=== PATIENT | female | born 1935 | race Caucasian/White ===

== ENCOUNTER 2016-09-05 09:13 | Inpatient (IN) | payer MEDICARE, BC ==
[2016-09-05 08:31] LABS: Glucose,Whole Blood 140 mg/dL (75-99)
[2016-09-05] MEDS: IPRATROPIUM-ALBUTEROL 3 ML NEB INHALATION SCH ×4 (08:45→21:10)
[~2016-09-05 09:13] MED LIST: ASPIRIN 325 MG TAB ONE; SODIUM CHLORIDE 0.9% 1,000 ML IV ONE
[2016-09-05] MEDS ORDERED: METOPROLOL TARTRATE 5 MG/5 ML VIAL IVP ONE (09:21)
[2016-09-05] MEDS ORDERED: ALPRAZolam 0.25 MG TAB ONE (09:22)
[2016-09-05] MEDS: NITROGLYCERIN SL TABS 0.4 MG TAB SUBLINGUAL ONE ×2 (09:22→11:31)
[2016-09-05] MEDS ORDERED: MIDAZOLAM 2 MG/2 ML VIAL IV ONE (10:20)
[2016-09-05] MEDS ORDERED: LIDOCAINE 2% INJ 20 MG/ML SQ ONE (10:24)
[2016-09-05] MEDS ORDERED: NITROGLYCERIN SL TABS 0.4 MG TAB SUBLINGUAL ONE (10:31)
[2016-09-05] MEDS: METOPROLOL TARTRATE 5 MG/5 ML VIAL IVP ONE ×2 (10:38→11:31)
[2016-09-05] MEDS ORDERED: BIVALIRUDIN 250 MG in SODIUM CHLORIDE 0.9% 50 ML IV ONE (10:44)
[2016-09-05] MEDS ORDERED: BIVALIRUDIN BOLUS 250 MG/50 ML IV ONE (10:44)
[2016-09-05] MEDS ORDERED: NITROGLYCERIN 1000MCG/10ML SYRINGE INTRACORON ONE (11:07)
[2016-09-05] MEDS ORDERED: CLOPIDOGREL 75 MG TAB PO ONE (11:10)
[2016-09-05] MEDS ORDERED: HYDROmorphone 2 MG/ML 1 ML SYRINGE IV ONE (11:14)
[2016-09-05] MEDS ORDERED: IODIXANOL 320 MG/ML 100 ML INTRAARTER ONE (11:15)
[2016-09-05] MEDS ORDERED: RX INFO: IV CONTRAST WAS GIVEN 1 EACH MISC MISCELLANE PRN (11:25)
[2016-09-05] MEDS ORDERED: NITROGLYCERIN SL TABS 0.4 MG TAB SUBLINGUAL PRN (11:25)
[2016-09-05] MEDS ORDERED: MAG HYDROX/AL HYDROX/SIMETH 30 ML CUP PO PRN (11:25)
[2016-09-05] MEDS ORDERED: ATROPINE SULFATE 0.1 MG/ML 10ML SYRINGE IV PRN (11:25)
[2016-09-05] MEDS ORDERED: ZOLPIDEM 5 MG TAB PO PRN (11:25)
[2016-09-05] MEDS ORDERED: DOCUSATE 100 MG CAP PO PRN (11:29)
[2016-09-05] MEDS ORDERED: CARBIDOPA-LEVODOPA ER 25-100MG 1 EACH TABLET.ER PO SCH (11:30)
[2016-09-05] MEDS ORDERED: amLODIPine 5 MG TAB PO STA (11:35)
[2016-09-05] MEDS: SODIUM CHLORIDE 0.9% 1,000 ML IV SCH (11:58)
[2016-09-05] MEDS: METOPROLOL SUCCINATE (ER) 50 MG TAB.ER.24H PO SCH (13:10)
[2016-09-05] MEDS ORDERED: ONDANSETRON 4 MG/2 ML VIAL IVP PRN (13:11)
[2016-09-05] MEDS ORDERED: ACETAMINOPHEN TAB 325 MG TAB PO PRN (13:11)
--- NOTE | 2016-09-05 13:15 | P.HPIM ---
History of Present Illness H&P Date: 09/05/16 Chief Complaint: Chest pain This is a 80-year-old female with past medical history noted below significant for coronary artery disease with prior stent placement who was transferred from [facility] to this hospital for left heart catheterization. Patient was complaining of intermittent chest pain for the past several weeks that was initially a typical in nature. She was evaluated and initially a 12- lead EKG showed no acute ischemic changes. Serial troponin were negative. Patient continued to have symptoms of angina and was concern about her known history of coronary artery disease plan was made to proceed with left heart catheterization. She underwent the procedure this morning. She is status post angioplasty and stenting to the LAD according to verbal report. She is doing fairly well right now. She denies any chest pain. He Review of Systems Review of system: 14 points review of systems were obtained and were negative except to what were mentioned in the HPI. Past Medical History Past Medical History: Coronary Artery Disease (CAD), Chest Pain / Angina, Heart Failure, Dementia, Diabetes Mellitus, Hyperlipidemia, Hypertension, Musculoskeletal Disorder, Neurologic Disorder, Osteoarthritis (OA), Pneumonia, Renal Disease Additional Past Medical History / Comment(s): Recent viral enteritis, currently tx for pneumonia per pt, vertigo, falls-fell recently, NIDDM type II, CKD stage IV, early onset parkinson's dx, Oa multiple joints, back pain, gout in great toe bilateral feet, cataract. History of Any Multi-Drug Resistant Organisms: None Reported Past Surgical History: Cholecystectomy, Heart Catheterization With Stent, Hysterectomy, Joint Replacement Additional Past Surgical History / Comment(s): 09/05/16 PCI with stent to cx. Other HX: 1989 PTCA main cx, 1996 PCI with stent to OM, 2010 PCI with stent to LAD, EGD/colonoscopy, bilateral total knees, varicose veing stripping bilaterally. Past Anesthesia/Blood Transfusion Reactions: Postoperative Nausea & Vomiting ( PONV) Date of Last Stent Placement:: 09/05/16 Past Psychological History: No Psychological Hx Reported Additional Psychological History / Comment(s): Pt is currently living alone. Her spouse is in [facility] for rehab after a fall with fractured ribs. Pt's gait is unsteady and she has been falling. Shannon Parker states pt is to discharge to [facility] for rehab. Pt no longer drives. Her selma takes her to appts at this time. Prior to his fall with rehab, her spouse could drive. Pt manages her own medications. She has been using a cane to ambulate. Smoking Status: Never smoker Past Alcohol Use History: None Reported Past Drug Use History: None Reported - Past Family History Father Family Medical History: Dementia Additional Family Medical History / Comment(s): Father had dementia and he shot himself. Mother Family Medical History: Cancer, CVA/TIA Additional Family Medical History / Comment(s): bowel ca Medications and Allergies Home Medications Medication Instructions Recorded Confirmed Type Allopurinol [Zyloprim] 300 mg PO DAILY 11/16/14 09/05/16 History Aspirin EC [Ecotrin Low Dose] 162 mg PO DAILY 11/16/14 09/05/16 History Cholecalciferol [Vitamin D3] 1,000 unit PO DAILY 11/16/14 09/05/16 History Docusate Sodium [Dulcolax Stool 200 mg PO DAILY PRN 11/16/14 09/05/16 History Softener] Enalapril [Vasotec] 5 mg PO QAM 11/16/14 09/05/16 History Multivitamins, Thera [Multivitamin 1 tab PO DAILY 11/16/14 09/05/16 History (formulary)] Simvastatin [Zocor] 40 mg PO [id number] 11/16/14 09/05/16 History traZODone HCL [Desyrel] 100 mg PO HS 11/16/14 09/05/16 History Calcium Citrate 500 mg PO DAILY 12/25/14 09/05/16 History Carbidopa-Levodopa ER 25-100Mg 1 tab PO TU 12/25/14 09/05/16 History [Sinemet CR 25-100 mg] Metoprolol Succinate [Toprol XL] 50 mg PO QAM 12/25/14 09/05/16 History Primidone [Mysoline] 50 mg PO DAILY 12/25/14 09/05/16 History Ipratropium-Albuterol Nebulize 3 ml INHALATION Q6HR 09/05/16 09/05/16 History [Duoneb 0.5 mg-3 mg/3 ml Soln] cefTRIAXone [Rocephin] 1,000 mg IM Q24HR 09/05/16 09/05/16 History glipiZIDE [Glucotrol] 5 mg PO AC-BRKFST 09/05/16 09/05/16 History Allergies Allergy/AdvReac Type Severity Reaction Status Date / Time iodine Allergy Rash/Hives Verified 09/05/16 06:46 morphine Allergy Unknown Verified 12/28/14 09:58 Penicillins AdvReac Swelling Verified 12/28/14 09:58 Physical Exam Vitals: Vital Signs Temp Pulse Pulse Resp BP Pulse Ox 09/05/16 12:40 96.6 F L 16 146/69 97 09/05/16 12:10 96.6 F L 16 156/73 95 09/05/16 11:55 96.6 F L 16 159/73 95 09/05/16 09:40 92 180/78 09/05/16 09:16 107 H 16 217/106 09/05/16 08:55 80 09/05/16 08:45 82 09/05/16 07:21 176/78 09/05/16 06:49 97.6 F 82 18 195/83 98 Intake and Output 09/04/16 09/05/16 09/05/16 22:59 06:59 14:59 Intake Total 405 Balance 405 Intake: IV 285 Oral 120 Other: Weight 65.317 kg General: The patient is awake and alert, in no distress Eye: there is normal conjunctiva bilaterally. Neck: The neck is supple, there is no JVD. Cardiovascular: Normal S1-S2, no S3-S4, no murmurs. Respiratory: Lungs clear to auscultation bilaterally Gastrointestinal: Abdomen is soft, nontender Musculoskeletal: There is no pedal edema. Neurological:. Speech is normal. Skin: Skin is warm and dry Results Labs: Abnormal Lab Results - Last 24 Hours (Table) 09/05/16 Range/Units 07:12 POC Glucose (mg/dL) 140 H (75-99) mg/dL Thrombosis Risk Factor Assmnt - Choose All That Apply Any of the Below Risk Factors Present?: Yes Each Factor Represents 1 point: Serious lung disease incl. pneumonia (< 1month) Other Risk Factors: Yes Each Risk Factor Represents 2 Points: Patient confined to bed Each Risk Factor Represents 3 Points: Age 75 years or older Other congenital or acquired thrombophilia - If yes, enter type in comment: No Thrombosis Risk Factor Assessment Total Risk Factor Score: 6 Thrombosis Risk Factor Assessment Level: High Risk Assessment and Plan Plan: 1. Coronary artery disease with recurrent angina status post left heart catheterization with stent placement to the LAD 2. Essential hypertension: Blood pressure well controlled 3. Mixed hyperlipidemia currently on Lipitor 80 mg at bedtime. We will check fasting lipid profile. 4. Type 2 diabetes mellitus, maintained on glipizide. Patient refused sliding scale insulin. 5. Parkinson's disease 6. Physical debility Today, I reviewed her medication list and lab work results. Continue optimize medical management. Subcu heparin for DVT prophylaxis. Repeat lab work in the morning. PT/OT consultation. Patient will be discharged to rehab as she would benefit from physical therapy given recent fall. Plan to discharge to [facility] of where her is currently for rehab.
[2016-09-05 14:34] VITALS: BMI 22.5
[2016-09-05 16:31] LABS: Glucose,Whole Blood 183 mg/dL (75-99)
[2016-09-05] MEDS: hydrALAZINE HCL 25 MG TAB PO SCH ×2 (16:49→20:17)
[2016-09-05 20:16] VITALS: RESP 18
[2016-09-05] MEDS: LISINOPRIL 20 MG TAB PO SCH (20:17)
[2016-09-05 20:24] LABS: Glucose,Whole Blood 188 mg/dL (75-99)
[2016-09-05] MEDS ORDERED: amLODIPine 5 MG TAB PO SCH (21:00)
[2016-09-05] MEDS ORDERED: ATORVASTATIN 80 MG TAB PO SCH (21:00)
[2016-09-05] MEDS ORDERED: traZODone HCL 100 MG TAB PO SCH (21:00)
--- NOTE | 2016-09-05 22:20 | CC ---
DATE OF SERVICE: 09/05/2016 PROCEDURE: Left heart catheterization, coronary angiography. Performed by: Dr. Elliot Celis. Clinical information: Mrs. Ирина Riziv is a 80-year-old lady with a known history of hypertension, diabetes, hypercholesterolemia, CAD with previous multivessel stenting. She also has developed parkinsonism and also some early dementia. In 2010, I performed stenting of 2 lesions within the LAD system. In 1996, I performed stenting of an obtuse marginal and the right coronary artery was dominant disease-free but circumflex was a large vessel. She has been doing fairly well, but presented to [facility] with episode of chest pain and also bronchitis-type picture. Troponins were normal. 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 She was transferred to [facility]. Risks, benefits, options, rationale were carefully explained to the patient and daughter. PROCEDURE NOTE: Under local anesthesia and strict aseptic precautions, a 6 Portuguese introducer was placed in the right femoral artery. Using standard Cristela catheters, I performed coronary angiography and a pigtail catheter was used to check LV pressures but LV gram was not performed. Patient had total occlusion of the obtuse marginal that was stented in 1996 and also a significant lesion in the mid circumflex and she was advised stenting that was performed expeditiously. CARDIAC CATHETERIZATION FINDINGS: The left ventricular end-diastolic pressure was 15 mmHg. There was no gradient across the aortic valve. CORONARY ANGIOGRAPHY FINDINGS: RIGHT CORONARY ARTERY: Technically a dominant vessel, has in the midportion moderate calcification about a 40% lesion and bifurcates distally into PDA and PLV, both of which supply a fair amount of myocardium. The RCA therefore is a dominant vessel with about a 40% mid lesion and a 20 to 30% proximal lesion. LEFT MAIN CORONARY ARTERY: A short, patent, disease-free vessel that bifurcates into LAD and circumflex. LEFT ANTERIOR DESCENDING CORONARY ARTERY: Good caliber vessel extends along the anterior wall. This vessel was stented in 2 areas. The entire LAD is widely patent in the proximal and midportion. The 2 stented segments are widely patent. Beyond the stented segment, there is a new area of about 50% narrowing after which the caliber improves. It runs all the way to the apex and supplies sizable amount of myocardium. The LAD therefore has about a 40% to 50% distal lesion, but the two mid lesions that were stented are widely patent. LEFT POSTERIOR CIRCUMFLEX CORONARY ARTERY: Technically a nondominant yet large caliber vessel that gives off a first obtuse marginal that is totally occluded and seems to fill late. This appears to be a chronic occlusion. There is another secondary vessel that comes off from the first obtuse marginal. This has a 40% to 50% narrowing and supplies a limited amount of myocardium. The continuation of circumflex in the AV groove in the midportion has a 95% stenosis, hazy but possibly some thrombus distally. This continues as posterolateral branch, and supplies a large amount of myocardium and appears to be a fair caliber. The mid circumflex therefore has a 95% stenosis and first obtuse marginal is totally occluded. LEFT VENTRICULOGRAM: This was not performed. FINAL IMPRESSION: This patient has a total occlusion of the first obtuse marginal that was stented in 1996. The left anterior descending coronary artery stented segments are widely patent. The circumflex in the midportion has a 95% stenosis. Filling pressures are acceptable. RECOMMENDATIONS: I am recommend intervention of the mid circumflex, which was a 95% stenosis. I would attempt what seems to be a chronic total occlusion of the first obtuse marginal that was stented in 1996. I proceeded to perform the procedure expeditiously.
--- NOTE | 2016-09-05 22:24 | PTCA ---
DATE OF SERVICE: 09/05/2016 PROCEDURE: PTCA and stenting of mid circumflex. PERFORMED BY: Dr. Elliot Celis. CLINICAL INFORMATION: Mrs. Ирина Rizvi is a 80-year-old lady with a known history of hypertension, diabetes, hypercholesterolemia, CAD with previous multivessel stenting. She also has developed parkinsonism and also some early dementia. In 2010, I performed stenting of 2 lesions within the LAD system. In 1996, I performed stenting of an obtuse marginal and the right coronary artery was dominant disease-free but circumflex was a large vessel. She has been doing fairly well, but presented to [facility] with episode of chest pain and also bronchitis-type picture. Troponins were normal. 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 She was transferred to [facility]. Risks, benefits, options, rationale were carefully explained to the patient and daughter. PROCEDURE NOTE: The existing 6 Lao introducer in the right femoral artery was used to perform the procedure. I used JL4-type guide catheter to cannulate the left coronary artery. BMW wire was used to cross the lesion. The mid circumflex area that had 95% stenosis that was predilated with a 3.0 caliber 15 mm long Trek balloon. Subsequently, a 12 mm long, 3.5 caliber Xience stent was deployed at 14 to 15 atmospheres. Patient had mild chest discomfort, but no significant new EKG changes. Excellent angiographic result was achieved without complication. Proximal to the stented segment there is a small area of haziness but did not look significant at all. I then advanced the same wire into the first obtuse marginal, but this was a total occlusion. I could not cross the lesion even with the help of a balloon. I therefore felt that it was not worth pursuing a chronic total occlusion that was stented 20 years ago. I discussed the findings and the results with the patient and her daughter in great detail. The sheath was then taken out and a Perclose device used to secure hemostasis. Because of some oozing, a FemoStop was applied. Excellent angiographic result without complication was noted. The patient received 600 mg of Plavix. She also received Angiomax bolus and infusion as per protocol. CONSCIOUS SEDATION was provided for 1 hour and 15 min with Versed and dilaudid. [facility]
--- NOTE | 2016-09-05 22:26 | LTR ---
September 05, 2016 RE: Ирина Rizvi Dear Dr. Green: Thank you for the opportunity to participate in the care of Mrs. Ирина Rizvi. I am pleased to report that she had a good angiographic result. I expect that she will be discharged later on today or tomorrow if she remains stable. As you recall she has multiple medical problems in the form of parkinsonism, hypertension, diabetes, hyperlipidemia, CAD with multivessel PCI. Prognosis remains guarded. Thank you for your referral and please call for questions. With kindest regards, Sincerely, GREGORY JOHNSON MD
[2016-09-05] MEDS: HEPARIN SODIUM,PORCINE 5,000 UNIT/ML 1 ML VIAL SQ SCH (23:29)
[2016-09-06] MEDS: IPRATROPIUM-ALBUTEROL 3 ML NEB INHALATION SCH ×3 (04:44→13:37)
[2016-09-06 06:10] LABS: Glucose,Whole Blood 112 mg/dL (75-99)
[2016-09-06 06:46] LABS: Basophils % (A) 0 %; CH 30.8; CHCM 35.9; Eosinophils % (A) 0 %; HCT 31.6 % (34.0-46.0); HDW 2.63; HGB 11.1 gm/dL (11.4-16.0); Luc # (Auto) 0.26; Luc % (Auto) 2; Lymphocytes # (A) 1.3 k/uL (1.0-4.8); Lymphocytes % (A) 12 %; MCH 30.1 pg (25.0-35.0); Mean Platelet Volume 7.7; Monocytes # (A) 0.6 k/uL (0-1.0); Monocytes % (A) 5 %; Neutrophils # (A) 8.9 k/uL (1.3-7.7); Neutrophils % (A) 80 %; RBC 3.68 m/uL (3.80-5.40); RDW 13.4 % (11.5-15.5); WBC 11.2 k/uL (3.8-10.6); WBC (Perox) 11.03
[2016-09-06] MEDS: SODIUM CHLORIDE 0.9% 1,000 ML IV SCH (06:47)
[2016-09-06 06:50] LABS: Calcium 9.4 mg/dL (8.4-10.2); Potassium 4.5 mmol/L (3.5-5.1)
[2016-09-06] MEDS ORDERED: glipiZIDE 5 MG TAB PO SCH (07:30)
[2016-09-06] MEDS: METOPROLOL SUCCINATE (ER) 50 MG TAB.ER.24H PO SCH (08:24)
[2016-09-06] MEDS: LISINOPRIL 20 MG TAB PO SCH (08:25)
[2016-09-06] MEDS: hydrALAZINE HCL 25 MG TAB PO SCH (08:25)
[2016-09-06] MEDS: HEPARIN SODIUM,PORCINE 5,000 UNIT/ML 1 ML VIAL SQ SCH (08:25)
[2016-09-06] MEDS ORDERED: PRIMIDONE 50 MG TAB PO SCH (09:00)
[2016-09-06] MEDS ORDERED: CLOPIDOGREL 75 MG TAB PO SCH (09:00)
[2016-09-06] MEDS ORDERED: ALLOPURINOL 100 MG TAB PO SCH (09:00)
[2016-09-06] MEDS ORDERED: ASPIRIN 81 MG CHEW PO SCH (09:00)
[2016-09-06 09:47] VITALS: TEMP 96.5
[2016-09-06 11:36] LABS: Glucose,Whole Blood 145 mg/dL (75-99)
[2016-09-06] MEDS ORDERED: MULTIVITAMINS, THERA 1 EACH TAB PO SCH (12:00)
[2016-09-06] MEDS ORDERED: CHOLECALCIFEROL 1,000 UNIT TAB PO SCH (12:00)
[2016-09-06] MEDS ORDERED: CALCIUM CARBONATE 500 MG CHEWABLE PO SCH (12:00)
--- NOTE | 2016-09-06 12:17 | P.PN ---
Subjective Principal diagnosis: Chest pain This is a 80-year-old female with known history of hypertension, diabetes, hyperlipidemia, coronary artery disease with prior multivessel stenting. Patient also developed Parkinsonism and mild dementia. She presented to [facility] with episode of chest pain as well as cough. Troponins came back to be normal. She had a recurrent episode of chest pain while in the hospital there and therefore was recommended to be transferred here where she underwent a cardiac catheterization with subsequent angioplasty and stenting of the circumflex artery yesterday by Dr. Parminder Celis. Patient was seen and examined this morning, denies any chest discomfort, breathing is stable, denies cough. Blood pressure 132/60 with a heart rate in the 70s. White blood cell count 11.2, hemoglobin 11.1, platelet count 266, potassium 4.5, BUN 21, creatinine 1.1. EKG shows normal sinus rhythm with no changes from post-PCI. Objective - Vital Signs Vital signs: Vital Signs Temp 96.5 F L 09/06/16 08:00 Pulse 74 09/06/16 09:12 Resp 18 09/06/16 08:00 BP 132/61 09/06/16 08:00 Pulse Ox 93 L 09/06/16 08:00 Intake & Output 09/05/16 09/06/16 09/06/16 18:59 06:59 18:59 Intake Total 765 600 360 Output Total 500 Balance 765 100 360 Weight 65.317 kg 66.2 kg Intake: IV 285 600 Sodium Chloride 0.9% 1, 600 000 ml @ 75 mls/hr IV . [id number] [facility] Rx#:[id number] Oral 480 360 Output: Urine 400 Emesis 100 Other: Voiding Method Toilet Toilet # Voids 1 0 - Exam PHYSICAL EXAMINATION: HEENT: Head is atraumatic, normocephalic. Pupils equal, round. Neck is supple. There is no elevated jugular venous pressure. HEART EXAMINATION: Heart S1, S2 normal. No murmur or gallop heard. CHEST EXAMINATION: Lungs are clear to auscultation and precussion. No chest wall tenderness is noted on palpation or with deep breathing. ABDOMEN: Soft, nontender. Bowel sounds are heard. No organomegaly noted. Right groin soft, no evidence of any hematoma. EXTREMITIES: 2+ peripheral pulses with no evidence of peripheral edema and no calf tenderness noted. NEUROLOGIC patient is awake, alert and oriented -3. . - Labs CBC & Chem 7: 09/06/16 05:50 09/06/16 05:50 Labs: Abnormal Lab Results - Last 24 Hours (Table) 09/05/16 09/05/16 09/06/16 Range/Units 16:29 20:23 05:50 WBC 11.2 H (3.8-10.6) k/uL RBC 3.68 L (3.80-5.40) m/uL Hgb 11.1 L (11.4-16.0) gm/dL Hct 31.6 L (34.0-46.0) % Neutrophils # 8.9 H (1.3-7.7) k/uL Sodium (137-145) mmol/L Chloride (98-107) mmol/L Carbon Dioxide (22-30) mmol/L BUN (7-17) mg/dL Creatinine (0.52-1.04) mg/dL Glucose (74-99) mg/dL POC Glucose (mg/dL) 183 H 188 H (75-99) mg/dL HDL Cholesterol (40-60) mg/dL 09/06/16 09/06/16 09/06/16 Range/Units 05:50 06:08 11:31 WBC (3.8-10.6) k/uL RBC (3.80-5.40) m/uL Hgb (11.4-16.0) gm/dL Hct (34.0-46.0) % Neutrophils # (1.3-7.7) k/uL Sodium 136 L (137-145) mmol/L Chloride 108 H (98-107) mmol/L Carbon Dioxide 21 L (22-30) mmol/L BUN 21 H (7-17) mg/dL Creatinine 1.18 H (0.52-1.04) mg/dL Glucose 119 H (74-99) mg/dL POC Glucose (mg/dL) 112 H 145 H (75-99) mg/dL HDL Cholesterol 33 L (40-60) mg/dL Assessment and Plan (1) Chest pain Status: Acute (2) Presence of stent in left circumflex coronary artery Status: Acute (3) Parkinson disease Status: Acute (4) Dementia Status: Acute (5) Diabetes mellitus Status: Acute (6) Hyperlipidemia Status: Acute (7) Hypertension Status: Acute Plan: From cardiology's perspective, patient may be able to be discharged home today when cleared by the primary. She will be discharged home on aspirin 81 mg daily , Lipitor 80 mg daily, Plavix 75 mg daily, lisinopril 20 mg one tablet by mouth twice a day, metoprolol succinate 50 mg daily, hydralazine 25 mg one tablet by mouth 3 times a day, Norvasc 5 mg daily, and sublingual nitroglycerin as needed for chest pain. Follow-up appointment will be made for her to see Dr. LISSETT Celis in the office one week post discharge. DNP note has been reviewed, I agree with a documented findings and plan of care. Patient was seen and examined.
--- NOTE | 2016-09-06 12:40 | XR ---
EXAMINATION TYPE: XR chest 2V DATE OF EXAM: 09/06/2016 12:36 PM COMPARISON: 08/29/2010 TECHNIQUE: PA and lateral views submitted. HISTORY: ECF placement FINDINGS: The lungs are clear and there is no pneumothorax, pleural effusion, or focal pneumonia. Degenerativ e change of the spine seen. Hyperinflation suggests COPD. Atherosclerotic change no overt failure. Bi apical pleural thickening. Linear changes left lung base most typical of atelectasis. IMPRESSION: 1. No acute process.
--- NOTE | 2016-09-06 13:17 | P.DS ---
Providers Date of admission: 09/05/16 09:13 Expected date of discharge: 09/06/16 Attending physician: Alhaji Chong Consults: 09/05/16 11:25 Consult Physician Routine Consulting Provider: [facility] Consult Reason/Comments: Post Interventional patient Do you want consulting provider notified?: Already Contacted Primary care physician: [facility] Course: 1. Coronary artery disease with recurrent angina status post left heart catheterization with stent placement to the mid circumflex 2. Essential hypertension: Blood pressure well controlled 3. Mixed hyperlipidemia currently on Lipitor 80 mg at bedtime. We will check fasting lipid profile. 4. Type 2 diabetes mellitus, maintained on glipizide. 5. Parkinson's disease 6. Physical debility: Patient will be discharged to [facility] for subacute rehab Please refer to the electronic chart and my H&P for further details about this hospitalization. Plan - Discharge Summary New Discharge Prescriptions: Aspirin 81 mg PO DAILY #30 chew Atorvastatin [Lipitor] 80 mg PO HS #30 tab Clopidogrel [Plavix] 75 mg PO DAILY #30 tab Lisinopril [Zestril] 20 mg PO BID #60 tab Nitroglycerin Sl Tabs [Nitrostat] 0.4 mg SUBLINGUAL Q5M PRN #25 tab PRN Reason: Chest Pain amLODIPine [Norvasc] 5 mg PO HS #30 tab Discharge Medication List Aspirin EC [Ecotrin Low Dose] 81 mg PO DAILY 11/16/14 [History] Cholecalciferol [Vitamin D3] 1,000 unit PO DAILY 11/16/14 [History] Docusate Sodium [Dulcolax Stool Softener] 200 mg PO DAILY PRN 11/16/14 [History] Multivitamins, Thera [Multivitamin (formulary)] 1 tab PO DAILY 11/16/14 [History ] hydrALAZINE HCL [Apresoline] 25 mg PO BID #60 tab 11/19/14 [Rx] Metoprolol Succinate [Toprol XL] 50 mg PO QAM 12/25/14 [History] Primidone [Mysoline] 50 mg PO DAILY 12/25/14 [History] Calcium Carbonate [Calcium] 600 mg PO DAILY 09/05/16 [History] Febuxostat [Uloric] 40 mg PO DAILY 09/05/16 [History] Furosemide 20 mg PO DAILY 09/05/16 [History] Potassium Chloride [Klor-Con 10] 10 meq PO DAILY 09/05/16 [History] glipiZIDE [Glucotrol] 5 mg PO AC-BRKFST 09/05/16 [History] Aspirin 81 mg PO DAILY #30 chew 09/06/16 [Rx] Atorvastatin [Lipitor] 80 mg PO HS #30 tab 09/06/16 [Rx] Clopidogrel [Plavix] 75 mg PO DAILY #30 tab 09/06/16 [Rx] Ipratropium-Albuterol Nebulize [Duoneb 0.5 mg-3 mg/3 ml Soln] 3 ml INHALATION RT -QID PRN #0 09/06/16 [Rx] Lisinopril [Zestril] 20 mg PO BID #60 tab 09/06/16 [Rx] Nitroglycerin Sl Tabs [Nitrostat] 0.4 mg SUBLINGUAL Q5M PRN #25 tab 09/06/16 [Rx ] amLODIPine [Norvasc] 5 mg PO HS #30 tab 09/06/16 [Rx] traZODone HCL [Desyrel] 100 mg PO HS PRN tab 09/06/16 [Rx] Follow up Appointment(s)/Referral(s): Teja Celis MD [STAFF PHYSICIAN] - 1 Week Alhaji Chong MD [STAFF PHYSICIAN] - 1 Week Discharge Disposition: TRANSFER TO SNF/ECF
[2016-09-06 14:02] VITALS: BP 133/63; PULSE 87
== END 2016-09-06 14:54 | DRG 247 ==
LOC: 6SEL 09:13
PROVIDERS: ADMIT Internal Medicine; ATTEND Internal Medicine
PROC: B2111ZZ Fluoroscopy of Multiple Coronary Arteries using Low Osmolar Contrast (ICD-10-PCS; 2016-09-05)
PROC: 027034Z Dilation of Coronary Artery, One Artery with Drug-eluting Intraluminal Device, Percutaneous Approach (ICD-10-PCS; principal; 2016-09-05 09:45)
PROC: 4A023N7 Measurement of Cardiac Sampling and Pressure, Left Heart, Percutaneous Approach (ICD-10-PCS; 2016-09-05 09:45)
DX: I25.119 Atherosclerotic heart disease of native coronary artery with unspecified angina pectoris (principal); N18.4 Chronic kidney disease, stage 4 (severe); I50.9 Heart failure, unspecified; I13.0 Hypertensive heart and chronic kidney disease with heart failure and stage 1 through stage 4 chronic kidney disease, or unspecified chronic kidney disease; E11.22 Type 2 diabetes mellitus with diabetic chronic kidney disease; F03.90 Unspecified dementia, unspecified severity, without behavioral disturbance, psychotic disturbance, mood disturbance, and anxiety; E78.2 Mixed hyperlipidemia; G20 Parkinson's disease; J40 Bronchitis, not specified as acute or chronic; M10.9 Gout, unspecified; M15.9 Polyosteoarthritis, unspecified; Z79.899 Other long term (current) drug therapy; Z81.8 Family history of other mental and behavioral disorders; Z88.5 Allergy status to narcotic agent; Z88.0 Allergy status to penicillin; Z88.8 Allergy status to other drugs, medicaments and biological substances; E78.00 Pure hypercholesterolemia, unspecified; Z79.84 Long term (current) use of oral hypoglycemic drugs; R29.6 Repeated falls; Z96.653 Presence of artificial knee joint, bilateral; Z95.5 Presence of coronary angioplasty implant and graft; Z60.2 Problems related to living alone
CPT/HCPCS: 71020; 80048; 80061; 83036; 85025; 93005; 93458; 94640

== ENCOUNTER 2016-12-19 16:18 | Inpatient (IN) | payer MEDICARE, BC, OTHER ==
[2016-12-19] MEDS ORDERED: SODIUM CHLORIDE 0.9% 1,000 ML IV STA (16:27)
--- NOTE | 2016-12-19 16:31 | ED ---
Chest Pain HPI - General Stated Complaint: Chest/abd.pain Time Seen by Provider: 12/19/16 16:18 Source: patient, EMS, RN notes reviewed, old records reviewed Mode of arrival: EMS - History of Present Illness Initial Comments: This is a 81-year-old female with dementia diabetes hypertension and ulcer disease who presents with complaints the onset this morning of chest pain. The chest pain started around 8:30 AM. The patient was given 2 nitroglycerin finally was to see and resolve the pain. She subsequently had nausea and vomiting. She is a poor historian. She also complained of dizziness and weakness. She was brought in for evaluation. MD Complaint: chest pain, other - Related Data Home Medications Medication Instructions Recorded Confirmed Cholecalciferol [Vitamin D3] 1,000 unit PO DAILY 11/16/14 12/19/16 Docusate Sodium [Dulcolax Stool 200 mg PO DAILY PRN 11/16/14 12/19/16 Softener] Multivitamins, Thera [Multivitamin 1 tab PO DAILY 11/16/14 12/19/16 (formulary)] Metoprolol Succinate [Toprol XL] 50 mg PO DAILY 12/25/14 12/19/16 Primidone [Mysoline] 50 mg PO TID 12/25/14 12/19/16 Calcium Carbonate [Calcium] 600 mg PO DAILY 09/05/16 12/19/16 Febuxostat [Uloric] 40 mg PO DAILY 09/05/16 12/19/16 Furosemide 20 mg PO DAILY 09/05/16 12/19/16 Potassium Chloride [Klor-Con 10] 10 meq PO DAILY 09/05/16 12/19/16 glipiZIDE [Glucotrol] 5 mg PO AC-BRKFST 09/05/16 12/19/16 ALPRAZolam [Xanax] 0.25 mg PO Q12H 12/19/16 12/19/16 Atorvastatin [Lipitor] 40 mg PO HS 12/19/16 12/19/16 Carbidopa-Levodopa 25-100 mg 1 tab PO DAILY 12/19/16 12/19/16 [Sinemet 25-100] Cyclobenzaprine [Flexeril] 10 mg PO Q8H PRN 12/19/16 12/19/16 Isosorbide Mononitrate ER [Imdur] 30 mg PO DAILY 12/19/16 12/19/16 Lisinopril [Zestril] 20 mg PO Q12H 12/19/16 12/19/16 Ondansetron [Zofran] 4 mg PO Q8HR PRN 12/19/16 12/19/16 hydrALAZINE HCL [Apresoline] 25 mg PO Q12H 12/19/16 12/19/16 traMADol HCL [Ultram] 50 mg PO Q8H PRN 12/19/16 12/19/16 traZODone HCL 150 mg PO HS 12/19/16 12/19/16 Previous Rx's Medication Instructions Recorded Aspirin 81 mg PO DAILY #30 chew 09/06/16 Clopidogrel [Plavix] 75 mg PO DAILY #30 tab 09/06/16 Ipratropium-Albuterol Nebulize 3 ml INHALATION RT-QID PRN #0 09/06/16 [Duoneb 0.5 mg-3 mg/3 ml Soln] Nitroglycerin Sl Tabs [Nitrostat] 0.4 mg SUBLINGUAL Q5M PRN #25 tab 09/06/16 amLODIPine [Norvasc] 5 mg PO HS #30 tab 09/06/16 Allergies Allergy/AdvReac Type Severity Reaction Status Date / Time Iodinated Contrast Media - Allergy Swelling/Ra Verified 12/19/16 17:55 Oral and sh morphine Allergy Unknown Verified 12/28/14 09:58 Penicillins Allergy Swelling/Ra Verified 12/19/16 17:55 sh Review of Systems ROS Statement: Those systems with pertinent positive or pertinent negative responses have been documented in the HPI. ROS Other: All systems not noted in ROS Statement are negative. Limitations: ROS unobtainable due to patients medical condition EKG Findings - EKG Results: EKG: interpreted by ERMD, sinus rhythm (EKG shows a sinus rhythm of 70 TN interval 190 QRS duration 84 QT/QTC of 3/435 nonspecific T-wave configuration.) Past Medical History Past Medical History: Coronary Artery Disease (CAD), Chest Pain / Angina, Heart Failure, Dementia, Diabetes Mellitus, Hyperlipidemia, Hypertension, Musculoskeletal Disorder, Neurologic Disorder, Osteoarthritis (OA), Pneumonia, Renal Disease Additional Past Medical History / Comment(s): Recent viral enteritis, currently tx for pneumonia per pt, vertigo, falls-fell recently, NIDDM type II, CKD stage IV, early onset parkinson's dx, Oa multiple joints, back pain, gout in great toe bilateral feet, cataract. History of Any Multi-Drug Resistant Organisms: VRE Date of last positivie culture/infection: 10/19/16 MDRO Source:: URINE VRE Past Surgical History: Cholecystectomy, Heart Catheterization With Stent, Hysterectomy, Joint Replacement Additional Past Surgical History / Comment(s): 09/05/16 PCI with stent to cx. Other HX: 1989 PTCA main cx, 1996 PCI with stent to OM, 2010 PCI with stent to LAD, EGD/colonoscopy, bilateral total knees, varicose veing stripping bilaterally. Past Anesthesia/Blood Transfusion Reactions: Postoperative Nausea & Vomiting ( PONV) Date of Last Stent Placement:: 09/05/16 Past Psychological History: No Psychological Hx Reported Additional Psychological History / Comment(s): Pt is currently living alone. Her spouse is in [facility] for rehab after a fall with fractured ribs. Pt's gait is unsteady and she has been falling. Shannon Parker states pt is to discharge to [facility] for rehab. Pt no longer drives. Her selma takes her to app at this time. Prior to his fall with rehab, her spouse could drive. Pt manages her own medications. She has been using a cane to ambulate. Smoking Status: Never smoker Past Alcohol Use History: None Reported Past Drug Use History: None Reported - Past Family History Father Family Medical History: Dementia Additional Family Medical History / Comment(s): Father had dementia and he shot himself. Mother Family Medical History: Cancer, CVA/TIA Additional Family Medical History / Comment(s): bowel ca General Exam - General Exam Comments Initial Comments: This is a well-developed well-nourished awake alert female General appearance: alert, in no apparent distress Head exam: Present: atraumatic, normocephalic, normal inspection Eye exam: Present: normal appearance, PERRL, EOMI. Absent: scleral icterus, conjunctival injection, periorbital swelling ENT exam: Present: mucous membranes dry Neck exam: Present: normal inspection. Absent: tenderness, meningismus, lymphadenopathy Respiratory exam: Present: normal lung sounds bilaterally. Absent: respiratory distress, wheezes, rales, rhonchi, stridor Cardiovascular Exam: Present: regular rate, normal rhythm, normal heart sounds. Absent: systolic murmur, diastolic murmur, rubs, gallop, clicks GI/Abdominal exam: Present: soft, tenderness (Mild discomfort with palpation over the epigastrium.), normal bowel sounds. Absent: distended, guarding, rebound, rigid, bruit, pulsatile mass, hernia Extremities exam: Present: normal inspection, full ROM, normal capillary refill. Absent: tenderness, pedal edema, joint swelling, calf tenderness Back exam: Present: normal inspection Neurological exam: Present: altered, oriented X3, CN II-XII intact Psychiatric exam: Present: normal mood, flat affect Skin exam: Present: warm, dry, intact, normal color. Absent: rash Course Vital Signs 12/19/16 12/19/16 12/19/16 16:34 19:04 20:25 Temperature 97.5 F L Pulse Rate 82 68 71 Respiratory 16 16 16 Rate Blood Pressure 117/56 124/60 131/59 O2 Sat by Pulse 99 2 L 98 Oximetry - Reevaluation(s) Reevaluation #1: 12/19/16 20:43 I did reevaluate the patient several occasions did discuss my with the patient' s family. Chest Pain MDM - MDM I did discuss [employer] the patient family as well as with Dr. Dc patient will be admitted with cardiology consultation. Patient does have elevated d-dimer but due to the renal function a CT a is not advisable at this time a VQ scan will be ordered. Disposition Clinical Impression: Chest pain, Non-ST elevation myocardial infarction (NSTEMI), Pulmonary embolism , Dehydration, Vomiting Disposition: ADMITTED IP TO THIS HOSP Referrals: Alhaji Chong MD [STAFF PHYSICIAN] - 1-2 days
[2016-12-19 16:43] LABS: Basophils % (A) 0 %; CH 30.7; CHCM 35.1; Eosinophils # (A) 0.1 k/uL (0-0.7); Eosinophils % (A) 2 %; HCT 29.6 % (34.0-46.0); HDW 2.87; HGB 10.6 gm/dL (11.4-16.0); Luc # (Auto) 0.15; Luc % (Auto) 2; Lymphocytes # (A) 1.2 k/uL (1.0-4.8); Lymphocytes % (A) 14 %; MCH 31.5 pg (25.0-35.0); MCHC 35.9 g/dL (31.0-37.0); MCV 87.9 fL (80.0-100.0); Mean Platelet Volume 7.6; Monocytes # (A) 0.3 k/uL (0-1.0); Monocytes % (A) 4 %; Neutrophils # (A) 6.4 k/uL (1.3-7.7); Neutrophils % (A) 78 %; RBC 3.37 m/uL (3.80-5.40); RDW 14.1 % (11.5-15.5); WBC 8.2 k/uL (3.8-10.6); WBC (Perox) 8.13
[2016-12-19 16:55] LABS: Calcium 9.4 mg/dL (8.4-10.2); Magnesium 1.5 mg/dL (1.6-2.3); Potassium 4.2 mmol/L (3.5-5.1); Total Bilirubin 0.3 mg/dL (0.2-1.3); Total Protein 5.7 g/dL (6.3-8.2)
[2016-12-19 16:59] LABS: Partial Thromboplastin Time 24.3 sec (22.0-30.0)
[2016-12-19 17:05] LABS: Creatine Kinase <20 U/L (30-135)
[2016-12-19 17:08] LABS: INR 1.1 (<1.1); Prothrombin Time 11.2 sec (9.0-12.0)
[2016-12-19 17:17] LABS: Creatine Kinase MB 0.3 ng/mL (0.0-2.4)
--- NOTE | 2016-12-19 17:23 | XR ---
EXAMINATION TYPE: XR chest 2V DATE OF EXAM: 12/19/2016 COMPARISON: NONE HISTORY: Chest pain TECHNIQUE: Frontal and lateral views of the chest are obtained. FINDINGS: There is some infiltrate behind the heart in the left lower lobe. There is slight blunting of left costophrenic angle. There is no heart failure. There are are no hilar masses. Thoracic aorta is atheromatous. There are chest leads. IMPRESSION: There is some chronic infiltrate and pleural reaction in the left lower lobe is worse th an last exam. No heart failure.
[2016-12-19 17:25] LABS: Troponin I 0.099 ng/mL (0.000-0.034)
[2016-12-19] MEDS ORDERED: MAGNESIUM SULFATE-D5W PMX 1 GM in DEXTROSE/WATER 1 100ML.BAG IVPB ONE (18:04)
[2016-12-19 19:01] LABS: Amorphous Sediment,Urine Rare /hpf; Appearance,Urine Cloudy (Clear); Bacteria,Urine Rare /hpf; Bilirubin,Urine Negative (Negative); Glucose,Urine (UA) Negative (Negative); Ketones,Urine Negative (Negative); Leukocyte Esterase,Urine Large (Negative); Mucus,Urine Rare /hpf; Nitrite,Urine Negative (Negative); PH, Urine 5.5 (5.0-8.0); Particle Count 20817; Protein,Urine 2+ (Negative); RBC,Urine 2 /hpf (0-5); Specific Gravity,Urine 1.011 (1.001-1.035); Squamous Epithelial Cell,Urine 15 /hpf (0-4); UA Billing (MACRO vs. MICRO) MICRO; WBC,Urine 33 /hpf (0-5)
[2016-12-19] MEDS ORDERED: HEPARIN SODIUM,PORCINE 5,000 UNIT/ML 1 ML VIAL IV STA (19:54)
[2016-12-19] MEDS ORDERED: NITROGLYCERIN SL TABS 0.4 MG TAB SUBLINGUAL PRN ×2 (20:47→20:51)
--- NOTE | 2016-12-19 20:47 | ED ---
Medical Decision Making - Medical Decision Making the troponin is likely on the basis of renal insufficiency. - Lab Data Result diagrams: 12/19/16 16:30 12/19/16 16:30 Lab Results 12/19/16 12/19/16 12/19/16 Range/Units 16:30 16:30 16:30 WBC 8.2 (3.8-10.6) k/uL RBC 3.37 L (3.80-5.40) m/uL Hgb 10.6 L (11.4-16.0) gm/dL Hct 29.6 L (34.0-46.0) % MCV 87.9 (80.0-100.0) fL MCH 31.5 (25.0-35.0) pg MCHC 35.9 (31.0-37.0) g/dL RDW 14.1 (11.5-15.5) % Plt Count 307 (150-450) k/uL Neutrophils % 78 % Lymphocytes % 14 % Monocytes % 4 % Eosinophils % 2 % Basophils % 0 % Neutrophils # 6.4 (1.3-7.7) k/uL Lymphocytes # 1.2 (1.0-4.8) k/uL Monocytes # 0.3 (0-1.0) k/uL Eosinophils # 0.1 (0-0.7) k/uL Basophils # 0.0 (0-0.2) k/uL PT (9.0-12.0) sec INR (<1.1) APTT (22.0-30.0) sec D-Dimer (<0.60) mg/L FEU Sodium 140 (137-145) mmol/L Potassium 4.2 (3.5-5.1) mmol/L Chloride 103 (98-107) mmol/L Carbon Dioxide 26 (22-30) mmol/L Anion Gap 11 mmol/L BUN 23 H (7-17) mg/dL Creatinine 1.50 H (0.52-1.04) mg/dL Est GFR (MDRD) Af Amer 41 (>60 ml/min/1.73 sqM) Est GFR (MDRD) Non-Af 33 (>60 ml/min/1.73 sqM) Glucose 90 (74-99) mg/dL Calcium 9.4 (8.4-10.2) mg/dL Magnesium 1.5 L (1.6-2.3) mg/dL Total Bilirubin 0.3 (0.2-1.3) mg/dL AST 18 (14-36) U/L ALT 21 (9-52) U/L Alkaline Phosphatase 93 (38-126) U/L Total Creatine Kinase <20 L (30-135) U/L CK-MB (CK-2) 0.3 (0.0-2.4) ng/mL CK-MB (CK-2) Rel Index 0.0 Troponin I 0.099 H* (0.000-0.034) ng/mL NT-Pro-B Natriuret Pep pg/mL Total Protein 5.7 L (6.3-8.2) g/dL Albumin 2.8 L (3.5-5.0) g/dL Amylase 30 (30-110) U/L Lipase 63 (23-300) U/L Urine Color Urine Appearance (Clear) Urine pH (5.0-8.0) Ur Specific [place] (1.001-1.035) Urine Protein (Negative) Urine Glucose (UA) (Negative) Urine Ketones (Negative) Urine Blood (Negative) Urine Nitrite (Negative) Urine Bilirubin (Negative) Urine Urobilinogen (<2.0) mg/dL Ur Leukocyte Esterase (Negative) Urine RBC (0-5) /hpf Urine WBC (0-5) /hpf Ur Squamous Epith Cells (0-4) /hpf Amorphous Sediment (None) /hpf Urine Bacteria (None) /hpf Hyaline Casts (0-2) /lpf Urine Mucus (None) /hpf 12/19/16 12/19/16 12/19/16 Range/Units 16:30 16:30 18:30 WBC (3.8-10.6) k/uL RBC (3.80-5.40) m/uL Hgb (11.4-16.0) gm/dL Hct (34.0-46.0) % MCV (80.0-100.0) fL MCH (25.0-35.0) pg MCHC (31.0-37.0) g/dL RDW (11.5-15.5) % Plt Count (150-450) k/uL Neutrophils % % Lymphocytes % % Monocytes % % Eosinophils % % Basophils % % Neutrophils # (1.3-7.7) k/uL Lymphocytes # (1.0-4.8) k/uL Monocytes # (0-1.0) k/uL Eosinophils # (0-0.7) k/uL Basophils # (0-0.2) k/uL PT 11.2 (9.0-12.0) sec INR 1.1 (<1.1) APTT 24.3 (22.0-30.0) sec D-Dimer 5.83 H (<0.60) mg/L FEU Sodium (137-145) mmol/L Potassium (3.5-5.1) mmol/L Chloride (98-107) mmol/L Carbon Dioxide (22-30) mmol/L Anion Gap mmol/L BUN (7-17) mg/dL Creatinine (0.52-1.04) mg/dL Est GFR (MDRD) Af Amer (>60 ml/min/1.73 sqM) Est GFR (MDRD) Non-Af (>60 ml/min/1.73 sqM) Glucose (74-99) mg/dL Calcium (8.4-10.2) mg/dL Magnesium (1.6-2.3) mg/dL Total Bilirubin (0.2-1.3) mg/dL AST (14-36) U/L ALT (9-52) U/L Alkaline Phosphatase (38-126) U/L Total Creatine Kinase (30-135) U/L CK-MB (CK-2) (0.0-2.4) ng/mL CK-MB (CK-2) Rel Index Troponin I (0.000-0.034) ng/mL NT-Pro-B Natriuret Pep 1340 pg/mL Total Protein (6.3-8.2) g/dL Albumin (3.5-5.0) g/dL Amylase (30-110) U/L Lipase (23-300) U/L Urine Color Yellow Urine Appearance Cloudy H (Clear) Urine pH 5.5 (5.0-8.0) Ur Specific [place] 1.011 (1.001-1.035) Urine Protein 2+ H (Negative) Urine Glucose (UA) Negative (Negative) Urine Ketones Negative (Negative) Urine Blood Negative (Negative) Urine Nitrite Negative (Negative) Urine Bilirubin Negative (Negative) Urine Urobilinogen 2.0 (<2.0) mg/dL Ur Leukocyte Esterase Large H (Negative) Urine RBC 2 (0-5) /hpf Urine WBC 33 H (0-5) /hpf Ur Squamous Epith Cells 15 H (0-4) /hpf Amorphous Sediment Rare H (None) /hpf Urine Bacteria Rare H (None) /hpf Hyaline Casts 14 H (0-2) /lpf Urine Mucus Rare H (None) /hpf Critical Care Time Critical Care Time: Yes Critical Care Time: 31 minutes of critical care time which includes initial presentation with monitoring the EMS run and discussed with paramedics history physical labs and x -rays discuss with the patient family and several occasions old charting documentation above discussion with the admitting physician and admission orders. Disposition Clinical Impression: Chest pain, Non-ST elevation myocardial infarction (NSTEMI), Pulmonary embolism , Dehydration, Vomiting, Renal insufficiency Disposition: ADMITTED IP TO THIS HOSP Referrals: Alhaji Chong MD [STAFF PHYSICIAN] - 1-2 days
[2016-12-19] MEDS ORDERED: ONDANSETRON 4 MG/2 ML VIAL IVP PRN (20:50)
[2016-12-19] MEDS ORDERED: IPRATROPIUM-ALBUTEROL 3 ML NEB INHALATION PRN (20:51)
[2016-12-19] MEDS ORDERED: traMADol 50 MG TAB PO PRN (20:51)
[2016-12-19] MEDS ORDERED: CYCLOBENZAPRINE 10 MG TAB PO PRN (20:51)
[2016-12-19] MEDS ORDERED: DOCUSATE 100 MG CAP PO PRN (20:51)
[2016-12-19] MEDS ORDERED: ALPRAZolam 0.25 MG TAB PO SCH (21:00)
[2016-12-19] MEDS: HEPARIN SODIUM,PORCINE/D5W PMX 25,000 UNIT in DEXTROSE/WATER 1 500ML.BAG IV SCH (21:16)
[2016-12-19] MEDS ORDERED: ALPRAZolam 0.25 MG TAB PO PRN (22:12)
[2016-12-19] MEDS: INSULIN LISPRO (humaLOG) 300 UNIT/3 ML VIAL SQ SCH (22:20)
[2016-12-19] MEDS: traZODone HCL 50 MG TAB PO SCH (22:21)
[2016-12-19] MEDS: PRIMIDONE 50 MG TAB PO SCH (22:21)
[2016-12-19] MEDS: amLODIPine 5 MG TAB PO SCH (22:21)
[2016-12-19] MEDS: hydrALAZINE HCL 25 MG TAB PO SCH (22:21)
[2016-12-19] MEDS: ATORVASTATIN 40 MG TAB PO SCH (22:21)
[2016-12-19] MEDS: LISINOPRIL 20 MG TAB PO SCH (22:21)
[2016-12-20 00:01] LABS: Creatine Kinase <20 U/L (30-135)
[2016-12-20 00:13] LABS: Creatine Kinase MB 0.3 ng/mL (0.0-2.4)
[2016-12-20 00:35] LABS: Troponin I 0.079 ng/mL (0.000-0.034)
[2016-12-20] MEDS: SODIUM CHLORIDE 0.9% 1,000 ML IV SCH ×3 (00:47→16:55)
[2016-12-20 05:19] LABS: Basophils % (A) 1 %; CHCM 33.9; Eosinophils # (A) 0.2 k/uL (0-0.7); Eosinophils % (A) 4 %; HCT 24.8 % (34.0-46.0); HDW 2.83; Luc # (Auto) 0.12; Luc % (Auto) 3; Lymphocytes # (A) 0.9 k/uL (1.0-4.8); Lymphocytes % (A) 20 %; MCHC 34.9 g/dL (31.0-37.0); MCV 88.8 fL (80.0-100.0); Mean Platelet Volume 7.3; Monocytes # (A) 0.2 k/uL (0-1.0); Monocytes % (A) 5 %; Neutrophils # (A) 3.1 k/uL (1.3-7.7); Neutrophils % (A) 68 %; RBC 2.79 m/uL (3.80-5.40); RDW 14.1 % (11.5-15.5); WBC 4.6 k/uL (3.8-10.6); WBC (Perox) 4.69
[2016-12-20 05:27] LABS: HGB 8.6 gm/dL (11.4-16.0)
[2016-12-20 05:40] LABS: Creatine Kinase <20 U/L (30-135)
[2016-12-20 05:52] LABS: Calcium 8.4 mg/dL (8.4-10.2); Magnesium 1.8 mg/dL (1.6-2.3); Potassium 3.5 mmol/L (3.5-5.1)
[2016-12-20 05:53] LABS: Creatine Kinase MB 0.3 ng/mL (0.0-2.4)
[2016-12-20 05:57] LABS: Troponin I 0.065 ng/mL (0.000-0.034)
[2016-12-20 06:05] LABS: Glucose,Whole Blood 81 mg/dL (75-99)
[2016-12-20] MEDS: INSULIN LISPRO (humaLOG) 300 UNIT/3 ML VIAL SQ SCH ×4 (06:08→21:15)
[2016-12-20] MEDS: glipiZIDE 5 MG TAB PO SCH (06:08)
[2016-12-20] MEDS: METOPROLOL SUCCINATE (ER) 50 MG TAB.ER.24H PO SCH (08:54)
[2016-12-20] MEDS: FUROSEMIDE 20 MG TAB PO SCH (08:54)
[2016-12-20] MEDS: hydrALAZINE HCL 25 MG TAB PO SCH ×2 (08:54→21:16)
[2016-12-20] MEDS: ISOSORBIDE MONONITRATE ER 30 MG TAB.ER.24H PO SCH (08:54)
[2016-12-20] MEDS: POTASSIUM CHLORIDE ER 10 MEQ TAB.ER.PRT PO SCH (08:54)
[2016-12-20] MEDS: PRIMIDONE 50 MG TAB PO SCH ×3 (08:54→21:16)
[2016-12-20] MEDS: LISINOPRIL 20 MG TAB PO SCH ×2 (08:54→21:16)
[2016-12-20] MEDS: CLOPIDOGREL 75 MG TAB PO SCH (08:54)
[2016-12-20] MEDS: CARBIDOPA-LEVODOPA 25-100 MG 1 EACH TAB PO SCH (08:55)
[2016-12-20] MEDS ORDERED: ASPIRIN 325 MG TAB PO SCH (09:00)
[2016-12-20] MEDS ORDERED: ALLOPURINOL 100 MG TAB PO SCH (09:00)
[2016-12-20] MEDS ORDERED: ASPIRIN 81 MG CHEW PO SCH (09:00)
[2016-12-20 09:07] LABS: Hemoglobin A1C 5.5 % (4.2-6.1)
--- NOTE | 2016-12-20 11:05 | P.CNPUL ---
History of Present Illness Consult date: 12/20/16 Requesting physician: Rodrigo Dc Reason for consult: dyspnea Chief complaint: Chest pain History of present illness: This is a pleasant 81-year-old female patient who follows with Dr. Green as her primary care physician. She has a history of dementia, diabetes mellitus, hypertension, congestive heart failure, hyperlipidemia, osteoarthritis, chronic kidney disease stage IV. She also has a history of coronary artery disease with most recent stent placement in August 2016 with a stent to the circumflex. She has a prior history of stents to the obtuse marginal branch and to the left anterior descending artery in 2010. She is on Plavix and aspirin. She is a lifelong nonsmoker with no prior pulmonary disease. She presented here yesterday with complaints of chest pain. She was given 2 sublingual nitroglycerin which did help with the pain. She subsequently developed nausea and vomiting. EMS was called and she was brought here to the emergency room. Her troponins were 0.079 and 0.065. She does have a current creatinine of 1.19 him a it was 1.50 on admission. There was a d-dimer of 5.83 but based on her renal function no CT angiogram was performed. The plan is for a VQ scan today. She was initiated on a heparin drip and at one point the PTT was greater than 200 and the protocol was followed. Her initial hemoglobin was 10.6 but is down to 8.6 this morning. Urinalysis also revealed a cloudy sample with large amount of leukocytes. He is seen today in consultation. She is currently awake and alert in no acute distress. She denies any worsening shortness of breath, cough or congestion. No chest pain currently. The patient does have a history of Parkinson's/dementia and is somewhat of a poor historian. She is maintaining good O2 saturations in the high 90s on 2 L/m per nasal cannula. She is afebrile. She's been hemodynamically stable. Chest x-ray shows some blunting of the costophrenic angle on the left with some chronic changes. Review of Systems 14 point review of system was conducted. All negative other than as mentioned in the HPI. Past Medical History Past Medical History: Coronary Artery Disease (CAD), Chest Pain / Angina, Heart Failure, Dementia, Diabetes Mellitus, Hyperlipidemia, Hypertension, Musculoskeletal Disorder, Neurologic Disorder, Osteoarthritis (OA), Pneumonia, Renal Disease Additional Past Medical History / Comment(s): Recent viral enteritis, currently tx for pneumonia per pt, vertigo, falls-fell recently, NIDDM type II, CKD stage IV, early onset parkinson's dx, Oa multiple joints, back pain, gout in great toe bilateral feet, cataract. History of Any Multi-Drug Resistant Organisms: VRE Date of last positivie culture/infection: 10/19/16 MDRO Source:: URINE VRE Past Surgical History: Cholecystectomy, Heart Catheterization With Stent, Hysterectomy, Joint Replacement Additional Past Surgical History / Comment(s): 09/05/16 PCI with stent to cx. Other HX: 1989 PTCA main cx, 1996 PCI with stent to OM, 2010 PCI with stent to LAD, EGD/colonoscopy, bilateral total knees, varicose veing stripping bilaterally. Past Anesthesia/Blood Transfusion Reactions: Postoperative Nausea & Vomiting ( PONV) Date of Last Stent Placement:: 09/05/16 Past Psychological History: No Psychological Hx Reported Additional Psychological History / Comment(s): Pt is currently living alone. Her spouse is in [facility] for rehab after a fall with fractured ribs. Pt's gait is unsteady and she has been falling. Shannon Parker states pt is to discharge to [facility] for rehab. Pt no longer drives. Her selma takes her to [facility] at this time. Prior to his fall with rehab, her spouse could drive. Pt manages her own medications. She has been using a cane to ambulate. Smoking Status: Never smoker - Past Family History Father Family Medical History: Dementia Additional Family Medical History / Comment(s): Father had dementia and he shot himself. Mother Family Medical History: Cancer, CVA/TIA Additional Family Medical History / Comment(s): bowel ca Medications and Allergies Home Medications Medication Instructions Recorded Confirmed Type Cholecalciferol [Vitamin D3] 1,000 unit PO DAILY 11/16/14 12/19/16 History Docusate Sodium [Dulcolax Stool 200 mg PO DAILY PRN 11/16/14 12/19/16 History Softener] Multivitamins, Thera [Multivitamin 1 tab PO DAILY 11/16/14 12/19/16 History (formulary)] Metoprolol Succinate [Toprol XL] 50 mg PO DAILY 12/25/14 12/19/16 History Primidone [Mysoline] 50 mg PO TID 12/25/14 12/19/16 History Calcium Carbonate [Calcium] 600 mg PO DAILY 09/05/16 12/19/16 History Febuxostat [Uloric] 40 mg PO DAILY 09/05/16 12/19/16 History Furosemide 20 mg PO DAILY 09/05/16 12/19/16 History Potassium Chloride [Klor-Con 10] 10 meq PO DAILY 09/05/16 12/19/16 History glipiZIDE [Glucotrol] 5 mg PO AC-BRKFST 09/05/16 12/19/16 History ALPRAZolam [Xanax] 0.25 mg PO Q12H 12/19/16 12/19/16 History Atorvastatin [Lipitor] 40 mg PO HS 12/19/16 12/19/16 History Carbidopa-Levodopa 25-100 mg 1 tab PO DAILY 12/19/16 12/19/16 History [Sinemet 25-100] Cyclobenzaprine [Flexeril] 10 mg PO Q8H PRN 12/19/16 12/19/16 History Isosorbide Mononitrate ER [Imdur] 30 mg PO DAILY 12/19/16 12/19/16 History Lisinopril [Zestril] 20 mg PO Q12H 12/19/16 12/19/16 History Ondansetron [Zofran] 4 mg PO Q8HR PRN 12/19/16 12/19/16 History hydrALAZINE HCL [Apresoline] 25 mg PO Q12H 12/19/16 12/19/16 History traMADol HCL [Ultram] 50 mg PO Q8H PRN 12/19/16 12/19/16 History traZODone HCL 150 mg PO HS 12/19/16 12/19/16 History Allergies Allergy/AdvReac Type Severity Reaction Status Date / Time Iodinated Contrast Media - Allergy Swelling/Ra Verified 12/19/16 17:55 Oral and sh morphine Allergy Unknown Verified 12/28/14 09:58 Penicillins Allergy Swelling/Ra Verified 12/19/16 17:55 sh Physical Exam Vitals: Vital Signs Temp Pulse Pulse Resp BP BP Pulse Ox 12/20/16 08:57 97.6 F 75 16 129/62 99 12/20/16 08:31 74 94 L 12/20/16 03:05 96.1 F L 67 16 108/52 99 12/19/16 23:32 96.6 F L 67 16 141/64 100 12/19/16 21:45 97.5 F L 70 16 142/63 98 12/19/16 21:37 97.9 F 68 16 124/65 97 12/19/16 20:47 98 12/19/16 20:25 71 16 131/59 98 12/19/16 19:04 68 16 124/60 2 L 12/19/16 16:34 97.5 F L 82 16 117/56 99 Intake and Output 12/19/16 12/20/16 12/20/16 22:59 06:59 14:59 Intake Total 884 1429.724 Output Total 250 Balance 884 1429.724 -250 Intake: IV 884 980 Heparin Sodium,Porcine/ 84 180 D5w Pmx 25,000 unit In Dextrose/Water 1 500ml. bag @ 18 UNITS/KG/HR 27. 75 mls/hr IV .Q18H2M RAJANI Rx#:[id number] Sodium Chloride 0.9% 1, 800 800 000 ml @ 100 mls/hr IV . Q10H RAJANI Rx#:[id number] Intake, IV Titration 449.724 Amount Heparin Sodium,Porcine/ 449.724 D5w Pmx 25,000 unit In Dextrose/Water 1 500ml. bag @ 18 UNITS/KG/HR 27. 75 mls/hr IV .Q18H2M RAJANI Rx#:[id number] Output: Urine 250 Other: Voiding Method Diaper Toilet # Voids 1 Weight 77.111 kg 53.5 kg GENERAL EXAM: Alert, comfortable in no apparent distress. HEAD: Normocephalic. EYES: Normal reaction of pupils, equal size. NOSE: Clear with pink turbinates. THROAT: No erythema or exudates. NECK: No masses, no JVD. CHEST: No chest wall deformity. LUNGS: Equal air entry with crackles in the left lung base.. CVS: S1 and S2 normal with no audible murmurs, regular rhythm. ABDOMEN: No hepatosplenomegaly, normal bowel sounds, no guarding or rigidity. Extremities: There is no peripheral edema. No clubbing, no cyanosis. Peripheral pulses are intact. Results - Laboratory Findings CBC and BMP: 12/20/16 04:12 12/20/16 04:12 PT/INR, D-dimer PT 11.2 sec (9.0-12.0) 12/19/16 16:30 INR 1.1 (<1.1) 12/19/16 16:30 D-Dimer 5.83 mg/L FEU (<0.60) H 12/19/16 16:30 Abnormal lab findings: Abnormal Labs 12/19/16 12/19/16 12/19/16 16:30 16:30 16:30 RBC 3.37 L Hgb 10.6 L Hct 29.6 L Lymphocytes # APTT D-Dimer Chloride BUN 23 H Creatinine 1.50 H Magnesium 1.5 L Total Creatine Kinase <20 L Troponin I 0.099 H* Total Protein 5.7 L Albumin 2.8 L HDL Cholesterol Urine Appearance Urine Protein Ur Leukocyte Esterase Urine WBC Ur Squamous Epith Cells Amorphous Sediment Urine Bacteria Hyaline Casts Urine Mucus 12/19/16 12/19/16 12/19/16 16:30 18:30 23:03 RBC Hgb Hct Lymphocytes # APTT D-Dimer 5.83 H Chloride BUN Creatinine Magnesium Total Creatine Kinase <20 L Troponin I 0.079 H* Total Protein Albumin HDL Cholesterol Urine Appearance Cloudy H Urine Protein 2+ H Ur Leukocyte Esterase Large H Urine WBC 33 H Ur Squamous Epith Cells 15 H Amorphous Sediment Rare H Urine Bacteria Rare H Hyaline Casts 14 H Urine Mucus Rare H 12/20/16 12/20/16 12/20/16 01:56 04:12 04:12 RBC Hgb Hct Lymphocytes # APTT >200.0 H* D-Dimer Chloride 108 H BUN 23 H Creatinine 1.19 H Magnesium Total Creatine Kinase <20 L Troponin I 0.065 H* Total Protein Albumin HDL Cholesterol 23 L Urine Appearance Urine Protein Ur Leukocyte Esterase Urine WBC Ur Squamous Epith Cells Amorphous Sediment Urine Bacteria Hyaline Casts Urine Mucus 12/20/16 12/20/16 04:12 05:31 RBC 2.79 L Hgb 8.6 L D Hct 24.8 L Lymphocytes # 0.9 L APTT 143.0 H* D-Dimer Chloride BUN Creatinine Magnesium Total Creatine Kinase Troponin I Total Protein Albumin HDL Cholesterol Urine Appearance Urine Protein Ur Leukocyte Esterase Urine WBC Ur Squamous Epith Cells Amorphous Sediment Urine Bacteria Hyaline Casts Urine Mucus - Diagnostic Findings Chest x-ray: image reviewed Assessment and Plan Plan: Impression: #1 Chest pain in a patient with a history of coronary artery disease in multiple stent placements, most recently to the circumflex artery in August 2016. Previous stent placements to the LAD and obtuse marginal branch. Mildly elevated troponins possibly related to acute on chronic renal failure versus acute coronary syndrome. #2 Acute on chronic renal failure initial creatinine 1.50, currently 1.19. #3 Elevated d-dimer at 5.83, ventilation/perfusion scan pending. #4 Acute on chronic anemia initial hemoglobin 10.6, currently 8.6. #5 Chronic infiltrate with pleural reaction of the left lower lobe. #6 Hypertension. #7 Hyperlipidemia. #8 Diabetes mellitus. #9 Parkinson's dementia. #10 Poor overall functional performance based on the above-mentioned multiple comorbidities. Plan: The patient was seen and evaluated by Dr. Forbes. Her chest x-ray and labs were reviewed. We will await the ventilation perfusion scan which may or may not be useful especially with chronic changes of the left lower lobe. Consider doppler of the bilateral lower extremities. In the interim, she'll remain on a heparin drip. Cardiology is been consulted as well. We'll continue with bronchodilators as needed. We will increase her activity as tolerated. We will continue to follow. Time with Patient: Greater than 30
[2016-12-20 11:22] LABS: Glucose,Whole Blood 84 mg/dL (75-99)
--- NOTE | 2016-12-20 11:30 | NM ---
EXAMINATION TYPE: NM pul vent and perfuse DATE OF EXAM: 12/20/2016 COMPARISON: Chest x-ray 12/19/2016 HISTORY: Shortness of breath TECHNIQUE: Utilizing inhalation of 71.1 mCi Tc 99m DTPA aerosol and intravenous injection of 5.44 mC i of Tc 99m MAA, ventilation and perfusion images are acquired post injection in multiple projections . FINDINGS: There is a matched defect within the left lower lobe which corresponds to the chest x-ray abnormality compatible with a triple match. IMPRESSION: Triple match left lung base compatible with intermediate probability for pulmonary embolism by PIOPED criteria.
[2016-12-20] MEDS: MULTIVITAMINS, THERA 1 EACH TAB PO SCH (11:48)
[2016-12-20] MEDS: CHOLECALCIFEROL 1,000 UNIT TAB PO SCH (11:48)
[2016-12-20] MEDS: CALCIUM CARBONATE 500 MG CHEWABLE PO SCH (11:48)
--- NOTE | 2016-12-20 11:57 | P.PN ---
Subjective Principal diagnosis: Chest pain This is a pleasant 81-year-old female with history of hypertension, diabetes, hyperlipidemia, coronary artery disease with recent stent placement in August of this year with a stent to the circumflex. She follows with Dr. Parminder Celis in the office. Patient also has prior history of stents to the obtuse marginal branch and to the LAD. Patient also has history of Parkinson's, and dementia, somewhat a poor historian. Patient presented to the hospital with symptoms of chest discomfort. She states that the pain started in the center of her chest and radiated through to her back. She did have some mild associated shortness of breath. Patient was given 2 sublingual nitroglycerin which did help with the pain. EKG on arrival here showed a normal sinus rhythm with nonspecific ST-T wave changes in the anterior leads. Subsequent EKG performed this morning showed a normal sinus rhythm with ST-T wave changes in the anterior lateral leads. Chest x-ray revealed a chronic infiltrate and pleural reaction to the left lower lobe. Hemoglobin on arrival 10.6, 8.6 this morning. D-dimer 5.8. Potassium 3.5, BUN 23, creatinine 1.1. BNP level 1340. Troponin 0.09, 0.07, 0.06. Positive UTI. VQ scan was performed which revealed triple match left lung base compatible with intermediate probability for pulmonary embolism. Patient is currently on IV heparin. Objective - Vital Signs Vital signs: Vital Signs Temp 97.6 F 12/20/16 08:57 Pulse 75 12/20/16 08:57 Resp 16 12/20/16 08:57 BP 129/62 12/20/16 08:57 Pulse Ox 99 12/20/16 08:57 Intake & Output 12/19/16 12/20/16 12/20/16 18:59 06:59 18:59 Intake Total 2313.724 Output Total 250 Balance 2313.724 -250 Weight 77.111 kg 53.5 kg Intake: IV 1864 Heparin Sodium,Porcine/ 264 D5w Pmx 25,000 unit In Dextrose/Water 1 500ml. bag @ 18 UNITS/KG/HR 27. 75 mls/hr IV .Q18H2M [facility] Rx#:[id number] Sodium Chloride 0.9% 1, 1600 000 ml @ 100 mls/hr IV . Q10H [facility] Rx#:[id number] Intake, IV Titration 449.724 Amount Heparin Sodium,Porcine/ 449.724 D5w Pmx 25,000 unit In Dextrose/Water 1 500ml. bag @ 18 UNITS/KG/HR 27. 75 mls/hr IV .Q18H2M [facility] Rx#:[id number] Output: Urine 250 Other: Voiding Method Diaper Toilet # Voids 1 - Exam PHYSICAL EXAMINATION: HEENT: Head is atraumatic, normocephalic. Pupils equal, round. Neck is supple. There is no elevated jugular venous pressure. HEART EXAMINATION: Heart S1, S2 normal. No murmur or gallop heard. CHEST EXAMINATION: Lungs reveal fine crackles to bilateral bases. ABDOMEN: Soft, nontender. Bowel sounds are heard. No organomegaly noted. EXTREMITIES: 2+ peripheral pulses with no evidence of peripheral edema and no calf tenderness noted. NEUROLOGIC patient is awake, alert and oriented -3. . - Labs CBC & Chem 7: 12/20/16 04:12 12/20/16 04:12 Labs: Abnormal Lab Results - Last 24 Hours (Table) 12/19/16 12/19/16 12/19/16 Range/Units 16:30 16:30 16:30 RBC 3.37 L (3.80-5.40) m/uL Hgb 10.6 L (11.4-16.0) gm/dL Hct 29.6 L (34.0-46.0) % Lymphocytes # (1.0-4.8) k/uL APTT (22.0-30.0) sec D-Dimer (<0.60) mg/L FEU Chloride (98-107) mmol/L BUN 23 H (7-17) mg/dL Creatinine 1.50 H (0.52-1.04) mg/dL Magnesium 1.5 L (1.6-2.3) mg/dL Total Creatine Kinase <20 L (30-135) U/L Troponin I 0.099 H* (0.000-0.034) ng/mL Total Protein 5.7 L (6.3-8.2) g/dL Albumin 2.8 L (3.5-5.0) g/dL HDL Cholesterol (40-60) mg/dL Urine Appearance (Clear) Urine Protein (Negative) Ur Leukocyte Esterase (Negative) Urine WBC (0-5) /hpf Ur Squamous Epith Cells (0-4) /hpf Amorphous Sediment (None) /hpf Urine Bacteria (None) /hpf Hyaline Casts (0-2) /lpf Urine Mucus (None) /hpf 12/19/16 12/19/16 12/19/16 Range/Units 16:30 18:30 23:03 RBC (3.80-5.40) m/uL Hgb (11.4-16.0) gm/dL Hct (34.0-46.0) % Lymphocytes # (1.0-4.8) k/uL APTT (22.0-30.0) sec D-Dimer 5.83 H (<0.60) mg/L FEU Chloride (98-107) mmol/L BUN (7-17) mg/dL Creatinine (0.52-1.04) mg/dL Magnesium (1.6-2.3) mg/dL Total Creatine Kinase <20 L (30-135) U/L Troponin I 0.079 H* (0.000-0.034) ng/mL Total Protein (6.3-8.2) g/dL Albumin (3.5-5.0) g/dL HDL Cholesterol (40-60) mg/dL Urine Appearance Cloudy H (Clear) Urine Protein 2+ H (Negative) Ur Leukocyte Esterase Large H (Negative) Urine WBC 33 H (0-5) /hpf Ur Squamous Epith Cells 15 H (0-4) /hpf Amorphous Sediment Rare H (None) /hpf Urine Bacteria Rare H (None) /hpf Hyaline Casts 14 H (0-2) /lpf Urine Mucus Rare H (None) /hpf 12/20/16 12/20/16 12/20/16 Range/Units 01:56 04:12 04:12 RBC (3.80-5.40) m/uL Hgb (11.4-16.0) gm/dL Hct (34.0-46.0) % Lymphocytes # (1.0-4.8) k/uL APTT >200.0 H* (22.0-30.0) sec D-Dimer (<0.60) mg/L FEU Chloride 108 H (98-107) mmol/L BUN 23 H (7-17) mg/dL Creatinine 1.19 H (0.52-1.04) mg/dL Magnesium (1.6-2.3) mg/dL Total Creatine Kinase <20 L (30-135) U/L Troponin I 0.065 H* (0.000-0.034) ng/mL Total Protein (6.3-8.2) g/dL Albumin (3.5-5.0) g/dL HDL Cholesterol 23 L (40-60) mg/dL Urine Appearance (Clear) Urine Protein (Negative) Ur Leukocyte Esterase (Negative) Urine WBC (0-5) /hpf Ur Squamous Epith Cells (0-4) /hpf Amorphous Sediment (None) /hpf Urine Bacteria (None) /hpf Hyaline Casts (0-2) /lpf Urine Mucus (None) /hpf 12/20/16 12/20/16 Range/Units 04:12 05:31 RBC 2.79 L (3.80-5.40) m/uL Hgb 8.6 L D (11.4-16.0) gm/dL Hct 24.8 L (34.0-46.0) % Lymphocytes # 0.9 L (1.0-4.8) k/uL APTT 143.0 H* (22.0-30.0) sec D-Dimer (<0.60) mg/L FEU Chloride (98-107) mmol/L BUN (7-17) mg/dL Creatinine (0.52-1.04) mg/dL Magnesium (1.6-2.3) mg/dL Total Creatine Kinase (30-135) U/L Troponin I (0.000-0.034) ng/mL Total Protein (6.3-8.2) g/dL Albumin (3.5-5.0) g/dL HDL Cholesterol (40-60) mg/dL Urine Appearance (Clear) Urine Protein (Negative) Ur Leukocyte Esterase (Negative) Urine WBC (0-5) /hpf Ur Squamous Epith Cells (0-4) /hpf Amorphous Sediment (None) /hpf Urine Bacteria (None) /hpf Hyaline Casts (0-2) /lpf Urine Mucus (None) /hpf Assessment and Plan Plan: Assessment and plan #1 chest pain with radiation to the back and associated mild shortness of breath suggestive of acute coronary syndrome, in a patient with known history of coronary artery disease with multiple stent placements. Most recently patient underwent stent placement of the circumflex in August of this year. #2 intermediate probability for pulmonary embolism on VQ scan, abnormal troponins could be secondary to pulmonary embolism. #3 Hypertension #4 hyperlipidemia Number 5 diabetes #6 Parkinson's dementia #7 Acute on chronic renal failure, Alma Delia 1.5 on admission, 1.19 this morning. #8 acute on chronic anemia #9 hypomagnesemia Plan We'll repeat an echocardiogram with Doppler study. Decrease aspirin to 81 mg daily, continue Plavix 75 mg daily, continue IV heparin. We will also obtain a bilateral venous duplex study to rule out DVT. Patient will be scheduled to undergo cardiac catheterization, the risks and the benefits again were explained to the patient in detail. Further recommendations to follow. DNP note has been reviewed, I agree with a documented findings and plan of care. Patient was seen and examined.
[2016-12-20] MEDS ORDERED: ALPRAZolam 0.25 MG TAB PO PRN (12:20)
[2016-12-20] MEDS ORDERED: ASPIRIN 325 MG TAB PO STA (12:20)
[2016-12-20] MEDS ORDERED: SODIUM CHLORIDE 0.9% 1,000 ML in EMPTY BAG 1 BAG IV ONE (12:20)
[2016-12-20] MEDS ORDERED: ATORVASTATIN 80 MG TAB PO STA (12:20)
[2016-12-20] MEDS ORDERED: NITROGLYCERIN SL TABS 0.4 MG TAB SUBLINGUAL PRN (12:20)
[2016-12-20] MEDS ORDERED: ALPRAZolam 0.5 MG TAB PO PRN (12:20)
[2016-12-20] MEDS ORDERED: LIDOCAINE 2% INJ 20 MG/ML (20 ML MDV) ONE (12:55)
[2016-12-20] MEDS ORDERED: MIDAZOLAM 2 MG/2 ML VIAL ONE (12:56)
[2016-12-20] MEDS ORDERED: diphenhydrAMINE 50 MG/ML 1 ML VIAL ONE (12:56)
[2016-12-20] MEDS ORDERED: Potassium Replacement Protocol 1 EACH MISC MISCELLANE PRN (13:01)
[2016-12-20] MEDS ORDERED: Magnesium Replacement Protocol 1 EACH MISC MISCELLANE PRN (13:01)
[2016-12-20] MEDS ORDERED: SODIUM CHLORIDE 0.9% 1,000 ML IV ONE (13:15)
[2016-12-20] MEDS ORDERED: methylPREDNISolone SOD SUCCI 125 MG/2 ML VIAL ONE (13:19)
[2016-12-20] MEDS ORDERED: diphenhydrAMINE 50 MG/ML 1 ML VIAL IVP ONE (13:20)
[2016-12-20] MEDS ORDERED: methylPREDNISolone SOD SUCCI 125 MG/2 ML VIAL IVP ONE (13:21)
[2016-12-20] MEDS ORDERED: MIDAZOLAM 2 MG/2 ML VIAL IVP ONE (13:23)
[2016-12-20] MEDS ORDERED: LIDOCAINE 2% INJ 20 MG/ML SQ ONE (13:30)
[2016-12-20] MEDS ORDERED: HYDROmorphone 2 MG/ML 1 ML SYRINGE ONE (13:33)
[2016-12-20] MEDS ORDERED: HYDROmorphone 2 MG/ML 1 ML SYRINGE IVP ONE (13:35)
[2016-12-20] MEDS: NITROGLYCERIN 1000MCG/10ML SYRINGE INTRACORON ONE ×3 (13:36→13:51)
[2016-12-20] MEDS ORDERED: NITROGLYCERIN SL TABS 0.4 MG TAB SUBLINGUAL ONE ×2 (13:48→13:49)
[2016-12-20] MEDS ORDERED: IODIXANOL 320 MG/ML 100 ML INTRAARTER ONE (13:51)
[2016-12-20 16:14] LABS: Glucose,Whole Blood 112 mg/dL (75-99)
--- NOTE | 2016-12-20 16:19 | P.HPIM ---
History of Present Illness H&P Date: 12/20/16 Chief Complaint: Chest pain Patient is a very poor historian and most of the history was obtained by chart review This is a pleasant 81-year-old female patient with history of dementia, diabetes mellitus, hypertension, congestive heart failure, hyperlipidemia, osteoarthritis, chronic kidney disease stage IV. She also has a history of coronary artery disease with most recent stent placement in August 2016 with a stent to the circumflex. She is a lifelong nonsmoker with no prior pulmonary disease. She presented here yesterday with complaints of chest pain. She was given 2 sublingual nitroglycerin which did help with the pain. She subsequently developed nausea and vomiting. EMS was called and she was brought here to the emergency room. Her troponins were 0.079 and 0.065. She does have a current creatinine of 1.19 him a it was 1.50 on admission. There was a d- dimer of 5.83 but based on her renal function no CT angiogram was performed. VQ scan today showed intermediate probability for PE. Patient is currently on IV heparin. Review of Systems Review of system: 14 points review of systems were obtained and were negative except to what were mentioned in the HPI. Past Medical History Past Medical History: Coronary Artery Disease (CAD), Chest Pain / Angina, Heart Failure, Dementia, Diabetes Mellitus, Hyperlipidemia, Hypertension, Musculoskeletal Disorder, Neurologic Disorder, Osteoarthritis (OA), Pneumonia, Renal Disease Additional Past Medical History / Comment(s): Recent viral enteritis, currently tx for pneumonia per pt, vertigo, falls-fell recently, NIDDM type II, CKD stage IV, early onset parkinson's dx, Oa multiple joints, back pain, gout in great toe bilateral feet, cataract. History of Any Multi-Drug Resistant Organisms: VRE Date of last positivie culture/infection: 10/19/16 MDRO Source:: URINE VRE Past Surgical History: Cholecystectomy, Heart Catheterization With Stent, Hysterectomy, Joint Replacement Additional Past Surgical History / Comment(s): 09/05/16 PCI with stent to cx. Other HX: 1989 PTCA main cx, 1996 PCI with stent to OM, 2010 PCI with stent to LAD, EGD/colonoscopy, bilateral total knees, varicose veing stripping bilaterally. Past Anesthesia/Blood Transfusion Reactions: Postoperative Nausea & Vomiting ( PONV) Date of Last Stent Placement:: 09/05/16 Past Psychological History: No Psychological Hx Reported Additional Psychological History / Comment(s): Pt is currently living alone. Her [facility] after a fall with fractured ribs. Pt's gait is unsteady and she has been falling. Shannon Parker states pt is to discharge to [facility] for rehab. Pt no longer drives. Her selma takes her to [facility] at this time. Prior to his fall with rehab, her spouse could drive. Pt manages her own medications. She has been using a cane to ambulate. Smoking Status: Never smoker - Past Family History Father Family Medical History: Dementia Additional Family Medical History / Comment(s): Father had dementia and he shot himself. Mother Family Medical History: Cancer, CVA/TIA Additional Family Medical History / Comment(s): bowel ca Medications and Allergies Home Medications Medication Instructions Recorded Confirmed Type Cholecalciferol [Vitamin D3] 1,000 unit PO DAILY 11/16/14 12/19/16 History Docusate Sodium [Dulcolax Stool 200 mg PO DAILY PRN 11/16/14 12/19/16 History Softener] Multivitamins, Thera [Multivitamin 1 tab PO DAILY 11/16/14 12/19/16 History (formulary)] Metoprolol Succinate [Toprol XL] 50 mg PO DAILY 12/25/14 12/19/16 History Primidone [Mysoline] 50 mg PO TID 12/25/14 12/19/16 History Calcium Carbonate [Calcium] 600 mg PO DAILY 09/05/16 12/19/16 History Febuxostat [Uloric] 40 mg PO DAILY 09/05/16 12/19/16 History Furosemide 20 mg PO DAILY 09/05/16 12/19/16 History Potassium Chloride [Klor-Con 10] 10 meq PO DAILY 09/05/16 12/19/16 History glipiZIDE [Glucotrol] 5 mg PO AC-BRKFST 09/05/16 12/19/16 History ALPRAZolam [Xanax] 0.25 mg PO Q12H 12/19/16 12/19/16 History Atorvastatin [Lipitor] 40 mg PO HS 12/19/16 12/19/16 History Carbidopa-Levodopa 25-100 mg 1 tab PO DAILY 12/19/16 12/19/16 History [Sinemet 25-100] Cyclobenzaprine [Flexeril] 10 mg PO Q8H PRN 12/19/16 12/19/16 History Isosorbide Mononitrate ER [Imdur] 30 mg PO DAILY 12/19/16 12/19/16 History Lisinopril [Zestril] 20 mg PO Q12H 12/19/16 12/19/16 History Ondansetron [Zofran] 4 mg PO Q8HR PRN 12/19/16 12/19/16 History hydrALAZINE HCL [Apresoline] 25 mg PO Q12H 12/19/16 12/19/16 History traMADol HCL [Ultram] 50 mg PO Q8H PRN 12/19/16 12/19/16 History traZODone HCL 150 mg PO HS 12/19/16 12/19/16 History Allergies Allergy/AdvReac Type Severity Reaction Status Date / Time Iodinated Contrast Media - Allergy Swelling/Ra Verified 12/19/16 17:55 Oral and sh morphine Allergy Unknown Verified 12/28/14 09:58 Penicillins Allergy Swelling/Ra Verified 12/19/16 17:55 sh Physical Exam Vitals: Vital Signs Temp Pulse Pulse Pulse Resp BP BP 12/20/16 15:48 64 16 12/20/16 15:40 64 16 126/55 12/20/16 15:10 58 L 16 113/59 12/20/16 14:55 64 16 118/59 12/20/16 14:40 69 16 127/58 12/20/16 14:25 72 16 132/56 12/20/16 14:10 72 16 133/59 12/20/16 12:59 97.7 F 66 196 H 108/53 12/20/16 12:24 97.6 F 66 16 108/53 12/20/16 08:57 97.6 F 75 16 129/62 12/20/16 08:31 74 12/20/16 03:05 96.1 F L 67 16 108/52 12/19/16 23:32 96.6 F L 67 16 141/64 12/19/16 21:45 97.5 F L 70 16 142/63 12/19/16 21:37 97.9 F 68 16 124/65 12/19/16 20:47 12/19/16 20:25 71 16 131/59 12/19/16 19:04 68 16 124/60 12/19/16 16:34 97.5 F L 82 16 117/56 Pulse Ox 12/20/16 15:48 12/20/16 15:40 100 12/20/16 15:10 100 12/20/16 14:55 100 12/20/16 14:40 98 12/20/16 14:25 96 12/20/16 14:10 96 12/20/16 12:59 100 12/20/16 12:24 100 12/20/16 08:57 99 12/20/16 08:31 94 L 12/20/16 03:05 99 12/19/16 23:32 100 12/19/16 21:45 98 12/19/16 21:37 97 12/19/16 20:47 98 12/19/16 20:25 98 12/19/16 19:04 2 L 12/19/16 16:34 99 Intake and Output 12/20/16 12/20/16 12/20/16 06:59 14:59 22:59 Intake Total 1429.724 280 Output Total 250 Balance 1429.724 30 Intake: IV 980 100 Heparin Sodium,Porcine/ 180 D5w Pmx 25,000 unit In Dextrose/Water 1 500ml. bag @ 18 UNITS/KG/HR 27. 75 mls/hr IV .Q18H2M [facility] Rx#:[id number] Sodium Chloride 0.9% 1, 800 000 ml @ 100 mls/hr IV . Q10H [facility] Rx#:[id number] Intake, IV Titration 449.724 0 Amount Heparin Sodium,Porcine/ 449.724 0 D5w Pmx 25,000 unit In Dextrose/Water 1 500ml. bag @ 18 UNITS/KG/HR 27. 75 mls/hr IV .Q18H2M [facility] Rx#:[id number] Oral 180 Output: Urine 250 Other: Voiding Method Diaper Toilet Toilet # Voids 1 Weight 53.5 kg 53.5 kg Patient Weight 12/21/16 06:59 Weight 53.5 kg General: The patient is awake and alert, in no distress Eye: there is normal conjunctiva bilaterally. Neck: The neck is supple, there is no JVD. Cardiovascular: Normal S1-S2, no S3-S4, no murmurs. Respiratory: Lungs clear to auscultation bilaterally Gastrointestinal: Abdomen is soft, nontender Musculoskeletal: There is no pedal edema. Neurological:. Speech is normal. Skin: Skin is warm and dry Results CBC & Chem 7: 12/20/16 04:12 12/20/16 04:12 Labs: Abnormal Lab Results - Last 24 Hours (Table) 12/19/16 12/19/16 12/19/16 Range/Units 16:30 16:30 16:30 RBC 3.37 L (3.80-5.40) m/uL Hgb 10.6 L (11.4-16.0) gm/dL Hct 29.6 L (34.0-46.0) % Lymphocytes # (1.0-4.8) k/uL APTT (22.0-30.0) sec D-Dimer (<0.60) mg/L FEU Chloride (98-107) mmol/L BUN 23 H (7-17) mg/dL Creatinine 1.50 H (0.52-1.04) mg/dL POC Glucose (mg/dL) (75-99) mg/dL Magnesium 1.5 L (1.6-2.3) mg/dL Total Creatine Kinase <20 L (30-135) U/L Troponin I 0.099 H* (0.000-0.034) ng/mL Total Protein 5.7 L (6.3-8.2) g/dL Albumin 2.8 L (3.5-5.0) g/dL HDL Cholesterol (40-60) mg/dL Urine Appearance (Clear) Urine Protein (Negative) Ur Leukocyte Esterase (Negative) Urine WBC (0-5) /hpf Ur Squamous Epith Cells (0-4) /hpf Amorphous Sediment (None) /hpf Urine Bacteria (None) /hpf Hyaline Casts (0-2) /lpf Urine Mucus (None) /hpf 12/19/16 12/19/16 12/19/16 Range/Units 16:30 18:30 23:03 RBC (3.80-5.40) m/uL Hgb (11.4-16.0) gm/dL Hct (34.0-46.0) % Lymphocytes # (1.0-4.8) k/uL APTT (22.0-30.0) sec D-Dimer 5.83 H (<0.60) mg/L FEU Chloride (98-107) mmol/L BUN (7-17) mg/dL Creatinine (0.52-1.04) mg/dL POC Glucose (mg/dL) (75-99) mg/dL Magnesium (1.6-2.3) mg/dL Total Creatine Kinase <20 L (30-135) U/L Troponin I 0.079 H* (0.000-0.034) ng/mL Total Protein (6.3-8.2) g/dL Albumin (3.5-5.0) g/dL HDL Cholesterol (40-60) mg/dL Urine Appearance Cloudy H (Clear) Urine Protein 2+ H (Negative) Ur Leukocyte Esterase Large H (Negative) Urine WBC 33 H (0-5) /hpf Ur Squamous Epith Cells 15 H (0-4) /hpf Amorphous Sediment Rare H (None) /hpf Urine Bacteria Rare H (None) /hpf Hyaline Casts 14 H (0-2) /lpf Urine Mucus Rare H (None) /hpf 12/20/16 12/20/16 12/20/16 Range/Units 01:56 04:12 04:12 RBC (3.80-5.40) m/uL Hgb (11.4-16.0) gm/dL Hct (34.0-46.0) % Lymphocytes # (1.0-4.8) k/uL APTT >200.0 H* (22.0-30.0) sec D-Dimer (<0.60) mg/L FEU Chloride 108 H (98-107) mmol/L BUN 23 H (7-17) mg/dL Creatinine 1.19 H (0.52-1.04) mg/dL POC Glucose (mg/dL) (75-99) mg/dL Magnesium (1.6-2.3) mg/dL Total Creatine Kinase <20 L (30-135) U/L Troponin I 0.065 H* (0.000-0.034) ng/mL Total Protein (6.3-8.2) g/dL Albumin (3.5-5.0) g/dL HDL Cholesterol 23 L (40-60) mg/dL Urine Appearance (Clear) Urine Protein (Negative) Ur Leukocyte Esterase (Negative) Urine WBC (0-5) /hpf Ur Squamous Epith Cells (0-4) /hpf Amorphous Sediment (None) /hpf Urine Bacteria (None) /hpf Hyaline Casts (0-2) /lpf Urine Mucus (None) /hpf 12/20/16 12/20/16 12/20/16 Range/Units 04:12 05:31 16:08 RBC 2.79 L (3.80-5.40) m/uL Hgb 8.6 L D (11.4-16.0) gm/dL Hct 24.8 L (34.0-46.0) % Lymphocytes # 0.9 L (1.0-4.8) k/uL APTT 143.0 H* (22.0-30.0) sec D-Dimer (<0.60) mg/L FEU Chloride (98-107) mmol/L BUN (7-17) mg/dL Creatinine (0.52-1.04) mg/dL POC Glucose (mg/dL) 112 H (75-99) mg/dL Magnesium (1.6-2.3) mg/dL Total Creatine Kinase (30-135) U/L Troponin I (0.000-0.034) ng/mL Total Protein (6.3-8.2) g/dL Albumin (3.5-5.0) g/dL HDL Cholesterol (40-60) mg/dL Urine Appearance (Clear) Urine Protein (Negative) Ur Leukocyte Esterase (Negative) Urine WBC (0-5) /hpf Ur Squamous Epith Cells (0-4) /hpf Amorphous Sediment (None) /hpf Urine Bacteria (None) /hpf Hyaline Casts (0-2) /lpf Urine Mucus (None) /hpf Thrombosis Risk Factor Assmnt - Choose All That Apply Any of the Below Risk Factors Present?: Yes Each Factor Represents 1 point: Heart failure (<1month), Medical pt on bed rest , Swollen legs (current) Each Risk Factor Represents 3 Points: Age 75 years or older Thrombosis Risk Factor Assessment Total Risk Factor Score: 6 Thrombosis Risk Factor Assessment Level: High Risk Assessment and Plan Plan: 1. Chest pain with suspected non-ST elevation MN. Managed with optimal medical management. Cardiology consulted. Plan for left heart catheterization today. 2. Suspected pulmonary emboli with intermediate probability on VQ scan. Pulmonology following. May consider computed tomography scan of the chest for definitive diagnosis if kidney function improved. 3. Known Ccoronary artery disease with recurrent angina status post recent left heart catheterization with stent placement to the mid circumflex 4. Essential hypertension: Blood pressure well controlled 5. Mixed hyperlipidemia currently on Lipitor 80 mg at bedtime. We will check fasting lipid profile. 6. Type 2 diabetes mellitus, maintained on glipizide. 7. Parkinson's disease
[2016-12-20] MEDS: HEPARIN SODIUM,PORCINE/D5W PMX 25,000 UNIT in DEXTROSE/WATER 1 500ML.BAG IV SCH (16:55)
--- NOTE | 2016-12-20 19:37 | US ---
EXAMINATION TYPE: US venous doppler duplex LE BI DATE OF EXAM: 12/20/2016 7:14 PM COMPARISON: NONE CLINICAL HISTORY: r/o DVT. History of pulmonary embolism. patient states history of DVT a long time a go. History of vein stripping bilaterally. No compressions done in the right groin per nurse Maru due to patient having a heart cath done earlier today in the right groin SIDE PERFORMED: Bilateral TECHNIQUE: The lower extremity deep venous system is examined utilizing real time linear array sonog angelica with graded compression, doppler sonography and color-flow sonography. VESSELS IMAGED: External Iliac Vein (EIV) Common Femoral Vein Deep Femoral Vein Greater Saphenous Vein * Femoral Vein Popliteal Vein Small Saphenous Vein * Proximal Calf Veins (* superficial vessels) Right Leg: Appears negative for DVT Left Leg: Appears negative for DVT IMPRESSION: Negative exam. No evidence of deep venous thrombosis in left and right leg.
--- NOTE | 2016-12-20 20:06 | CC ---
DATE OF PROCEDURE: 12/20/2016 PROCEDURE: Left heart catheterization, coronary angiography. PERFORMED BY: Dr. Elliot Celis CLINICAL INFORMATION: Mrs. Ирина Rizvi is a 81-year-old lady who came into the hospital with an episode of chest pain. She had equivocal troponin elevation but was advised cardiac catheterization. I performed stenting of a mid circumflex in August of this year. She also has a distal LAD disease and first obtuse marginal disease that was treated medically. There is also a groove branch which has disease as well. She has had previous intervention of the circumflex, obtuse marginal and LAD in the past. PROCEDURE NOTE: Under local anesthesia and strict aseptic precautions, a 6 Romanian introducer was placed in the right femoral artery. Using a JL3.5 and a standard right Cristela catheter, I performed coronary angiography. An LV gram was not performed, but LV pressures were checked. Patient's creatinine was 1.5; came back to 1.1 today. CARDIAC CATHETERIZATION FINDINGS The left ventricular end-diastolic pressure was about 14 mmHg. There was no gradient across the aortic valve. CORONARY ANGIOGRAPHY FINDINGS RIGHT CORONARY ARTERY: Dominant vessel. Has a 40% to 45% mid lesion, calcified; unchanged from before. There is also a mild narrowing in the rest of the RCA. Distally bifurcates into good-sized PDA and PLV. No significant disease in the branches. LEFT MAIN CORONARY ARTERY: Short, patent, disease-free vessel that bifurcates into LAD and circumflex. LEFT ANTERIOR DESCENDING CORONARY ARTERY: Good-caliber vessel extends along the anterior wall. There are 2 stented areas, widely patent. Between the stents there is about a 40% narrowing, and beyond the stent there is a 50% to 60% narrowing of the vessel, after which it runs over the apex and curves over the inferoapical portion. This lesion is unchanged from the previous study from August. LEFT POSTERIOR CIRCUMFLEX CORONARY ARTERY: Technically a non-dominant vessel, gives off a first obtuse marginal that is totally occluded, fills late, and there is another secondary vessel that comes off. This has a 60% stenosis, unchanged from before. The continuation circumflex has a stented area which is widely patent. This stent was placed in August of this year. Beyond the stented segment there is an area of narrowing which I do not believe is more than 40%. The caliber of that improves. It runs all the way to the lateral aspect. It is tortuous, without significant disease. The first OM therefore is occluded. Small secondary branch has a 60% to 70% unchanged stenosis. Stented segment is widely patent. FINAL IMPRESSION: This patient has a widely patent circumflex at the site of previous stenting. There is a first obtuse marginal that is occluded, a secondary branch that has a 60% stenosis. Distal LAD has a 50% to 60% stenosis which is not that much different from a previous angiogram. RCA has a 40% to 45 % mid calcified lesion, unchanged. LV pressures are acceptable. RECOMMENDATIONS: I am recommending aggressive medical therapy with risk factor modification. I am not recommending intervention of the LAD because the area of disease is well beyond 2 stented segments and the amount of myocardium is modest. I discussed and explained this to the patient. I also talked to her granddaughter by phone. There was no other family member available at this time of my procedure. VIJAY
--- NOTE | 2016-12-20 20:10 | MISC ---
December 20, [address] Green, Thank you for the opportunity to participate in the care of Mrs. Ирина Rizvi. Please find enclosed my cardiac catheterization report for your records. Her previous stent to circumflex is patent. She has moderate disease in other areas , but I am recommending aggressive medical therapy with risk factor modification. Thank you for your referral. Please call with questions. With kindest regards. Sincerely, Elliot Celis M.D. VIJAY
[2016-12-20 20:55] LABS: Glucose,Whole Blood 144 mg/dL (75-99)
[2016-12-20] MEDS: amLODIPine 5 MG TAB PO SCH (21:14)
[2016-12-20] MEDS: ATORVASTATIN 40 MG TAB PO SCH (21:14)
[2016-12-20] MEDS: HEPARIN SODIUM,PORCINE 5,000 UNIT/ML 1 ML VIAL SQ SCH (21:14)
[2016-12-20] MEDS: traZODone HCL 50 MG TAB PO SCH (21:16)
[2016-12-21] MEDS: INSULIN LISPRO (humaLOG) 300 UNIT/3 ML VIAL SQ SCH ×4 (06:06→20:39)
[2016-12-21 06:07] LABS: Glucose,Whole Blood 87 mg/dL (75-99)
[2016-12-21] MEDS: SODIUM CHLORIDE 0.9% 1,000 ML IV SCH (06:07)
[2016-12-21 06:33] LABS: Basophils % (A) 0 %; CH 30.2; CHCM 33.9; Eosinophils # (A) 0.1 k/uL (0-0.7); Eosinophils % (A) 2 %; HCT 24.8 % (34.0-46.0); HDW 2.91; HGB 8.4 gm/dL (11.4-16.0); Luc # (Auto) 0.12; Luc % (Auto) 3; Lymphocytes # (A) 1.1 k/uL (1.0-4.8); Lymphocytes % (A) 24 %; MCH 30.2 pg (25.0-35.0); MCHC 33.8 g/dL (31.0-37.0); MCV 89.4 fL (80.0-100.0); Mean Platelet Volume 7.3; Monocytes # (A) 0.3 k/uL (0-1.0); Monocytes % (A) 7 %; Neutrophils # (A) 2.9 k/uL (1.3-7.7); Neutrophils % (A) 65 %; RBC 2.78 m/uL (3.80-5.40); WBC 4.5 k/uL (3.8-10.6)
[2016-12-21 06:51] LABS: Magnesium 1.6 mg/dL (1.6-2.3)
[2016-12-21] MEDS: glipiZIDE 5 MG TAB PO SCH (07:55)
[2016-12-21] MEDS: ASPIRIN 81 MG CHEW PO SCH (07:59)
[2016-12-21] MEDS: FUROSEMIDE 20 MG TAB PO SCH (07:59)
[2016-12-21] MEDS: POTASSIUM CHLORIDE ER 10 MEQ TAB.ER.PRT PO SCH (08:00)
[2016-12-21] MEDS: HEPARIN SODIUM,PORCINE 5,000 UNIT/ML 1 ML VIAL SQ SCH ×2 (08:00→20:44)
[2016-12-21] MEDS: CARBIDOPA-LEVODOPA 25-100 MG 1 EACH TAB PO SCH (08:00)
[2016-12-21] MEDS: PRIMIDONE 50 MG TAB PO SCH ×3 (08:00→20:44)
[2016-12-21] MEDS: METOPROLOL SUCCINATE (ER) 50 MG TAB.ER.24H PO SCH (08:00)
[2016-12-21] MEDS: ISOSORBIDE MONONITRATE ER 30 MG TAB.ER.24H PO SCH (08:00)
[2016-12-21] MEDS: hydrALAZINE HCL 25 MG TAB PO SCH ×2 (08:00→20:44)
[2016-12-21] MEDS: CLOPIDOGREL 75 MG TAB PO SCH (08:00)
[2016-12-21] MEDS: LISINOPRIL 20 MG TAB PO SCH ×2 (08:00→20:44)
--- NOTE | 2016-12-21 09:53 | P.PN ---
Subjective This is a pleasant 81-year-old female patient who follows with Dr. Green as her primary care physician. She has a history of dementia, diabetes mellitus, hypertension, congestive heart failure, hyperlipidemia, osteoarthritis, chronic kidney disease stage IV. She also has a history of coronary artery disease with most recent stent placement in August 2016 with a stent to the circumflex. She has a prior history of stents to the obtuse marginal branch and to the left anterior descending artery in 2010. She is on Plavix and aspirin. She is a lifelong nonsmoker with no prior pulmonary disease. She presented here yesterday with complaints of chest pain. She was given 2 sublingual nitroglycerin which did help with the pain. She subsequently developed nausea and vomiting. EMS was called and she was brought here to the emergency room. Her troponins were 0.079 and 0.065. She does have a current creatinine of 1.19 him a it was 1.50 on admission. There was a d-dimer of 5.83 but based on her renal function no CT angiogram was performed. The plan is for a VQ scan today. She was initiated on a heparin drip and at one point the PTT was greater than 200 and the protocol was followed. Her initial hemoglobin was 10.6 but is down to 8.6 this morning. Urinalysis also revealed a cloudy sample with large amount of leukocytes. He is seen today in consultation. She is currently awake and alert in no acute distress. She denies any worsening shortness of breath, cough or congestion. No chest pain currently. The patient does have a history of Parkinson's/dementia and is somewhat of a poor historian. She is maintaining good O2 saturations in the high 90s on 2 L/m per nasal cannula. She is afebrile. She's been hemodynamically stable. Chest x-ray shows some blunting of the costophrenic angle on the left with some chronic changes. She was seen again today 12/21/2016 and follow-up on the selective care unit. She did undergo cardiac catheterization last evening that revealed a widely patent circumflex at the site of previous stenting. The first obtuse marginal branch was occluded and there was 60% stenosis of the secondary branch. The distal LAD had a 50% to 60% stenosis which was similar to previous angiogram. There is 40-45% mid calcified lesion in the RCA. She is recommended aggressive medical therapy. No plans for intervention of the LAD. Dopplers of the lower extremity were negative for DVT. There was intermediate probability for pulmonary embolism but this was in the left lower lobe which was consistent with the area of chronic infiltrate and pleural reaction. She is currently sitting up in a chair at the bedside. She is awake and alert in no acute distress. She denies any chest pain, palpitations dizziness or lightheadedness. No shortness of breath, cough or congestion. She is maintaining good O2 saturations up to 100% on room air. She's been afebrile. No leukocytosis. Her hemoglobin is trending down currently 8.4. Creatinine stable at 1.10. Objective - Vital Signs Vital signs: Vital Signs Temp 97.9 F 12/21/16 08:04 Pulse 80 12/21/16 08:04 Resp 16 12/21/16 08:04 BP 138/62 12/21/16 08:04 Pulse Ox 100 12/21/16 09:30 Intake & Output 12/20/16 12/21/16 12/21/16 18:59 06:59 18:59 Intake Total 520 800 Output Total 250 Balance 270 800 Weight 53.5 kg 54.5 kg Intake: IV 100 800 Sodium Chloride 0.9% 1, 800 000 ml @ 100 mls/hr IV . Q10H [facility] Rx#:[id number] Intake, IV Titration 0 Amount Heparin Sodium,Porcine/ 0 D5w Pmx 25,000 unit In Dextrose/Water 1 500ml. bag @ 18 UNITS/KG/HR 27. 75 mls/hr IV .Q18H2M [facility] Rx#:[id number] Oral 420 Output: Urine 250 Other: Voiding Method Toilet Toilet Toilet # Voids 1 1 - Exam GENERAL EXAM: Alert, active, comfortable in no apparent distress. HEAD: Normocephalic. EYES: Normal reaction of pupils, equal size. NOSE: Clear with pink turbinates. THROAT: No erythema or exudates. NECK: No masses, no JVD. CHEST: No chest wall deformity. LUNGS: Equal air entry with faint crackle in the left lung base. CVS: S1 and S2 normal with no audible murmurs, regular rhythm. ABDOMEN: No hepatosplenomegaly, normal bowel sounds, no guarding or rigidity. SPINE: No scoliosis or deformity SKIN: No rashes CENTRAL NERVOUS SYSTEM: No focal deficits, tone is normal in all 4 extremities. Extremities: There is no significant peripheral edema. No clubbing, no cyanosis. Peripheral pulses are intact. - Labs CBC & Chem 7: 12/21/16 05:42 12/21/16 05:42 Labs: Abnormal Lab Results - Last 24 Hours (Table) 12/20/16 12/20/16 12/21/16 Range/Units 16:08 20:54 05:42 RBC 2.78 L (3.80-5.40) m/uL Hgb 8.4 L (11.4-16.0) gm/dL Hct 24.8 L (34.0-46.0) % Chloride (98-107) mmol/L BUN (7-17) mg/dL Creatinine (0.52-1.04) mg/dL POC Glucose (mg/dL) 112 H 144 H (75-99) mg/dL 12/21/16 Range/Units 05:42 RBC (3.80-5.40) m/uL Hgb (11.4-16.0) gm/dL Hct (34.0-46.0) % Chloride 110 H (98-107) mmol/L BUN 22 H (7-17) mg/dL Creatinine 1.10 H (0.52-1.04) mg/dL POC Glucose (mg/dL) (75-99) mg/dL Assessment and Plan Plan: Impression: #1 Chest pain in a patient with a history of coronary artery disease in multiple stent placements, most recently to the circumflex artery in August 2016. Previous stent placements to the LAD and obtuse marginal branch. Mildly elevated troponins possibly related to acute on chronic renal failure versus acute coronary syndrome. Cardiac catheterization reveals patent stent to the circumflex. There is moderate disease and she is recommended maximal medical therapy. #2 Acute on chronic renal failure initial creatinine 1.50, currently 1.10. #3 Elevated d-dimer at 5.83, ventilation/perfusion inconclusive based on chronic changes of the left lung base. Dopplers of the lower extremities negative. #4 Acute on chronic anemia initial hemoglobin 10.6, currently 8.4. #5 Chronic infiltrate with pleural reaction of the left lower lobe. #6 Hypertension. #7 Hyperlipidemia. #8 Diabetes mellitus. #9 Parkinson's dementia. #10 Poor overall functional performance based on the above-mentioned multiple comorbidities. Plan: The patient was seen and evaluated by Dr. Forbes. Her V/Q scan chest x-ray and labs were reviewed. No plans for anticoagulation. Cardiac catheterization report was reviewed. The plan is for maximal medical therapy in regards to her coronary artery disease. The patient has no pulmonary complaints. She does maintain good O2 saturations up to 100% on room air. We'll follow as needed.
--- NOTE | 2016-12-21 10:22 | ECHOF ---
Referral Reason:sob MEASUREMENTS -------- HEIGHT: 172.7 cm WEIGHT: 53.1 kg BP: 129/62 RVIDd: 3.6 cm (< 3.3) IVSd: 1.1 cm (0.6 - 1.1) LVIDd: 3.5 cm (3.9 - 5.3) LVPWd: 1.1 cm (0.6 - 1.1) IVSs: 1.4 cm LVIDs: 2.6 cm LVPWs: 1.4 cm LA Diam: 3.7 cm (2.7 - 3.8) LAESV Index (A-L): 21.89 ml/m Ao Diam: 2.8 cm (2.0 - 3.7) AV Cusp: 2.2 cm (1.5 - 2.6) LA Diam: 3.7 cm (2.7 - 3.8) MV EXCURSION: 18.395 mm (> 18.000) MV EF SLOPE: 68 mm/s (70 - 150) EPSS: 1.4 cm MV E Emmett: 0.81 m/s MV DecT: 268 ms MV A Emmett: 0.90 m/s MV E/A Ratio: 0.90 RAP: 5.00 mmHg RVSP: 48.51 mmHg FINDINGS -------- Sinus rhythm. This was a technically adequate study. There is mild concentric left ventricular hypertrophy. Overall left ventricular systolic function is low-normal with, an EF between 50 - 55 %. The right ventricle is moderate to severely enlarged. Normal LA size by volume 22+/-6 ml/m2. The right atrium is mildly enlarged. There is mild aortic valve sclerosis. There is no evidence of aortic regurgitation. Mild mitral annular calcification present. Mild mitral regurgitation is present. Moderate tricuspid regurgitation present. There is moderate pulmonary hypertension. The right ventricular systolic pressure, as measured by Doppler, is 48.51mmHg. Trace/mild (physiologic) pulmonic regurgitation. The aortic root size is normal. There is no pericardial effusion. CONCLUSIONS -------- 1. There is mild concentric left ventricular hypertrophy. 2. The right ventricular systolic pressure, as measured by Doppler, is 48.51mmHg. 3. Trace/mild (physiologic) pulmonic regurgitation. 4. The aortic root size is normal. 5. There is no pericardial effusion. 6. Overall left ventricular systolic function is low-normal with, an EF between 50 - 55 %. 7. The right ventricle is moderate to severely enlarged. 8. The right atrium is mildly enlarged. 9. There is mild aortic valve sclerosis. 10. Mild mitral annular calcification present. 11. Mild mitral regurgitation is present. 12. Moderate tricuspid regurgitation present. 13. There is moderate pulmonary hypertension. [employer] TESTER: Sheeba Gomes RDCS
[2016-12-21 11:27] LABS: Glucose,Whole Blood 125 mg/dL (75-99)
--- NOTE | 2016-12-21 11:45 | P.PN ---
Subjective No acute events overnight Objective - Vital Signs Vital signs: Vital Signs Temp 97.9 F 12/21/16 08:04 Pulse 80 12/21/16 08:04 Resp 16 12/21/16 08:04 BP 138/62 12/21/16 08:04 Pulse Ox 100 12/21/16 09:30 Intake & Output 12/20/16 12/21/16 12/21/16 18:59 06:59 18:59 Intake Total 520 800 720 Output Total 250 Balance 270 800 720 Weight 53.5 kg 54.5 kg Intake: IV 100 800 Sodium Chloride 0.9% 1, 800 000 ml @ 100 mls/hr IV . Q10H [facility] Rx#:[id number] Intake, IV Titration 0 Amount Heparin Sodium,Porcine/ 0 D5w Pmx 25,000 unit In Dextrose/Water 1 500ml. bag @ 18 UNITS/KG/HR 27. 75 mls/hr IV .Q18H2M [facility] Rx#:[id number] Oral 420 720 Output: Urine 250 Other: Voiding Method Toilet Toilet Toilet # Voids 1 1 - Exam General: The patient is awake and alert, in no distress Eye: there is normal conjunctiva bilaterally. Neck: The neck is supple, there is no JVD. Cardiovascular: Normal S1-S2, no S3-S4, no murmurs. Respiratory: Lungs clear to auscultation bilaterally Gastrointestinal: Abdomen is soft, nontender Musculoskeletal: There is no pedal edema. Neurological:. Speech is normal. Skin: Skin is warm and dry - Labs CBC & Chem 7: 12/21/16 05:42 12/21/16 05:42 Labs: Abnormal Lab Results - Last 24 Hours (Table) 12/20/16 12/20/16 12/21/16 Range/Units 16:08 20:54 05:42 RBC 2.78 L (3.80-5.40) m/uL Hgb 8.4 L (11.4-16.0) gm/dL Hct 24.8 L (34.0-46.0) % Chloride (98-107) mmol/L BUN (7-17) mg/dL Creatinine (0.52-1.04) mg/dL POC Glucose (mg/dL) 112 H 144 H (75-99) mg/dL 07/06/17 07/06/17 Range/Units 05:42 11:25 RBC (3.80-5.40) m/uL Hgb (11.4-16.0) gm/dL Hct (34.0-46.0) % Chloride 110 H (98-107) mmol/L BUN 22 H (7-17) mg/dL Creatinine 1.10 H (0.52-1.04) mg/dL POC Glucose (mg/dL) 125 H (75-99) mg/dL Assessment and Plan Plan: 1. Chest pain with suspected non-ST elevation SC. Status post left heart catheterization on 12/21 showing patent stent to circumflex and other nonsignificant chronic coronary artery disease as detailed in the heart cath report. Managed with optimal medical management. Cardiology following. 2. Suspected pulmonary emboli with intermediate probability on VQ scan. Ruled out clinically by pulmonology. IV heparin was discontinued. 3. Known Ccoronary artery disease with recurrent angina status post recent left heart catheterization with stent placement to the mid circumflex 4. Essential hypertension: Blood pressure well controlled 5. Mixed hyperlipidemia currently on Lipitor 40 mg at bedtime. LDL at goal 6. Type 2 diabetes mellitus, maintained on glipizide. 7. Parkinson's disease We will continue current regimen otherwise. Repeat lab work in the morning. Anticipate discharge to ECF tomorrow.
[2016-12-21] MEDS: MULTIVITAMINS, THERA 1 EACH TAB PO SCH (11:56)
[2016-12-21] MEDS: CHOLECALCIFEROL 1,000 UNIT TAB PO SCH (11:56)
[2016-12-21] MEDS: CALCIUM CARBONATE 500 MG CHEWABLE PO SCH (11:56)
--- NOTE | 2016-12-21 14:57 | P.PN ---
Subjective Principal diagnosis: Chest pain This is a pleasant 81-year-old female with history of hypertension, diabetes, hyperlipidemia, coronary artery disease with recent stent placement in August of this year with a stent to the circumflex. She follows with Dr. Parminder Celis in the office. Patient also has prior history of stents to the obtuse marginal branch and to the LAD. Patient also has history of Parkinson's, and dementia, somewhat a poor historian. Patient presented to the hospital with symptoms of chest discomfort. She states that the pain started in the center of her chest and radiated through to her back. She did have some mild associated shortness of breath. Patient was given 2 sublingual nitroglycerin which did help with the pain. EKG on arrival here showed a normal sinus rhythm with nonspecific ST-T wave changes in the anterior leads. Subsequent EKG performed this morning showed a normal sinus rhythm with ST-T wave changes in the anterior lateral leads. Patient was taken to the cardiac catheterization lab yesterday by Dr. Parminder Celis. Maximal medical therapy was advised. She was seen and examined this morning, complaints of feeling tired, otherwise no complaints. She denies any chest pain. Arrangements are being made for transfer back to the custodial tomorrow Objective - Vital Signs Vital signs: Vital Signs Temp 97.7 F 12/21/16 12:00 Pulse 80 12/21/16 12:00 Resp 16 12/21/16 12:00 BP 138/64 12/21/16 12:00 Pulse Ox 98 12/21/16 12:00 Intake & Output 12/20/16 12/21/16 12/21/16 18:59 06:59 18:59 Intake Total 683 754 9539 Output Total 250 Balance 974 306 8900 Weight 53.5 kg 54.5 kg Intake: IV 100 800 Sodium Chloride 0.9% 1, 800 000 ml @ 100 mls/hr IV . Q10H [facility] Rx#:[id number] Intake, IV Titration 0 Amount Heparin Sodium,Porcine/ 0 D5w Pmx 25,000 unit In Dextrose/Water 1 500ml. bag @ 18 UNITS/KG/HR 27. 75 mls/hr IV .Q18H2M [facility] Rx#:[id number] Oral 420 1200 Output: Urine 250 Other: Voiding Method Toilet Toilet Toilet # Voids 1 1 - Exam PHYSICAL EXAMINATION: HEENT: Head is atraumatic, normocephalic. Pupils equal, round. Neck is supple. There is no elevated jugular venous pressure. HEART EXAMINATION: Heart S1, S2 normal. No murmur or gallop heard. CHEST EXAMINATION: Lungs reveal fine crackles to bilateral bases. ABDOMEN: Soft, nontender. Bowel sounds are heard. No organomegaly noted. Right groin soft, no evidence of any hematoma. EXTREMITIES: 2+ peripheral pulses with no evidence of peripheral edema and no calf tenderness noted. NEUROLOGIC patient is awake, alert and oriented -3. . - Labs CBC & Chem 7: 12/21/16 05:42 12/21/16 05:42 Labs: Abnormal Lab Results - Last 24 Hours (Table) 12/20/16 12/20/16 12/21/16 Range/Units 16:08 20:54 05:42 RBC 2.78 L (3.80-5.40) m/uL Hgb 8.4 L (11.4-16.0) gm/dL Hct 24.8 L (34.0-46.0) % Chloride (98-107) mmol/L BUN (7-17) mg/dL Creatinine (0.52-1.04) mg/dL POC Glucose (mg/dL) 112 H 144 H (75-99) mg/dL 12/21/16 12/21/16 Range/Units 05:42 11:25 RBC (3.80-5.40) m/uL Hgb (11.4-16.0) gm/dL Hct (34.0-46.0) % Chloride 110 H (98-107) mmol/L BUN 22 H (7-17) mg/dL Creatinine 1.10 H (0.52-1.04) mg/dL POC Glucose (mg/dL) 125 H (75-99) mg/dL Assessment and Plan Plan: Assessment and plan #1 chest pain with radiation to the back and associated mild shortness of breath suggestive of acute coronary syndrome, in a patient with known history of coronary artery disease with multiple stent placements. Most recently patient underwent stent placement of the circumflex in August of this year. Cardiac catheterization performed yesterday, maximal medical therapy advised. #2 intermediate probability for pulmonary embolism on VQ scan, abnormal troponins could be secondary to pulmonary embolism. #3 Hypertension #4 hyperlipidemia Number 5 diabetes #6 Parkinson's dementia #7 Acute on chronic renal failure, Alma Delia 1.5 on admission, 1.19 this morning. #8 acute on chronic anemia #9 hypomagnesemia Plan Cardiology's perspective, patient be transferred back to the ECF once cleared by the primary. We will make her a follow-up appointment to see Dr. LISSETT Celis in the office post discharge. DNP note has been reviewed, I agree with a documented findings and plan of care. Patient was seen and examined.
[2016-12-21 16:23] LABS: Glucose,Whole Blood 221 mg/dL (75-99)
[2016-12-21 16:25] LABS: Glucose,Whole Blood 221 mg/dL (75-99)
[2016-12-21 20:04] LABS: Glucose,Whole Blood 123 mg/dL (75-99)
[2016-12-21] MEDS: traZODone HCL 50 MG TAB PO SCH (20:44)
[2016-12-21] MEDS: ATORVASTATIN 40 MG TAB PO SCH (20:44)
[2016-12-21] MEDS: amLODIPine 5 MG TAB PO SCH (20:44)
[2016-12-22 05:46] LABS: Glucose,Whole Blood 126 mg/dL (75-99)
[2016-12-22 06:09] LABS: Basophils % (A) 1 %; CH 29.8; CHCM 33.4; Eosinophils # (A) 0.1 k/uL (0-0.7); Eosinophils % (A) 3 %; HCT 24.7 % (34.0-46.0); HDW 2.94; HGB 8.4 gm/dL (11.4-16.0); Luc # (Auto) 0.12; Luc % (Auto) 3; Lymphocytes # (A) 1.1 k/uL (1.0-4.8); Lymphocytes % (A) 32 %; MCH 30.7 pg (25.0-35.0); MCHC 34.2 g/dL (31.0-37.0); MCV 89.7 fL (80.0-100.0); Mean Platelet Volume 6.9; Monocytes # (A) 0.3 k/uL (0-1.0); Monocytes % (A) 7 %; Neutrophils % (A) 54 %; RBC 2.75 m/uL (3.80-5.40); RDW 13.8 % (11.5-15.5); WBC 3.6 k/uL (3.8-10.6); WBC (Perox) 3.64
[2016-12-22 06:12] VITALS: PULSE 75; RESP 18
[2016-12-22] MEDS: INSULIN LISPRO (humaLOG) 300 UNIT/3 ML VIAL SQ SCH ×2 (06:12→12:04)
[2016-12-22 06:13] LABS: Anion Gap 6 mmol/L; Blood Urea Nitrogen 23 mg/dL (7-17); Calcium 9.1 mg/dL (8.4-10.2); Carbon Dioxide 22 mmol/L (22-30); Chloride 110 mmol/L (98-107); Glucose 109 mg/dL (74-99); Magnesium 1.4 mg/dL (1.6-2.3); Non-African American GFR(MDRD) 53 (>60 ml/min/1.73 sqM); Potassium 3.8 mmol/L (3.5-5.1); Sodium 138 mmol/L (137-145)
[2016-12-22] MEDS: glipiZIDE 5 MG TAB PO SCH (07:17)
[2016-12-22] MEDS: CLOPIDOGREL 75 MG TAB PO SCH (07:26)
[2016-12-22] MEDS: hydrALAZINE HCL 25 MG TAB PO SCH (07:26)
[2016-12-22] MEDS: FUROSEMIDE 20 MG TAB PO SCH (07:26)
[2016-12-22] MEDS: ISOSORBIDE MONONITRATE ER 30 MG TAB.ER.24H PO SCH (07:26)
[2016-12-22] MEDS: CARBIDOPA-LEVODOPA 25-100 MG 1 EACH TAB PO SCH (07:26)
[2016-12-22] MEDS: POTASSIUM CHLORIDE ER 10 MEQ TAB.ER.PRT PO SCH (07:26)
[2016-12-22] MEDS: LISINOPRIL 20 MG TAB PO SCH (07:26)
[2016-12-22] MEDS: PRIMIDONE 50 MG TAB PO SCH (07:26)
[2016-12-22] MEDS: HEPARIN SODIUM,PORCINE 5,000 UNIT/ML 1 ML VIAL SQ SCH (07:27)
[2016-12-22] MEDS: ASPIRIN 81 MG CHEW PO SCH (07:27)
[2016-12-22] MEDS: METOPROLOL SUCCINATE (ER) 50 MG TAB.ER.24H PO SCH (07:27)
[2016-12-22 07:39] VITALS: TEMP 97.8
[2016-12-22] MEDS ORDERED: Magnesium Replacement Protocol 1 EACH MISC MISCELLANE PRN (08:37)
[2016-12-22] MEDS: MAGNESIUM SULFATE-D5W PMX 1 GM in DEXTROSE/WATER 1 100ML.BAG IVPB SCH ×3 (08:57→11:32)
--- NOTE | 2016-12-22 10:30 | P.PN ---
Subjective This is a pleasant 81-year-old female patient who follows with Dr. Green as her primary care physician. She has a history of dementia, diabetes mellitus, hypertension, congestive heart failure, hyperlipidemia, osteoarthritis, chronic kidney disease stage IV. She also has a history of coronary artery disease with most recent stent placement in August 2016 with a stent to the circumflex. She has a prior history of stents to the obtuse marginal branch and to the left anterior descending artery in 2010. She is on Plavix and aspirin. She is a lifelong nonsmoker with no prior pulmonary disease. She presented here yesterday with complaints of chest pain. She was given 2 sublingual nitroglycerin which did help with the pain. She subsequently developed nausea and vomiting. EMS was called and she was brought here to the emergency room. Her troponins were 0.079 and 0.065. She does have a current creatinine of 1.19 him a it was 1.50 on admission. There was a d-dimer of 5.83 but based on her renal function no CT angiogram was performed. The plan is for a VQ scan today. She was initiated on a heparin drip and at one point the PTT was greater than 200 and the protocol was followed. Her initial hemoglobin was 10.6 but is down to 8.6 this morning. Urinalysis also revealed a cloudy sample with large amount of leukocytes. He is seen today in consultation. She is currently awake and alert in no acute distress. She denies any worsening shortness of breath, cough or congestion. No chest pain currently. The patient does have a history of Parkinson's/dementia and is somewhat of a poor historian. She is maintaining good O2 saturations in the high 90s on 2 L/m per nasal cannula. She is afebrile. She's been hemodynamically stable. Chest x-ray shows some blunting of the costophrenic angle on the left with some chronic changes. She was seen again today 12/21/2016 and follow-up on the selective care unit. She did undergo cardiac catheterization last evening that revealed a widely patent circumflex at the site of previous stenting. The first obtuse marginal branch was occluded and there was 60% stenosis of the secondary branch. The distal LAD had a 50% to 60% stenosis which was similar to previous angiogram. There is 40-45% mid calcified lesion in the RCA. She is recommended aggressive medical therapy. No plans for intervention of the LAD. Dopplers of the lower extremity were negative for DVT. There was intermediate probability for pulmonary embolism but this was in the left lower lobe which was consistent with the area of chronic infiltrate and pleural reaction. She is currently sitting up in a chair at the bedside. She is awake and alert in no acute distress. She denies any chest pain, palpitations dizziness or lightheadedness. No shortness of breath, cough or congestion. She is maintaining good O2 saturations up to 100% on room air. She's been afebrile. No leukocytosis. Her hemoglobin is trending down currently 8.4. Creatinine stable at 1.10. The patient is seen again today 12/22/2016 in follow-up on the selective care unit. She is currently awake and alert in no acute distress. She denies any recent chest pain, palpitations lightheadedness or dizziness. She denies any shortness of breath, cough or congestion. The plan is to treat her coronary artery disease medically. Probable transfer back to [facility] today. Objective - Vital Signs Vital signs: Vital Signs Temp 97.8 F 12/22/16 07:36 Pulse 75 12/22/16 07:36 Resp 18 12/22/16 07:36 BP 169/72 12/22/16 07:36 Pulse Ox 96 12/22/16 07:36 Intake & Output 12/21/16 12/22/16 12/22/16 18:59 06:59 18:59 Intake Total 1680 0 720 Output Total 400 Balance 1280 0 720 Weight 55.5 kg Intake: Intake, IV Titration 0 Amount Sodium Chloride 0.9% 1, 0 000 ml As IV .[facility] Rx#:[id number] Oral 1680 720 Output: Urine 400 Other: Voiding Method Toilet Toilet # Voids 2 0 # Bowel Movements 0 - Exam GENERAL EXAM: Alert, active, comfortable in no apparent distress. HEAD: Normocephalic. EYES: Normal reaction of pupils, equal size. NOSE: Clear with pink turbinates. THROAT: No erythema or exudates. NECK: No masses, no JVD. CHEST: No chest wall deformity. LUNGS: Equal air entry with faint crackle in the left lung base. CVS: S1 and S2 normal with no audible murmurs, regular rhythm. ABDOMEN: No hepatosplenomegaly, normal bowel sounds, no guarding or rigidity. SPINE: No scoliosis or deformity SKIN: No rashes CENTRAL NERVOUS SYSTEM: No focal deficits, tone is normal in all 4 extremities. Extremities: There is no significant peripheral edema. No clubbing, no cyanosis. Peripheral pulses are intact. - Labs CBC & Chem 7: 12/22/16 05:35 12/22/16 05:35 Labs: Abnormal Lab Results - Last 24 Hours (Table) 12/21/16 12/21/16 12/21/16 Range/Units 11:25 16:21 16:23 WBC (3.8-10.6) k/uL RBC (3.80-5.40) m/uL Hgb (11.4-16.0) gm/dL Hct (34.0-46.0) % Chloride (98-107) mmol/L BUN (7-17) mg/dL Glucose (74-99) mg/dL POC Glucose (mg/dL) 125 H 221 H 221 H (75-99) mg/dL Magnesium (1.6-2.3) mg/dL 12/21/16 12/22/16 12/22/16 Range/Units 20:02 05:35 05:35 WBC 3.6 L (3.8-10.6) k/uL RBC 2.75 L (3.80-5.40) m/uL Hgb 8.4 L (11.4-16.0) gm/dL Hct 24.7 L (34.0-46.0) % Chloride 110 H (98-107) mmol/L BUN 23 H (7-17) mg/dL Glucose 109 H (74-99) mg/dL POC Glucose (mg/dL) 123 H (75-99) mg/dL Magnesium 1.4 L (1.6-2.3) mg/dL 12/22/16 Range/Units 05:44 WBC (3.8-10.6) k/uL RBC (3.80-5.40) m/uL Hgb (11.4-16.0) gm/dL Hct (34.0-46.0) % Chloride (98-107) mmol/L BUN (7-17) mg/dL Glucose (74-99) mg/dL POC Glucose (mg/dL) 126 H (75-99) mg/dL Magnesium (1.6-2.3) mg/dL Assessment and Plan Plan: Impression: #1 Chest pain in a patient with a history of coronary artery disease in multiple stent placements, most recently to the circumflex artery in August 2016. Previous stent placements to the LAD and obtuse marginal branch. Mildly elevated troponins possibly related to acute on chronic renal failure versus acute coronary syndrome. Cardiac catheterization reveals patent stent to the circumflex. There is moderate disease and she is recommended maximal medical therapy. #2 Acute on chronic renal failure initial creatinine 1.50, currently 1.10. #3 Elevated d-dimer at 5.83, ventilation/perfusion inconclusive based on chronic changes of the left lung base. Dopplers of the lower extremities negative. #4 Acute on chronic anemia initial hemoglobin 10.6, currently 8.4. #5 Chronic infiltrate with pleural reaction of the left lower lobe. #6 Hypertension. #7 Hyperlipidemia. #8 Diabetes mellitus. #9 Parkinson's dementia. #10 Poor overall functional performance based on the above-mentioned multiple comorbidities. Plan: The patient was seen and evaluated by Dr. Forbes. The patient has no pulmonary complaints. She does maintain good O2 saturations up to 100% on room air. She is cleared for discharge from the pulmonary standpoint.
--- NOTE | 2016-12-22 11:21 | P.DS ---
Providers Date of admission: 12/19/16 20:53 Expected date of discharge: 12/22/16 Attending physician: Rodrigo Dc Consults: 12/19/16 20:47 Consult Physician Urgent Consulting Provider: Hector Rivera Consult Reason/Comments: elevated troponin renal insufficiency chest pain suspected PE, dehydration, Do you want consulting provider notified?: Yes 12/20/16 06:49 Consult Physician Routine Consulting Provider: Lee Junior Consult Reason/Comments: elevated D-dimer Do you want consulting provider notified?: Yes Primary care physician: Kateryna [facility] Course: 1. Chest pain with suspected non-ST elevation MO. Status post left heart catheterization on 12/21 showing patent stent to circumflex and other nonsignificant chronic coronary artery disease as detailed in the heart cath report. Managed with optimal medical management. Cardiology following. 2. Suspected pulmonary emboli with intermediate probability on VQ scan. Ruled out clinically by pulmonology. IV heparin was discontinued. No need for anticoagulation 3. Known Ccoronary artery disease with recurrent angina status post recent left heart catheterization with stent placement to the mid circumflex 4. Essential hypertension: Blood pressure well controlled 5. Mixed hyperlipidemia currently on Lipitor 40 mg at bedtime. LDL at goal 6. Type 2 diabetes mellitus, maintained on glipizide. 7. Parkinson's disease Patient will return to [facility] for physical therapy Patient Condition at Discharge: Fair Plan - Discharge Summary New Discharge Prescriptions: Continue Multivitamins, Thera [Multivitamin (formulary)] 1 tab PO DAILY Docusate Sodium [Dulcolax Stool Softener] 200 mg PO DAILY PRN PRN Reason: Constipation Cholecalciferol [Vitamin D3] 1,000 unit PO DAILY Primidone [Mysoline] 50 mg PO TID Metoprolol Succinate [Toprol XL] 50 mg PO DAILY glipiZIDE [Glucotrol] 5 mg PO AC-BRKFST Febuxostat [Uloric] 40 mg PO DAILY Calcium Carbonate [Calcium] 600 mg PO DAILY Aspirin 81 mg PO DAILY #30 chew Clopidogrel [Plavix] 75 mg PO DAILY #30 tab Nitroglycerin Sl Tabs [Nitrostat] 0.4 mg SUBLINGUAL Q5M PRN #25 tab PRN Reason: Chest Pain amLODIPine [Norvasc] 5 mg PO HS #30 tab Ipratropium-Albuterol Nebulize [Duoneb 0.5 mg-3 mg/3 ml Soln] 3 ml INHALATION RT-QID PRN #0 PRN Reason: Shortness Of Breath Ondansetron [Zofran] 4 mg PO Q8HR PRN PRN Reason: Gi Upset/Nausea traMADol HCL [Ultram] 50 mg PO Q8H PRN PRN Reason: Pain traZODone HCL 150 mg PO HS ALPRAZolam [Xanax] 0.25 mg PO Q12H hydrALAZINE HCL [Apresoline] 25 mg PO Q12H Carbidopa-Levodopa 25-100 mg [Sinemet 25-100 mg] 1 tab PO DAILY Isosorbide Mononitrate ER [Imdur] 30 mg PO DAILY Atorvastatin [Lipitor] 40 mg PO HS Changed Lisinopril [Zestril] 20 mg PO DAILY #0 Discontinued Furosemide 20 mg PO DAILY Potassium Chloride [Klor-Con 10] 10 meq PO DAILY Cyclobenzaprine [Flexeril] 10 mg PO Q8H PRN PRN Reason: Pain Discharge Medication List Cholecalciferol [Vitamin D3] 1,000 unit PO DAILY 11/16/14 [History] Docusate Sodium [Dulcolax Stool Softener] 200 mg PO DAILY PRN 11/16/14 [History] Multivitamins, Thera [Multivitamin (formulary)] 1 tab PO DAILY 11/16/14 [History ] Metoprolol Succinate [Toprol XL] 50 mg PO DAILY 12/25/14 [History] Primidone [Mysoline] 50 mg PO TID 12/25/14 [History] Calcium Carbonate [Calcium] 600 mg PO DAILY 09/05/16 [History] Febuxostat [Uloric] 40 mg PO DAILY 09/05/16 [History] glipiZIDE [Glucotrol] 5 mg PO AC-BRKFST 09/05/16 [History] Aspirin 81 mg PO DAILY #30 chew 09/06/16 [Rx] Clopidogrel [Plavix] 75 mg PO DAILY #30 tab 09/06/16 [Rx] Ipratropium-Albuterol Nebulize [Duoneb 0.5 mg-3 mg/3 ml Soln] 3 ml INHALATION RT -QID PRN #0 09/06/16 [Rx] Nitroglycerin Sl Tabs [Nitrostat] 0.4 mg SUBLINGUAL Q5M PRN #25 tab 09/06/16 [Rx ] amLODIPine [Norvasc] 5 mg PO HS #30 tab 09/06/16 [Rx] ALPRAZolam [Xanax] 0.25 mg PO Q12H 12/19/16 [History] Atorvastatin [Lipitor] 40 mg PO HS 12/19/16 [History] Carbidopa-Levodopa 25-100 mg [Sinemet 25-100 mg] 1 tab PO DAILY 12/19/16 [ History] Isosorbide Mononitrate ER [Imdur] 30 mg PO DAILY 12/19/16 [History] Ondansetron [Zofran] 4 mg PO Q8HR PRN 12/19/16 [History] hydrALAZINE HCL [Apresoline] 25 mg PO Q12H 12/19/16 [History] traMADol HCL [Ultram] 50 mg PO Q8H PRN 12/19/16 [History] traZODone HCL 150 mg PO HS 12/19/16 [History] Lisinopril [Zestril] 20 mg PO DAILY #0 12/22/16 [Rx] Follow up Appointment(s)/Referral(s): Alhaji Chong MD [STAFF PHYSICIAN] - 1-2 days Discharge Disposition: TRANSFER TO SNF/ECF
[2016-12-22 11:30] VITALS: BMI 18.6
[2016-12-22 11:34] LABS: Glucose,Whole Blood 183 mg/dL (75-99)
[2016-12-22 11:44] VITALS: BP 127/60
[2016-12-22] MEDS: MULTIVITAMINS, THERA 1 EACH TAB PO SCH (12:04)
[2016-12-22] MEDS: CHOLECALCIFEROL 1,000 UNIT TAB PO SCH (12:04)
[2016-12-22] MEDS: CALCIUM CARBONATE 500 MG CHEWABLE PO SCH (12:05)
--- NOTE | 2016-12-22 14:53 | P.PN ---
Subjective Principal diagnosis: Chest pain This is a pleasant 81-year-old female with history of hypertension, diabetes, hyperlipidemia, coronary artery disease with recent stent placement in August of this year with a stent to the circumflex. She follows with Dr. Parminder Celis in the office. Patient also has prior history of stents to the obtuse marginal branch and to the LAD. Patient also has history of Parkinson's, and dementia, somewhat a poor historian. Patient presented to the hospital with symptoms of chest discomfort. She states that the pain started in the center of her chest and radiated through to her back. She did have some mild associated shortness of breath. Patient was given 2 sublingual nitroglycerin which did help with the pain. EKG on arrival here showed a normal sinus rhythm with nonspecific ST-T wave changes in the anterior leads. Subsequent EKG performed this morning showed a normal sinus rhythm with ST-T wave changes in the anterior lateral leads. Patient was taken to the cardiac catheterization lab yesterday by Dr. Parminder Celis. Maximal medical therapy was advised. She was seen and examined this morning, complaints of feeling tired, otherwise no complaints. She denies any chest pain. Arrangements are being made for transfer back to the snf tomorrow 12/22/2016 Patient seen and examined this morning, no complaints today overall. Being transferred back to the [facility] today.. DNP note has been reviewed, I agree with a documented findings and plan of care. Patient was seen and examined. Objective - Vital Signs Vital signs: Vital Signs Temp 97.8 F 12/22/16 11:41 Pulse 75 12/22/16 11:41 Resp 18 12/22/16 11:41 BP 127/60 12/22/16 11:41 Pulse Ox 96 12/22/16 11:41 Intake & Output 12/21/16 12/22/16 12/22/16 18:59 06:59 18:59 Intake Total 1680 0 1440 Output Total 400 Balance 1280 0 1440 Weight 55.5 kg 55.5 kg Intake: Intake, IV Titration 0 Amount Sodium Chloride 0.9% 1, 0 000 ml As IV .STK-MED ONE Rx#:[id number] Oral 1680 1440 Output: Urine 400 Other: Voiding Method Toilet Toilet # Voids 2 0 # Bowel Movements 0 - Labs CBC & Chem 7: 12/22/16 05:35 12/22/16 05:35 Labs: Abnormal Lab Results - Last 24 Hours (Table) 12/21/16 12/21/16 12/21/16 Range/Units 16:21 16:23 20:02 WBC (3.8-10.6) k/uL RBC (3.80-5.40) m/uL Hgb (11.4-16.0) gm/dL Hct (34.0-46.0) % Chloride (98-107) mmol/L BUN (7-17) mg/dL Glucose (74-99) mg/dL POC Glucose (mg/dL) 221 H 221 H 123 H (75-99) mg/dL Magnesium (1.6-2.3) mg/dL 12/22/16 12/22/16 12/22/16 Range/Units 05:35 05:35 05:44 WBC 3.6 L (3.8-10.6) k/uL RBC 2.75 L (3.80-5.40) m/uL Hgb 8.4 L (11.4-16.0) gm/dL Hct 24.7 L (34.0-46.0) % Chloride 110 H (98-107) mmol/L BUN 23 H (7-17) mg/dL Glucose 109 H (74-99) mg/dL POC Glucose (mg/dL) 126 H (75-99) mg/dL Magnesium 1.4 L (1.6-2.3) mg/dL 12/22/16 Range/Units 11:29 WBC (3.8-10.6) k/uL RBC (3.80-5.40) m/uL Hgb (11.4-16.0) gm/dL Hct (34.0-46.0) % Chloride (98-107) mmol/L BUN (7-17) mg/dL Glucose (74-99) mg/dL POC Glucose (mg/dL) 183 H (75-99) mg/dL Magnesium (1.6-2.3) mg/dL
== END 2016-12-22 14:50 | DRG 281 ==
LOC: EC 16:18 → 6SEL 20:53
PROVIDERS: ADMIT Internal Medicine; ATTEND Internal Medicine
PROC: B211YZZ Fluoroscopy of Multiple Coronary Arteries using Other Contrast (ICD-10-PCS; 2016-12-20)
PROC: 4A023N7 Measurement of Cardiac Sampling and Pressure, Left Heart, Percutaneous Approach (ICD-10-PCS; principal; 2016-12-20 13:15)
DX: I21.4 Non-ST elevation (NSTEMI) myocardial infarction (principal); I13.0 Hypertensive heart and chronic kidney disease with heart failure and stage 1 through stage 4 chronic kidney disease, or unspecified chronic kidney disease; E11.22 Type 2 diabetes mellitus with diabetic chronic kidney disease; N18.4 Chronic kidney disease, stage 4 (severe); N17.9 Acute kidney failure, unspecified; I50.9 Heart failure, unspecified; G20 Parkinson's disease; N39.0 Urinary tract infection, site not specified; E86.0 Dehydration; E83.42 Hypomagnesemia; F02.80 Dementia in other diseases classified elsewhere, unspecified severity, without behavioral disturbance, psychotic disturbance, mood disturbance, and anxiety; D64.9 Anemia, unspecified; M10.9 Gout, unspecified; M19.91 Primary osteoarthritis, unspecified site; E78.2 Mixed hyperlipidemia; H26.9 Unspecified cataract; I25.119 Atherosclerotic heart disease of native coronary artery with unspecified angina pectoris; Z95.5 Presence of coronary angioplasty implant and graft; Z90.710 Acquired absence of both cervix and uterus; Z90.49 Acquired absence of other specified parts of digestive tract; Z86.19 Personal history of other infectious and parasitic diseases; Z79.82 Long term (current) use of aspirin; Z79.02 Long term (current) use of antithrombotics/antiplatelets; Z79.84 Long term (current) use of oral hypoglycemic drugs; Z79.899 Other long term (current) drug therapy; Z88.5 Allergy status to narcotic agent; Z88.0 Allergy status to penicillin; Z91.041 Radiographic dye allergy status
CPT/HCPCS: 36415; 71020; 78582; 80048; 80053; 80061; 81001; 82150; 82550; 82553; 83036; 83690; 83735; 83880; 84484; 85025; 85379; 85610; 85730; 93005; 93306; 93458; 93970; 94760; 96361; 96365; 96367; 96376; 99291

== ENCOUNTER 2017-03-20 14:01 | Emergency (ER) | payer MEDICARE, BC, OTHER ==
[2017-03-20] MEDS ORDERED: ONDANSETRON 4 MG/2 ML VIAL IVP STA (14:25)
[2017-03-20] MEDS ORDERED: SODIUM CHLORIDE 0.9% 1,000 ML IV STA (14:25)
--- NOTE | 2017-03-20 14:32 | ED ---
General Adult HPI - General Chief complaint: Recheck/Abnormal Lab/Rx Stated complaint: Blood pressure issues Time Seen by Provider: 03/20/17 14:01 Source: family, RN notes reviewed Mode of arrival: wheelchair Limitations: no limitations - History of Present Illness Initial comments: This is a 81-year-old female who presents emergency Department with her daughter. Patient is unable to give us any history because of her dementia. Daughter is very poor historian. Daughter states that at the assisted they made an appointment to see her head of marketing adometry today but since head of marketing adometry could not see her right away the daughter felt as though she needs to come to the ER with her mom. Daughter states the she was sent to see the head of marketing adometry because of high blood pressure. She also states for the last 3 days she believes that her mom is vomiting every day. She does note the patient's having any diarrhea. Patient is not communicating with her so she does not notice any areas of pain. There is been no record of any temperature. There is been no history of any difficulty breathing or cough that she knows of. Daughter has no further history at this time. There is no staff member from the assisted with the patient. - Related Data Home Medications Medication Instructions Recorded Confirmed Cholecalciferol [Vitamin D3] 1,000 unit PO DAILY 11/16/14 03/20/17 Multivitamins, Thera [Multivitamin 1 tab PO DAILY 11/16/14 03/20/17 (formulary)] Metoprolol Succinate [Toprol XL] 50 mg PO DAILY 12/25/14 03/20/17 Primidone [Mysoline] 50 mg PO TID 12/25/14 03/20/17 Calcium Carbonate [Calcium] 600 mg PO DAILY 09/05/16 03/20/17 Febuxostat [Uloric] 40 mg PO DAILY 09/05/16 03/20/17 glipiZIDE [Glucotrol] 5 mg PO DAILY 09/05/16 03/20/17 ALPRAZolam [Xanax] 0.25 mg PO BID 12/19/16 03/20/17 Atorvastatin [Lipitor] 40 mg PO HS 12/19/16 03/20/17 Isosorbide Mononitrate ER [Imdur] 30 mg PO DAILY 12/19/16 03/20/17 Ondansetron [Zofran] 4 mg PO Q8HR PRN 12/19/16 03/20/17 hydrALAZINE HCL [Apresoline] 25 mg PO Q12H 12/19/16 03/20/17 traMADol HCL [Ultram] 50 mg PO Q8H PRN 12/19/16 03/20/17 traZODone HCL 150 mg PO HS 12/19/16 03/20/17 Carbidopa-Levodopa 25-250 mg 1 tab PO TID 03/20/17 03/20/17 [Sinemet 25-250] Sennosides-Docusate Sodium 1 tab PO BID 03/20/17 03/20/17 [Senokot-S] cloNIDine HCL [Catapres] 0.2 mg PO Q8H PRN 03/20/17 03/20/17 Previous Rx's Medication Instructions Recorded Aspirin 81 mg PO DAILY #30 chew 09/06/16 Clopidogrel [Plavix] 75 mg PO DAILY #30 tab 09/06/16 Ipratropium-Albuterol Nebulize 3 ml INHALATION RT-QID PRN #0 09/06/16 [Duoneb 0.5 mg-3 mg/3 ml Soln] Nitroglycerin Sl Tabs [Nitrostat] 0.4 mg SUBLINGUAL Q5M PRN #25 tab 09/06/16 amLODIPine [Norvasc] 5 mg PO HS #30 tab 09/06/16 Lisinopril [Zestril] 20 mg PO DAILY #0 12/22/16 Allergies Allergy/AdvReac Type Severity Reaction Status Date / Time Iodinated Contrast- Oral and Allergy Swelling/Ra Verified 03/20/17 16:03 IV Dye sh [Iodinated Contrast Media - Oral and] morphine Allergy Unknown Verified 03/20/17 16:03 Penicillins Allergy Swelling/Ra Verified 03/20/17 16:03 sh Review of Systems ROS Statement: Those systems with pertinent positive or pertinent negative responses have been documented in the HPI. ROS Other: All systems not noted in ROS Statement are negative. Past Medical History Past Medical History: Coronary Artery Disease (CAD), Chest Pain / Angina, Heart Failure, Dementia, Diabetes Mellitus, Hyperlipidemia, Hypertension, Musculoskeletal Disorder, Neurologic Disorder, Osteoarthritis (OA), Pneumonia, Renal Disease Additional Past Medical History / Comment(s): Recent viral enteritis, currently tx for pneumonia per pt, vertigo, falls-fell recently, NIDDM type II, CKD stage IV, early onset parkinson's dx, Oa multiple joints, back pain, gout in great toe bilateral feet, cataract. History of Any Multi-Drug Resistant Organisms: VRE Date of last positivie culture/infection: 10/19/16 MDRO Source:: URINE VRE Past Surgical History: Cholecystectomy, Heart Catheterization With Stent, Hysterectomy, Joint Replacement Additional Past Surgical History / Comment(s): 09/05/16 PCI with stent to cx. Other HX: 1989 PTCA main cx, 1996 PCI with stent to OM, 2010 PCI with stent to LAD, EGD/colonoscopy, bilateral total knees, varicose veing stripping bilaterally. Past Anesthesia/Blood Transfusion Reactions: Postoperative Nausea & Vomiting ( PONV) Date of Last Stent Placement:: 09/05/16 Past Psychological History: No Psychological Hx Reported Smoking Status: Never smoker Past Alcohol Use History: None Reported Past Drug Use History: None Reported - Past Family History Father Family Medical History: Dementia Additional Family Medical History / Comment(s): Father had dementia and he shot himself. Mother Family Medical History: Cancer, CVA/TIA Additional Family Medical History / Comment(s): bowel ca General Exam - General Exam Comments Initial Comments: GENERAL: Patient is well-developed and well-nourished. Patient is nontoxic and well- hydrated and is in no acute distress. ENT: Neck is soft and supple. No significant lymphadenopathy is noted. Oropharynx is clear. Moist mucous membranes. Neck has full range of motion without eliciting any pain. EYES: The sclera were anicteric and conjunctiva were pink and moist. Extraocular movements were intact and pupils were equal round and reactive to light. Eyelids were unremarkable. PULMONARY: Unlabored respirations. Good breath sounds bilaterally. No audible rales rhonchi or wheezing was noted. CARDIOVASCULAR: There is a regular rate and rhythm without any murmurs gallops or rubs. ABDOMEN: Mild mid abdominal tenderness No palpable organomegaly was noted. There is no palpable pulsatile mass. SKIN: Skin is clear with no lesions or rashes and otherwise unremarkable. NEUROLOGIC: Patient is alert and oriented 0. Cranial nerves II through XII are grossly intact. MUSCULOSKELETAL: Normal extremities with adequate strength and full range of motion. No lower extremity swelling or edema. No calf tenderness. LYMPHATICS: No significant lymphadenopathy is noted PSYCHIATRIC: Unable to evaluate secondary to the patient's dementia Limitations: no limitations Course Vital Signs 03/20/17 03/20/17 03/20/17 14:04 15:00 15:12 Temperature 98.6 F 100.1 F H Pulse Rate 67 Respiratory 18 16 Rate Blood Pressure 142/92 184/74 O2 Sat by Pulse 98 97 Oximetry 03/20/17 03/20/17 15:30 16:42 Temperature 98.1 F Pulse Rate 72 Respiratory 16 Rate Blood Pressure 166/74 145/64 O2 Sat by Pulse 95 Oximetry Medical Decision Making - Medical Decision Making EKG shows normal sinus rhythm at 61 bpm IA interval 292 QRS is 86 QT interval 412 QTC is 414. Patient's EKG shows no ST segment elevation or depression or T wave abnormalities are noted. Patient has Catapres ordered 0.2 mg every 8 hours when necessary for elevated blood pressure we have no verification whether or not the patient is receiving this every day or when her blood pressure is high but the daughter will be looking into it and following up with her primary medical care doctor. Patient has not been nauseated earlier in any distress while in the emergency department. - Lab Data Result diagrams: 03/20/17 14:31 03/20/17 14:31 Lab Results 03/20/17 03/20/17 03/20/17 Range/Units 14:31 14:31 14:31 WBC 6.3 (3.8-10.6) k/uL RBC 3.58 L (3.80-5.40) m/uL Hgb 11.0 L (11.4-16.0) gm/dL Hct 32.8 L (34.0-46.0) % MCV 91.8 (80.0-100.0) fL MCH 30.7 (25.0-35.0) pg MCHC 33.5 (31.0-37.0) g/dL RDW 14.2 (11.5-15.5) % Plt Count 202 (150-450) k/uL Neutrophils % 65 % Lymphocytes % 22 % Monocytes % 7 % Eosinophils % 3 % Basophils % 0 % Neutrophils # 4.1 (1.3-7.7) k/uL Lymphocytes # 1.4 (1.0-4.8) k/uL Monocytes # 0.5 (0-1.0) k/uL Eosinophils # 0.2 (0-0.7) k/uL Basophils # 0.0 (0-0.2) k/uL Sodium 135 L (137-145) mmol/L Potassium 4.2 (3.5-5.1) mmol/L Chloride 104 (98-107) mmol/L Carbon Dioxide 26 (22-30) mmol/L Anion Gap 5 mmol/L BUN 27 H (7-17) mg/dL Creatinine 1.20 H (0.52-1.04) mg/dL Est GFR (MDRD) Af Amer 53 (>60 ml/min/1.73 sqM) Est GFR (MDRD) Non-Af 43 (>60 ml/min/1.73 sqM) Glucose 105 H (74-99) mg/dL Plasma Lactic Acid Demetris (0.7-2.0) mmol/L Calcium 9.4 (8.4-10.2) mg/dL Total Bilirubin 0.2 (0.2-1.3) mg/dL AST 21 (14-36) U/L ALT 21 (9-52) U/L Alkaline Phosphatase 89 (38-126) U/L Total Creatine Kinase 83 (30-135) U/L CK-MB (CK-2) <0.2 (0.0-2.4) ng/mL CK-MB (CK-2) Rel Index Troponin I <0.012 (0.000-0.034) ng/mL Total Protein 5.8 L (6.3-8.2) g/dL Albumin 2.9 L (3.5-5.0) g/dL Amylase 32 (30-110) U/L Lipase 105 (23-300) U/L Urine Color Urine Appearance (Clear) Urine pH (5.0-8.0) Ur Specific [place] (1.001-1.035) Urine Protein (Negative) Urine Glucose (UA) (Negative) Urine Ketones (Negative) Urine Blood (Negative) Urine Nitrite (Negative) Urine Bilirubin (Negative) Urine Urobilinogen (<2.0) mg/dL Ur Leukocyte Esterase (Negative) Urine RBC (0-5) /hpf Urine WBC (0-5) /hpf Ur Squamous Epith Cells (0-4) /hpf 03/20/17 03/20/17 Range/Units 14:31 16:01 WBC (3.8-10.6) k/uL RBC (3.80-5.40) m/uL Hgb (11.4-16.0) gm/dL Hct (34.0-46.0) % MCV (80.0-100.0) fL MCH (25.0-35.0) pg MCHC (31.0-37.0) g/dL RDW (11.5-15.5) % Plt Count (150-450) k/uL Neutrophils % % Lymphocytes % % Monocytes % % Eosinophils % % Basophils % % Neutrophils # (1.3-7.7) k/uL Lymphocytes # (1.0-4.8) k/uL Monocytes # (0-1.0) k/uL Eosinophils # (0-0.7) k/uL Basophils # (0-0.2) k/uL Sodium (137-145) mmol/L Potassium (3.5-5.1) mmol/L Chloride (98-107) mmol/L Carbon Dioxide (22-30) mmol/L Anion Gap mmol/L BUN (7-17) mg/dL Creatinine (0.52-1.04) mg/dL Est GFR (MDRD) Af Amer (>60 ml/min/1.73 sqM) Est GFR (MDRD) Non-Af (>60 ml/min/1.73 sqM) Glucose (74-99) mg/dL Plasma Lactic Acid Demetris 1.0 (0.7-2.0) mmol/L Calcium (8.4-10.2) mg/dL Total Bilirubin (0.2-1.3) mg/dL AST (14-36) U/L ALT (9-52) U/L Alkaline Phosphatase (38-126) U/L Total Creatine Kinase (30-135) U/L CK-MB (CK-2) (0.0-2.4) ng/mL CK-MB (CK-2) Rel Index Troponin I (0.000-0.034) ng/mL Total Protein (6.3-8.2) g/dL Albumin (3.5-5.0) g/dL Amylase (30-110) U/L Lipase (23-300) U/L Urine Color Yellow Urine Appearance Clear (Clear) Urine pH 7.0 (5.0-8.0) Ur Specific [place] 1.013 (1.001-1.035) Urine Protein 2+ H (Negative) Urine Glucose (UA) Negative (Negative) Urine Ketones Negative (Negative) Urine Blood Small H (Negative) Urine Nitrite Negative (Negative) Urine Bilirubin Negative (Negative) Urine Urobilinogen <2.0 (<2.0) mg/dL Ur Leukocyte Esterase Negative (Negative) Urine RBC 30 H (0-5) /hpf Urine WBC 3 (0-5) /hpf Ur Squamous Epith Cells <1 (0-4) /hpf Disposition Clinical Impression: Hypertension, Nausea & vomiting Disposition: HOME SELF-CARE Condition: Good Instructions: Acute Nausea and Vomiting (ED), Hypertension (ED) Referrals: Kateryna Green DO [Primary Care Provider] - 1-2 days Time of Disposition: 16:48
[2017-03-20 15:02] LABS: Basophils % (A) 0 %; CH 30.7; CHCM 33.6; Eosinophils # (A) 0.2 k/uL (0-0.7); Eosinophils % (A) 3 %; HCT 32.8 % (34.0-46.0); HDW 2.71; Luc # (Auto) 0.18; Luc % (Auto) 3; Lymphocytes # (A) 1.4 k/uL (1.0-4.8); Lymphocytes % (A) 22 %; MCH 30.7 pg (25.0-35.0); MCHC 33.5 g/dL (31.0-37.0); MCV 91.8 fL (80.0-100.0); Mean Platelet Volume 7.2; Monocytes # (A) 0.5 k/uL (0-1.0); Monocytes % (A) 7 %; Neutrophils # (A) 4.1 k/uL (1.3-7.7); Neutrophils % (A) 65 %; RBC 3.58 m/uL (3.80-5.40); RDW 14.2 % (11.5-15.5); WBC 6.3 k/uL (3.8-10.6); WBC (Perox) 6.44
[2017-03-20] MEDS ORDERED: ACETAMINOPHEN TAB 500 MG TAB PO STA (15:10)
[2017-03-20 15:17] LABS: Calcium 9.4 mg/dL (8.4-10.2); Total Bilirubin 0.2 mg/dL (0.2-1.3); Total Protein 5.8 g/dL (6.3-8.2)
[2017-03-20 15:19] LABS: Potassium 4.2 mmol/L (3.5-5.1)
[2017-03-20 15:24] LABS: Creatine Kinase 83 U/L (30-135)
[2017-03-20] MEDS ORDERED: hydrALAZINE HCL 20 MG/ML 1 ML VIAL IVP STA (15:30)
[2017-03-20 15:38] LABS: Creatine Kinase MB <0.2 ng/mL (0.0-2.4); Troponin I <0.012 ng/mL (0.000-0.034)
--- NOTE | 2017-03-20 15:45 | XR ---
EXAMINATION TYPE: XR chest 2V DATE OF EXAM: 03/20/2017 COMPARISON: Prior chest x-ray 12/19/2016 HISTORY: Abdominal pain, hypertension TECHNIQUE: Frontal and lateral views of the chest are obtained. FINDINGS: Heart size appears enlarged although patient is somewhat rotated which may accentuate appe arance. No pneumothorax or pleural effusion. Retrocardiac density is again seen may represent scarrin g or atelectasis rather than airspace disease. Pulmonary vascularity and adri are stable. IMPRESSION: Findings are similar to previous exam. Possible cardiomegaly, left lower lobe atelectasi s versus scarring, follow-up as indicated.
--- NOTE | 2017-03-20 15:46 | XR ---
EXAMINATION TYPE: XR KUB DATE OF EXAM: 03/20/2017 3:39 PM CLINICAL HISTORY: Weakness and abdominal pain TECHNIQUE: Two Upright KUB images of the abdomen are obtained. COMPARISON: CT abdomen and pelvis November 16, 2014. FINDINGS: Scattered gas is seen in non-distended small bowel loops. Gas and fecal material is seen in non-distended colon. Cholecystectomy clips are redemonstrated. Dense vascular calcification left upp er quadrant along course of splenic artery is seen. There is vascular calcification along course of a silas and in the pelvis. There is underlying levoconvex scoliosis with moderate multilevel spurring in the lumbar spine. There is moderate joint space loss in both hips redemonstrated. No pneumoperitoneu m is seen. Heart size is mildly enlarged. IMPRESSION: Overall nonobstructive bowel gas pattern.
[2017-03-20 16:10] LABS: Appearance,Urine Clear (Clear); Bilirubin,Urine Negative (Negative); Glucose,Urine (UA) Negative (Negative); Ketones,Urine Negative (Negative); Leukocyte Esterase,Urine Negative (Negative); Nitrite,Urine Negative (Negative); Particle Count 2194; Protein,Urine 2+ (Negative); RBC,Urine 30 /hpf (0-5); Specific Gravity,Urine 1.013 (1.001-1.035); Squamous Epithelial Cell,Urine <1 /hpf (0-4); UA Billing (MACRO vs. MICRO) MICRO; Urobilinogen,Urine <2.0 mg/dL (<2.0); WBC,Urine 3 /hpf (0-5)
[2017-03-20 17:15] VITALS: BP 146/65; PULSE 59; RESP 19; TEMP 97.8
== END 2017-03-20 17:15 | disposition home or self-care (01) ==
LOC: EC 14:01
DX: I13.0 Hypertensive heart and chronic kidney disease with heart failure and stage 1 through stage 4 chronic kidney disease, or unspecified chronic kidney disease (principal); R11.2 Nausea with vomiting, unspecified; I50.9 Heart failure, unspecified; N18.4 Chronic kidney disease, stage 4 (severe); I25.10 Atherosclerotic heart disease of native coronary artery without angina pectoris; F03.90 Unspecified dementia, unspecified severity, without behavioral disturbance, psychotic disturbance, mood disturbance, and anxiety; M19.90 Unspecified osteoarthritis, unspecified site; E78.5 Hyperlipidemia, unspecified; E11.22 Type 2 diabetes mellitus with diabetic chronic kidney disease; Z95.5 Presence of coronary angioplasty implant and graft; Z79.84 Long term (current) use of oral hypoglycemic drugs; Z79.899 Other long term (current) drug therapy; Z88.0 Allergy status to penicillin; Z88.5 Allergy status to narcotic agent; Z91.041 Radiographic dye allergy status
CPT/HCPCS: 99284 ×2; 96374 ×2; 96375 ×2; 96361 ×2; 51798; 36415; 93005; 80053; 82150; 82550; 82553; 83605; 83690; 84484; 85025; 81001; 87040; 71020; 74000; J0360; J2405

== ENCOUNTER 2019-08-24 09:37 | Emergency (ER) | payer MEDICARE, BC, OTHER ==
[2019-08-24 09:42] VITALS: RESP 18; TEMP 97.6
[2019-08-24] MEDS ORDERED: ACETAMINOPHEN TAB 325 MG TAB PO STA (10:34)
--- NOTE | 2019-08-24 10:38 | ED ---
Fall HPI - General Chief Complaint: Fall Stated Complaint: FALL Time Seen by Provider: 08/24/19 09:38 Source: patient, EMS Mode of arrival: EMS Limitations: physical limitation - History of Present Illness Initial Comments: This is an 83-year-old female presents emergency Department from [facility] chief complaint of a head injury. Patient states that she dropped her deodorant states that she went to bend over to get it fell forward striking her head on the ground. Patient does take aspirin. She went of a headache denies any blurred vision no focal weakness. She does have underlying Parkinson's disease states that she is very unsteady. Patient has no complaints of extremity injuries denies neck pain, back pain. Patient had no loss conscious. Patient does have noted abrasion, hematoma to her forehead she states she is up-to-date on her tetanus. - Related Data Home Medications Medication Instructions Recorded Confirmed Cholecalciferol [Vitamin D3 (25 1,000 unit PO DAILY 11/16/14 03/20/17 Mcg = 1000 Iu)] Multivitamins, Thera [Multivitamin 1 tab PO DAILY 11/16/14 03/20/17 (formulary)] Metoprolol Succinate [Toprol XL] 50 mg PO DAILY 12/25/14 03/20/17 Primidone [Mysoline] 50 mg PO TID 12/25/14 03/20/17 Calcium Carbonate [Calcium] 600 mg PO DAILY 09/05/16 03/20/17 Febuxostat [Uloric] 40 mg PO DAILY 09/05/16 03/20/17 glipiZIDE [Glucotrol] 5 mg PO DAILY 09/05/16 03/20/17 ALPRAZolam [Xanax] 0.25 mg PO BID 12/19/16 03/20/17 Atorvastatin [Lipitor] 40 mg PO HS 12/19/16 03/20/17 Isosorbide Mononitrate ER [Imdur] 30 mg PO DAILY 12/19/16 03/20/17 Ondansetron [Zofran] 4 mg PO Q8HR PRN 12/19/16 03/20/17 hydrALAZINE HCL [Apresoline] 25 mg PO Q12H 12/19/16 03/20/17 traMADol HCL [Ultram] 50 mg PO Q8H PRN 12/19/16 03/20/17 traZODone HCL 150 mg PO HS 12/19/16 03/20/17 Carbidopa-Levodopa 25-250 mg 1 tab PO TID 03/20/17 03/20/17 [Sinemet 25-250] Sennosides-Docusate Sodium 1 tab PO BID 03/20/17 03/20/17 [Senokot-S] cloNIDine HCL [Catapres] 0.2 mg PO Q8H PRN 03/20/17 03/20/17 Previous Rx's Medication Instructions Recorded Aspirin 81 mg PO DAILY #30 chew 09/06/16 Clopidogrel [Plavix] 75 mg PO DAILY #30 tab 09/06/16 Ipratropium-Albuterol Nebulize 3 ml INHALATION RT-QID PRN #0 09/06/16 [Duoneb 0.5 mg-3 mg/3 ml Soln] Nitroglycerin Sl Tabs [Nitrostat] 0.4 mg SUBLINGUAL Q5M PRN #25 tab 09/06/16 amLODIPine [Norvasc] 5 mg PO HS #30 tab 09/06/16 Lisinopril [Zestril] 20 mg PO DAILY #0 12/22/16 Allergies Allergy/AdvReac Type Severity Reaction Status Date / Time Iodinated Contrast Media Allergy Swelling/Ra Verified 03/20/17 16:03 [Iodinated Contrast Media - sh Oral and] morphine Allergy Unknown Verified 03/20/17 16:03 Penicillins Allergy Swelling/Ra Verified 03/20/17 16:03 sh Review of Systems ROS Statement: Those systems with pertinent positive or pertinent negative responses have been documented in the HPI. ROS Other: All systems not noted in ROS Statement are negative. Past Medical History Past Medical History: Coronary Artery Disease (CAD), Chest Pain / Angina, Heart Failure, Dementia, Diabetes Mellitus, Hyperlipidemia, Hypertension, Musculoskeletal Disorder, Neurologic Disorder, Osteoarthritis (OA), Pneumonia, Renal Disease Additional Past Medical History / Comment(s): Recent viral enteritis, currently tx for pneumonia per pt, vertigo, falls-fell recently, NIDDM type II, CKD stage IV, early onset parkinson's dx, Oa multiple joints, back pain, gout in great toe bilateral feet, cataract. History of Any Multi-Drug Resistant Organisms: VRE Date of last positivie culture/infection: 05/04/17 MDRO Source:: URINE VRE Past Surgical History: Cholecystectomy, Heart Catheterization With Stent, Hysterectomy, Joint Replacement Additional Past Surgical History / Comment(s): 09/05/16 PCI with stent to cx. Other HX: 1989 PTCA main cx, 1996 PCI with stent to OM, 2010 PCI with stent to LAD, EGD/colonoscopy, bilateral total knees, varicose veing stripping bilaterally. Past Anesthesia/Blood Transfusion Reactions: Postoperative Nausea & Vomiting (PONV) Date of Last Stent Placement:: 09/05/16 Past Psychological History: No Psychological Hx Reported Smoking Status: Never smoker Past Alcohol Use History: None Reported Past Drug Use History: None Reported - Past Family History Father Family Medical History: Dementia Additional Family Medical History / Comment(s): Father had dementia and he shot himself. Mother Family Medical History: Cancer, CVA/TIA Additional Family Medical History / Comment(s): bowel ca General Exam Limitations: no limitations General appearance: alert, in no apparent distress Head exam: Present: atraumatic, normocephalic. Absent: normal inspection (Large frontal hematoma, abrasion noted) Eye exam: Present: normal appearance, PERRL, EOMI. Absent: scleral icterus, conjunctival injection, periorbital swelling ENT exam: Present: normal exam, normal oropharynx, mucous membranes moist Neck exam: Present: normal inspection, full ROM. Absent: tenderness, meningismus, lymphadenopathy Respiratory exam: Present: normal lung sounds bilaterally. Absent: respiratory distress, wheezes, rales, rhonchi, stridor Cardiovascular Exam: Present: regular rate, normal rhythm, normal heart sounds. Absent: systolic murmur, diastolic murmur, rubs, gallop, clicks Neurological exam: Present: alert, oriented X3, CN II-XII intact, reflexes normal. Absent: motor sensory deficit Skin exam: Present: warm, dry, intact, normal color. Absent: rash Course Vital Signs 08/24/19 09:38 Temperature 97.6 F Pulse Rate 74 Respiratory 18 Rate Blood Pressure 184/84 O2 Sat by Pulse 100 Oximetry Medical Decision Making - Medical Decision Making CT of the brain and C-spine are obtained there are no acute fracture no intracranial hemorrhage. Patient does have a frontal hematoma. Patient will be discharged in stable condition back to [facility]. Disposition Clinical Impression: Fall, Hematoma of frontal scalp, Head injury Disposition: HOME SELF-CARE Condition: Stable Instructions (If sedation given, give patient instructions): Head Injury (ED) Additional Instructions: Please return to the Emergency Department if symptoms worsen or any other concer ns. Is patient prescribed a controlled substance at d/c from ED?: No Referrals: Rodrigo Dc MD [Primary Care Provider] - 1-2 days Time of Disposition: 10:45
--- NOTE | 2019-08-24 10:41 | CT ---
EXAMINATION TYPE: CT brain lindsey larson con DATE OF EXAM: 08/24/2019 COMPARISON: 11/05/2012 HISTORY: 83-year-old female Left frontal injury with laceration CT DLP: 1310 mGycm Automated exposure control for dose reduction was used. Technique: Examination of the head was done in axial plane without intravenous contrast. Coronal and sagittal reconstructions performed. CT of the cervical spine was obtained in axial plane without intravenous injection of contrast mater ial. Coronal and sagittal reformatted images were obtained from the axial views for evaluation of f ractures, spinal alignment and canal. FINDINGS: Head: There is no evidence of acute intracranial hemorrhage, acute ischemic changes, mass, mass-effect, or extra-axial fluid collection. There is no effacement of cerebral sulci or basal subarachnoid cister ns. There is no hydrocephalus. There is no midline shift. Solitario-white matter distinction is preserv ed. Moderate sized left frontal scalp contusion. No underlying calvarial fracture.. Mild generalized supratentorial volume loss mild patchy white matter hypodensity suggesting changes o f chronic small vessel ischemic disease. Metastatic calcifications within the carotid siphons. Partia lly empty sella. Paranasal sinuses and mastoid air cells are well pneumatized. Orbits and globes are intact. Cervical spine: [id number] effusion on the right. Bulky thyroid gland, possible goiter. No craniocervical junction abnormality, predental space widening, or prevertebral soft tissue swellin g. Reversal of the normal cervical lordosis. Trace grade 1 anterolisthesis at C3-C4 and C4-C5. Moderate to severe disc/endplate degenerative change at C5-C7 levels. Hypertrophic facet and uncovertebral joint arthropathy is present. No acute fracture of the cervical spine. Moderate right neuroforaminal stenosis C5-C6. Sagittal and coronal reformatted images confirm above findings. COMBINED IMPRESSION: 1. Moderate left frontal scalp contusion/hematoma. No underlying calvarial fracture or acute intracra nial abnormality seen. 2. No acute fracture of the cervical spine. Moderate to advanced degenerative disc disease C5-C7 leve ls. Degenerative grade 1 anterolisthesis at C3-C4 and C4-C5. Moderate right neuroforaminal stenosis a t C5-C6. 3. [id number] right pleural effusion. Correlate as to etiology.
[2019-08-24 10:44] VITALS: BP 146/62; PULSE 63
== END 2019-08-24 11:01 | disposition home or self-care (01) ==
LOC: EC 09:37
DX: S00.03XA Contusion of scalp, initial encounter (principal); I25.119 Atherosclerotic heart disease of native coronary artery with unspecified angina pectoris; I13.0 Hypertensive heart and chronic kidney disease with heart failure and stage 1 through stage 4 chronic kidney disease, or unspecified chronic kidney disease; I50.9 Heart failure, unspecified; N18.4 Chronic kidney disease, stage 4 (severe); G20 Parkinson's disease; F02.80 Dementia in other diseases classified elsewhere, unspecified severity, without behavioral disturbance, psychotic disturbance, mood disturbance, and anxiety; E11.22 Type 2 diabetes mellitus with diabetic chronic kidney disease; E78.5 Hyperlipidemia, unspecified; M19.90 Unspecified osteoarthritis, unspecified site; J18.9 Pneumonia, unspecified organism; M10.9 Gout, unspecified; Z88.0 Allergy status to penicillin; Z88.5 Allergy status to narcotic agent; Z91.041 Radiographic dye allergy status; Z79.82 Long term (current) use of aspirin; Z79.84 Long term (current) use of oral hypoglycemic drugs; Z79.899 Other long term (current) drug therapy; Z95.5 Presence of coronary angioplasty implant and graft; Z96.653 Presence of artificial knee joint, bilateral; Z81.8 Family history of other mental and behavioral disorders; W01.0XXA Fall on same level from slipping, tripping and stumbling without subsequent striking against object, initial encounter; Y93.89 Activity, other specified; Y92.009 Unspecified place in unspecified non-institutional (private) residence as the place of occurrence of the external cause
CPT/HCPCS: 70450; 72125; 99284

== ENCOUNTER 2019-09-19 19:50 | Inpatient (IN) | payer MEDICARE, OTHER ==
--- NOTE | 2019-09-19 20:48 | ED ---
Fall HPI - General Source: EMS Mode of arrival: EMS <Jillian Hathaway - Last Filed: 09/20/19 00:33> <Emani Valverde - Last Filed: 09/20/19 02:29> <Peterson Paul - Last Filed: 09/21/19 00:08> - General Chief Complaint: Fall Stated Complaint: head injury Time Seen by Provider: 09/19/19 19:56 - History of Present Illness Initial Comments: Patient is an 83-year-old female, with history of Parkinson's, on Plavix, presenting to the emergency department via EMS after falling in the shower today. Patient states her family was helping her with the shower when he let go for just a moment and she fell forward hitting her head on the toilet. Patient is complaining of pain in her head. She has a large laceration on the front part of her head. She is also complaining of severe right knee pain. She states she has a history of bilateral knee replacement. She states that she felt dizzy in the shower and that made her fall. She denies loosing consciousness. She denies chest pain, shortness of breath, abdominal pain. She denies pain in her left lower extremity. She does have a skin tear to the right forearm. Patient has no other complaints at this time. Upon arrival to the ER, patient's vital signs are stable. (Jillian Hathaway) - Related Data Home Medications Medication Instructions Recorded Confirmed Cholecalciferol [Vitamin D3 (25 1,000 unit PO DAILY 11/16/14 09/20/19 Mcg = 1000 Iu)] Multivitamins, Thera [Multivitamin 1 tab PO DAILY 11/16/14 09/20/19 (formulary)] Metoprolol Succinate [Toprol XL] 50 mg PO DAILY 12/25/14 09/20/19 Calcium Carbonate [Calcium] 600 mg PO DAILY 09/05/16 09/20/19 Febuxostat [Uloric] 40 mg PO DAILY 09/05/16 09/20/19 ALPRAZolam [Xanax] 0.25 mg PO HS@199912/19/16 09/20/19 Isosorbide Mononitrate ER [Imdur] 30 mg PO DAILY 12/19/16 09/20/19 Sennosides-Docusate Sodium 1 tab PO DAILY 03/20/17 09/20/19 [Senokot-S] cloNIDine HCL [Catapres] 0.2 mg PO Q8H PRN 03/20/17 09/20/19 Acetaminophen [Tylenol] 650 mg PO Q6H PRN 09/20/19 09/20/19 Atorvastatin [Lipitor] 20 mg PO HS 09/20/19 09/20/19 Bisacodyl [Dulcolax] 10 mg RECTAL DAILY PRN 09/20/19 09/20/19 Carbidopa-Levodopa 25-100 mg 1 tab PO TID@0800,1200,1930 09/20/19 09/20/19 [Sinemet 25-100] Ferrous Sulfate [Feosol] 325 mg PO HS 09/20/19 09/20/19 Polyethylene Glycol 3350 [Miralax] 17 gm PO DAILY PRN 09/20/19 09/20/19 Promethazine [Phenergan] 25 mg PO BID PRN 09/20/19 09/20/19 Propranolol [Inderal] 20 mg PO TID@0800,1200,1800 09/20/19 09/20/19 QUEtiapine [SEROquel] 50 mg PO HS 09/20/19 09/20/19 amLODIPine [Norvasc] 5 mg PO DAILY 09/20/19 09/20/19 hydrALAZINE HCL 10 mg PO TID@0800,1300,2000 09/20/19 09/20/19 Previous Rx's Medication Instructions Recorded Aspirin 81 mg PO DAILY #30 chew 09/06/16 Clopidogrel [Plavix] 75 mg PO DAILY #30 tab 09/06/16 Nitroglycerin Sl Tabs [Nitrostat] 0.4 mg SUBLINGUAL Q5M PRN #25 tab 09/06/16 Allergies Allergy/AdvReac Type Severity Reaction Status Date / Time Iodinated Contrast Media Allergy Swelling/Ra Verified 09/20/19 11:23 [Iodinated Contrast Media - sh Oral and] morphine Allergy Unknown Verified 09/20/19 11:23 Penicillins Allergy Swelling/Ra Verified 09/20/19 11:23 sh Review of Systems ROS Other: All systems not noted in ROS Statement are negative. <Jillian Hathaway - Last Filed: 09/20/19 00:33> ROS Other: All systems not noted in ROS Statement are negative. <Emani Valverde Alejandro - Last Filed: 09/20/19 02:29> ROS Other: All systems not noted in ROS Statement are negative. <FacundoadrianPeterson - Last Filed: 09/21/19 00:08> ROS Statement: Those systems with pertinent positive or pertinent negative responses have been documented in the HPI. Past Medical History Past Medical History: Coronary Artery Disease (CAD), Chest Pain / Angina, Heart Failure, Dementia, Diabetes Mellitus, Hyperlipidemia, Hypertension, Musculoskeletal Disorder, Neurologic Disorder, Osteoarthritis (OA), Pneumonia, Renal Disease Additional Past Medical History / Comment(s): Recent viral enteritis, currently tx for pneumonia per pt, vertigo, falls-fell recently, NIDDM type II, CKD stage IV, early onset parkinson's dx, Oa multiple joints, back pain, gout in great toe bilateral feet, cataract. History of Any Multi-Drug Resistant Organisms: VRE Date of last positivie culture/infection: 10/19/16 MDRO Source:: URINE VRE Past Surgical History: Cholecystectomy, Heart Catheterization With Stent, Hysterectomy, Joint Replacement Additional Past Surgical History / Comment(s): 09/05/16 PCI with stent to cx. Other HX: 1989 PTCA main cx, 1996 PCI with stent to OM, 2010 PCI with stent to LAD, EGD/colonoscopy, bilateral total knees, varicose veing stripping bilaterally. Past Anesthesia/Blood Transfusion Reactions: Postoperative Nausea & Vomiting (PONV) Date of Last Stent Placement:: 09/05/16 Past Psychological History: No Psychological Hx Reported Smoking Status: Never smoker Past Alcohol Use History: None Reported Past Drug Use History: None Reported - Past Family History Father Family Medical History: Dementia Additional Family Medical History / Comment(s): Father had dementia and he shot himself. Mother Family Medical History: Cancer, CVA/TIA Additional Family Medical History / Comment(s): bowel ca <Jillian Hathaway - Last Filed: 09/20/19 00:33> General Exam Limitations: no limitations <Jillian Hathaway - Last Filed: 09/20/19 00:33> - General Exam Comments Initial Comments: GENERAL: Patient is upset secondary to falling. In no acute distress. HEAD: Patient has a large, laceration to the anterior scalp that is U-shaped extending to the right side of the scalp. Patient is bleeding through bandages. She has an hematoma on the anterior, superior portion of the head. EYES: Pupils equal round and reactive to light, extraocular movements intact, sclera anicteric, conjunctiva are normal. ENT: TMs normal, nares patent, oropharynx clear without exudates. Moist mucous membranes. NECK: Normal range of motion, supple without lymphadenopathy or JVD. LUNGS: Breath sounds clear to auscultation bilaterally and equal. No wheezes rales or rhonchi. HEART: Regular rate and rhythm without murmurs, rubs or gallops. ABDOMEN: Soft, nontender, normoactive bowel sounds. No guarding, no rebound. No masses appreciated. : Deferred EXTREMITIES: The patient has pain to palpation of the right knee, mild to moderate swelling of the knee. Limited range of motion secondary to pain. She is neurovascular intact. NEUROLOGICAL: Cranial nerves II through XII grossly intact. History of Parkinson's. PSYCH: Normal mood, normal affect. SKIN: Warm, Dry, normal turgor, no rashes. Patient has a large skin tear to the dorsal aspect of the right forearm. (Jillian Hathaway) Course Vital Signs 09/19/19 09/19/19 09/19/19 19:53 21:48 22:56 Temperature 97.5 F L Pulse Rate 75 67 68 Respiratory 18 18 18 Rate Blood Pressure 166/84 149/66 131/70 O2 Sat by Pulse 98 97 88 L Oximetry 09/19/19 09/19/19 09/20/19 23:00 23:54 00:28 Temperature Pulse Rate 73 75 Respiratory 18 18 Rate Blood Pressure 149/68 146/71 O2 Sat by Pulse 95 93 L 90 L Oximetry 09/20/19 09/20/19 00:51 03:50 Temperature 89.0 F L Pulse Rate 76 67 Respiratory 15 18 Rate Blood Pressure 147/70 164/72 O2 Sat by Pulse 92 L 95 Oximetry Procedures - Laceration Laceration #1 Consent Obtained: verbal consent Indication: laceration Site: scalp Size (cm): 12 Description: flap, irregular Pre-repair: wound explored, irrigated extensively, deep structures intact Type of Sutures: nylon Size of Sutures: 4-0 Number of Sutures: 12 Technique: simple, interrupted Complications: bleeding Patient Tolerated Procedure: well <Emani Valverde - Last Filed: 09/20/19 02:29> Medical Decision Making - Lab Data Result diagrams: 09/19/19 21:15 09/19/19 21:15 <Jillian Hathaway - Last Filed: 09/20/19 00:33> - Lab Data Result diagrams: 09/19/19 21:15 09/19/19 21:15 <Emani Valverde - Last Filed: 09/20/19 02:29> - Lab Data Result diagrams: 09/19/19 21:15 09/19/19 21:15 <Peterson Paul - Last Filed: 09/21/19 00:08> - Medical Decision Making I took over management of this patient after Dr. Antonio shift ended. The patient did have continued bleeding at the scalp laceration, which had been tata. In light of this I did remove the tata and underneath the flap applied silver nitrate to 1 small area of bleeding. I then applied direct pressure to stop the remaining capillary ooze. I held pressure for a total of 20 minutes. Following this I observed for additional 30 minutes to ensure that there was no rebleeding. The laceration then closed by physician assistant analyst, please see the procedure note. Following this, the patient did develop multiple rounds of vomiting and was not tolerating oral intake. In light of this, patient admitted overnight. I discussed case with Dr. Elizondo. Patient otherwise appears clinically stable (Peterson Paul) - Lab Data Lab Results 09/19/19 09/19/19 09/19/19 Range/Units 21:15 21:15 21:15 WBC 8.0 (3.8-10.6) k/uL RBC 3.67 L (3.80-5.40) m/uL Hgb 11.4 (11.4-16.0) gm/dL Hct 33.2 L (34.0-46.0) % MCV 90.3 (80.0-100.0) fL MCH 31.0 (25.0-35.0) pg MCHC 34.4 (31.0-37.0) g/dL RDW 13.3 (11.5-15.5) % Plt Count 230 (150-450) k/uL Neutrophils % 78 % Lymphocytes % 14 % Monocytes % 4 % Eosinophils % 2 % Basophils % 0 % Neutrophils # 6.3 (1.3-7.7) k/uL Lymphocytes # 1.1 (1.0-4.8) k/uL Monocytes # 0.3 (0-1.0) k/uL Eosinophils # 0.2 (0-0.7) k/uL Basophils # 0.0 (0-0.2) k/uL PT 10.4 (9.0-12.0) sec INR 1.0 (<1.2) APTT 23.6 (22.0-30.0) sec Sodium 138 (137-145) mmol/L Potassium 5.5 H (3.5-5.1) mmol/L Chloride 106 (98-107) mmol/L Carbon Dioxide 24 (22-30) mmol/L Anion Gap 8 mmol/L BUN 40 H (7-17) mg/dL Creatinine 1.53 H (0.52-1.04) mg/dL Est GFR (CKD-EPI)AfAm 37 (>60 ml/min/1.73 sqM) Est GFR (CKD-EPI)NonAf 32 (>60 ml/min/1.73 sqM) Glucose 173 H (74-99) mg/dL Plasma Lactic Acid Demetris (0.7-2.0) mmol/L Calcium 9.3 (8.4-10.2) mg/dL Total Bilirubin 0.4 (0.2-1.3) mg/dL AST 28 (14-36) U/L ALT 9 (4-34) U/L Alkaline Phosphatase 115 (38-126) U/L Troponin I (0.000-0.034) ng/mL Total Protein 7.1 (6.3-8.2) g/dL Albumin 3.4 L (3.5-5.0) g/dL Urine Color Urine Appearance (Clear) Urine pH (5.0-8.0) Ur Specific Rosamond (1.001-1.035) Urine Protein (Negative) Urine Glucose (UA) (Negative) Urine Ketones (Negative) Urine Blood (Negative) Urine Nitrite (Negative) Urine Bilirubin (Negative) Urine Urobilinogen (<2.0) mg/dL Ur Leukocyte Esterase (Negative) Urine RBC (0-5) /hpf 09/19/19 09/19/19 09/19/19 Range/Units 21:15 21:15 23:33 WBC (3.8-10.6) k/uL RBC (3.80-5.40) m/uL Hgb (11.4-16.0) gm/dL Hct (34.0-46.0) % MCV (80.0-100.0) fL MCH (25.0-35.0) pg MCHC (31.0-37.0) g/dL RDW (11.5-15.5) % Plt Count (150-450) k/uL Neutrophils % % Lymphocytes % % Monocytes % % Eosinophils % % Basophils % % Neutrophils # (1.3-7.7) k/uL Lymphocytes # (1.0-4.8) k/uL Monocytes # (0-1.0) k/uL Eosinophils # (0-0.7) k/uL Basophils # (0-0.2) k/uL PT (9.0-12.0) sec INR (<1.2) APTT (22.0-30.0) sec Sodium (137-145) mmol/L Potassium (3.5-5.1) mmol/L Chloride (98-107) mmol/L Carbon Dioxide (22-30) mmol/L Anion Gap mmol/L BUN (7-17) mg/dL Creatinine (0.52-1.04) mg/dL Est GFR (CKD-EPI)AfAm (>60 ml/min/1.73 sqM) Est GFR (CKD-EPI)NonAf (>60 ml/min/1.73 sqM) Glucose (74-99) mg/dL Plasma Lactic Acid Demetris 1.5 (0.7-2.0) mmol/L Calcium (8.4-10.2) mg/dL Total Bilirubin (0.2-1.3) mg/dL AST (14-36) U/L ALT (4-34) U/L Alkaline Phosphatase (38-126) U/L Troponin I <0.012 (0.000-0.034) ng/mL Total Protein (6.3-8.2) g/dL Albumin (3.5-5.0) g/dL Urine Color Yellow Urine Appearance Clear (Clear) Urine pH 6.5 (5.0-8.0) Ur Specific Rosamond 1.012 (1.001-1.035) Urine Protein 2+ H (Negative) Urine Glucose (UA) Negative (Negative) Urine Ketones Negative (Negative) Urine Blood Negative (Negative) Urine Nitrite Negative (Negative) Urine Bilirubin Negative (Negative) Urine Urobilinogen <2.0 (<2.0) mg/dL Ur Leukocyte Esterase Negative (Negative) Urine RBC <1 (0-5) /hpf - EKG Data EKG Comments: Ventricular rate 75, W[place] interval 238, QTC 431. Sinus rhythm with first-degree A V block. No signs of acute ischemia. (Jillian Hathaway) Critical Care Time Critical Care Time: Yes (35 minutes) <Peterson Paul - Last Filed: 09/21/19 00:08> Disposition Is patient prescribed a controlled substance at d/c from ED?: No <Jillian Hathaway - Last Filed: 09/20/19 00:33> <Emani Valverde - Last Filed: 09/20/19 02:29> <Peterson Paul - Last Filed: 09/21/19 00:08> Clinical Impression: Fall, Laceration of scalp, Intractable vomiting Disposition: ADMITTED IP TO THIS HOSP Condition: Fair
--- NOTE | 2019-09-19 20:48 | XR ---
EXAMINATION TYPE: XR knee complete RT DATE OF EXAM: 09/19/2019 COMPARISON: NONE HISTORY: Pain. Fall. TECHNIQUE: 3 views FINDINGS: There is a right knee prosthesis. Components appear in anatomic position. I see no fracture nor dislocation. There is vascular calcification. There is subcutaneous edema around the knee. IMPRESSION: Soft tissue swelling. No fracture seen.
[2019-09-19] MEDS ORDERED: SODIUM CHLORIDE 0.9% 500 ML 500 ML IV STA (20:52)
[2019-09-19] MEDS ORDERED: LIDOCAINE 1%-EPI 1:100,000 20 ML VIAL SQ STA (20:52)
--- NOTE | 2019-09-19 21:06 | CT ---
EXAMINATION TYPE: CT brain cspine wo con DATE OF EXAM: 09/19/2019 COMPARISON: 08/24/2019 HISTORY: Dizziness with fall and head injury. CT DLP: 1182.4 mGycm Automated exposure control for dose reduction was used. Multiple axial sections were obtained without contrast from the skull base to T1 vertebra. Images wer e obtained of the brain without contrast. FINDINGS: There is straightening of the cervical spine with disc space narrowing at C5-6 and C6-7. The posterio r elements are intact. There is multilevel cervical facet arthropathy. The skull base is intact. There is cerebral cortical atrophy. There is no mass effect nor midline shift. There is no sign of in tracranial hemorrhage. The calvarium is intact. There is frontal scalp laceration with skin tata. There is scalp soft tissue swelling. The calvarium appears intact. IMPRESSION: Cerebral atrophy. No acute intracranial abnormality. Scalp soft tissue swelling. Brain unchanged comp ared to old exam. Spondylotic changes in the cervical spine. No fracture seen. No change compared to old exam.
[2019-09-19 21:31] LABS: Basophils % (A) 0 %; Eosinophils # (A) 0.2 k/uL (0-0.7); Eosinophils % (A) 2 %; HCT 33.2 % (34.0-46.0); HGB 11.4 gm/dL (11.4-16.0); Lymphocytes # (A) 1.1 k/uL (1.0-4.8); Lymphocytes % (A) 14 %; MCHC 34.4 g/dL (31.0-37.0); MCV 90.3 fL (80.0-100.0); Mean Platelet Volume 7.3; Monocytes # (A) 0.3 k/uL (0-1.0); Monocytes % (A) 4 %; Neutrophils # (A) 6.3 k/uL (1.3-7.7); Neutrophils % (A) 78 %; Platelet Count 230 k/uL (150-450); RBC 3.67 m/uL (3.80-5.40); RDW 13.3 % (11.5-15.5)
[2019-09-19 21:39] LABS: Partial Thromboplastin Time 23.6 sec (22.0-30.0); Prothrombin Time 10.4 sec (9.0-12.0)
[2019-09-19 21:45] LABS: Albumin 3.4 g/dL (3.5-5.0); Calcium 9.3 mg/dL (8.4-10.2); Potassium 5.5 mmol/L (3.5-5.1); Total Bilirubin 0.4 mg/dL (0.2-1.3); Total Protein 7.1 g/dL (6.3-8.2)
[2019-09-19] MEDS ORDERED: INSULIN ASPART (NovoLOG) 100 UNIT/ML VIAL SQ ONE (22:00)
[2019-09-19] MEDS ORDERED: ONDANSETRON 4 MG/2 ML VIAL IVP STA (22:29)
[2019-09-19] MEDS ORDERED: MORPHINE SULFATE 4 MG/ML SYRINGE IVP STA (22:29)
[2019-09-19] MEDS ORDERED: TRANEXAMIC ACID 1,000 MG in SODIUM CHLORIDE 0.9% 100 ML IVPB ONE (23:30)
[2019-09-19 23:55] LABS: Appearance,Urine Clear (Clear); Bilirubin,Urine Negative (Negative); Blood,Urine Negative (Negative); Color,Urine Yellow; Glucose,Urine (UA) Negative (Negative); Ketones,Urine Negative (Negative); Leukocyte Esterase,Urine Negative (Negative); Nitrite,Urine Negative (Negative); PH, Urine 6.5 (5.0-8.0); Protein,Urine 2+ (Negative); RBC,Urine <1 /hpf (0-5); Specific Gravity,Urine 1.012 (1.001-1.035); Urobilinogen,Urine <2.0 mg/dL (<2.0)
[2019-09-20] MEDS ORDERED: SILVER NITRATE APPLICATOR 1 EACH STICK..EA. TOPICAL STA ×2 (00:11→00:20)
[2019-09-20] MEDS ORDERED: LIDOCAINE 1%-EPI 1:100,000 20 ML VIAL SQ STA (00:13)
[2019-09-20] MEDS ORDERED: MORPHINE SULFATE 4 MG/ML SYRINGE IVP STA (00:18)
[2019-09-20] MEDS ORDERED: MORPHINE SULFATE 2 MG/ML SYRINGE IVP ONE (00:32)
[2019-09-20] MEDS ORDERED: PROCHLORPERAZINE 5 MG TAB PO PRN (02:29)
[2019-09-20] MEDS ORDERED: ONDANSETRON 4 MG/2 ML VIAL IVP PRN (02:29)
[2019-09-20] MEDS ORDERED: NALOXONE 0.4 MG/ML 1 ML VIAL IV PRN (02:29)
[2019-09-20] MEDS ORDERED: NITROGLYCERIN SL TABS 0.4 MG TAB SUBLINGUAL PRN (02:33)
[2019-09-20] MEDS ORDERED: IPRATROPIUM-ALBUTEROL 3 ML NEB INHALATION PRN (02:33)
[2019-09-20] MEDS ORDERED: traMADol 50 MG TAB PO PRN (03:00)
[2019-09-20] MEDS: SODIUM CHLORIDE 0.9% 1,000 ML IV SCH (05:10)
[2019-09-20] MEDS: hydrALAZINE HCL 25 MG TAB PO SCH ×2 (05:11→17:49)
[2019-09-20 07:08] LABS: Glucose,Whole Blood 165 mg/dL (75-99)
[2019-09-20] MEDS: SENNOSIDES-DOCUSATE SODIUM 1 EACH TAB PO SCH ×2 (09:04→22:22)
[2019-09-20] MEDS: CHOLECALCIFEROL 1,000 UNIT TAB PO SCH (09:04)
[2019-09-20] MEDS: glipiZIDE 5 MG TAB PO SCH (09:04)
[2019-09-20] MEDS: ALLOPURINOL 100 MG TAB PO SCH (09:04)
[2019-09-20] MEDS: CALCIUM CARBONATE 500 MG CHEWABLE PO SCH (09:04)
[2019-09-20] MEDS: METOPROLOL SUCCINATE (ER) 50 MG TAB.ER.24H PO SCH (09:04)
[2019-09-20] MEDS: MULTIVITAMINS, THERA 1 EACH TAB PO SCH (09:04)
[2019-09-20] MEDS: PRIMIDONE 50 MG TAB PO SCH ×3 (09:04→22:25)
[2019-09-20] MEDS: ALPRAZolam 0.25 MG TAB PO SCH ×2 (09:05→22:33)
[2019-09-20] MEDS: LISINOPRIL 20 MG TAB PO SCH (09:05)
[2019-09-20] MEDS: ISOSORBIDE MONONITRATE ER 30 MG TAB.ER.24H PO SCH (09:05)
[2019-09-20] MEDS: CARBIDOPA-LEVODOPA 25-250 MG 1 EACH TAB PO SCH ×3 (09:33→22:24)
[2019-09-20 11:34] LABS: Glucose,Whole Blood 177 mg/dL (75-99)
--- NOTE | 2019-09-20 14:13 | P.GSCN ---
History of Present Illness Consult date: 09/20/19 History of present illness: CHIEF COMPLAINT: Status post fall from syncope HISTORY OF PRESENT ILLNESS: The patient is a 83-year-old female who presented acutely early this morning from residential after having a syncopal episode resulting in a fall in her bathroom. She had hit her head along the toilet bowl. She presented to the emergency room with use bleeding from the scalp. Emergency room providers performed repair of scalp laceration which initially profuse bleeding has now resolved. Secondary to her syncopal spell with fall, trauma surgery is consulted. Patient does report recent falls, her last one month ago which brought her to emergency room as well. She complains mostly of nausea. She denies any abdominal pain. PAST MEDICAL HISTORY: See list. PAST SURGICAL HISTORY: See list. MEDICATIONS: See list. ALLERGIES: See list. SOCIAL HISTORY: See list. FAMILY HISTORY: See list. REVIEW OF ORGAN SYSTEMS: CONSTITUTIONAL: No fevers or chills. No recent weight loss. EYES: History of cataracts. No glasses. HEENT: No difficulties with hearing. No nosebleeds. No difficulty swallowing. History of vertigo. RESPIRATORY: Past history of pneumonia. CARDIOVASCULAR: History of ischemic heart disease with congestive heart failure. History of angina. History of chest pain. History of stents. GASTROINTESTINAL: No current blood in stools. GENITOURINARY: Denies any blood in urine or increased urinary frequency. Has chronic kidney disease stage IV. NEUROLOGICAL: Denies any numbness or tingling along the distal extremities. History of dementia. Has Parkinson's disease MUSCULOSKELETAL: Has back pain, stiffness or joint arthritis. SKIN: No current skin cancer. No rash. PSYCHIATRIC: Denies current depression or suicidal thoughts. History of dementia. ENDOCRINE: Denies current thyroid disorders. Has blood sugar glucose into lerance. HEME/LYMPHATIC: Denies any lumps and bumps around the neck. On chronic Plavix with past history of DVT. Iron deficiency anemia ALLERGY/IMMUNOLOGY: No immunoglobulin therapy. No immune deficiencies. BREAST: Denies current breast lumps, pain or nipple discharge. PHYSICAL EXAM: VITALS: Reviewed CONSTITUTIONAL: Well developed and in no acute distress. EYES: Conjuctivae without sclera icterus. Pupils are equally round and reactive to light. Extraocular movements grossly intact. HEAD, EARS, NOSE, THROAT: Moist buccal mucosa. Hears conversational speech. No nasal drainage. Edentulous. U-shaped scalp laceration dressing were sanguinous without active bleeding involving frontal scalp. NECK: Supple. No JV distention. No thyroidomegaly. RESPIRATORY: Non-labored respirations and equal bilateral excursions. No gross wheezes. CARDIOVASCULAR: Palpable 2+ radial pulses. ABDOMEN: Soft. Non-tender. Nondistended. LYMPH: No neck lymphadenopathy. No axillary lymphadenopathy. MUSCULOSKELETAL: Nail and fingers with good capillary refill. Has dressing along the right forearm proximal serosanguineous at elbow. SKIN: Warm and well perfused with good skin turgor. NEUROLOGIC: Cranial nerves II through XII grossly intact. Sensation upper and extremities intact. No focal or lateralizing signs. PSYCH: Appropriate affect. Alert and oriented to person, place and time. Displays appropriate insight. CLINCAL LABS: Reviewed. Potassium elevated 5.5. Hemoglobin 11.4. Creatinine 1 .53 IMAGING: Independently reviewed CT of the head without intracranial bleed or hemorrhage. RADIOLOGY: Report reviewed of the knee without fracture. RECORDS: previous old records reviewed, recent fall 08/24/2019 also with head injury at that time. Also history of frontal hematoma pre-existing ASSESSMENT: 1. Syncope with fall and scalp hematoma open laceration 2. Recurrent falls with pre-existing frontal hematoma 3. Parkinson's disease PLAN: 1. Recommend neurology assessment for recurrent syncopal episodes as she has recurrent falls 2. She has pre-existing history of cardiac disease and may benefit for vascular consultation 3. Continue stitches on scalp for at least 7-10 days. 4. Bacitracin ointment to scalp wound twice daily. Thank you for this kind consultation. Past Medical History Past Medical History: Coronary Artery Disease (CAD), Chest Pain / Angina, Heart Failure, Dementia, Diabetes Mellitus, Deep Vein Thrombosis (DVT), H yperlipidemia, Hypertension, Musculoskeletal Disorder, Neurologic Disorder, Osteoarthritis (OA), Pneumonia, Renal Disease Additional Past Medical History / Comment(s): viral enteritis, currently tx for pneumonia per pt, vertigo, falls-fell recently, NIDDM type II, CKD stage IV, early onset parkinson's dx, Oa multiple joints, back pain, gout in great toe bilateral feet, cataract. 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 Other HX: 1989 PTCA main cx, 1996 PCI with stent to OM, 2010 PCI with stent to LAD, EGD/colonoscopy, bilateral total knees, varicose veing stripping bilaterally. Past Anesthesia/Blood Transfusion Reactions: Postoperative Nausea & Vomiting (PONV) Date of Last Stent Placement:: 09/05/16 Past Psychological History: No Psychological Hx Reported Additional Psychological History / Comment(s): Pt is currently living at [facility] with her . Pt's gait is unsteady and she has been falling. uses a walker. Smoking Status: Former smoker Past Alcohol Use History: None Reported Past Drug Use History: None Reported - Past Family History Father Family Medical History: Dementia Additional Family Medical History / Comment(s): Father had dementia and he shot himself. Mother Family Medical History: Cancer, CVA/TIA Additional Family Medical History / Comment(s): bowel ca Medications and Allergies Home Medications Medication Instructions Recorded Confirmed Type Cholecalciferol [Vitamin D3 (25 1,000 unit PO DAILY 11/16/14 09/20/19 History Mcg = 1000 Iu)] Multivitamins, Thera [Multivitamin 1 tab PO DAILY 11/16/14 09/20/19 History (formulary)] Metoprolol Succinate [Toprol XL] 50 mg PO DAILY 12/25/14 09/20/19 History Calcium Carbonate [Calcium] 600 mg PO DAILY 09/05/16 09/20/19 History Febuxostat [Uloric] 40 mg PO DAILY 09/05/16 09/20/19 History Aspirin 81 mg PO DAILY #30 chew 09/06/16 09/20/19 Rx Clopidogrel [Plavix] 75 mg PO DAILY #30 tab 09/06/16 09/20/19 Rx Nitroglycerin Sl Tabs [Nitrostat] 0.4 mg SUBLINGUAL Q5M PRN #25 tab 09/06/16 09/20/19 Rx ALPRAZolam [Xanax] 0.25 mg PO HS@199912/19/16 09/20/19 History Isosorbide Mononitrate ER [Imdur] 30 mg PO DAILY 12/19/16 09/20/19 History Sennosides-Docusate Sodium 1 tab PO DAILY 03/20/17 09/20/19 History [Senokot-S] cloNIDine HCL [Catapres] 0.2 mg PO Q8H PRN 03/20/17 09/20/19 History Acetaminophen [Tylenol] 650 mg PO Q6H PRN 09/20/19 09/20/19 History Atorvastatin [Lipitor] 20 mg PO HS 09/20/19 09/20/19 History Bisacodyl [Dulcolax] 10 mg RECTAL DAILY PRN 09/20/19 09/20/19 History Carbidopa-Levodopa 25-100 mg 1 tab PO TID@0800,1200,1930 09/20/19 09/20/19 History [Sinemet 25-100] Ferrous Sulfate [Feosol] 325 mg PO HS 09/20/19 09/20/19 History Polyethylene Glycol 3350 [Miralax] 17 gm PO DAILY PRN 09/20/19 09/20/19 History Promethazine [Phenergan] 25 mg PO BID PRN 09/20/19 09/20/19 History Propranolol [Inderal] 20 mg PO TID@0800,1200,1800 09/20/19 09/20/19 History QUEtiapine [SEROquel] 50 mg PO HS 09/20/19 09/20/19 History amLODIPine [Norvasc] 5 mg PO DAILY 09/20/19 09/20/19 History hydrALAZINE HCL 10 mg PO TID@0800,1300,2000 09/20/19 09/20/19 History Allergies Allergy/AdvReac Type Severity Reaction Status Date / Time Iodinated Contrast Media Allergy Swelling/Ra Verified 09/20/19 11:23 [Iodinated Contrast Media - sh Oral and] morphine Allergy Unknown Verified 09/20/19 11:23 Penicillins Allergy Swelling/Ra Verified 09/20/19 11:23 sh Surgical - Exam Vital Signs Temp Pulse Resp BP Pulse Ox 97.5 F L 75 18 166/84 98 09/19/19 19:53 09/19/19 19:53 09/19/19 19:53 09/19/19 19:53 09/19/19 19:53 Results - Labs 09/19/19 21:15 09/19/19 21:15 Abnormal Lab Results - Last 24 Hours (Table) 09/19/19 09/19/19 09/19/19 Range/Units 21:15 21:15 23:33 RBC 3.67 L (3.80-5.40) m/uL Hct 33.2 L (34.0-46.0) % Potassium 5.5 H (3.5-5.1) mmol/L BUN 40 H (7-17) mg/dL Creatinine 1.53 H (0.52-1.04) mg/dL Glucose 173 H (74-99) mg/dL POC Glucose (mg/dL) (75-99) mg/dL Albumin 3.4 L (3.5-5.0) g/dL Urine Protein 2+ H (Negative) 09/20/19 09/20/19 Range/Units 07:06 11:32 RBC (3.80-5.40) m/uL Hct (34.0-46.0) % Potassium (3.5-5.1) mmol/L BUN (7-17) mg/dL Creatinine (0.52-1.04) mg/dL Glucose (74-99) mg/dL POC Glucose (mg/dL) 165 H 177 H (75-99) mg/dL Albumin (3.5-5.0) g/dL Urine Protein (Negative) Diabetes panel 09/19/19 Range/Units 21:15 Sodium 138 (137-145) mmol/L Potassium 5.5 H (3.5-5.1) mmol/L Chloride 106 (98-107) mmol/L Carbon Dioxide 24 (22-30) mmol/L BUN 40 H (7-17) mg/dL Creatinine 1.53 H (0.52-1.04) mg/dL Glucose 173 H (74-99) mg/dL Calcium 9.3 (8.4-10.2) mg/dL AST 28 (14-36) U/L ALT 9 (4-34) U/L Alkaline Phosphatase 115 (38-126) U/L Total Protein 7.1 (6.3-8.2) g/dL Albumin 3.4 L (3.5-5.0) g/dL Calcium panel 09/19/19 Range/Units 21:15 Calcium 9.3 (8.4-10.2) mg/dL Albumin 3.4 L (3.5-5.0) g/dL Pituitary panel 09/19/19 Range/Units 21:15 Sodium 138 (137-145) mmol/L Potassium 5.5 H (3.5-5.1) mmol/L Chloride 106 (98-107) mmol/L Carbon Dioxide 24 (22-30) mmol/L BUN 40 H (7-17) mg/dL Creatinine 1.53 H (0.52-1.04) mg/dL Glucose 173 H (74-99) mg/dL Calcium 9.3 (8.4-10.2) mg/dL Adrenal panel 09/19/19 Range/Units 21:15 Sodium 138 (137-145) mmol/L Potassium 5.5 H (3.5-5.1) mmol/L Chloride 106 (98-107) mmol/L Carbon Dioxide 24 (22-30) mmol/L BUN 40 H (7-17) mg/dL Creatinine 1.53 H (0.52-1.04) mg/dL Glucose 173 H (74-99) mg/dL Calcium 9.3 (8.4-10.2) mg/dL Total Bilirubin 0.4 (0.2-1.3) mg/dL AST 28 (14-36) U/L ALT 9 (4-34) U/L Alkaline Phosphatase 115 (38-126) U/L Total Protein 7.1 (6.3-8.2) g/dL Albumin 3.4 L (3.5-5.0) g/dL Assessment and Plan (1) Syncope Current Visit: Yes Status: Acute Code(s): R55 - SYNCOPE AND COLLAPSE SNOMED Code(s): 921777199 (2) Fall Current Visit: Yes Status: Acute Code(s): W19.XXXA - UNSPECIFIED FALL, INITIAL ENCOUNTER SNOMED Code(s): 5516778 (3) Laceration of scalp Current Visit: Yes Status: Acute Code(s): S01.01XA - LACERATION WITHOUT FOREIGN BODY OF SCALP, INITIAL ENCOUNTER SNOMED Code(s): 173443067 (4) Dementia Current Visit: No Status: Acute Code(s): F03.90 - UNSPECIFIED DEMENTIA WITHOUT BEHAVIORAL DISTURBANCE SNOMED Code(s): 60291902 (5) Head injury Current Visit: No Status: Acute Code(s): S09.90XA - UNSPECIFIED INJURY OF HEAD, INITIAL ENCOUNTER SNOMED Code(s): 60124066 (6) Hematoma of frontal scalp Current Visit: No Status: Acute Code(s): S00.03XA - CONTUSION OF SCALP, INITIAL ENCOUNTER SNOMED Code(s): 686756292 (7) Parkinson disease Current Visit: No Status: Acute Code(s): G20 - PARKINSON'S DISEASE SNOMED Code(s): 11648820
--- NOTE | 2019-09-20 15:09 | US ---
EXAMINATION TYPE: US carotid duplex BILAT DATE OF EXAM: 09/20/2019 COMPARISON: NONE CLINICAL HISTORY: syncope. no hx tia. Patient fell. EXAM MEASUREMENTS: RIGHT: Peak Systolic Velocity (PSV) cm/sec ----- Right CCA: 74.1 ----- Right ICA: 184 ----- Right ECA: 168 ICA/CCA ratio: 2.5 RIGHT: End Diastole cm/sec ----- Right CCA: 11.7 ----- Right ICA: 26.4 ----- Right ECA: 0.0 LEFT: Peak Systolic Velocity (PSV) cm/sec ----- Left CCA: 157 ----- Left ICA: 140 ----- Left ECA: 184 ICA/CCA ratio: 0.9 LEFT: End Diastole cm/sec ----- Left CCA: 26.2 ----- Left ICA: 23.0 ----- Left ECA: 0.0 VERTEBRALS (direction of flow): Right Vertebral: Antegrade Left Vertebral: Antegrade Rhythm: Normal Plaque visualized. No wall thickening. Bilateral elevated velocities seen. Right CCA significant st enosis. IMPRESSION: There is antegrade flow in the vertebral arteries. There is bilateral plaque formation and estimated 50-70% stenosis in both internal carotid arteries a nd also the right common carotid artery. Criteria for Assigning % of Stenosis / Diameter reduction (Estimation based on the indirect measurements of the internal carotid artery velocities (ICA PSV). 1. Normal (no stenosis)=ICA PSV < 125 cm/s: ratio < 2.0: ICA EDV<40 cm/s. 2. Less than 50% stenosis=ICA PSV < 125 cm/s: ratio < 2.0: ICA EDV<40 cm/s. 3. 50 to 69% stenosis=ICA PSV of 125 to 230 cm/s: ration 2.0 ? 4.0: ICA EDV 40-100 cm/s. 4. Greater than 70% stenosis to near occlusion= ICA PSV > 230 cm/s: ratio > 4.0: ICA EDV > 100 cm/s. 5. Near occlusion= ICA PSV velocities may be low or undetectable: variable ratio and ICA EDV. 6. Total occlusion=unable to detect flow.
[2019-09-20] MEDS ORDERED: SODIUM CHLORIDE 0.9% 1,000 ML IV STA (15:19)
--- NOTE | 2019-09-20 15:21 | P.HPIM ---
History of Present Illness H&P Date: 09/20/19 Ирина Rizvi is an 83-year-old female, well-known to my practice, who presented to [facility] emergency room after having a syncopal episode with fall and head injury requiring multiple sutures to the scalp. Patient stated that she was walking to the bathroom with her walker with the help of an aid when she felt dizzy and passed out and fell and hit her head on the toilet patient was having significant laceration with bleeding EMS were called and patient was brought into emergency room. Patient estimated that she was unconscious for several minutes. In the emergency room patient was treated for her lacerations, computed tomography scan of the brain was done and did not reveal any evidence of intracranial bleeding, patient was admitted to telemetry floor for further evaluation and treatment. Laboratory data revealed evidence of dehydration was acute kidney injury BUN was elevated at 14 and creatinine at 1.53 which is higher than her baseline. Potassium was elevated at 5.5 blood pressure is elevated patient is maintained on multiple blood pressure medications. Echocardiogram and carotid Doppler were ordered cardiology consultation was requested regarding syncopal episode. Past Medical History Past Medical History: Coronary Artery Disease (CAD), Chest Pain / Angina, Heart Failure, Dementia, Diabetes Mellitus, Deep Vein Thrombosis (DVT), Hyperlipidemia, Hypertension, Musculoskeletal Disorder, Neurologic Disorder, Osteoarthritis (OA), Pneumonia, Renal Disease Additional Past Medical History / Comment(s): viral enteritis, currently tx for pneumonia per pt, vertigo, falls-fell recently, NIDDM type II, CKD stage IV, early onset parkinson's dx, Oa multiple joints, back pain, gout in great toe bi lateral feet, cataract. History of Any Multi-Drug Resistant Organisms: VRE Date of last positivie culture/infection: 10/19/16 MDRO Source:: URINE VRE Past Surgical History: Cholecystectomy, Heart Catheterization With Stent, Hysterectomy, Joint Replacement Additional Past Surgical History / Comment(s): 09/05/16 PCI with stent to cx. Other HX: 1989 PTCA main cx, 1996 PCI with stent to OM, 2010 PCI with stent to LAD, EGD/colonoscopy, bilateral total knees, varicose veing stripping bilaterally. Past Anesthesia/Blood Transfusion Reactions: Postoperative Nausea & Vomiting (PONV) Date of Last Stent Placement:: 09/05/16 Past Psychological History: No Psychological Hx Reported Additional Psychological History / Comment(s): Pt is currently living at [facility] with her . Pt's gait is unsteady and she has been falling. uses a walker. Smoking Status: Former smoker Past Alcohol Use History: None Reported Past Drug Use History: None Reported - Past Family History Father Family Medical History: Dementia Additional Family Medical History / Comment(s): Father had dementia and he shot himself. Mother Family Medical History: Cancer, CVA/TIA Additional Family Medical History / Comment(s): bowel ca Medications and Allergies Home Medications Medication Instructions Recorded Confirmed Type Cholecalciferol [Vitamin D3 (25 1,000 unit PO DAILY 11/16/14 09/20/19 History Mcg = 1000 Iu)] Multivitamins, Thera [Multivitamin 1 tab PO DAILY 11/16/14 09/20/19 History (formulary)] Metoprolol Succinate [Toprol XL] 50 mg PO DAILY 12/25/14 09/20/19 History Calcium Carbonate [Calcium] 600 mg PO DAILY 09/05/16 09/20/19 History Febuxostat [Uloric] 40 mg PO DAILY 09/05/16 09/20/19 History Aspirin 81 mg PO DAILY #30 chew 09/06/16 09/20/19 Rx Clopidogrel [Plavix] 75 mg PO DAILY #30 tab 09/06/16 09/20/19 Rx Nitroglycerin Sl Tabs [Nitrostat] 0.4 mg SUBLINGUAL Q5M PRN #25 tab 09/06/16 09/20/19 Rx ALPRAZolam [Xanax] 0.25 mg PO HS@199912/19/16 09/20/19 History Isosorbide Mononitrate ER [Imdur] 30 mg PO DAILY 12/19/16 09/20/19 History Sennosides-Docusate Sodium 1 tab PO DAILY 03/20/17 09/20/19 History [Senokot-S] cloNIDine HCL [Catapres] 0.2 mg PO Q8H PRN 03/20/17 09/20/19 History Acetaminophen [Tylenol] 650 mg PO Q6H PRN 09/20/19 09/20/19 History Atorvastatin [Lipitor] 20 mg PO HS 09/20/19 09/20/19 History Bisacodyl [Dulcolax] 10 mg RECTAL DAILY PRN 09/20/19 09/20/19 History Carbidopa-Levodopa 25-100 mg 1 tab PO TID@0800,1200,1930 09/20/19 09/20/19 Hi story [Sinemet 25-100] Ferrous Sulfate [Feosol] 325 mg PO HS 09/20/19 09/20/19 History Polyethylene Glycol 3350 [Miralax] 17 gm PO DAILY PRN 09/20/19 09/20/19 History Promethazine [Phenergan] 25 mg PO BID PRN 09/20/19 09/20/19 History Propranolol [Inderal] 20 mg PO TID@0800,1200,1800 09/20/19 09/20/19 History QUEtiapine [SEROquel] 50 mg PO HS 09/20/19 09/20/19 History amLODIPine [Norvasc] 5 mg PO DAILY 09/20/19 09/20/19 History hydrALAZINE HCL 10 mg PO TID@0800,1300,2000 09/20/19 09/20/19 History Allergies Allergy/AdvReac Type Severity Reaction Status Date / Time Iodinated Contrast Media Allergy Swelling/Ra Verified 09/20/19 11:23 [Iodinated Contrast Media - sh Oral and] morphine Allergy Unknown Verified 09/20/19 11:23 Penicillins Allergy Swelling/Ra Verified 09/20/19 11:23 sh Physical Exam Vitals: Vital Signs Temp Pulse Pulse Resp BP BP Pulse Ox 09/20/19 13:01 97.9 F 75 16 147/77 99 09/20/19 08:00 16 09/20/19 05:01 97.8 F 82 17 173/80 98 09/20/19 03:50 89.0 F L 67 18 164/72 95 09/20/19 00:51 76 15 147/70 92 L 09/20/19 00:28 75 18 146/71 90 L 09/19/19 23:54 73 18 149/68 93 L 09/19/19 23:00 95 09/19/19 22:56 68 18 131/70 88 L 09/19/19 21:48 67 18 149/66 97 09/19/19 19:53 97.5 F L 75 18 166/84 98 Intake and Output 09/20/19 09/20/19 09/20/19 06:59 14:59 22:59 Other: # Voids 1 Weight 81.647 kg In general patient is alert and oriented 3 in no apparent distress answering questions appropriately HEENT head normocephalic without multiple bruises and large laceration on the scalp with multiple sutures Neck is supple no JVD no goiter no lymphadenopathy Chest exam reveals a few scattered rhonchi no wheezing Cardiac exam reveals regular heart sounds S1 and S2 with 2/6 systolic murmur in the left sternal border Abdomen is soft nontender no organomegaly with normal bowel sounds Extremity exam reveals no edema no cyanosis or clubbing Neurological examination reveals no gross focal deficit Results CBC & Chem 7: 09/19/19 21:15 09/19/19 21:15 Labs: Abnormal Lab Results - Last 24 Hours (Table) 09/19/19 09/19/19 09/19/19 Range/Units 21:15 21:15 23:33 RBC 3.67 L (3.80-5.40) m/uL Hct 33.2 L (34.0-46.0) % Potassium 5.5 H (3.5-5.1) mmol/L BUN 40 H (7-17) mg/dL Creatinine 1.53 H (0.52-1.04) mg/dL Glucose 173 H (74-99) mg/dL POC Glucose (mg/dL) (75-99) mg/dL Albumin 3.4 L (3.5-5.0) g/dL Urine Protein 2+ H (Negative) 09/20/19 09/20/19 Range/Units 07:06 11:32 RBC (3.80-5.40) m/uL Hct (34.0-46.0) % Potassium (3.5-5.1) mmol/L BUN (7-17) mg/dL Creatinine (0.52-1.04) mg/dL Glucose (74-99) mg/dL POC Glucose (mg/dL) 165 H 177 H (75-99) mg/dL Albumin (3.5-5.0) g/dL Urine Protein (Negative) Thrombosis Risk Factor Assmnt - Choose All That Apply Any of the Below Risk Factors Present?: Yes Each Factor Represents 1 point: Obesity (BMI >25), Swollen legs (current) Other Risk Factors: Yes Each Risk Factor Represents 3 Points: Age 75 years or older, History of DVT/PE Other congenital or acquired thrombophilia - If yes, enter type in comment: No Thrombosis Risk Factor Assessment Total Risk Factor Score: 8 Thrombosis Risk Factor Assessment Level: High Risk Assessment and Plan Plan: #1 syncopal episode was followed and head trauma #2 multiple lacerations requiring multiple sutures on the head #3 underlying history of hypertension, maintained on multiple blood pressure medications #4 underlying history of diabetes mellitus #5 underlying history of Parkinson disease #6 underlying history of gout #7 underlying history of hyperlipidemia #8 evidence of dehydration with acute kidney injury #9 hyperkalemia At this time patient was started on IV fluid normal saline at 50 mL an hour Will recheck labs including kidney function in a.m. Will check echocardiogram and carotid Doppler Home medications reviewed and reordered Will follow closely
[2019-09-20 16:53] LABS: Glucose,Whole Blood 193 mg/dL (75-99)
--- NOTE | 2019-09-20 19:02 | CT ---
EXAMINATION TYPE: CT brain wo con DATE OF EXAM: 09/20/2019 COMPARISON: Yesterday HISTORY: Altered mental status. CT DLP: 1089.8 mGycm Automated exposure control for dose reduction was used. There is some cerebral cortical atrophy. There is no mass effect nor midline shift. There is no sign of intracranial hemorrhage. The calvarium is intact. IMPRESSION: Cerebral atrophy. No acute intracranial abnormality. No adverse change compared to yesterday.
[2019-09-20 21:00] LABS: Glucose,Whole Blood 184 mg/dL (75-99)
[2019-09-20] MEDS ORDERED: amLODIPine 5 MG TAB PO SCH (21:00)
[2019-09-20] MEDS: traZODone HCL 50 MG TAB PO SCH (22:22)
[2019-09-20] MEDS: ATORVASTATIN 40 MG TAB PO SCH (22:22)
[2019-09-21] MEDS: QUEtiapine 25 MG TAB PO SCH ×3 (01:32→20:46)
[2019-09-21] MEDS: hydrALAZINE HCL 25 MG TAB PO SCH ×2 (03:40→17:24)
[2019-09-21] MEDS: SODIUM CHLORIDE 0.9% 1,000 ML IV SCH (03:47)
[2019-09-21 07:11] LABS: Glucose,Whole Blood 202 mg/dL (75-99)
[2019-09-21] MEDS: MULTIVITAMINS, THERA 1 EACH TAB PO SCH (09:13)
[2019-09-21] MEDS: CHOLECALCIFEROL 1,000 UNIT TAB PO SCH (09:13)
[2019-09-21] MEDS: CALCIUM CARBONATE 500 MG CHEWABLE PO SCH (09:13)
[2019-09-21] MEDS: ISOSORBIDE MONONITRATE ER 30 MG TAB.ER.24H PO SCH (09:14)
[2019-09-21] MEDS: PRIMIDONE 50 MG TAB PO SCH ×3 (09:14→20:46)
[2019-09-21] MEDS: METOPROLOL SUCCINATE (ER) 50 MG TAB.ER.24H PO SCH (09:14)
[2019-09-21] MEDS: ALLOPURINOL 100 MG TAB PO SCH (09:14)
[2019-09-21] MEDS: LISINOPRIL 20 MG TAB PO SCH (09:14)
[2019-09-21] MEDS: SENNOSIDES-DOCUSATE SODIUM 1 EACH TAB PO SCH ×2 (09:14→20:46)
[2019-09-21] MEDS: glipiZIDE 5 MG TAB PO SCH (09:14)
[2019-09-21] MEDS: ALPRAZolam 0.25 MG TAB PO SCH ×2 (09:15→20:46)
[2019-09-21] MEDS: BACITRACIN 500 UNIT/GM OINT 28.4 GM TUBE TOPICAL SCH ×2 (09:15→22:50)
[2019-09-21] MEDS: CARBIDOPA-LEVODOPA 25-250 MG 1 EACH TAB PO SCH ×3 (09:17→20:47)
--- NOTE | 2019-09-21 10:30 | ECHOF ---
Referral Reason:syncope MEASUREMENTS -------- HEIGHT: 170.2 cm WEIGHT: 81.6 kg BP: 147/77 RVIDd: 3.4 cm (< 3.3) IVSd: 1.2 cm (0.6 - 1.1) LVIDd: 3.9 cm (3.9 - 5.3) LVPWd: 1.1 cm (0.6 - 1.1) IVSs: 1.6 cm LVIDs: 2.5 cm LVPWs: 1.7 cm LA Diam: 3.8 cm (2.7 - 3.8) LAESV Index (A-L): 22.62 ml/m Ao Diam: 3.5 cm (2.0 - 3.7) AV Cusp: 2.4 cm (1.5 - 2.6) MV EXCURSION: 7.983 mm (> 18.000) MV EF SLOPE: 17 mm/s (70 - 150) EPSS: 0.7 cm MV E Emmett: 0.95 m/s MV DecT: 325 ms MV A Emmett: 1.24 m/s MV E/A Ratio: 0.77 RAP: 5.00 mmHg RVSP: 49.95 mmHg TAPSE: 23.04 mm FINDINGS -------- Sinus rhythm. This was a technically good study. The left ventricular size is normal. There is borderline concentric left ventricular hypertrophy. Overall left ventricular systolic function is normal with, an EF between 60 - 65 %. The right ventricle is mildly enlarged. Normal LA size by volume 22+/-6 ml/m2. The right atrium is normal in size. Interatrial and interventricular septum intact. The aortic valve is trileaflet and appears structurally normal. Mild mitral annular calcification present. Mild mitral regurgitation is present. Mild tricuspid regurgitation present. There is moderate pulmonary hypertension. The right ventric ular systolic pressure, as measured by Doppler, is 49.95mmHg. Trace/mild (physiologic) pulmonic regurgitation. The aortic root size is normal. Normal inferior vena cava with normal inspiratory collapse consistent with estimated right atrial pre ssure of 5 mmHg. There is a small, generalized pericardial effusion present. CONCLUSIONS -------- 1. Sinus rhythm. 2. This was a technically good study. 3. The left ventricular size is normal. 4. There is borderline concentric left ventricular hypertrophy. 5. Overall left ventricular systolic function is normal with, an EF between 60 - 65 %. 6. The right ventricle is mildly enlarged. 7. Normal LA size by volume 22+/-6 ml/m2. 8. The right atrium is normal in size. 9. Interatrial and interventricular septum intact. 10. The aortic valve is trileaflet and appears structurally normal. 11. Mild mitral annular calcification present. 12. Mild mitral regurgitation is present. 13. Mild tricuspid regurgitation present. 14. There is moderate pulmonary hypertension. 15. The right ventricular systolic pressure, as measured by Doppler, is 49.95mmHg. 16. Trace/mild (physiologic) pulmonic regurgitation. 17. The aortic root size is normal. 18. Normal inferior vena cava with normal inspiratory collapse consistent with estimated right atrial pressure of 5 mmHg. 19. There is a small, generalized pericardial effusion present. SLEEP TECHNICIAN: Catherine Argueta RDCS
[2019-09-21 11:52] LABS: Glucose,Whole Blood 227 mg/dL (75-99)
--- NOTE | 2019-09-21 12:07 | P.PN ---
Subjective Progress Note Date: 09/21/19 Ирина Rizvi is an 83-year-old female, well-known to my practice, who presented to [facility] emergency room after having a syncopal episode with fall and head injury requiring multiple sutures to the scalp. Patient stated that she was walking to the bathroom with her walker with the help of an aid when she felt dizzy and passed out and fell and hit her head on the toilet patient was having significant laceration with bleeding EMS were called and patient was brought into emergency room. Patient estimated that she was unconscious for several minutes. In the emergency room patient was treated for her lacerations, computed tomography scan of the brain was done and did not reveal any evidence of intracranial bleeding, patient was admitted to telemetry floor for further evaluation and treatment. Laboratory data revealed evidence of dehydration was acute kidney injury BUN was elevated at 14 and creatinine at 1.53 which is higher than her baseline. Potassium was elevated at 5.5 blood pressure is elevated patient is maintained on multiple blood pressure medications. Echocardiogram and carotid Doppler were ordered cardiology consultation was requested regarding syncopal episode. On 09/21/2019 patient was seen and examined on the medical floor she is alert and oriented 3 in no apparent distress there is no fever or chills no headache or dizziness no chest pain no shortness of breath no cough no nausea or vomiting no abdominal pain no diarrhea no burning with urination no frequency or urgency and no hematuria. D-dimer ordered by cardiology was elevated, at this time will start full dose of subcu Lovenox, will check lower extremity Doppler and VQ scan to rule out pulmonary embolism, CT angiogram of the chest cannot be done due to elevated creatinine. Objective - Vital Signs Vital signs: Vital Signs Temp 98.3 F 09/21/19 05:48 Pulse 89 09/21/19 08:00 Resp 15 09/21/19 05:48 BP 147/73 09/21/19 05:48 Pulse Ox 97 09/21/19 05:48 Intake & Output 09/20/19 09/21/19 09/21/19 18:59 06:59 18:59 Intake Total 220 Balance 220 Intake: Oral 220 Other: # Voids 1 2 # Bowel Movements 0 - Exam In general patient is alert and oriented 3 in no apparent distress answering questions appropriately HEENT head normocephalic without multiple bruises and large laceration on the scalp with multiple sutures Neck is supple no JVD no goiter no lymphadenopathy Chest exam reveals a few scattered rhonchi no wheezing Cardiac exam reveals regular heart sounds S1 and S2 with 2/6 systolic murmur in the left sternal border Abdomen is soft nontender no organomegaly with normal bowel sounds Extremity exam reveals no edema no cyanosis or clubbing Neurological examination reveals no gross focal deficit - Labs CBC & Chem 7: 09/19/19 21:15 09/19/19 21:15 Labs: Abnormal Lab Results - Last 24 Hours (Table) 09/20/19 09/20/19 09/20/19 Range/Units 15:38 16:51 20:56 D-Dimer (<0.60) mg/L FEU POC Glucose (mg/dL) 193 H 184 H (75-99) mg/dL Uric Acid 2.9 L (3.7-7.4) mg/dL 09/21/19 09/21/19 09/21/19 Range/Units 07:08 10:17 11:51 D-Dimer 1.38 H (<0.60) mg/L FEU POC Glucose (mg/dL) 202 H 227 H (75-99) mg/dL Uric Acid (3.7-7.4) mg/dL Assessment and Plan Plan: #1 syncopal episode was followed and head trauma #2 multiple lacerations requiring multiple sutures on the head #3 underlying history of hypertension, maintained on multiple blood pressure med ications #4 underlying history of diabetes mellitus #5 underlying history of Parkinson disease #6 underlying history of gout #7 underlying history of hyperlipidemia #8 evidence of dehydration with acute kidney injury #9 hyperkalemia #10 episodes of agitation yesterday a small dose of Seroquel was added to her regimen as needed At this time patient was started on IV fluid normal saline at 50 mL an hour Will recheck labs including kidney function in a.m. Will check echocardiogram and carotid Doppler Home medications reviewed and reordered Will follow closely
--- NOTE | 2019-09-21 12:29 | P.CRDCN ---
History of Present Illness History of present illness: HISTORY OF PRESENTING ILLNESS This is a pleasant 83-year-old female past medical history significant for multivessel coronary artery disease status post PCI most recently in August 2017 maintained on Plavix, chronic diastolic heart failure, diabetes mellitus, hypertension, dyslipidemia and dementia. She follows in the office with Dr. Celis. We have been asked to see in consultation for syncope. She states yesterday she was taking a shower and she started feeling lightheaded, short of breath and mildly nauseated. The neck seems she remembers was waking up on the shower floor. She does believe she had positive LOC. She suffered a significant laceration to her head that required suture placement. She is seen and examined resting comfortably in bed in no acute distress. She has had no further symptoms of dizziness or syncope. She denies chest pain prior to passing out for thereafter. EKG on arrival reveals sinus mechanism with first- degree AV block. She underwent a repeat CT of her brain last night secondary to altered mental status revealing cerebral atrophy with no acute intracranial abnormality. Laboratory data reviewed, WBC 8, hemoglobin 11.4, platelets 230, sodium 138, potassium 5.5, creatinine 1.5. GFR of 32, cardiac enzymes negative 1. Current daily cardiac medications include hydralazine 10 mg 3 times a day, amlodipine 5 mg daily, propanolol 20 mg 3 times a day, Toprol 50 mg daily, Imdur 30 mg daily, Plavix 75 mg daily, atorvastatin 20 mg daily, aspirin 81 mg daily and clonidine 0.2 mg 3 times a day when necessary. Most recent cardiac c atheterization performed in 2017 revealed patent stent of the circumflex artery, OM branch chronically occluded, LAD with a distal lesion 50-60% range and the lesion in the RCA 40-45%. She underwent bilateral carotid duplex on this admission revealing 50-70% stenosis bilaterally. Most recent echocardiogram obtained in 2017 revealed preserved LV systolic function with ejection fraction 50-55%, diastolic dysfunction, mild mitral regurgitation and mild tricuspid regurgitation. Repeat echocardiogram on this admission reveals hyperdynamic LV with ejection fraction 60-65%, mild MR, mild TR and moderate pulmonary hypertension with an RVSP of 49 mmHg, a small generalized pericardial effusion noted. REVIEW OF SYSTEMS At the time of my exam: CONSTITUTIONAL: Denies fever or chills. CARDIOVASCULAR: Denies chest pain, shortness of breath, orthopnea, PND or palpitations. RESPIRATORY: Denies cough. GASTROINTESTINAL: Denies abdominal pain, diarrhea, constipation, nausea or vomiting. MUSCULOSKELETAL: Denies myalgias. NEUROLOGIC: Denies numbness, tingling or weakness. ENDOCRINE: Denies fatigue, weight change, polydipsia or polyurina. GENITOURINARY: Denies burning, hematuria or urgency with micturation. HEMATOLOGIC: Denies history of anemia or bleeding. PHYSICAL EXAMINATION Blood pressure 147/73 heart rate 89 afebrile and maintaining oxygen saturation on nasal cannula. CONSTITUTIONAL: No apparent distress. HEENT: Head is normocephalic. Pupils are equal, round. Sclerae anicteric. Mucous membranes of the mouth are moist. No JVD. No carotid bruit. Sutures in the frontal region. CHEST EXAMINATION: Lungs are clear to auscultation. No chest wall tenderness is noted on palpation or with deep breathing. HEART EXAMINATION: Regular rate and rhythm. S1, S2 heard. Soft systolic ejection murmur at the left sternal border, no gallops or rub. ABDOMEN: Soft, nontender. Positive bowel sounds. EXTREMITIES: 2+ peripheral pulses, trace bilateral lower extremity edema and no calf tenderness. Significant ecchymosis to the right upper extremity. NEUROLOGIC EXAMINATION: Patient is awake, alert and oriented x3. ASSESSMENT Syncope, appears to be vasovagal in nature. Follow with positive loss of consciousness Hypertension Dyslipidemia Diabetes mellitus Multivessel coronary artery disease status post PCI of the circumflex artery August 2016 Dementia PLAN Check for orthostatic changes. Check d-dimer. She takes propanolol and Toprol. Propanolol was used for tremors. We will discontinue the Toprol. Discontinue amlodipine secondary to lower extremity edema and initiate losartan/HCTZ 50/12.5 mg daily. Apply environmental monitoring specialist to assess for acute arrhythmia. We will continue to follow and make recommendations accordingly. Thank you kindly for this consultation. Nurse Practitioner note has been reviewed, I agree with a documented findings and plan of care. Patient was seen and examined. Past Medical History Past Medical History: Coronary Artery Disease (CAD), Chest Pain / Angina, Heart Failure, Dementia, Diabetes Mellitus, Deep Vein Thrombosis (DVT), Hyperlipidemia, Hypertension, Musculoskeletal Disorder, Neurologic Disorder, Osteoarthritis (OA), Pneumonia, Renal Disease Additional Past Medical History / Comment(s): viral enteritis, currently tx for pneumonia per pt, vertigo, falls-fell recently, NIDDM type II, CKD stage IV, early onset parkinson's dx, Oa multiple joints, back pain, gout in great toe bilateral feet, cataract. History of Any Multi-Drug Resistant Organisms: VRE Date of last positivie culture/infection: 10/19/16 MDRO Source:: URINE VRE Past Surgical History: Cholecystectomy, Heart Catheterization With Stent, Hysterectomy, Joint Replacement Additional Past Surgical History / Comment(s): 09/05/16 PCI with stent to cx. Other HX: 1989 PTCA main cx, 1996 PCI with stent to OM, 2010 PCI with stent to LAD, EGD/colonoscopy, bilateral total knees, varicose veing stripping bilaterally. Past Anesthesia/Blood Transfusion Reactions: Postoperative Nausea & Vomiting (PONV) Date of Last Stent Placement:: 09/05/16 Past Psychological History: No Psychological Hx Reported Additional Psychological History / Comment(s): Pt is currently living at [facility] with her . Pt's gait is unsteady and she has been falling. uses a walker. Smoking Status: Former smoker Past Alcohol Use History: None Reported Past Drug Use History: None Reported - Past Family History Father Family Medical History: Dementia Additional Family Medical History / Comment(s): Father had dementia and he shot himself. Mother Family Medical History: Cancer, CVA/TIA Additional Family Medical History / Comment(s): bowel ca Medications and Allergies Home Medications Medication Instructions Recorded Confirmed Type Cholecalciferol [Vitamin D3 (25 1,000 unit PO DAILY 11/16/14 09/20/19 History Mcg = 1000 Iu)] Multivitamins, Thera [Multivitamin 1 tab PO DAILY 11/16/14 09/20/19 History (formulary)] Metoprolol Succinate [Toprol XL] 50 mg PO DAILY 12/25/14 09/20/19 History Calcium Carbonate [Calcium] 600 mg PO DAILY 09/05/16 09/20/19 History Febuxostat [Uloric] 40 mg PO DAILY 09/05/16 09/20/19 History Aspirin 81 mg PO DAILY #30 chew 09/06/16 09/20/19 Rx Clopidogrel [Plavix] 75 mg PO DAILY #30 tab 09/06/16 09/20/19 Rx Nitroglycerin Sl Tabs [Nitrostat] 0.4 mg SUBLINGUAL Q5M PRN #25 tab 09/06/16 09/20/19 Rx ALPRAZolam [Xanax] 0.25 mg PO HS@199912/19/16 09/20/19 History Isosorbide Mononitrate ER [Imdur] 30 mg PO DAILY 12/19/16 09/20/19 History Sennosides-Docusate Sodium 1 tab PO DAILY 03/20/17 09/20/19 History [Senokot-S] cloNIDine HCL [Catapres] 0.2 mg PO Q8H PRN 03/20/17 09/20/19 History Acetaminophen [Tylenol] 650 mg PO Q6H PRN 09/20/19 09/20/19 History Atorvastatin [Lipitor] 20 mg PO HS 09/20/19 09/20/19 History Bisacodyl [Dulcolax] 10 mg RECTAL DAILY PRN 09/20/19 09/20/19 History Carbidopa-Levodopa 25-100 mg 1 tab PO TID@0800,1200,1930 09/20/19 09/20/19 Hist ory [Sinemet 25-100] Ferrous Sulfate [Feosol] 325 mg PO HS 09/20/19 09/20/19 History Polyethylene Glycol 3350 [Miralax] 17 gm PO DAILY PRN 09/20/19 09/20/19 History Promethazine [Phenergan] 25 mg PO BID PRN 09/20/19 09/20/19 History Propranolol [Inderal] 20 mg PO TID@0800,1200,1800 09/20/19 09/20/19 History QUEtiapine [SEROquel] 50 mg PO HS 09/20/19 09/20/19 History amLODIPine [Norvasc] 5 mg PO DAILY 09/20/19 09/20/19 History hydrALAZINE HCL 10 mg PO TID@0800,1300,2000 09/20/19 09/20/19 History Allergies Allergy/AdvReac Type Severity Reaction Status Date / Time Iodinated Contrast Media Allergy Swelling/Ra Verified 09/20/19 11:23 [Iodinated Contrast Media - sh Oral and] morphine Allergy Unknown Verified 09/20/19 11:23 Penicillins Allergy Swelling/Ra Verified 09/20/19 11:23 Physical Exam Vitals: Vital Signs Temp Pulse Resp BP Pulse Ox 09/21/19 05:48 98.3 F 89 15 147/73 97 09/21/19 03:43 89 138/73 95 09/21/19 00:00 93 17 09/20/19 22:28 98.8 F 93 17 175/77 96 09/20/19 15:23 16 09/20/19 13:01 97.9 F 75 16 147/77 99 Intake and Output 09/20/19 09/21/19 09/21/19 22:59 06:59 14:59 Intake Total 220 Balance 220 Intake: Oral 220 Other: # Voids 0 2 # Bowel Movements 0 0 Results 09/19/19 21:15 09/19/19 21:15 Current Medications Generic Name Dose Route Start Last Admin Trade Name Freq PRN Reason Stop Dose Admin Acetaminophen 650 mg 09/20/19 02:29 Tylenol Tab PO Q6HR PRN Mild Pain or Fever > 100.5 Albuterol/Ipratropium 3 ml 09/20/19 02:33 Duoneb 0.5 Mg-3 Mg/3 Ml Soln INHALATION RT-QID PRN Shortness Of Breath Allopurinol 200 mg 09/20/19 09:00 09/21/19 09:14 Zyloprim PO 200 mg DAILY RAJANI Administration Alprazolam 0.25 mg 09/20/19 09:00 09/21/19 09:15 Xanax PO Not Given BID RAJANI Amlodipine Besylate 5 mg 09/20/19 21:00 09/20/19 22:22 Norvasc PO 5 mg HS RAJANI Administration Atorvastatin Calcium 40 mg 09/20/19 21:00 09/20/19 22:22 Lipitor PO 40 mg HS RAJANI Administration Bacitracin 1 applic 09/21/19 09:00 09/21/19 09:15 Bacitracin Oint TOPICAL 1 applic BID RAJANI Administration Calcium Carbonate/Glycine 500 mg 09/20/19 09:00 09/21/19 09:13 Tums PO 500 mg DAILY RAJANI Administration Carbidopa/Levodopa 1 each 09/20/19 09:00 09/21/19 09:17 Sinemet 25-250 PO 1 each TID RAJANI Administration Cholecalciferol 1,000 unit 09/20/19 09:00 09/21/19 09:13 Vitamin D3 (25 Mcg = 1000 Iu) PO 1,000 unit DAILY RAJANI Administration Clonidine 0.2 mg 09/20/19 04:00 Catapres PO Q8H PRN Systolic is 165 or above Glipizide 5 mg 09/20/19 09:00 09/21/19 09:14 Glucotrol PO 5 mg DAILY RAJANI Administration Hydralazine HCl 25 mg 09/20/19 04:00 09/21/19 03:40 Apresoline PO 25 mg Q12H RAJANI Administration Sodium Chloride 1,000 mls @ 20 mls/hr 09/20/19 02:30 09/21/19 03:47 Saline 0.9% IV Not Given .Q24H RAJANI Sodium Chloride 1,000 mls @ 50 mls/hr 09/20/19 15:19 09/20/19 17:50 Saline 0.9% IV 09/21/19 11:18 50 mls/hr .Q20H STA Administration Isosorbide Mononitrate 30 mg 09/20/19 09:00 09/21/19 09:14 Imdur PO 30 mg DAILY RAJANI Administration Lisinopril 20 mg 09/20/19 09:00 09/21/19 09:14 Zestril PO 20 mg DAILY RAJANI Administration Metoprolol Succinate 50 mg 09/20/19 09:00 09/21/19 09:14 Toprol Xl PO 50 mg DAILY RAJANI Administration Multivitamins 1 each 09/20/19 09:00 09/21/19 09:13 Theragran PO 1 each DAILY RAJANI Administration Naloxone HCl 0.2 mg 09/20/19 02:29 Narcan IV Q2M PRN Opioid Reversal Nitroglycerin 0.4 mg 09/20/19 02:33 Nitrostat SUBLINGUAL Q5M PRN Chest Pain Ondansetron HCl 4 mg 09/20/19 02:29 Zofran IVP Q8HR PRN Nausea And Vomiting Primidone 50 mg 09/20/19 09:00 09/21/19 09:14 Mysoline PO 50 mg TID RAJANI Administration Prochlorperazine Maleate 5 mg 09/20/19 02:29 Compazine PO Q8HR PRN Nausea And Vomiting Quetiapine Fumarate 12.5 mg 09/20/19 21:45 09/21/19 09:14 Seroquel PO Not Given BID RAJANI Senna/Docusate Sodium 1 each 09/20/19 09:00 09/21/19 09:14 Senokot-S PO 1 each BID RAJANI Administration Tramadol HCl 50 mg 09/20/19 03:00 09/20/19 14:02 Ultram PO 50 mg Q8H PRN Administration Pain Trazodone HCl 150 mg 09/20/19 21:00 09/20/19 22:22 Desyrel PO 150 mg HS RAJANI Administration Intake and Output 09/20/19 09/21/19 09/21/19 22:59 06:59 14:59 Intake Total 220 Balance 220 Intake: Oral 220 Other: # Voids 0 2 # Bowel Movements 0 0 09/19/19 21:15 09/19/19 21:15
[2019-09-21] MEDS: ENOXAPARIN 60 MG/0.6 ML SYRINGE SQ SCH ×2 (12:44→20:47)
--- NOTE | 2019-09-21 13:14 | P.PN ---
Subjective Progress Note Date: 09/21/19 CHIEF COMPLAINT: Status post fall from syncope HISTORY OF PRESENT ILLNESS: The patient is a 83-year-old female who was admitted to the hospital from assisted after having a syncopal episode resulting in a fall in her bathroom. She had hit her head along the toilet bowl. This Laceration. By the emergency room providers. She denies any headache this morning. She is tolerating a regular diet. No further reports of nausea. She is currently undergoing workup for syncopal episodes. REVIEW OF ORGAN SYSTEMS: No fevers or chills. No productive sputum. No acute chest pain. PHYSICAL EXAM: VITALS: Reviewed CONSTITUTIONAL: Well developed and in no acute distress. EYES: Conjuctivae without sclera icterus. Pupils are equally round and reactive to light. Extraocular movements grossly intact. HEAD, EARS, NOSE, THROAT: Moist buccal mucosa. Hears conversational speech. No nasal drainage. Sutures along scalp intact. Dried serosanguineous drainage. No signs of infection. NECK: Supple. No JV distention. No thyroidomegaly. RESPIRATORY: Non-labored respirations and equal bilateral excursions. No gross wheezes. CARDIOVASCULAR: Palpable 2+ radial pulses. ABDOMEN: Soft. Non-tender. Nondistended. MUSCULOSKELETAL: No bilateral upper extremity edema. SKIN: Warm and well perfused with good skin turgor. NEUROLOGIC: Cranial nerves II through XII grossly intact. Sensation upper and extremities intact. No focal or lateralizing signs. PSYCH: Appropriate affect. Alert and oriented to person, place and time. Displays appropriate insight. CLINCAL LABS: Reviewed. Blood sugars 177-227 IMAGING: Independently reviewed CT of the brain demonstrates no intracranial bleed or midline shift. ECHO: Report reviewed demonstrating ejection fraction 60-65%. Moderate pulmonary hypertension identified. US CAROTID: Report reviewed also demonstrating no stenosis along the vertebral artery. Severe stenosis along the right common carotid. Bilateral internal carotid arteries between 50-70%. ASSESSMENT: 1. Syncope with fall and scalp hematoma open laceration 2. Recurrent falls with pre-existing frontal hematoma 3. Parkinson's disease PLAN: 1. Continue with bacitracin ointment along scalp sutures twice daily. 2. No additional surgical intervention and stenting. 3. Patient may wash hair tomorrow. 4. Continue sutures for scalp laceration at least for 7-10 days Objective - Vital Signs Vital signs: Vital Signs Temp 98.3 F 09/21/19 12:47 Pulse 94 09/21/19 12:47 Resp 16 09/21/19 12:47 BP 146/75 09/21/19 12:47 Pulse Ox 94 L 09/21/19 12:47 Intake & Output 09/20/19 09/21/19 09/21/19 18:59 06:59 18:59 Intake Total 220 Balance 220 Intake: Oral 220 Other: # Voids 1 2 # Bowel Movements 0 - Labs CBC & Chem 7: 09/19/19 21:15 09/19/19 21:15 Labs: Abnormal Lab Results - Last 24 Hours (Table) 09/20/19 09/20/19 09/20/19 Range/Units 15:38 16:51 20:56 D-Dimer (<0.60) mg/L FEU POC Glucose (mg/dL) 193 H 184 H (75-99) mg/dL Uric Acid 2.9 L (3.7-7.4) mg/dL 09/21/19 09/21/19 09/21/19 Range/Units 07:08 10:17 11:51 D-Dimer 1.38 H (<0.60) mg/L FEU POC Glucose (mg/dL) 202 H 227 H (75-99) mg/dL Uric Acid (3.7-7.4) mg/dL Assessment and Plan (1) Syncope Current Visit: Yes Status: Acute Code(s): R55 - SYNCOPE AND COLLAPSE SNOMED Code(s): 658983485 (2) Fall Current Visit: Yes Status: Acute Code(s): W19.XXXA - UNSPECIFIED FALL, INITIAL ENCOUNTER SNOMED Code(s): 7156767 (3) Laceration of scalp Current Visit: Yes Status: Acute Code(s): S01.01XA - LACERATION WITHOUT FOREIGN BODY OF SCALP, INITIAL ENCOUNTER SNOMED Code(s): 838228169 (4) Dementia Current Visit: No Status: Acute Code(s): F03.90 - UNSPECIFIED DEMENTIA WITHOUT BEHAVIORAL DISTURBANCE SNOMED Code(s): 65447168 (5) Head injury Current Visit: No Status: Acute Code(s): S09.90XA - UNSPECIFIED INJURY OF HEAD, INITIAL ENCOUNTER SNOMED Code(s): 94804153 (6) Hematoma of frontal scalp Current Visit: No Status: Acute Code(s): S00.03XA - CONTUSION OF SCALP, INITIAL ENCOUNTER SNOMED Code(s): 085219234 (7) Parkinson disease Current Visit: No Status: Acute Code(s): G20 - PARKINSON'S DISEASE SNOMED Code(s): 38429471
--- NOTE | 2019-09-21 13:23 | US ---
EXAMINATION TYPE: US venous doppler duplex LE BI DATE OF EXAM: 09/21/2019 1:10 PM COMPARISON: US 12/20/2016 CLINICAL HISTORY: syncope, elevated d dimer. Difficult exam, Patient cannot tolerate probe pressure d ue to pain. Unable to move or bend right leg making imaging of the right popliteal limited SIDE PERFORMED: Bilateral TECHNIQUE: The lower extremity deep venous system is examined utilizing real time linear array sonog angelica with graded compression, doppler sonography and color-flow sonography. VESSELS IMAGED: External Iliac Vein (EIV) Common Femoral Vein Deep Femoral Vein Greater Saphenous Vein * Femoral Vein Popliteal Vein Small Saphenous Vein * Proximal Calf Veins (* superficial vessels) Right Leg: Negative for DVT as visualized Left Leg: Negative for DVT No popliteal fossa lesion is seen. IMPRESSION: THIS EXAMINATION IS NEGATIVE FOR DVT IN BOTH LEGS.
--- NOTE | 2019-09-21 14:32 | NM ---
EXAMINATION TYPE: NM pul vent and perfuse DATE OF EXAM: 09/21/2019 COMPARISON: NONE HISTORY: TECHNIQUE: Utilizing inhalation of 67.7 mCi Tc 99m DTPA aerosol and intravenous injection of 5.1 mCi of Tc 99m MAA, ventilation and perfusion images are acquired post injection in multiple projections. FINDINGS: There is matched subsegmental defect at the right posterior lung base. There is large matched defect involving the lingula of the left upper lobe. I have no recent chest x-ray to compare. IMPRESSION: There is a new matched defect at the left posterior lung base compared to old exam that could relate to a pleural effusion. There is matched defect involving the lingula left upper lobe and the major fi ssure consistent with pleural fluid and cardiomegaly not significantly different than old exam. There is low probability of pulmonary embolism.
--- NOTE | 2019-09-21 15:39 | XR ---
EXAMINATION TYPE: XR chest 2V DATE OF EXAM: 09/21/2019 COMPARISON: 03/20/2017 HISTORY: Hypertension. Syncope. TECHNIQUE: 2 views FINDINGS: Heart is enlarged. There is blunting of the costophrenic angles. There is mild pulmonary va scular congestion. Thoracic aorta is atheromatous. IMPRESSION: Mild congestive heart failure with bilateral pleural effusions larger on the right side. Abnormalities are new compared to old exam.
[2019-09-21 16:52] LABS: Glucose,Whole Blood 201 mg/dL (75-99)
[2019-09-21] MEDS: PROPRANOLOL 20 MG TAB PO SCH (17:25)
[2019-09-21] MEDS: traZODone HCL 50 MG TAB PO SCH (20:46)
[2019-09-21] MEDS: ATORVASTATIN 40 MG TAB PO SCH (20:46)
[2019-09-21 21:13] LABS: Glucose,Whole Blood 200 mg/dL (75-99)
[2019-09-22] MEDS: hydrALAZINE HCL 25 MG TAB PO SCH ×2 (04:55→16:03)
[2019-09-22] MEDS: SODIUM CHLORIDE 0.9% 1,000 ML IV SCH (04:58)
[2019-09-22 07:04] LABS: Glucose,Whole Blood 124 mg/dL (75-99)
[2019-09-22] MEDS: ENOXAPARIN 60 MG/0.6 ML SYRINGE SQ SCH (07:43)
[2019-09-22] MEDS: ALLOPURINOL 100 MG TAB PO SCH (07:44)
[2019-09-22] MEDS: QUEtiapine 25 MG TAB PO SCH ×2 (07:45→20:29)
[2019-09-22] MEDS: MULTIVITAMINS, THERA 1 EACH TAB PO SCH (07:45)
[2019-09-22] MEDS: LISINOPRIL 20 MG TAB PO SCH (07:46)
[2019-09-22] MEDS: PRIMIDONE 50 MG TAB PO SCH ×3 (07:46→20:28)
[2019-09-22] MEDS: CHOLECALCIFEROL 1,000 UNIT TAB PO SCH (07:46)
[2019-09-22] MEDS: LOSARTAN-HCTZ 50-12.5 MG 1 EACH TAB PO SCH (07:46)
[2019-09-22] MEDS: CALCIUM CARBONATE 500 MG CHEWABLE PO SCH (07:46)
[2019-09-22] MEDS: CARBIDOPA-LEVODOPA 25-250 MG 1 EACH TAB PO SCH ×3 (07:46→20:30)
[2019-09-22] MEDS: SENNOSIDES-DOCUSATE SODIUM 1 EACH TAB PO SCH ×2 (07:47→20:28)
[2019-09-22] MEDS: glipiZIDE 5 MG TAB PO SCH (07:47)
[2019-09-22] MEDS: ISOSORBIDE MONONITRATE ER 30 MG TAB.ER.24H PO SCH (07:47)
[2019-09-22] MEDS: PROPRANOLOL 20 MG TAB PO SCH ×3 (07:47→17:15)
[2019-09-22] MEDS: ALPRAZolam 0.25 MG TAB PO SCH ×2 (07:47→20:31)
[2019-09-22] MEDS: BACITRACIN 500 UNIT/GM OINT 28.4 GM TUBE TOPICAL SCH ×2 (07:48→20:28)
[2019-09-22 08:07] LABS: ALT <6 U/L (4-34); AST 28 U/L (14-36); African American GFR (CKD) 34 (>60 ml/min/1.73 sqM); Albumin 2.2 g/dL (3.5-5.0); Alkaline Phosphatase 80 U/L (38-126); Anion Gap 5 mmol/L; Blood Urea Nitrogen 40 mg/dL (7-17); Calcium 8.4 mg/dL (8.4-10.2); Carbon Dioxide 24 mmol/L (22-30); Chloride 107 mmol/L (98-107); Glucose 108 mg/dL (74-99); Non-African American GFR(CKD) 30 (>60 ml/min/1.73 sqM); Potassium 4.2 mmol/L (3.5-5.1); Sodium 136 mmol/L (137-145); Total Bilirubin 0.5 mg/dL (0.2-1.3); Total Protein 5.1 g/dL (6.3-8.2)
[2019-09-22 08:19] LABS: Basophils % (A) 0 %; Eosinophils # (A) 0.1 k/uL (0-0.7); Eosinophils % (A) 1 %; HCT 20.3 % (34.0-46.0); Lymphocytes % (A) 10 %; MCH 31.2 pg (25.0-35.0); MCHC 33.3 g/dL (31.0-37.0); MCV 93.6 fL (80.0-100.0); Mean Platelet Volume 8.8; Monocytes # (A) 0.6 k/uL (0-1.0); Monocytes % (A) 6 %; Neutrophils # (A) 7.9 k/uL (1.3-7.7); Neutrophils % (A) 80 %; Platelet Count 138 k/uL (150-450); RBC 2.17 m/uL (3.80-5.40); RDW 13.8 % (11.5-15.5); WBC 9.9 k/uL (3.8-10.6)
[2019-09-22 08:27] LABS: HGB 6.8 gm/dL (11.4-16.0)
--- NOTE | 2019-09-22 09:34 | P.PN ---
Subjective Progress Note Date: 09/22/19 CHIEF COMPLAINT: Status post fall from syncope HISTORY OF PRESENT ILLNESS: The patient is a 83-year-old female who was admitted to the hospital from senior care after having a syncopal episode resulting in a fall in her bathroom. She had hit her head along the toilet bowl and had scalp lacerations repaired by emergency room providers. This morning, hemoglobin 6.8. She denies any abdominal pain. Per discussion with nursing, no signs of bleeding or bloody bowel movements. Patient complains of extreme right knee pain. No reports of headaches. She has tolerated diet. Patient was set up at bedside with physical therapy. I assisted physical therapy in getting her back into bed. REVIEW OF ORGAN SYSTEMS: No fevers or chills. No productive sputum. No acute chest pain. PHYSICAL EXAM: VITALS: Reviewed CONSTITUTIONAL: Well developed and in no acute distress. EYES: Conjuctivae without sclera icterus. Pupils are equally round and reactive to light. Extraocular movements grossly intact. HEAD, EARS, NOSE, THROAT: Moist buccal mucosa. Hears conversational speech. No nasal drainage. Sutures along scalp intact. Dried serosanguineous drainage. No signs of infection. NECK: Supple. No JV distention. No thyroidomegaly. RESPIRATORY: Non-labored respirations and equal bilateral excursions. No gross wheezes. CARDIOVASCULAR: Palpable 2+ radial pulses. ABDOMEN: Soft. Non-tender. Nondistended. MUSCULOSKELETAL: No bilateral upper extremity edema. Ecchymosis along the right volar elbow with multiple small lacerations. Tender along right knee without gross ecchymosis SKIN: Warm and well perfused with good skin turgor. NEUROLOGIC: Cranial nerves II through XII grossly intact. Sensation upper and extremities intact. No focal or lateralizing signs. PSYCH: Appropriate affect. Alert and oriented to person, place and time. Displays appropriate insight. CLINCAL LABS: Reviewed. Hemoglobin 6.8 down from 11.4 on admission ASSESSMENT: 1. Syncope with fall and scalp hematoma open laceration 2. Recurrent falls with pre-existing frontal hematoma 3. Parkinson's disease 4. Low hemoglobin, 6.8, acute drop. PLAN: 1. Recommend repeat hemoglobin as she has no signs of bleeding. 2. Recommend orthopedic consultation for persistent right knee pain in patient with history of bilateral knee arthroplasties 3. Bacitracin ointment to be applied to right elbow lacerations Objective - Vital Signs Vital signs: Vital Signs Temp 98.2 F 09/22/19 05:41 Pulse 87 09/22/19 05:41 Resp 16 09/22/19 05:41 BP 133/70 09/22/19 05:41 Pulse Ox 94 L 09/22/19 05:41 Intake & Output 09/21/19 09/22/19 09/22/19 18:59 06:59 18:59 Intake Total 920 Balance 920 Intake: Oral 920 Other: # Voids 1 0 - Labs CBC & Chem 7: 09/22/19 06:55 09/22/19 06:55 Labs: Abnormal Lab Results - Last 24 Hours (Table) 09/21/19 09/21/19 09/21/19 Range/Units 10:17 11:51 16:51 RBC (3.80-5.40) m/uL Hgb (11.4-16.0) gm/dL Hct (34.0-46.0) % Plt Count (150-450) k/uL Neutrophils # (1.3-7.7) k/uL D-Dimer 1.38 H (<0.60) mg/L FEU Sodium (137-145) mmol/L BUN (7-17) mg/dL Creatinine (0.52-1.04) mg/dL Glucose (74-99) mg/dL POC Glucose (mg/dL) 227 H 201 H (75-99) mg/dL Total Protein (6.3-8.2) g/dL Albumin (3.5-5.0) g/dL 09/21/19 09/22/19 09/22/19 Range/Units 21:11 06:55 06:55 RBC 2.17 L (3.80-5.40) m/uL Hgb 6.8 L* D (11.4-16.0) gm/dL Hct 20.3 L (34.0-46.0) % Plt Count 138 L (150-450) k/uL Neutrophils # 7.9 H (1.3-7.7) k/uL D-Dimer (<0.60) mg/L FEU Sodium 136 L (137-145) mmol/L BUN 40 H (7-17) mg/dL Creatinine 1.62 H (0.52-1.04) mg/dL Glucose 108 H (74-99) mg/dL POC Glucose (mg/dL) 200 H (75-99) mg/dL Total Protein 5.1 L (6.3-8.2) g/dL Albumin 2.2 L (3.5-5.0) g/dL 09/22/19 Range/Units 07:00 RBC (3.80-5.40) m/uL Hgb (11.4-16.0) gm/dL Hct (34.0-46.0) % Plt Count (150-450) k/uL Neutrophils # (1.3-7.7) k/uL D-Dimer (<0.60) mg/L FEU Sodium (137-145) mmol/L BUN (7-17) mg/dL Creatinine (0.52-1.04) mg/dL Glucose (74-99) mg/dL POC Glucose (mg/dL) 124 H (75-99) mg/dL Total Protein (6.3-8.2) g/dL Albumin (3.5-5.0) g/dL Assessment and Plan (1) Syncope Current Visit: Yes Status: Acute Code(s): R55 - SYNCOPE AND COLLAPSE SNOMED Code(s): 568006295 (2) Fall Current Visit: Yes Status: Acute Code(s): W19.XXXA - UNSPECIFIED FALL, INITIAL ENCOUNTER SNOMED Code(s): 8304374 (3) Laceration of scalp Current Visit: Yes Status: Acute Code(s): S01.01XA - LACERATION WITHOUT FOREIGN BODY OF SCALP, INITIAL ENCOUNTER SNOMED Code(s): 380777949 (4) Dementia Current Visit: No Status: Acute Code(s): F03.90 - UNSPECIFIED DEMENTIA WITHOUT BEHAVIORAL DISTURBANCE SNOMED Code(s): 40620433 (5) Head injury Current Visit: No Status: Acute Code(s): S09.90XA - UNSPECIFIED INJURY OF HEAD, INITIAL ENCOUNTER SNOMED Code(s): 02503006 (6) Hematoma of frontal scalp Current Visit: No Status: Acute Code(s): S00.03XA - CONTUSION OF SCALP, INITIAL ENCOUNTER SNOMED Code(s): 023130612 (7) Parkinson disease Current Visit: No Status: Acute Code(s): G20 - PARKINSON'S DISEASE SNOMED Code(s): 29903173 (8) Laceration of right forearm Current Visit: Yes Status: Acute Code(s): S51.811A - LACERATION W/O FOREIGN BODY OF RIGHT FOREARM, INIT ENCNTR SNOMED Code(s): 22783001965890635
[2019-09-22 09:53] LABS: Basophils % (A) 0 %; Eosinophils # (A) 0.1 k/uL (0-0.7); Eosinophils % (A) 1 %; HCT 20.7 % (34.0-46.0); Lymphocytes # (A) 0.9 k/uL (1.0-4.8); Lymphocytes % (A) 9 %; MCV 93.7 fL (80.0-100.0); Monocytes # (A) 0.6 k/uL (0-1.0); Monocytes % (A) 6 %; Neutrophils # (A) 8.4 k/uL (1.3-7.7); Neutrophils % (A) 82 %; Platelet Count 140 k/uL (150-450); RBC 2.21 m/uL (3.80-5.40); RDW 13.8 % (11.5-15.5); WBC 10.2 k/uL (3.8-10.6)
[2019-09-22 09:54] LABS: HGB 6.8 gm/dL (11.4-16.0)
--- NOTE | 2019-09-22 10:06 | P.PN ---
Subjective HISTORY OF PRESENTING ILLNESS This is a pleasant 83-year-old female past medical history significant for multivessel coronary artery disease status post PCI most recently in August 2017 maintained on Plavix, chronic diastolic heart failure, diabetes mellitus, hypertension, dyslipidemia and dementia. She follows in the office with Dr. Nellie calero. She is seen and examined sitting up in bed in no acute distress. She feels quite weak, short of breath and tired. No chest pain, dizziness or palpitations. Blood pressure 133/70 heart rate 87 afebrile and maintaining oxygen saturation on nasal cannula. Laboratory data reviewed, hgb 6.8, plt 140, sodium 136, potassium 4.2, creatinine 1.62, d-dimer 1.38. VQ scan reveals low probability for PE. Lower extremity duplex negative for DVT. Repeat chest xray reveals mild congestive heart failure with bilateral pleural effusions right greater than left. Nursing has been unable to check for orthostatic changes due to increase weakness. Telemetry tracings unremarkable. PHYSICAL EXAMINATION CONSTITUTIONAL: No apparent distress. HEENT: Head is normocephalic. Pupils are equal, round. Sclerae anicteric. Mucous membranes of the mouth are moist. No JVD. No carotid bruit. Sutures in the frontal region. CHEST EXAMINATION: Lungs are clear to auscultation. No chest wall tenderness is noted on palpation or with deep breathing. HEART EXAMINATION: Regular rate and rhythm. S1, S2 heard. Soft systolic ejection murmur at the left sternal border, no gallops or rub. EXTREMITIES: 2+ peripheral pulses, trace bilateral lower extremity edema and no calf tenderness. Significant ecchymosis to the right upper extremity. ASSESSMENT Syncope, appears to be vasovagal in nature. Fall with positive loss of consciousness Acute blood loss, hgb 6.8. Hypertension Dyslipidemia Diabetes mellitus Multivessel coronary artery disease status post PCI of the circumflex artery August 2016 Dementia PLAN Plavix can be discontinued at this point. Her PCI was over 12 months ago. Ongoing medical management and evaluation of significant drop in hemoglobin. No evidence of arrhythmia. Recommend outpatient event monitoring, we will set this up through the office. Nurse Practitioner note has been reviewed, I agree with a documented findings and plan of care. Patient was seen and examined. Objective - Vital Signs Vital signs: Vital Signs Temp 98.2 F 09/22/19 05:41 Pulse 87 09/22/19 05:41 Resp 16 09/22/19 05:41 BP 133/70 09/22/19 05:41 Pulse Ox 94 L 09/22/19 05:41 Intake & Output 09/21/19 09/22/19 09/22/19 18:59 06:59 18:59 Intake Total 920 Balance 920 Intake: Oral 920 Other: # Voids 1 0 - Labs CBC & Chem 7: 09/22/19 09:28 09/22/19 06:55 Labs: Abnormal Lab Results - Last 24 Hours (Table) 09/21/19 09/21/19 09/21/19 Range/Units 10:17 11:51 16:51 RBC (3.80-5.40) m/uL Hgb (11.4-16.0) gm/dL Hct (34.0-46.0) % Plt Count (150-450) k/uL Neutrophils # (1.3-7.7) k/uL Lymphocytes # (1.0-4.8) k/uL D-Dimer 1.38 H (<0.60) mg/L FEU Sodium (137-145) mmol/L BUN (7-17) mg/dL Creatinine (0.52-1.04) mg/dL Glucose (74-99) mg/dL POC Glucose (mg/dL) 227 H 201 H (75-99) mg/dL Total Protein (6.3-8.2) g/dL Albumin (3.5-5.0) g/dL 09/21/19 09/22/19 09/22/19 Range/Units 21:11 06:55 06:55 RBC 2.17 L (3.80-5.40) m/uL Hgb 6.8 L* D (11.4-16.0) gm/dL Hct 20.3 L (34.0-46.0) % Plt Count 138 L (150-450) k/uL Neutrophils # 7.9 H (1.3-7.7) k/uL Lymphocytes # (1.0-4.8) k/uL D-Dimer (<0.60) mg/L FEU Sodium 136 L (137-145) mmol/L BUN 40 H (7-17) mg/dL Creatinine 1.62 H (0.52-1.04) mg/dL Glucose 108 H (74-99) mg/dL POC Glucose (mg/dL) 200 H (75-99) mg/dL Total Protein 5.1 L (6.3-8.2) g/dL Albumin 2.2 L (3.5-5.0) g/dL 09/22/19 09/22/19 Range/Units 07:00 09:28 RBC 2.21 L (3.80-5.40) m/uL Hgb 6.8 L* (11.4-16.0) gm/dL Hct 20.7 L (34.0-46.0) % Plt Count 140 L (150-450) k/uL Neutrophils # 8.4 H (1.3-7.7) k/uL Lymphocytes # 0.9 L (1.0-4.8) k/uL D-Dimer (<0.60) mg/L FEU Sodium (137-145) mmol/L BUN (7-17) mg/dL Creatinine (0.52-1.04) mg/dL Glucose (74-99) mg/dL POC Glucose (mg/dL) 124 H (75-99) mg/dL Total Protein (6.3-8.2) g/dL Albumin (3.5-5.0) g/dL
[2019-09-22] MEDS: ACETAMINOPHEN TAB 325 MG TAB PO PRN (11:52)
[2019-09-22 11:55] LABS: Glucose,Whole Blood 129 mg/dL (75-99)
--- NOTE | 2019-09-22 12:00 | P.CNOR ---
History of Present Illness - [facility] Consult date: 09/22/19 Requesting physician: Hanna Elizondo Consult reason: joint pain (Right knee pain status post fall on knee) History of present illness: Patient is a very pleasant 83-year-old female who is seen and examined at bedside for significant right knee pain status post fall. Patient states she currently resides at the same residence as she has lived in over the past 37 years. She states she goes to her daughter's house to shower. She states she was at her daughter's on 09/19/2019 in the shower when she fell landing on her right knee and hitting her head on the toilet. She does have a history of right total knee arthroplasty. She also sustained lacerations to her right elbow and a significant laceration over the top of her head. Patient states she continues to have significant debilitating right knee pain. She is unable to ambulate or move the right lower extremity due to her knee pain. X-ray imaging was negative for fracture. Patient has a history of bilateral total knee arthroplasties performed at [facility]. Patient is unsure when the surgeries were performed. Patient does have history of heart surgery with previous grafting from the bilateral lower extremities. Patient is currently being seen and examined by trauma surgery. Patient does have a history of Parkinson's disease, coronary artery disease with history of heart surgery, heart failure, diabetes mellitus, and history of DVT. Patient is currently on anticoagulation. Patient was found to have elevated BUN and creatinine to her presentation to the emergency department. Patient is also been found to be anemic. She had an elevated d-dimer on yesterday's lab testing. Past Medical History Past Medical History: Coronary Artery Disease (CAD), Chest Pain / Angina, Heart Failure, Dementia, Diabetes Mellitus, Deep Vein Thrombosis (DVT), Hyperlipidemia, Hypertension, Musculoskeletal Disorder, Neurologic Disorder, Osteoarthritis (OA), Pneumonia, Renal Disease Additional Past Medical History / Comment(s): viral enteritis, currently tx for pneumonia per pt, vertigo, falls-fell recently, NIDDM type II, CKD stage IV, early onset parkinson's dx, Oa multiple joints, back pain, gout in great toe thai ateral feet, cataract. 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 Other HX: 1989 PTCA main cx, 1996 PCI with stent to OM, 2010 PCI with stent to LAD, EGD/colonoscopy, bilateral total knees, varicose veing stripping bilaterally. Past Anesthesia/Blood Transfusion Reactions: Postoperative Nausea & Vomiting (PONV) Date of Last Stent Placement:: 09/05/16 Past Psychological History: No Psychological Hx Reported Additional Psychological History / Comment(s): Pt is currently living at [facility] with her . Pt's gait is unsteady and she has been falling. uses a walker. Smoking Status: Former smoker Past Alcohol Use History: None Reported Past Drug Use History: None Reported - Past Family History Father Family Medical History: Dementia Additional Family Medical History / Comment(s): Father had dementia and he shot himself. Mother Family Medical History: Cancer, CVA/TIA Additional Family Medical History / Comment(s): bowel ca Medications and Allergies Home Medications Medication Instructions Recorded Confirmed Type Cholecalciferol [Vitamin D3 (25 1,000 unit PO DAILY 11/16/14 09/20/19 History Mcg = 1000 Iu)] Multivitamins, Thera [Multivitamin 1 tab PO DAILY 11/16/14 09/20/19 History (formulary)] Calcium Carbonate [Calcium] 600 mg PO DAILY 09/05/16 09/20/19 History Febuxostat [Uloric] 40 mg PO DAILY 09/05/16 09/20/19 History Aspirin 81 mg PO DAILY #30 chew 09/06/16 09/20/19 Rx Nitroglycerin Sl Tabs [Nitrostat] 0.4 mg SUBLINGUAL Q5M PRN #25 tab 09/06/16 09/20/19 Rx ALPRAZolam [Xanax] 0.25 mg PO HS@199912/19/16 09/20/19 History Isosorbide Mononitrate ER [Imdur] 30 mg PO DAILY 12/19/16 09/20/19 History Sennosides-Docusate Sodium 1 tab PO DAILY 03/20/17 09/20/19 History [Senokot-S] cloNIDine HCL [Catapres] 0.2 mg PO Q8H PRN 03/20/17 09/20/19 History Acetaminophen [Tylenol] 650 mg PO Q6H PRN 09/20/19 09/20/19 History Atorvastatin [Lipitor] 20 mg PO HS 09/20/19 09/20/19 History Bisacodyl [Dulcolax] 10 mg RECTAL DAILY PRN 09/20/19 09/20/19 History Carbidopa-Levodopa 25-100 mg 1 tab PO TID@0800,1200,1930 09/20/19 09/20/19 History [Sinemet 25-100] Ferrous Sulfate [Feosol] 325 mg PO HS 09/20/19 09/20/19 History Polyethylene Glycol 3350 [Miralax] 17 gm PO DAILY PRN 09/20/19 09/20/19 History Promethazine [Phenergan] 25 mg PO BID PRN 09/20/19 09/20/19 History Propranolol [Inderal] 20 mg PO TID@0800,1200,1800 09/20/19 09/20/19 History QUEtiapine [SEROquel] 50 mg PO HS 09/20/19 09/20/19 History amLODIPine [Norvasc] 5 mg PO DAILY 09/20/19 09/20/19 History hydrALAZINE HCL 10 mg PO TID@0800,1300,2000 09/20/19 09/20/19 History Allergies Allergy/AdvReac Type Severity Reaction Status Date / Time Iodinated Contrast Media Allergy Swelling/Ra Verified 09/20/19 11:23 [Iodinated Contrast Media - sh Oral and] morphine Allergy Unknown Verified 09/20/19 11:23 Penicillins Allergy Swelling/Ra Verified 09/20/19 11:23 Physical Examination Physical Exam: Patient is awake, alert, and oriented 3 Vital signs stable Good chest excursion with deep inspiration and expiration Evidence of a large laceration with approximately 13-14 sutures over the scalp Right forearm is wrapped with dressing Evidence of bruising and 2 wounds of the right elbow Significant pain with any palpation or movement of the right knee Patient will not allow me to put her right knee through active range of motion Examination of the right knee does not show any evidence of significant swelling, bruising, or erythema Pain with palpation over the distal femur and proximal tibia Pain with palpation about the entire right knee at the proximal calf and distal femur Evidence of well-healed incisions over the bilateral knees Evidence of multiple healed incisions over the medial thighs and calf following previous heart surgery Patient is able to wiggle toes of the right lower extremity without difficulty Patient has limited dorsiflexion and plantarflexion of the right lower extremity Neurovascularly intact right lower extremity Results Pertinent studies: X-rays of the right knee taken on 09/19/2019: No evidence of fracture dislocation the right knee; evidence of right total knee arthroplasty with hardware remains in good alignment and good position; vascular calcification; soft tissue swelling - Labs Labs: Abnormal Lab Results - Last 24 Hours (Table) 09/21/19 09/21/19 09/21/19 Range/Units 11:51 16:51 21:11 RBC (3.80-5.40) m/uL Hgb (11.4-16.0) gm/dL Hct (34.0-46.0) % Plt Count (150-450) k/uL Neutrophils # (1.3-7.7) k/uL Lymphocytes # (1.0-4.8) k/uL Sodium (137-145) mmol/L BUN (7-17) mg/dL Creatinine (0.52-1.04) mg/dL Glucose (74-99) mg/dL POC Glucose (mg/dL) 227 H 201 H 200 H (75-99) mg/dL Total Protein (6.3-8.2) g/dL Albumin (3.5-5.0) g/dL 09/22/19 09/22/19 09/22/19 Range/Units 06:55 06:55 07:00 RBC 2.17 L (3.80-5.40) m/uL Hgb 6.8 L* D (11.4-16.0) gm/dL Hct 20.3 L (34.0-46.0) % Plt Count 138 L (150-450) k/uL Neutrophils # 7.9 H (1.3-7.7) k/uL Lymphocytes # (1.0-4.8) k/uL Sodium 136 L (137-145) mmol/L BUN 40 H (7-17) mg/dL Creatinine 1.62 H (0.52-1.04) mg/dL Glucose 108 H (74-99) mg/dL POC Glucose (mg/dL) 124 H (75-99) mg/dL Total Protein 5.1 L (6.3-8.2) g/dL Albumin 2.2 L (3.5-5.0) g/dL 09/22/19 Range/Units 09:28 RBC 2.21 L (3.80-5.40) m/uL Hgb 6.8 L* (11.4-16.0) gm/dL Hct 20.7 L (34.0-46.0) % Plt Count 140 L (150-450) k/uL Neutrophils # 8.4 H (1.3-7.7) k/uL Lymphocytes # 0.9 L (1.0-4.8) k/uL Sodium (137-145) mmol/L BUN (7-17) mg/dL Creatinine (0.52-1.04) mg/dL Glucose (74-99) mg/dL POC Glucose (mg/dL) (75-99) mg/dL Total Protein (6.3-8.2) g/dL Albumin (3.5-5.0) g/dL H & H 09/19/19 09/22/19 09/22/19 Range/Units 21:15 06:55 09:28 Hgb 11.4 6.8 L* D 6.8 L* (11.4-16.0) gm/dL Hct 33.2 L 20.3 L 20.7 L (34.0-46.0) % Coagulation 09/19/19 Range/Units 21:15 INR 1.0 (<1.2) Result Diagrams: 09/22/19 09:28 09/22/19 06:55 Assessment and Plan Assessment: Assessment: Right knee pain Status post fall and right knee History of bilateral total knee arthroplasties History of recurrent falls Use of walking aid in the home Scalp hematoma with open laceration Parkinson's disease Coronary artery disease with history of heart surgery Heart failure Diabetes mellitus History of DVT Anemia Elevated d-dimer on lab testing on 09/21/2019 Currently on anticoagulation Elevated BUN and creatinine (1) Right knee pain Current Visit: Yes Status: Acute Code(s): M25.561 - PAIN IN RIGHT KNEE SNOMED Code(s): 28946013 (2) Status post fall Current Visit: Yes Status: Acute Code(s): Z91.81 - HISTORY OF FALLING SNOMED Code(s): 492863670 (3) History of total right knee replacement Current Visit: Yes Status: Acute Code(s): Z96.651 - PRESENCE OF RIGHT ARTIFI CIAL KNEE JOINT SNOMED Code(s): 4240939024068 (4) Recurrent falls Current Visit: Yes Status: Acute Code(s): R29.6 - REPEATED FALLS SNOMED Code(s): 035820680 (5) Scalp hematoma Current Visit: Yes Status: Acute Code(s): S00.03XA - CONTUSION OF SCALP, INI TIAL ENCOUNTER SNOMED Code(s): 355886633 (6) Anemia Current Visit: Yes Status: Acute Code(s): D64.9 - ANEMIA, UNSPECIFIED SNOMED Code(s): 443991157 (7) History of DVT (deep vein thrombosis) Current Visit: Yes Status: Acute Code(s): Z86.718 - PERSONAL HISTORY OF OTHER VENOUS THROMBOSIS AND EMBOLISM SNOMED Code(s): 411268165 (8) Elevated BUN Current Visit: Yes Status: Acute Code(s): R79.9 - ABNORMAL FINDING OF BLOOD CHEMISTRY, UNSPECIFIED SNOMED Code(s): 357390331 (9) Creatinine elevation Current Visit: Yes Status: Acute Code(s): R79.89 - OTHER SPECIFIED ABNORMAL FINDINGS OF BLOOD CHEMISTRY SNOMED Code(s): 963497395 (10) Elevated d-dimer Current Visit: Yes Status: Acute Code(s): R79.89 - OTHER SPECIFIED ABNORMAL FINDINGS OF BLOOD CHEMISTRY SNOMED Code(s): 453209678 (11) Coronary artery disease Current Visit: Yes Status: Acute Code(s): I25.10 - ATHSCL HEART DISEASE OF [place] CORONARY ARTERY W/O ANG PCTRS SNOMED Code(s): 35610508 (12) History of heart surgery Current Visit: Yes Status: Acute Code(s): Z98.890 - OTHER SPECIFIED POSTPROCEDURAL STATES SNOMED Code(s): 056873867 (13) Heart failure Current Visit: Yes Status: Acute Code(s): I50.9 - HEART FAILURE, UNSPECIFIED SNOMED Code(s): 76349769 (14) Uses walking aid when standing alone Current Visit: Yes Status: Acute Code(s): VJA9622 - SNOMED Code(s): 894385010 (15) Diabetes mellitus Current Visit: No Status: Acute Code(s): E11.9 - TYPE 2 DIABETES MELLITUS WITHOUT COMPLICATIONS SNOMED Code(s): 68444896 (16) Parkinson disease Current Visit: No Status: Acute Code(s): G20 - PARKINSON'S DISEASE SNOMED Code(s): 50974824 (17) Laceration of elbow, right Current Visit: Yes Status: Acute Code(s): S51.011A - LACERATION WITHOUT FOREIGN BODY OF RIGHT ELBOW, INIT ENCNTR SNOMED Code(s): 66769150554825937 Plan: Plan: 1. Patient remains sustained a fall landing on her right knee. She has had significant right knee pain since that time. She's been unable to ambulate on the right lower extremity or move the right lower extremity due to her right knee pain since that time. Patient states prior to her fall she has been able to ambulate with assistance of a walker. X-ray imaging does not show evidence of fracture. She does have history of a right total knee arthroplasty. At this time, we will plan to obtain further imaging of her right knee for further evaluation. We will obtain a CT of the right knee. Following the results of the CT imaging, we will discuss these results in detail with the patient. At this time, we will currently plan to have the patient remain on bed rest and nonweightbearing on right lower extremity until the CT imaging can be reviewed and interpreted for her right lower extremity. We did discuss if she has a fracture at the right knee she will most likely be placed in a knee immobilizer at the right knee. 2. Patient will continue be seen and examined by other medical providers including trauma surgery and medicine Time with Patient: Greater than 30 (Including obtaining history, physical examination, reviewing of imaging, and dictation.)
--- NOTE | 2019-09-22 15:24 | P.PN ---
Subjective Progress Note Date: 09/22/19 Ирина Rizvi is an 83-year-old female, well-known to my practice, who presented to [facility] emergency room after having a syncopal episode with fall and head injury requiring multiple sutures to the scalp. Patient stated that she was walking to the bathroom with her walker with the help of an aid when she felt dizzy and passed out and fell and hit her head on the toilet patient was having significant laceration with bleeding EMS were called and patient was brought into emergency room. Patient estimated that she was unconscious for several minutes. In the emergency room patient was treated for her lacerations, computed tomography scan of the brain was done and did not reveal any evidence of intracranial bleeding, patient was admitted to telemetry floor for further evaluation and treatment. Laboratory data revealed evidence of dehydration was acute kidney injury BUN was elevated at 14 and creatinine at 1.53 which is higher than her baseline. Potassium was elevated at 5.5 blood pressure is elevated patient is maintained on multiple blood pressure medications. Echocardiogram and carotid Doppler were ordered cardiology consultation was requested regarding syncopal episode. On 09/21/2019 patient was seen and examined on the medical floor she is alert and oriented 3 in no apparent distress there is no fever or chills no headache or dizziness no chest pain no shortness of breath no cough no nausea or vomiting no abdominal pain no diarrhea no burning with urination no frequency or urgency and no hematuria. D-dimer ordered by cardiology was elevated, at this time will start full dose of subcu Lovenox, will check lower extremity Doppler and VQ scan to rule out pulmonary embolism, CT angiogram of the chest cannot be done due to elevated creatinine. On 09/22/2019 patient was seen and examined on the medical floor she is alert and oriented 3 in no apparent distress she is complaining of knee pain and was seen by orthopedic surgery in that regard, d-dimer was elevated, she was started yesterday on full dose of subcu Lovenox, today bilateral lower extremity Doppler was negative, and VQ scan was low probability for pulmonary embolism, dose of Lovenox will be decreased to 30 mg subcu once daily, hemoglobin today is low at 6.8 patient will receive 1 unit of red blood cell transfusion will recheck labs in a.m.. Objective - Vital Signs Vital signs: Vital Signs Temp 97.9 F 09/22/19 13:02 Pulse 78 04/06/20 13:02 Resp 20 09/22/19 14:43 BP 123/64 09/22/19 13:02 Pulse Ox 100 09/22/19 13:02 Intake & Output 09/21/19 09/22/19 09/22/19 18:59 06:59 18:59 Intake Total 920 Balance 920 Intake: Oral 920 Other: Voiding Method Diaper # Voids 1 0 2 # Bowel Movements 0 - Exam In general patient is alert and oriented 3 in no apparent distress answering questions appropriately HEENT head normocephalic without multiple bruises and large laceration on the scalp with multiple sutures Neck is supple no JVD no goiter no lymphadenopathy Chest exam reveals a few scattered rhonchi no wheezing Cardiac exam reveals regular heart sounds S1 and S2 with 2/6 systolic murmur in the left sternal border Abdomen is soft nontender no organomegaly with normal bowel sounds Extremity exam reveals no edema no cyanosis or clubbing Neurological examination reveals no gross focal deficit - Labs CBC & Chem 7: 09/22/19 09:28 09/22/19 06:55 Labs: Abnormal Lab Results - Last 24 Hours (Table) 09/21/19 09/21/19 09/22/19 Range/Units 16:51 21:11 06:55 RBC 2.17 L (3.80-5.40) m/uL Hgb 6.8 L* D (11.4-16.0) gm/dL Hct 20.3 L (34.0-46.0) % Plt Count 138 L (150-450) k/uL Neutrophils # 7.9 H (1.3-7.7) k/uL Lymphocytes # (1.0-4.8) k/uL Sodium (137-145) mmol/L BUN (7-17) mg/dL Creatinine (0.52-1.04) mg/dL Glucose (74-99) mg/dL POC Glucose (mg/dL) 201 H 200 H (75-99) mg/dL Total Protein (6.3-8.2) g/dL Albumin (3.5-5.0) g/dL 09/22/19 09/22/19 09/22/19 Range/Units 06:55 07:00 09:28 RBC 2.21 L (3.80-5.40) m/uL Hgb 6.8 L* (11.4-16.0) gm/dL Hct 20.7 L (34.0-46.0) % Plt Count 140 L (150-450) k/uL Neutrophils # 8.4 H (1.3-7.7) k/uL Lymphocytes # 0.9 L (1.0-4.8) k/uL Sodium 136 L (137-145) mmol/L BUN 40 H (7-17) mg/dL Creatinine 1.62 H (0.52-1.04) mg/dL Glucose 108 H (74-99) mg/dL POC Glucose (mg/dL) 124 H (75-99) mg/dL Total Protein 5.1 L (6.3-8.2) g/dL Albumin 2.2 L (3.5-5.0) g/dL 09/22/19 Range/Units 11:49 RBC (3.80-5.40) m/uL Hgb (11.4-16.0) gm/dL Hct (34.0-46.0) % Plt Count (150-450) k/uL Neutrophils # (1.3-7.7) k/uL Lymphocytes # (1.0-4.8) k/uL Sodium (137-145) mmol/L BUN (7-17) mg/dL Creatinine (0.52-1.04) mg/dL Glucose (74-99) mg/dL POC Glucose (mg/dL) 129 H (75-99) mg/dL Total Protein (6.3-8.2) g/dL Albumin (3.5-5.0) g/dL Assessment and Plan Plan: #1 syncopal episode was followed and head trauma #2 multiple lacerations requiring multiple sutures on the head #3 underlying history of hypertension, maintained on multiple blood pressure medications #4 underlying history of diabetes mellitus #5 underlying history of Parkinson disease #6 underlying history of gout #7 underlying history of hyperlipidemia #8 evidence of dehydration with acute kidney injury #9 hyperkalemia #10 episodes of agitation yesterday a small dose of Seroquel was added to her regimen as needed #11 knee pain patient was seen by orthopedic surgery computed tomography scan of the knee was ordered At this time patient was started on IV fluid normal saline at 50 mL an hour Will recheck labs including kidney function in a.m. Will check echocardiogram and carotid Doppler Home medications reviewed and reordered Will follow closely
--- NOTE | 2019-09-22 16:04 | CT ---
EXAMINATION TYPE: CT knee RT wo con DATE OF EXAM: 09/22/2019 COMPARISON: Radiograph10/06/2019 HISTORY: 83-year-old female with knee pain, inability to ambulate due to pain, history of right TKA. TECHNIQUE: Contiguous axial scanning of the right knee without IV contrast. Coronal and sagittal dafne nstructions performed. CT DLP: 1386.8 mGycm Automated exposure control for dose reduction was used. FINDINGS: Generalized soft tissue swelling. Extensive metal hardware artifact related to the patient's right total knee arthroplasty. Extensor mechanism appears intact. There may be trace knee joint effusion. Marked osteopenia. Allowing for the extensive exam limitations, no displaced periprosthetic fracture is identified. Gene ralized muscle atrophy. IMPRESSION: EXAM LIMITATIONS DUE TO OSTEOPENIA AND PROMINENT ARTIFACT FROM PATIENT'S RIGHT KNEE TOTAL ARTHROPLAST Y. ALLOWING FOR THESE LIMITATIONS, NO CLEAR PERIPROSTHETIC FRACTURE IS IDENTIFIED.
[2019-09-22] MEDS: ATORVASTATIN 40 MG TAB PO SCH (20:29)
[2019-09-22] MEDS: traZODone HCL 50 MG TAB PO SCH (20:30)
[2019-09-23] MEDS: SODIUM CHLORIDE 0.9% 1,000 ML IV SCH (04:58)
[2019-09-23] MEDS: hydrALAZINE HCL 25 MG TAB PO SCH ×2 (04:58→16:57)
[2019-09-23] MEDS: CHOLECALCIFEROL 1,000 UNIT TAB PO SCH (08:16)
[2019-09-23] MEDS: MULTIVITAMINS, THERA 1 EACH TAB PO SCH (08:16)
[2019-09-23] MEDS: PRIMIDONE 50 MG TAB PO SCH ×3 (08:16→21:04)
[2019-09-23] MEDS: CALCIUM CARBONATE 500 MG CHEWABLE PO SCH (08:16)
[2019-09-23] MEDS: LOSARTAN-HCTZ 50-12.5 MG 1 EACH TAB PO SCH (08:16)
[2019-09-23] MEDS: SENNOSIDES-DOCUSATE SODIUM 1 EACH TAB PO SCH ×2 (08:16→21:04)
[2019-09-23] MEDS: PROPRANOLOL 20 MG TAB PO SCH ×3 (08:16→17:01)
[2019-09-23] MEDS: CARBIDOPA-LEVODOPA 25-250 MG 1 EACH TAB PO SCH ×3 (08:16→21:08)
[2019-09-23] MEDS: ALLOPURINOL 100 MG TAB PO SCH (08:16)
[2019-09-23] MEDS: ISOSORBIDE MONONITRATE ER 30 MG TAB.ER.24H PO SCH (08:16)
[2019-09-23] MEDS: BACITRACIN 500 UNIT/GM OINT 28.4 GM TUBE TOPICAL SCH ×2 (08:17→21:05)
[2019-09-23] MEDS: ENOXAPARIN 30 MG/0.3 ML SYRINGE SQ SCH (08:17)
[2019-09-23] MEDS: QUEtiapine 25 MG TAB PO SCH ×2 (08:17→21:05)
[2019-09-23] MEDS: glipiZIDE 5 MG TAB PO SCH (08:17)
[2019-09-23] MEDS: ALPRAZolam 0.25 MG TAB PO SCH ×2 (08:17→21:05)
[2019-09-23] MEDS: LISINOPRIL 20 MG TAB PO SCH (08:18)
[2019-09-23] MEDS: ACETAMINOPHEN TAB 325 MG TAB PO PRN (08:23)
[2019-09-23 08:29] LABS: ALT <6 U/L (4-34); AST 31 U/L (14-36); African American GFR (CKD) 32 (>60 ml/min/1.73 sqM); Albumin 2.3 g/dL (3.5-5.0); Alkaline Phosphatase 89 U/L (38-126); Anion Gap 3 mmol/L; Blood Urea Nitrogen 43 mg/dL (7-17); Calcium 8.1 mg/dL (8.4-10.2); Carbon Dioxide 24 mmol/L (22-30); Chloride 109 mmol/L (98-107); Glucose 90 mg/dL (74-99); Non-African American GFR(CKD) 28 (>60 ml/min/1.73 sqM); Sodium 136 mmol/L (137-145); Total Bilirubin 0.7 mg/dL (0.2-1.3); Total Protein 5.3 g/dL (6.3-8.2)
[2019-09-23 08:45] LABS: HCT 23.6 % (34.0-46.0); HGB 7.9 gm/dL (11.4-16.0); MCH 30.6 pg (25.0-35.0); MCHC 33.3 g/dL (31.0-37.0); MCV 91.8 fL (80.0-100.0); Mean Platelet Volume 7.9; Platelet Count 134 k/uL (150-450); RBC 2.57 m/uL (3.80-5.40); RDW 14.5 % (11.5-15.5)
[2019-09-23 09:58] LABS: Eosinophils # (M) 0.31 k/uL (0-0.7); Lymphocytes # (M) 0.94 k/uL (1.0-4.8); Monocytes # (M) 0.16 k/uL (0-1.0); Neutrophils # (M) 6.47 k/uL (1.3-7.7); Neutrophils % (M) 83 %; Nucleated Red Blood Cells 1 /100 WBC (0-0); Total Cells Counted 200; WBC 7.8 k/uL (3.8-10.6)
[2019-09-23 10:01] LABS: Anisocytosis (M) Present; Poikilocytosis (M) Present; Polychromasia Present
--- NOTE | 2019-09-23 11:44 | P.PN ---
Subjective HISTORY OF PRESENTING ILLNESS This is a pleasant 83-year-old female past medical history significant for multivessel coronary artery disease status post PCI most recently in August 2017 maintained on Plavix, chronic diastolic heart failure, diabetes mellitus, hypertension, dyslipidemia and dementia. She follows in the office with Dr. Nellie calero. She is seen and examined laying flat resting comfortably in bed sleeping. She is easily arousable, no chest pain, dizziness, shortness of breath or palpitations. Blood pressure 128/70 heart rate 85 afebrile and maintaining oxygen saturation on room air. Laboratory data reviewed, WBC 7.8, hemoglobin 7.9, platelets 134, sodium 136, potassium 4,, creatinine 1.7 with a GFR of 28. Telemetry tracings have been unremarkable. PHYSICAL EXAMINATION CONSTITUTIONAL: No apparent distress. HEENT: Head is normocephalic. Pupils are equal, round. Sclerae anicteric. Mucous membranes of the mouth are moist. No JVD. No carotid bruit. Sutures in the frontal region. CHEST EXAMINATION: Lungs are clear to auscultation. No chest wall tenderness is noted on palpation or with deep breathing. HEART EXAMINATION: Regular rate and rhythm. S1, S2 heard. Soft systolic ejection murmur at the left sternal border, no gallops or rub. EXTREMITIES: 2+ peripheral pulses, trace bilateral lower extremity edema and no calf tenderness. Significant ecchymosis to the right upper extremity. ASSESSMENT Syncope, appears to be vasovagal in nature. Fall with positive loss of consciousness Acute blood loss, hgb 6.8. Hypertension Dyslipidemia Diabetes mellitus Multivessel coronary artery disease status post PCI of the circumflex artery August 2016 Dementia PLAN Clinically stable for discharge back to [facility]. We will arrange with the office for mailing of event monitor to [facility]. corrective and manual arts therapist can be discontinued. Follow up with Dr. Celis in 5-6 weeks. Nurse Practitioner note has been reviewed, I agree with a documented findings and plan of care. Patient was seen and examined. Objective - Vital Signs Vital signs: Vital Signs Temp 97.9 F 09/23/19 05:09 Pulse 85 09/23/19 05:09 Resp 16 09/23/19 08:00 BP 128/70 09/23/19 05:09 Pulse Ox 92 L 09/23/19 05:09 Intake & Output 09/22/19 09/23/19 09/23/19 18:59 06:59 18:59 Intake Total 0 310 Balance 0 310 Intake: Blood Product 0 310 Rc Irr As1 Unit 0 310 [id number] Other: Voiding Method Diaper Diaper # Voids 3 1 # Bowel Movements 0 - Labs CBC & Chem 7: 09/23/19 07:23 09/23/19 07:23 Labs: Abnormal Lab Results - Last 24 Hours (Table) 09/22/19 09/22/19 09/23/19 Range/Units 09:35 11:49 07:23 RBC 2.57 L (3.80-5.40) m/uL Hgb 7.9 L (11.4-16.0) gm/dL Hct 23.6 L (34.0-46.0) % Plt Count 134 L (150-450) k/uL Lymphocytes # (Manual) 0.94 L (1.0-4.8) k/uL Nucleated RBCs 1 H (0-0) /100 WBC Sodium (137-145) mmol/L Chloride (98-107) mmol/L BUN (7-17) mg/dL Creatinine (0.52-1.04) mg/dL POC Glucose (mg/dL) 129 H (75-99) mg/dL Calcium (8.4-10.2) mg/dL Total Protein (6.3-8.2) g/dL Albumin (3.5-5.0) g/dL Crossmatch See Detail 09/23/19 Range/Units 07:23 RBC (3.80-5.40) m/uL Hgb (11.4-16.0) gm/dL Hct (34.0-46.0) % Plt Count (150-450) k/uL Lymphocytes # (Manual) (1.0-4.8) k/uL Nucleated RBCs (0-0) /100 WBC Sodium 136 L (137-145) mmol/L Chloride 109 H (98-107) mmol/L BUN 43 H (7-17) mg/dL Creatinine 1.70 H (0.52-1.04) mg/dL POC Glucose (mg/dL) (75-99) mg/dL Calcium 8.1 L (8.4-10.2) mg/dL Total Protein 5.3 L (6.3-8.2) g/dL Albumin 2.3 L (3.5-5.0) g/dL Crossmatch
--- NOTE | 2019-09-23 12:34 | P.PN ---
Progress Note - Text Progress Note Date: 09/23/19 The patient is seen and examined today at bedside. She still complains of pain at her left knee. She has not tried significant motion thus far. On exam she has limited active range of motion. I am able to do some passive range motion at her knee and she is allowing me to flex to approximately 60 and extend fully at her knee. She has good motion at her ankle with passive motion. Her thigh and calf soft nontender. There is no specific point tenderness around her knee today. X-rays and computed tomography scan of her knee are reviewed. History of left total knee replacement Status post fall New left knee pain due to fall No evidence of instability or fracture at the left knee Knee replacement appears stable The patient's knee replacement appears to be stable and there is no evidence of acute new fracture. She may have some soft tissue strain causing her pain increase. I do not think this requires further imaging at this point of her knee. I do not think that she requires surgical intervention of her knee at this point. She may use a knee immobilizer for comfort. It is okay for her to weight-bear as tolerated left lower extremity. I think it's okay for her to start physical therapy for mobilization weightbearing as tolerated bilateral lower extremities. We will put in an order for a knee immobilizer just for her comfort. She should make sure to take the knee immobilizer off regularly so that she can do range of motion at her knee. She should discontinue the immobilizer as she becomes more comfortable.
--- NOTE | 2019-09-23 13:02 | P.PN ---
Subjective Progress Note Date: 09/23/19 CHIEF COMPLAINT: Status post fall from syncope HISTORY OF PRESENT ILLNESS: The patient is a 83-year-old female who was admitted to the hospital from shelter after having a syncopal episode resulting in a fall in her bathroom. She had hit her head along the toilet bowl and had scalp lacerations repaired by emergency room providers. She has a lacerations along the right forearm. Yesterday she had acute hemoglobin drop to 6.8 after getting full dose Lovenox 60 mg twice a day started per medicine. She received 1 unit of blood and hemoglobin is up to 7.9. She denies any abdominal pain. Her main concern includes right knee pain. She's been seen by orthopedics. She denies nausea. She reports low appetite. No reports of blood in stools. No signs of bleeding. REVIEW OF ORGAN SYSTEMS: No fevers or chills. No acute chest pain. PHYSICAL EXAM: VITALS: Reviewed CONSTITUTIONAL: Well developed and in no acute distress. She is laying comfortably. EYES: Conjuctivae without sclera icterus. Pupils are equally round and reactive to light. Extraocular movements grossly intact. HEAD, EARS, NOSE, THROAT: Moist buccal mucosa. Hears conversational speech. No nasal drainage. Sutures along scalp intact. Dried serosanguineous drainage. No signs of infection. NECK: Supple. No JV distention. No thyroidomegaly. RESPIRATORY: Non-labored respirations and equal bilateral excursions. No gross wheezes. CARDIOVASCULAR: Palpable 2+ radial pulses. Regular rate and regular rhythm. ABDOMEN: Soft. Non-tender. Nondistended. MUSCULOSKELETAL: Dressing along right forearm. The right knee tender. SKIN: Warm and well perfused with good skin turgor. NEUROLOGIC: Cranial nerves II through XII grossly intact. Sensation upper and extremities intact. No focal or lateralizing signs. PSYCH: Appropriate affect. Alert and oriented to person, place and time. Displays appropriate insight. CLINCAL LABS: Reviewed. Hemoglobin up to 7.9 from 6.8, 11.4 on admission ASSESSMENT: 1. Syncope with fall and scalp hematoma open laceration 2. Recurrent falls with pre-existing frontal hematoma 3. Parkinson's disease 4. Low hemoglobin, 6.8, acute drop from adverse effect from Lovenox PLAN: 1. She has been seen by orthopedics and cleared for physical therapy. 2. Diet as tolerated. 3. No surgical intervention. 4. Trauma surgery signing off. Please reconsult if needed. Objective - Vital Signs Vital signs: Vital Signs Temp 97.9 F 09/23/19 05:09 Pulse 85 09/23/19 05:09 Resp 16 09/23/19 08:00 BP 128/70 09/23/19 05:09 Pulse Ox 92 L 09/23/19 05:09 Intake & Output 09/22/19 09/23/19 09/23/19 18:59 06:59 18:59 Intake Total 0 310 Balance 0 310 Intake: Blood Product 0 310 Rc Irr As1 Unit 0 310 [id number] Other: Voiding Method Diaper Diaper # Voids 3 1 # Bowel Movements 0 - Labs CBC & Chem 7: 09/23/19 07:23 09/23/19 07:23 Labs: Abnormal Lab Results - Last 24 Hours (Table) 09/22/19 09/23/19 09/23/19 Range/Units 09:35 07:23 07:23 RBC 2.57 L (3.80-5.40) m/uL Hgb 7.9 L (11.4-16.0) gm/dL Hct 23.6 L (34.0-46.0) % Plt Count 134 L (150-450) k/uL Lymphocytes # (Manual) 0.94 L (1.0-4.8) k/uL Nucleated RBCs 1 H (0-0) /100 WBC Sodium 136 L (137-145) mmol/L Chloride 109 H (98-107) mmol/L BUN 43 H (7-17) mg/dL Creatinine 1.70 H (0.52-1.04) mg/dL Calcium 8.1 L (8.4-10.2) mg/dL Total Protein 5.3 L (6.3-8.2) g/dL Albumin 2.3 L (3.5-5.0) g/dL Crossmatch See Detail Assessment and Plan (1) Syncope Current Visit: No Status: Acute Code(s): R55 - SYNCOPE AND COLLAPSE SNOMED Code(s): 781281014 (2) Fall Current Visit: No Status: Acute Code(s): W19.XXXA - UNSPECIFIED FALL, INITIAL ENCOUNTER SNOMED Code(s): 3329558 (3) Laceration of scalp Current Visit: No Status: Acute Code(s): S01.01XA - LACERATION WITHOUT FOREIGN BODY OF SCALP, INITIAL ENCOUNTER SNOMED Code(s): 820792030 (4) Dementia Current Visit: No Status: Acute Code(s): F03.90 - UNSPECIFIED DEMENTIA WITHOUT BEHAVIORAL DISTURBANCE SNOMED Code(s): 21501922 (5) Head injury Current Visit: No Status: Acute Code(s): S09.90XA - UNSPECIFIED INJURY OF HEAD, INITIAL ENCOUNTER SNOMED Code(s): 93673546 (6) Hematoma of frontal scalp Current Visit: No Status: Acute Code(s): S00.03XA - CONTUSION OF SCALP, INITIAL ENCOUNTER SNOMED Code(s): 244708284 (7) Parkinson disease Current Visit: No Status: Acute Code(s): G20 - PARKINSON'S DISEASE SNOMED Code(s): 71722394 (8) Laceration of right forearm Current Visit: No Status: Acute Code(s): S51.811A - LACERATION W/O FOREIGN BODY OF RIGHT FOREARM, INIT ENCNTR SNOMED Code(s): 41124724564124738
--- NOTE | 2019-09-23 13:43 | P.PN ---
Subjective Progress Note Date: 09/23/19 Ирина Rizvi is an 83-year-old female, well-known to my practice, who presented to [facility] emergency room after having a syncopal episode with fall and head injury requiring multiple sutures to the scalp. Patient stated that she was walking to the bathroom with her walker with the help of an aid when she felt dizzy and passed out and fell and hit her head on the toilet patient was having significant laceration with bleeding EMS were called and patient was brought into emergency room. Patient estimated that she was unconscious for several minutes. In the emergency room patient was treated for her lacerations, computed tomography scan of the brain was done and did not reveal any evidence of intracranial bleeding, patient was admitted to telemetry floor for further evaluation and treatment. Laboratory data revealed evidence of dehydration was acute kidney injury BUN was elevated at 14 and creatinine at 1.53 which is higher than her baseline. Potassium was elevated at 5.5 blood pressure is elevated patient is maintained on multiple blood pressure medications. Echocardiogram and carotid Doppler were ordered cardiology consultation was requested regarding syncopal episode. On 09/21/2019 patient was seen and examined on the medical floor she is alert and oriented 3 in no apparent distress there is no fever or chills no headache or dizziness no chest pain no shortness of breath no cough no nausea or vomiting no abdominal pain no diarrhea no burning with urination no frequency or urgency and no hematuria. D-dimer ordered by cardiology was elevated, at this time will start full dose of subcu Lovenox, will check lower extremity Doppler and VQ scan to rule out pulmonary embolism, CT angiogram of the chest cannot be done due to elevated creatinine. On 09/22/2019 patient was seen and examined on the medical floor she is alert and oriented 3 in no apparent distress she is complaining of knee pain and was seen by orthopedic surgery in that regard, d-dimer was elevated, she was started yesterday on full dose of subcu Lovenox, today bilateral lower extremity Doppler was negative, and VQ scan was low probability for pulmonary embolism, dose of Lovenox will be decreased to 30 mg subcu once daily, hemoglobin today is low at 6.8 patient will receive 1 unit of red blood cell transfusion will recheck labs in a.m.. On 09/23/2019 patient was seen and examined on the medical floor she is alert and oriented 3 in no distress she is still complaining of knee pain otherwise she denies any complaints at this time there is no fever or chills no headache or dizziness no chest pain no shortness of breath no cough no nausea or vomiting no abdominal pain no diarrhea and no urinary symptoms. Patient is being evaluated by cardiology in regard to syncope and collapse Objective - Vital Signs Vital signs: Vital Signs Temp 97.9 F 09/23/19 05:09 Pulse 85 09/23/19 05:09 Resp 16 09/23/19 08:00 BP 128/70 09/23/19 05:09 Pulse Ox 92 L 09/23/19 05:09 Intake & Output 09/22/19 09/23/19 09/23/19 18:59 06:59 18:59 Intake Total 0 310 Balance 0 310 Intake: Blood Product 0 310 Rc Irr As1 Unit 0 310 [id number] Other: Voiding Method Diaper Diaper # Voids 3 1 # Bowel Movements 0 - Exam In general patient is alert and oriented 3 in no apparent distress answering questions appropriately HEENT head normocephalic without multiple bruises and large laceration on the scalp with multiple sutures Neck is supple no JVD no goiter no lymphadenopathy Chest exam reveals a few scattered rhonchi no wheezing Cardiac exam reveals regular heart sounds S1 and S2 with 2/6 systolic murmur in the left sternal border Abdomen is soft nontender no organomegaly with normal bowel sounds Extremity exam reveals no edema no cyanosis or clubbing Neurological examination reveals no gross focal deficit - Labs CBC & Chem 7: 09/23/19 07:23 09/23/19 07:23 Labs: Abnormal Lab Results - Last 24 Hours (Table) 09/22/19 09/23/19 09/23/19 Range/Units 09:35 07:23 07:23 RBC 2.57 L (3.80-5.40) m/uL Hgb 7.9 L (11.4-16.0) gm/dL Hct 23.6 L (34.0-46.0) % Plt Count 134 L (150-450) k/uL Lymphocytes # (Manual) 0.94 L (1.0-4.8) k/uL Nucleated RBCs 1 H (0-0) /100 WBC Sodium 136 L (137-145) mmol/L Chloride 109 H (98-107) mmol/L BUN 43 H (7-17) mg/dL Creatinine 1.70 H (0.52-1.04) mg/dL Calcium 8.1 L (8.4-10.2) mg/dL Total Protein 5.3 L (6.3-8.2) g/dL Albumin 2.3 L (3.5-5.0) g/dL Crossmatch See Detail Assessment and Plan Plan: #1 syncopal episode was followed and head trauma #2 multiple lacerations requiring multiple sutures on the head #3 underlying history of hypertension, maintained on multiple blood pressure medications #4 underlying history of diabetes mellitus #5 underlying history of Parkinson disease #6 underlying history of gout #7 underlying history of hyperlipidemia #8 evidence of dehydration with acute kidney injury #9 hyperkalemia #10 episodes of agitation yesterday a small dose of Seroquel was added to her regimen as needed #11 knee pain patient was seen by orthopedic surgery computed tomography scan of the knee was ordered At this time patient was started on IV fluid normal saline at 50 mL an hour Will recheck labs including kidney function in a.m. Will check echocardiogram and carotid Doppler Home medications reviewed and reordered Will follow closely
[2019-09-23] MEDS: traZODone HCL 50 MG TAB PO SCH (21:04)
[2019-09-23] MEDS: ATORVASTATIN 40 MG TAB PO SCH (21:04)
[2019-09-24] MEDS: hydrALAZINE HCL 25 MG TAB PO SCH ×2 (04:56→16:31)
[2019-09-24] MEDS: SODIUM CHLORIDE 0.9% 1,000 ML IV SCH (04:56)
[2019-09-24 07:37] LABS: ALT <6 U/L (4-34); AST 32 U/L (14-36); African American GFR (CKD) 38 (>60 ml/min/1.73 sqM); Albumin 2.4 g/dL (3.5-5.0); Alkaline Phosphatase 83 U/L (38-126); Anion Gap 5 mmol/L; Blood Urea Nitrogen 42 mg/dL (7-17); Calcium 8.2 mg/dL (8.4-10.2); Carbon Dioxide 24 mmol/L (22-30); Chloride 107 mmol/L (98-107); Glucose 72 mg/dL (74-99); Non-African American GFR(CKD) 33 (>60 ml/min/1.73 sqM); Potassium 3.8 mmol/L (3.5-5.1); Sodium 136 mmol/L (137-145); Total Bilirubin 0.7 mg/dL (0.2-1.3); Total Protein 5.5 g/dL (6.3-8.2)
[2019-09-24 08:13] LABS: HGB 9.2 gm/dL (11.4-16.0); MCH 30.6 pg (25.0-35.0); MCHC 34.2 g/dL (31.0-37.0); MCV 89.3 fL (80.0-100.0); Mean Platelet Volume 10.4; Platelet Count 149 k/uL (150-450); RBC 3.02 m/uL (3.80-5.40); RDW 14.2 % (11.5-15.5); WBC 7.3 k/uL (3.8-10.6)
[2019-09-24] MEDS: ENOXAPARIN 30 MG/0.3 ML SYRINGE SQ SCH (08:53)
[2019-09-24] MEDS: ALLOPURINOL 100 MG TAB PO SCH (08:53)
[2019-09-24] MEDS: LISINOPRIL 20 MG TAB PO SCH (08:54)
[2019-09-24] MEDS: CALCIUM CARBONATE 500 MG CHEWABLE PO SCH (08:54)
[2019-09-24] MEDS: MULTIVITAMINS, THERA 1 EACH TAB PO SCH (08:54)
[2019-09-24] MEDS: CHOLECALCIFEROL 1,000 UNIT TAB PO SCH (08:54)
[2019-09-24] MEDS: LOSARTAN-HCTZ 50-12.5 MG 1 EACH TAB PO SCH (08:54)
[2019-09-24] MEDS: SENNOSIDES-DOCUSATE SODIUM 1 EACH TAB PO SCH ×2 (08:54→21:43)
[2019-09-24] MEDS: PRIMIDONE 50 MG TAB PO SCH ×3 (08:54→21:43)
[2019-09-24] MEDS: PROPRANOLOL 20 MG TAB PO SCH ×3 (08:54→17:25)
[2019-09-24] MEDS: CARBIDOPA-LEVODOPA 25-250 MG 1 EACH TAB PO SCH ×3 (08:54→21:43)
[2019-09-24] MEDS: QUEtiapine 25 MG TAB PO SCH ×2 (08:54→21:43)
[2019-09-24] MEDS: ISOSORBIDE MONONITRATE ER 30 MG TAB.ER.24H PO SCH (08:54)
[2019-09-24] MEDS: glipiZIDE 5 MG TAB PO SCH (08:54)
[2019-09-24] MEDS: ALPRAZolam 0.25 MG TAB PO SCH ×2 (09:05→21:43)
[2019-09-24] MEDS: BACITRACIN 500 UNIT/GM OINT 28.4 GM TUBE TOPICAL SCH ×2 (09:06→21:44)
--- NOTE | 2019-09-24 10:36 | P.PN ---
Subjective Progress Note Date: 09/24/19 Principal diagnosis: Right knee pain The patient is seen at bedside this am. She still complains of pain at her right knee. She has not tried much motion or PT as of yet. Knee immobilizer was ordered and in room. Nurse states the patient does not like wearing. She has no new complaints today including numbness, tingling, calf pain, fever, chills or chest pain. Objective - Vital Signs Vital signs: Vital Signs Temp 98.5 F 09/24/19 06:13 Pulse 85 09/24/19 06:13 Resp 18 09/24/19 06:13 BP 149/76 09/24/19 06:13 Pulse Ox 99 09/24/19 06:13 Intake & Output 09/23/19 09/24/19 09/24/19 18:59 06:59 18:59 Intake Total 200 Balance 200 Intake: Oral 200 Other: Voiding Method Diaper # Voids 2 2 # Bowel Movements 0 - Exam On exam inspection shows no wounds or deformity. The knee is not hot or red. No specific point tenderness around her knee. She continues to have limited active range of motion. She has passive range motion at her knee approximately 60 and extend fully at the right knee. She has good motion at her ankle with passive motion. Her thigh and calf are soft nontender. 2+ DP pulse and less than 2 sec cap refill present - Constitutional General appearance: Present: no acute distress - Labs CBC & Chem 7: 09/24/19 06:35 09/24/19 06:35 Labs: Abnormal Lab Results - Last 24 Hours (Table) 09/24/19 09/24/19 Range/Units 06:35 06:35 RBC 3.02 L (3.80-5.40) m/uL Hgb 9.2 L (11.4-16.0) gm/dL Hct 27.0 L (34.0-46.0) % Plt Count 149 L (150-450) k/uL Sodium 136 L (137-145) mmol/L BUN 42 H (7-17) mg/dL Creatinine 1.49 H (0.52-1.04) mg/dL Glucose 72 L (74-99) mg/dL Calcium 8.2 L (8.4-10.2) mg/dL Total Protein 5.5 L (6.3-8.2) g/dL Albumin 2.4 L (3.5-5.0) g/dL Assessment and Plan (1) Right knee pain Current Visit: Yes Status: Acute Code(s): M25.561 - PAIN IN RIGHT KNEE SNOMED Code(s): 68234171 Plan: She may continue to wear the knee immobilizer as tolerated for comfort prn. Encourage PT and and ROM. Defer pain management to primary team. No plans for surgical intervention. We will sign off for now. She may follow up as an outpatient. Thank you Time with Patient: Less than 30
[2019-09-24 11:10] LABS: Basophils # (M) 0.07 k/uL (0-0.2); Eosinophils # (M) 0.07 k/uL (0-0.7); Lymphocytes # (M) 1.17 k/uL (1.0-4.8); Monocytes # (M) 0.58 k/uL (0-1.0); Neutrophils % (M) 74 %; Nucleated Red Blood Cells 0 /100 WBC (0-0); Total Cells Counted 100
[2019-09-24 11:11] LABS: Poikilocytosis (M) Present
--- NOTE | 2019-09-24 13:09 | P.PN ---
Subjective Progress Note Date: 09/24/19 Ирина Rizvi is an 83-year-old female, well-known to my practice, who presented to [facility] emergency room after having a syncopal episode with fall and head injury requiring multiple sutures to the scalp. Patient stated that she was walking to the bathroom with her walker with the help of an aid when she felt dizzy and passed out and fell and hit her head on the toilet patient was having significant laceration with bleeding EMS were called and patient was brought into emergency room. Patient estimated that she was unconscious for several minutes. In the emergency room patient was treated for her lacerations, computed tomography scan of the brain was done and did not reveal any evidence of intracranial bleeding, patient was admitted to telemetry floor for further evaluation and treatment. Laboratory data revealed evidence of dehydration was acute kidney injury BUN was elevated at 14 and creatinine at 1.53 which is higher than her baseline. Potassium was elevated at 5.5 blood pressure is elevated patient is maintained on multiple blood pressure medications. Echocardiogram and carotid Doppler were ordered cardiology consultation was requested regarding syncopal episode. On 09/21/2019 patient was seen and examined on the medical floor she is alert and oriented 3 in no apparent distress there is no fever or chills no headache or dizziness no chest pain no shortness of breath no cough no nausea or vomiting no abdominal pain no diarrhea no burning with urination no frequency or urgency and no hematuria. D-dimer ordered by cardiology was elevated, at this time will start full dose of subcu Lovenox, will check lower extremity Doppler and VQ scan to rule out pulmonary embolism, CT angiogram of the chest cannot be done due to elevated creatinine. On 09/22/2019 patient was seen and examined on the medical floor she is alert and oriented 3 in no apparent distress she is complaining of knee pain and was seen by orthopedic surgery in that regard, d-dimer was elevated, she was started yesterday on full dose of subcu Lovenox, today bilateral lower extremity Doppler was negative, and VQ scan was low probability for pulmonary embolism, dose of Lovenox will be decreased to 30 mg subcu once daily, hemoglobin today is low at 6.8 patient will receive 1 unit of red blood cell transfusion will recheck labs in a.m.. On 09/23/2019 patient was seen and examined on the medical floor she is alert and oriented 3 in no distress she is still complaining of knee pain otherwise she denies any complaints at this time there is no fever or chills no headache or dizziness no chest pain no shortness of breath no cough no nausea or vomiting no abdominal pain no diarrhea and no urinary symptoms. Patient is being evaluated by cardiology in regard to syncope and collapse. On 09/24/2019 patient was seen and examined on the medical floor she is alert and oriented 3 in no apparent distress she is complaining of right knee pain, she is and able to stand or walk at this time otherwise she denies any complaint there is no fever or chills no headache or dizziness no chest pain no shortness of breath no cough no nausea or vomiting no abdominal pain no diarrhea and no urinary symptoms Objective - Vital Signs Vital signs: Vital Signs Temp 98.5 F 09/24/19 06:13 Pulse 85 09/24/19 06:13 Resp 18 09/24/19 06:13 BP 149/76 09/24/19 06:13 Pulse Ox 99 09/24/19 06:13 Intake & Output 09/23/19 09/24/19 09/24/19 18:59 06:59 18:59 Intake Total 200 Balance 200 Intake: Oral 200 Other: Voiding Method Diaper # Voids 2 2 # Bowel Movements 0 - Exam In general patient is alert and oriented 3 in no apparent distress answering questions appropriately HEENT head normocephalic without multiple bruises and large laceration on the scalp with multiple sutures Neck is supple no JVD no goiter no lymphadenopathy Chest exam reveals a few scattered rhonchi no wheezing Cardiac exam reveals regular heart sounds S1 and S2 with 2/6 systolic murmur in the left sternal border Abdomen is soft nontender no organomegaly with normal bowel sounds Extremity exam reveals no edema no cyanosis or clubbing Neurological examination reveals no gross focal deficit - Labs CBC & Chem 7: 09/24/19 06:35 09/24/19 06:35 Labs: Abnormal Lab Results - Last 24 Hours (Table) 09/23/19 09/24/19 09/24/19 Range/Units 07:23 06:35 06:35 RBC 3.02 L (3.80-5.40) m/uL Hgb 9.2 L (11.4-16.0) gm/dL Hct 27.0 L (34.0-46.0) % Plt Count 149 L (150-450) k/uL Lymphocytes # (Manual) 0.94 L (1.0-4.8) k/uL Nucleated RBCs 1 H (0-0) /100 WBC Sodium 136 L (137-145) mmol/L BUN 42 H (7-17) mg/dL Creatinine 1.49 H (0.52-1.04) mg/dL Glucose 72 L (74-99) mg/dL Calcium 8.2 L (8.4-10.2) mg/dL Total Protein 5.5 L (6.3-8.2) g/dL Albumin 2.4 L (3.5-5.0) g/dL Assessment and Plan Plan: #1 syncopal episode was followed and head trauma #2 multiple lacerations requiring multiple sutures on the head #3 underlying history of hypertension, maintained on multiple blood pressure medications #4 underlying history of diabetes mellitus #5 underlying history of Parkinson disease #6 underlying history of gout #7 underlying history of hyperlipidemia #8 evidence of dehydration with acute kidney injury #9 hyperkalemia #10 episodes of agitation yesterday a small dose of Seroquel was added to her regimen as needed #11 knee pain patient was seen by orthopedic surgery computed tomography scan of the knee was ordered At this time patient was started on IV fluid normal saline at 50 mL an hour Will recheck labs including kidney function in a.m. Will check echocardiogram and carotid Doppler Home medications reviewed and reordered Kidney function is improving gradually Physical therapy and occupational therapy to increase mobility Will follow closely
[2019-09-24] MEDS: traZODone HCL 50 MG TAB PO SCH (21:43)
[2019-09-24] MEDS: ATORVASTATIN 40 MG TAB PO SCH (21:43)
[2019-09-25] MEDS: SODIUM CHLORIDE 0.9% 1,000 ML IV SCH (04:32)
[2019-09-25] MEDS: hydrALAZINE HCL 25 MG TAB PO SCH ×2 (04:38→15:34)
[2019-09-25 07:27] LABS: ALT <6 U/L (4-34); AST 28 U/L (14-36); African American GFR (CKD) 40 (>60 ml/min/1.73 sqM); Alkaline Phosphatase 74 U/L (38-126); Anion Gap 4 mmol/L; Blood Urea Nitrogen 41 mg/dL (7-17); Carbon Dioxide 25 mmol/L (22-30); Chloride 105 mmol/L (98-107); Glucose 70 mg/dL (74-99); Non-African American GFR(CKD) 34 (>60 ml/min/1.73 sqM); Potassium 3.7 mmol/L (3.5-5.1); Sodium 134 mmol/L (137-145); Total Bilirubin 0.6 mg/dL (0.2-1.3)
[2019-09-25 07:50] LABS: HCT 22.6 % (34.0-46.0); MCH 30.6 pg (25.0-35.0); MCHC 33.9 g/dL (31.0-37.0); MCV 90.4 fL (80.0-100.0); Mean Platelet Volume 9.1; Platelet Count 185 k/uL (150-450); RDW 14.2 % (11.5-15.5); WBC 6.4 k/uL (3.8-10.6)
[2019-09-25 08:08] LABS: HGB 7.7 gm/dL (11.4-16.0)
[2019-09-25 08:11] LABS: Eosinophils # (M) 0.19 k/uL (0-0.7); Lymphocytes # (M) 1.15 k/uL (1.0-4.8); Monocytes # (M) 0.45 k/uL (0-1.0); Neutrophils # (M) 4.61 k/uL (1.3-7.7); Neutrophils % (M) 72 %; Nucleated Red Blood Cells 0 /100 WBC (0-0); Total Cells Counted 100
[2019-09-25 08:12] LABS: Polychromasia Present
[2019-09-25] MEDS: SENNOSIDES-DOCUSATE SODIUM 1 EACH TAB PO SCH ×2 (08:16→21:06)
[2019-09-25] MEDS: CHOLECALCIFEROL 1,000 UNIT TAB PO SCH (08:16)
[2019-09-25] MEDS: CALCIUM CARBONATE 500 MG CHEWABLE PO SCH (08:16)
[2019-09-25] MEDS: PRIMIDONE 50 MG TAB PO SCH ×3 (08:16→20:54)
[2019-09-25] MEDS: ALLOPURINOL 100 MG TAB PO SCH (08:16)
[2019-09-25] MEDS: LISINOPRIL 20 MG TAB PO SCH (08:17)
[2019-09-25] MEDS: MULTIVITAMINS, THERA 1 EACH TAB PO SCH (08:18)
[2019-09-25] MEDS: LOSARTAN-HCTZ 50-12.5 MG 1 EACH TAB PO SCH (08:18)
[2019-09-25] MEDS: ISOSORBIDE MONONITRATE ER 30 MG TAB.ER.24H PO SCH (08:18)
[2019-09-25] MEDS: CARBIDOPA-LEVODOPA 25-250 MG 1 EACH TAB PO SCH ×3 (08:18→22:18)
[2019-09-25] MEDS: QUEtiapine 25 MG TAB PO SCH ×2 (08:18→21:06)
[2019-09-25] MEDS: PROPRANOLOL 20 MG TAB PO SCH ×3 (08:19→15:34)
[2019-09-25] MEDS: ENOXAPARIN 30 MG/0.3 ML SYRINGE SQ SCH (08:19)
[2019-09-25] MEDS: ALPRAZolam 0.25 MG TAB PO SCH ×2 (08:19→20:53)
[2019-09-25] MEDS: BACITRACIN 500 UNIT/GM OINT 28.4 GM TUBE TOPICAL SCH ×2 (08:21→21:05)
[2019-09-25 08:30] LABS: Glucose,Whole Blood 89 mg/dL (75-99)
[2019-09-25] MEDS: glipiZIDE 5 MG TAB PO SCH (08:30)
[2019-09-25 12:02] LABS: Glucose,Whole Blood 141 mg/dL (75-99)
--- NOTE | 2019-09-25 14:41 | P.PN ---
Subjective Progress Note Date: 09/25/19 Ирина Rizvi is an 83-year-old female, well-known to my practice, who presented to [facility] emergency room after having a syncopal episode with fall and head injury requiring multiple sutures to the scalp. Patient stated that she was walking to the bathroom with her walker with the help of an aid when she felt dizzy and passed out and fell and hit her head on the toilet patient was having significant laceration with bleeding EMS were called and patient was brought into emergency room. Patient estimated that she was unconscious for several minutes. In the emergency room patient was treated for her lacerations, computed tomography scan of the brain was done and did not reveal any evidence of intracranial bleeding, patient was admitted to telemetry floor for further evaluation and treatment. Laboratory data revealed evidence of dehydration was acute kidney injury BUN was elevated at 14 and creatinine at 1.53 which is higher than her baseline. Potassium was elevated at 5.5 blood pressure is elevated patient is maintained on multiple blood pressure medications. Echocardiogram and carotid Doppler were ordered cardiology consultation was requested regarding syncopal episode. On 09/21/2019 patient was seen and examined on the medical floor she is alert and oriented 3 in no apparent distress there is no fever or chills no headache or dizziness no chest pain no shortness of breath no cough no nausea or vomiting no abdominal pain no diarrhea no burning with urination no frequency or urgency and no hematuria. D-dimer ordered by cardiology was elevated, at this time will start full dose of subcu Lovenox, will check lower extremity Doppler and VQ scan to rule out pulmonary embolism, CT angiogram of the chest cannot be done due to elevated creatinine. On 09/22/2019 patient was seen and examined on the medical floor she is alert and oriented 3 in no apparent distress she is complaining of knee pain and was seen by orthopedic surgery in that regard, d-dimer was elevated, she was started yesterday on full dose of subcu Lovenox, today bilateral lower extremity Doppler was negative, and VQ scan was low probability for pulmonary embolism, dose of Lovenox will be decreased to 30 mg subcu once daily, hemoglobin today is low at 6.8 patient will receive 1 unit of red blood cell transfusion will recheck labs in a.m.. On 09/23/2019 patient was seen and examined on the medical floor she is alert and oriented 3 in no distress she is still complaining of knee pain otherwise she denies any complaints at this time there is no fever or chills no headache or dizziness no chest pain no shortness of breath no cough no nausea or vomiting no abdominal pain no diarrhea and no urinary symptoms. Patient is being evaluated by cardiology in regard to syncope and collapse. On 09/24/2019 patient was seen and examined on the medical floor she is alert and oriented 3 in no apparent distress she is complaining of right knee pain, she is and able to stand or walk at this time otherwise she denies any complaint there is no fever or chills no headache or dizziness no chest pain no shortness of breath no cough no nausea or vomiting no abdominal pain no diarrhea and no urinary symptoms On 09/25/2019 patient was seen and examined on the medical floor patient is al ert slightly confused in no apparent distress there is no fever or chills no headache or dizziness no chest pain no shortness of breath no cough no nausea or vomiting no abdominal pain no diarrhea and no urinary symptoms, patient has not been cooperating with nursing staff with taking her pills or eating, physical therapy are coming but she has not been cooperating. Hemoglobin today is down to 7.7 Objective - Vital Signs Vital signs: Vital Signs Temp 98.1 F 09/25/19 04:40 Pulse 87 09/25/19 04:40 Resp 18 09/25/19 04:40 BP 155/70 09/25/19 04:40 Pulse Ox 98 09/25/19 04:40 Intake & Output 09/24/19 09/25/19 09/25/19 18:59 06:59 18:59 Intake Total 540 300 Output Total 2 2 Balance 538 298 Intake: Oral 540 300 Output: Stool 2 1 Urine/Stool Mix 1 Other: Voiding Method Diaper Diaper Diaper # Voids 1 1 - Exam In general patient is alert and oriented 3 in no apparent distress answering questions appropriately HEENT head normocephalic without multiple bruises and large laceration on the scalp with multiple sutures Neck is supple no JVD no goiter no lymphadenopathy Chest exam reveals a few scattered rhonchi no wheezing Cardiac exam reveals regular heart sounds S1 and S2 with 2/6 systolic murmur in the left sternal border Abdomen is soft nontender no organomegaly with normal bowel sounds Extremity exam reveals no edema no cyanosis or clubbing Neurological examination reveals no gross focal deficit - Labs CBC & Chem 7: 09/25/19 06:38 09/25/19 06:38 Labs: Abnormal Lab Results - Last 24 Hours (Table) 09/25/19 09/25/19 09/25/19 Range/Units 06:38 06:38 12:01 RBC 2.50 L (3.80-5.40) m/uL Hgb 7.7 L D (11.4-16.0) gm/dL Hct 22.6 L (34.0-46.0) % Sodium 134 L (137-145) mmol/L BUN 41 H (7-17) mg/dL Creatinine 1.43 H (0.52-1.04) mg/dL Glucose 70 L (74-99) mg/dL POC Glucose (mg/dL) 141 H (75-99) mg/dL Calcium 8.0 L (8.4-10.2) mg/dL Total Protein 5.0 L (6.3-8.2) g/dL Albumin 2.0 L (3.5-5.0) g/dL Assessment and Plan Plan: #1 syncopal episode was followed and head trauma #2 multiple lacerations requiring multiple sutures on the head #3 underlying history of hypertension, maintained on multiple blood pressure medications #4 underlying history of diabetes mellitus #5 underlying history of Parkinson disease #6 underlying history of gout #7 underlying history of hyperlipidemia #8 evidence of dehydration with acute kidney injury #9 hyperkalemia #10 episodes of agitation yesterday a small dose of Seroquel was added to her regimen as needed #11 knee pain patient was seen by orthopedic surgery computed tomography scan of the knee was ordered #12 anemia patient received red blood cells during this admission, hemoglobin today again is down to 7.7, will check stools for Hemoccult, check iron and vitamin B12 and folate levels, consult gastroenterology At this time patient was started on IV fluid normal saline at 50 mL an hour Will recheck labs including kidney function in a.m. Will check echocardiogram and carotid Doppler Home medications reviewed and reordered Kidney function is improving gradually Physical therapy and occupational therapy to increase mobility Will follow closely
[2019-09-25 16:46] LABS: Glucose,Whole Blood 220 mg/dL (75-99)
[2019-09-25] MEDS: ACETAMINOPHEN TAB 325 MG TAB PO PRN (18:18)
[2019-09-25 20:27] LABS: Glucose,Whole Blood 225 mg/dL (75-99)
[2019-09-25] MEDS: ATORVASTATIN 40 MG TAB PO SCH (20:54)
[2019-09-25] MEDS: PANTOPRAZOLE 40 MG/10 ML VIAL IVP SCH (20:54)
[2019-09-25] MEDS: traZODone HCL 50 MG TAB PO SCH (21:05)
[2019-09-26] MEDS: SODIUM CHLORIDE 0.9% 1,000 ML IV SCH (04:35)
[2019-09-26] MEDS: hydrALAZINE HCL 25 MG TAB PO SCH ×2 (05:26→17:16)
[2019-09-26] MEDS: ACETAMINOPHEN TAB 325 MG TAB PO PRN (05:28)
[2019-09-26 06:56] LABS: Glucose,Whole Blood 124 mg/dL (75-99)
[2019-09-26 07:27] LABS: Basophils % (A) 0 %; Eosinophils # (A) 0.3 k/uL (0-0.7); Eosinophils % (A) 4 %; HCT 22.7 % (34.0-46.0); HGB 7.6 gm/dL (11.4-16.0); Lymphocytes % (A) 13 %; MCH 30.9 pg (25.0-35.0); MCHC 33.7 g/dL (31.0-37.0); MCV 91.5 fL (80.0-100.0); Mean Platelet Volume 8.6; Monocytes # (A) 0.9 k/uL (0-1.0); Monocytes % (A) 12 %; Neutrophils # (A) 5.2 k/uL (1.3-7.7); Neutrophils % (A) 67 %; Platelet Count 192 k/uL (150-450); RBC 2.47 m/uL (3.80-5.40); RDW 14.4 % (11.5-15.5); WBC 7.7 k/uL (3.8-10.6)
[2019-09-26 07:37] LABS: ALT <6 U/L (4-34); AST 25 U/L (14-36); African American GFR (CKD) 41 (>60 ml/min/1.73 sqM); Alkaline Phosphatase 77 U/L (38-126); Anion Gap 3 mmol/L; Blood Urea Nitrogen 34 mg/dL (7-17); Calcium 7.9 mg/dL (8.4-10.2); Carbon Dioxide 25 mmol/L (22-30); Chloride 107 mmol/L (98-107); Glucose 108 mg/dL (74-99); Non-African American GFR(CKD) 36 (>60 ml/min/1.73 sqM); Potassium 3.8 mmol/L (3.5-5.1); Sodium 135 mmol/L (137-145); Total Bilirubin 0.4 mg/dL (0.2-1.3); Total Protein 4.8 g/dL (6.3-8.2)
[2019-09-26] MEDS: CALCIUM CARBONATE 500 MG CHEWABLE PO SCH (08:14)
[2019-09-26] MEDS: ALLOPURINOL 100 MG TAB PO SCH (08:14)
[2019-09-26] MEDS: glipiZIDE 5 MG TAB PO SCH (08:14)
[2019-09-26] MEDS: PRIMIDONE 50 MG TAB PO SCH ×3 (08:14→21:03)
[2019-09-26] MEDS: SENNOSIDES-DOCUSATE SODIUM 1 EACH TAB PO SCH ×2 (08:14→21:02)
[2019-09-26] MEDS: ISOSORBIDE MONONITRATE ER 30 MG TAB.ER.24H PO SCH (08:14)
[2019-09-26] MEDS: MULTIVITAMINS, THERA 1 EACH TAB PO SCH (08:14)
[2019-09-26] MEDS: PANTOPRAZOLE 40 MG/10 ML VIAL IVP SCH ×2 (08:14→21:03)
[2019-09-26] MEDS: ALPRAZolam 0.25 MG TAB PO SCH ×2 (08:14→21:03)
[2019-09-26] MEDS: CHOLECALCIFEROL 1,000 UNIT TAB PO SCH (08:14)
[2019-09-26] MEDS: QUEtiapine 25 MG TAB PO SCH ×2 (08:14→21:02)
[2019-09-26] MEDS: LISINOPRIL 20 MG TAB PO SCH (08:14)
[2019-09-26] MEDS: LOSARTAN-HCTZ 50-12.5 MG 1 EACH TAB PO SCH (08:20)
[2019-09-26] MEDS: PROPRANOLOL 20 MG TAB PO SCH ×3 (08:20→17:17)
[2019-09-26] MEDS: CARBIDOPA-LEVODOPA 25-250 MG 1 EACH TAB PO SCH ×3 (08:20→21:07)
[2019-09-26] MEDS: ENOXAPARIN 30 MG/0.3 ML SYRINGE SQ SCH (08:21)
[2019-09-26 10:18] LABS: Reticulocyte % 4.96 % (0.10-1.80)
[2019-09-26 11:57] LABS: Glucose,Whole Blood 110 mg/dL (75-99)
[2019-09-26] MEDS: BACITRACIN 500 UNIT/GM OINT 28.4 GM TUBE TOPICAL SCH ×2 (12:31→21:05)
[2019-09-26 16:06] LABS: Ferritin 193.9 ng/mL (10.0-291.0)
[2019-09-26 16:17] LABS: % Iron Saturation 12.17 (12.00-45.00); Folate, Serum 16.2 ng/mL; Iron 23 ug/dL (50-170); Total Iron Binding Capacity 189 ug/dL (228-460)
--- NOTE | 2019-09-26 16:19 | P.PN ---
Subjective Progress Note Date: 09/26/19 Ирина Rizvi is an 83-year-old female, well-known to my practice, who presented to [facility] emergency room after having a syncopal episode with fall and head injury requiring multiple sutures to the scalp. Patient stated that she was walking to the bathroom with her walker with the help of an aid when she felt dizzy and passed out and fell and hit her head on the toilet patient was having significant laceration with bleeding EMS were called and patient was brought into emergency room. Patient estimated that she was unconscious for several minutes. In the emergency room patient was treated for her lacerations, computed tomography scan of the brain was done and did not reveal any evidence of intracranial bleeding, patient was admitted to telemetry floor for further evaluation and treatment. Laboratory data revealed evidence of dehydration was acute kidney injury BUN was elevated at 14 and creatinine at 1.53 which is higher than her baseline. Potassium was elevated at 5.5 blood pressure is elevated patient is maintained on multiple blood pressure medications. Echocardiogram and carotid Doppler were ordered cardiology consultation was requested regarding syncopal episode. On 09/21/2019 patient was seen and examined on the medical floor she is alert and oriented 3 in no apparent distress there is no fever or chills no headache or dizziness no chest pain no shortness of breath no cough no nausea or vomiting no abdominal pain no diarrhea no burning with urination no frequency or urgency and no hematuria. D-dimer ordered by cardiology was elevated, at this time will start full dose of subcu Lovenox, will check lower extremity Doppler and VQ scan to rule out pulmonary embolism, CT angiogram of the chest cannot be done due to elevated creatinine. On 09/22/2019 patient was seen and examined on the medical floor she is alert and oriented 3 in no apparent distress she is complaining of knee pain and was seen by orthopedic surgery in that regard, d-dimer was elevated, she was started yesterday on full dose of subcu Lovenox, today bilateral lower extremity Doppler was negative, and VQ scan was low probability for pulmonary embolism, dose of Lovenox will be decreased to 30 mg subcu once daily, hemoglobin today is low at 6.8 patient will receive 1 unit of red blood cell transfusion will recheck labs in a.m.. On 09/23/2019 patient was seen and examined on the medical floor she is alert and oriented 3 in no distress she is still complaining of knee pain otherwise she denies any complaints at this time there is no fever or chills no headache or dizziness no chest pain no shortness of breath no cough no nausea or vomiting no abdominal pain no diarrhea and no urinary symptoms. Patient is being evaluated by cardiology in regard to syncope and collapse. On 09/24/2019 patient was seen and examined on the medical floor she is alert and oriented 3 in no apparent distress she is complaining of right knee pain, she is and able to stand or walk at this time otherwise she denies any complaint there is no fever or chills no headache or dizziness no chest pain no shortness of breath no cough no nausea or vomiting no abdominal pain no diarrhea and no urinary symptoms On 09/25/2019 patient was seen and examined on the medical floor patient is al ert slightly confused in no apparent distress there is no fever or chills no headache or dizziness no chest pain no shortness of breath no cough no nausea or vomiting no abdominal pain no diarrhea and no urinary symptoms, patient has not been cooperating with nursing staff with taking her pills or eating, physical therapy are coming but she has not been cooperating. Hemoglobin today is down to 7.7 On 09/26/2019 patient was seen and examined on the medical floor patient is alert but confused there is no fever or chills no headache or dizziness no chest pain no shortness of breath no cough no nausea or vomiting no abdominal pain no diarrhea and no urinary symptoms, patient has not been cooperating with nursing staff with taking her pills or eating, physical therapy are coming but she has not been cooperating. Hemoglobin today is down to 7.6 awaiting gastroenterology consult Objective - Vital Signs Vital signs: Vital Signs Temp 98.2 F 09/26/19 12:45 Pulse 75 09/26/19 12:45 Resp 18 09/26/19 12:45 BP 172/72 09/26/19 12:45 Pulse Ox 98 09/26/19 12:45 Intake & Output 09/25/19 09/26/19 09/26/19 18:59 06:59 18:59 Intake Total 440 90 160 Balance 440 90 160 Intake: Intake, IV Titration 160 Amount Sodium Chloride 0.9% 1, 160 000 ml @ 20 mls/hr IV . Q24H [facility] Rx#:[id number] Oral 440 90 Other: Voiding Method Diaper Diaper Incontinent # Voids 2 1 # Bowel Movements 1 1 - Exam In general patient is alert and oriented 3 in no apparent distress answering questions appropriately HEENT head normocephalic without multiple bruises and large laceration on the scalp with multiple sutures Neck is supple no JVD no goiter no lymphadenopathy Chest exam reveals a few scattered rhonchi no wheezing Cardiac exam reveals regular heart sounds S1 and S2 with 2/6 systolic murmur in the left sternal border Abdomen is soft nontender no organomegaly with normal bowel sounds Extremity exam reveals no edema no cyanosis or clubbing Neurological examination reveals no gross focal deficit - Labs CBC & Chem 7: 09/26/19 06:40 09/26/19 06:33 Labs: Abnormal Lab Results - Last 24 Hours (Table) 09/25/19 09/25/19 09/26/19 Range/Units 16:44 20:25 06:33 RBC (3.80-5.40) m/uL Hgb (11.4-16.0) gm/dL Hct (34.0-46.0) % Retic Count (0.10-1.80) % Sodium 135 L (137-145) mmol/L BUN 34 H (7-17) mg/dL Creatinine 1.38 H (0.52-1.04) mg/dL Glucose 108 H (74-99) mg/dL POC Glucose (mg/dL) 220 H 225 H (75-99) mg/dL Calcium 7.9 L (8.4-10.2) mg/dL Total Protein 4.8 L (6.3-8.2) g/dL Albumin 2.0 L (3.5-5.0) g/dL 09/26/19 09/26/19 09/26/19 Range/Units 06:40 06:40 06:53 RBC 2.47 L (3.80-5.40) m/uL Hgb 7.6 L (11.4-16.0) gm/dL Hct 22.7 L (34.0-46.0) % Retic Count 4.96 H (0.10-1.80) % Sodium (137-145) mmol/L BUN (7-17) mg/dL Creatinine (0.52-1.04) mg/dL Glucose (74-99) mg/dL POC Glucose (mg/dL) 124 H (75-99) mg/dL Calcium (8.4-10.2) mg/dL Total Protein (6.3-8.2) g/dL Albumin (3.5-5.0) g/dL 09/26/19 Range/Units 11:46 RBC (3.80-5.40) m/uL Hgb (11.4-16.0) gm/dL Hct (34.0-46.0) % Retic Count (0.10-1.80) % Sodium (137-145) mmol/L BUN (7-17) mg/dL Creatinine (0.52-1.04) mg/dL Glucose (74-99) mg/dL POC Glucose (mg/dL) 110 H (75-99) mg/dL Calcium (8.4-10.2) mg/dL Total Protein (6.3-8.2) g/dL Albumin (3.5-5.0) g/dL Assessment and Plan Plan: #1 syncopal episode was followed and head trauma #2 multiple lacerations requiring multiple sutures on the head #3 underlying history of hypertension, maintained on multiple blood pressure medications #4 underlying history of diabetes mellitus #5 underlying history of Parkinson disease #6 underlying history of gout #7 underlying history of hyperlipidemia #8 evidence of dehydration with acute kidney injury #9 hyperkalemia #10 episodes of agitation yesterday a small dose of Seroquel was added to her re gimen as needed #11 knee pain patient was seen by orthopedic surgery computed tomography scan of the knee was ordered #12 anemia patient received red blood cells during this admission, hemoglobin today again is down to 7.7, will check stools for Hemoccult, check iron and vitamin B12 and folate levels, consult gastroenterology At this time patient was started on IV fluid normal saline at 50 mL an hour Will recheck labs including kidney function in a.m. Will check echocardiogram and carotid Doppler Home medications reviewed and reordered Kidney function is improving gradually Physical therapy and occupational therapy to increase mobility Will follow closely
[2019-09-26 16:39] LABS: Glucose,Whole Blood 68 mg/dL (75-99)
[2019-09-26 16:58] LABS: Glucose,Whole Blood 75 mg/dL (75-99)
--- NOTE | 2019-09-26 17:53 | P.CONS ---
History of Present Illness - Reason for Consult Consult date: 09/26/19 Anemia Requesting physician: Rodrigo Dc - Chief Complaint Fall - History of Present Illness 83-year-old female with multiple medical comorbidities including non-insulin de pendent diabetes mellitus, hypertension, Parkinson's disease, hypertension, dyslipidemia, dementia, history of falls who presented to the hospital due to a syncopal episode and a fall in her bathroom. The patient suffered a scalp laceration and has been managed on the medical floor. The patient denies any nausea or vomiting. No change in bowel habits, no blood per rectum or abdominal pain. The gastroenterology service was consult is for evaluation of anemia. She denies any NSAID use or history of GI bleeding. Hemoglobin is currently 7.6 from 7.7 yesterday. Stool testing was performed and negative for occult blood. Last colonoscopy in 2014 was significant for polypectomy and diverticulosis. She does take Tums at home for reflux disease. INR normal at 1, WBC 7.7, platelet count 192,000 patient had a normal MCV and MCHC but iron studies today were significant for iron deficiency. Review of Systems REVIEW OF SYSTEMS: CONSTITUTIONAL: Denies any fevers, chills, weight change or fatigue. CARDIOVASCULAR: Denies any chest pain, palpitations high or low blood pressures RESPIRATORY: Denies any shortness of breath, hemoptysis or cough. GENITOURINARY: No dysuria or hematuria. MUSCULOSKELETAL: No weakness reported. SKIN: Denies any new rashes or lesions, jaundice or pallor, large scalp laceration feeling well. PSYCHIATRIC: Denies any depression or anxiety, does have a history of dementia. NEUROLOGY: Denies headache, denies any new focal deficits, history of Parkinson's disease. EARS/NOSE/THROAT: No recent hearing change, congestion, nasal discharge or sore throat. EYES: No pain in eyes, discharge or change in vision. GASTROINTESTINAL: As per HPI. Past Medical History Past Medical History: Coronary Artery Disease (CAD), Chest Pain / Angina, Heart Failure, Dementia, Diabetes Mellitus, Deep Vein Thrombosis (DVT), Hyperlipidemia, Hypertension, Musculoskeletal Disorder, Neurologic Disorder, Osteoarthritis (OA), Pneumonia, Renal Disease Additional Past Medical History / Comment(s): viral enteritis, currently tx for pneumonia per pt, vertigo, falls-fell recently, NIDDM type II, CKD stage IV, early onset parkinson's dx, Oa multiple joints, back pain, gout in great toe bilateral feet, cataract. 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 Other HX: 1989 PTCA main cx, 1996 PCI with stent to OM, 2010 PCI with stent to LAD, EGD/colonoscopy, bilateral total knees, varicose veing stripping bilaterally. Past Anesthesia/Blood Transfusion Reactions: Postoperative Nausea & Vomiting (PONV) Date of Last Stent Placement:: 09/05/16 Past Psychological History: No Psychological Hx Reported Additional Psychological History / Comment(s): Pt is currently living at [facility] with her . Pt's gait is unsteady and she has been falling. uses a walker. Smoking Status: Former smoker Past Alcohol Use History: None Reported Past Drug Use History: None Reported - Past Family History Father Family Medical History: Dementia Additional Family Medical History / Comment(s): Father had dementia and he shot himself. Mother Family Medical History: Cancer, CVA/TIA Additional Family Medical History / Comment(s): bowel ca Medications and Allergies Home Medications Medication Instructions Recorded Confirmed Type Cholecalciferol [Vitamin D3 (25 1,000 unit PO DAILY 11/16/14 09/20/19 History Mcg = 1000 Iu)] Multivitamins, Thera [Multivitamin 1 tab PO DAILY 11/16/14 09/20/19 History (formulary)] Calcium Carbonate [Calcium] 600 mg PO DAILY 09/05/16 09/20/19 History Febuxostat [Uloric] 40 mg PO DAILY 09/05/16 09/20/19 History Aspirin 81 mg PO DAILY #30 chew 09/06/16 09/20/19 Rx Nitroglycerin Sl Tabs [Nitrostat] 0.4 mg SUBLINGUAL Q5M PRN #25 tab 09/06/16 09/20/19 Rx ALPRAZolam [Xanax] 0.25 mg PO HS@199912/19/16 09/20/19 History Isosorbide Mononitrate ER [Imdur] 30 mg PO DAILY 12/19/16 09/20/19 History Sennosides-Docusate Sodium 1 tab PO DAILY 03/20/17 09/20/19 History [Senokot-S] cloNIDine HCL [Catapres] 0.2 mg PO Q8H PRN 03/20/17 09/20/19 History Acetaminophen [Tylenol] 650 mg PO Q6H PRN 09/20/19 09/20/19 History Atorvastatin [Lipitor] 20 mg PO HS 09/20/19 09/20/19 History Bisacodyl [Dulcolax] 10 mg RECTAL DAILY PRN 09/20/19 09/20/19 History Carbidopa-Levodopa 25-100 mg 1 tab PO TID@0800,1200,1930 09/20/19 09/20/19 History [Sinemet 25-100] Ferrous Sulfate [Feosol] 325 mg PO HS 09/20/19 09/20/19 History Polyethylene Glycol 3350 [Miralax] 17 gm PO DAILY PRN 09/20/19 09/20/19 History Promethazine [Phenergan] 25 mg PO BID PRN 09/20/19 09/20/19 History Propranolol [Inderal] 20 mg PO TID@0800,1200,1800 09/20/19 09/20/19 History QUEtiapine [SEROquel] 50 mg PO HS 09/20/19 09/20/19 History amLODIPine [Norvasc] 5 mg PO DAILY 09/20/19 09/20/19 History hydrALAZINE HCL 10 mg PO TID@0800,1300,2000 09/20/19 09/20/19 History Allergies Allergy/AdvReac Type Severity Reaction Status Date / Time Iodinated Contrast Media Allergy Swelling/Ra Verified 09/20/19 11:23 [Iodinated Contrast Media - sh Oral and] morphine Allergy Unknown Verified 09/20/19 11:23 Penicillins Allergy Swelling/Ra Verified 09/20/19 11:23 Physical Exam Vitals: Vital Signs Temp Pulse Resp BP Pulse Ox 09/26/19 12:45 98.2 F 75 18 172/72 98 09/26/19 05:30 97.9 F 81 24 186/75 99 09/25/19 20:19 98.5 F 77 20 168/69 98 Intake and Output 09/26/19 09/26/19 09/26/19 06:59 14:59 22:59 Intake Total 160 Balance 160 Intake: Intake, IV Titration 160 Amount Sodium Chloride 0.9% 1, 160 000 ml @ 20 mls/hr IV . Q24H [facility] Rx#:[id number] Other: # Voids 1 # Bowel Movements 1 On physical examination, patient appears comfortable in no apparent distress. HEAD: Normocephalic, large healing scalp laceration. EYES: No scleral icterus. No conjunctival injection. MOUTH: No lesions, tongue midline. NECK: Trachea midline, no gross abnormalities. CHEST: Decreased air entry in all lung chavez HEART: S1-S2 appreciated. ABDOMEN: Soft, nontender to palpation. Bowel sounds are positive. No organomegaly. No guarding or rigidity. EXTREMITIES: No pedal edema. SKIN: No rashes, no jaundice. NEUROLOGIC: Alert and oriented to person and interactive. Results CBC & Chem 7: 09/26/19 06:40 09/26/19 06:33 Labs: Abnormal Lab Results - Last 24 Hours (Table) 09/25/19 09/26/19 09/26/19 Range/Units 20:25 06:33 06:40 RBC 2.47 L (3.80-5.40) m/uL Hgb 7.6 L (11.4-16.0) gm/dL Hct 22.7 L (34.0-46.0) % Retic Count (0.10-1.80) % Sodium 135 L (137-145) mmol/L BUN 34 H (7-17) mg/dL Creatinine 1.38 H (0.52-1.04) mg/dL Glucose 108 H (74-99) mg/dL POC Glucose (mg/dL) 225 H (75-99) mg/dL Calcium 7.9 L (8.4-10.2) mg/dL Iron 23 L (50-170) ug/dL TIBC 189 L (228-460) ug/dL Total Protein 4.8 L (6.3-8.2) g/dL Albumin 2.0 L (3.5-5.0) g/dL 09/26/19 09/26/19 09/26/19 Range/Units 06:40 06:53 11:46 RBC (3.80-5.40) m/uL Hgb (11.4-16.0) gm/dL Hct (34.0-46.0) % Retic Count 4.96 H (0.10-1.80) % Sodium (137-145) mmol/L BUN (7-17) mg/dL Creatinine (0.52-1.04) mg/dL Glucose (74-99) mg/dL POC Glucose (mg/dL) 124 H 110 H (75-99) mg/dL Calcium (8.4-10.2) mg/dL Iron (50-170) ug/dL TIBC (228-460) ug/dL Total Protein (6.3-8.2) g/dL Albumin (3.5-5.0) g/dL 09/26/19 Range/Units 16:37 RBC (3.80-5.40) m/uL Hgb (11.4-16.0) gm/dL Hct (34.0-46.0) % Retic Count (0.10-1.80) % Sodium (137-145) mmol/L BUN (7-17) mg/dL Creatinine (0.52-1.04) mg/dL Glucose (74-99) mg/dL POC Glucose (mg/dL) 68 L (75-99) mg/dL Calcium (8.4-10.2) mg/dL Iron (50-170) ug/dL TIBC (228-460) ug/dL Total Protein (6.3-8.2) g/dL Albumin (3.5-5.0) g/dL Assessment and Plan (1) Iron deficiency anemia Narrative/Plan: 23-year-old with multiple medical comorbidities who presented to the hospital due to mechanical fall and a scalp laceration has been noted to be anemic and gastroenterology was consulted for further evaluation. Last colonoscopy performed for screening in 2014 significant for polypectomy and diverticulosis. Patient has had stool testing on current presentation which was negative for occult blood. Hemoglobin currently stable at 7.6 from 7.7 yesterday. No signs or symptoms of GI bleeding. No abdominal pain reported. Unclear etiology likely multifactorial at a patient with underlying chronic kidney disease, iron deficiency was noted on laboratory examination, also likely a component from laceration and blood loss. Current Visit: Yes Status: Acute Code(s): D50.9 - IRON DEFICIENCY ANEMIA, UNSPECIFIED SNOMED Code(s): 45389489 Plan: Supportive care Okay for diet Continue to monitor hemoglobin and transfuse as needed Continue Protonix therapy IV iron supplementation ordered Discussion with the patient we'll continue medical management at this time Stool testing negative for blood No plans for endoscopic evaluation at this time but can consider if patient has further fall in hemoglobin or signs or symptoms of GI bleed develop Thank you for allowing us to participate in the care of the patient
[2019-09-26] MEDS: SODIUM FERRIC GLUCONAT-SUCROSE 125 MG in SODIUM CHLORIDE 0.9% 100 ML IVPB SCH (20:04)
[2019-09-26] MEDS: ATORVASTATIN 40 MG TAB PO SCH (21:03)
[2019-09-26] MEDS: traZODone HCL 50 MG TAB PO SCH (21:03)
[2019-09-26 22:23] LABS: Glucose,Whole Blood 92 mg/dL (75-99)
[2019-09-27] MEDS: ACETAMINOPHEN TAB 325 MG TAB PO PRN (01:04)
[2019-09-27] MEDS: SODIUM CHLORIDE 0.9% 1,000 ML IV SCH (03:23)
[2019-09-27] MEDS: hydrALAZINE HCL 25 MG TAB PO SCH ×2 (04:06→17:23)
[2019-09-27 07:07] LABS: Glucose,Whole Blood 97 mg/dL (75-99)
[2019-09-27 07:47] LABS: Basophils % (A) 0 %; Eosinophils # (A) 0.4 k/uL (0-0.7); Eosinophils % (A) 5 %; HCT 22.5 % (34.0-46.0); HGB 7.5 gm/dL (11.4-16.0); Lymphocytes % (A) 15 %; MCH 30.4 pg (25.0-35.0); MCHC 33.4 g/dL (31.0-37.0); MCV 90.9 fL (80.0-100.0); Monocytes # (A) 0.8 k/uL (0-1.0); Monocytes % (A) 12 %; Neutrophils # (A) 4.4 k/uL (1.3-7.7); Neutrophils % (A) 64 %; Platelet Count 203 k/uL (150-450); RBC 2.47 m/uL (3.80-5.40); RDW 14.9 % (11.5-15.5)
[2019-09-27] MEDS: CHOLECALCIFEROL 1,000 UNIT TAB PO SCH (08:01)
[2019-09-27] MEDS: ALPRAZolam 0.25 MG TAB PO SCH ×2 (08:01→21:18)
[2019-09-27] MEDS: PRIMIDONE 50 MG TAB PO SCH ×3 (08:01→21:18)
[2019-09-27] MEDS: LISINOPRIL 20 MG TAB PO SCH (08:01)
[2019-09-27] MEDS: QUEtiapine 25 MG TAB PO SCH ×2 (08:01→21:18)
[2019-09-27] MEDS: glipiZIDE 5 MG TAB PO SCH (08:01)
[2019-09-27] MEDS: ISOSORBIDE MONONITRATE ER 30 MG TAB.ER.24H PO SCH (08:01)
[2019-09-27] MEDS: ALLOPURINOL 100 MG TAB PO SCH (08:01)
[2019-09-27] MEDS: CALCIUM CARBONATE 500 MG CHEWABLE PO SCH (08:01)
[2019-09-27] MEDS: MULTIVITAMINS, THERA 1 EACH TAB PO SCH (08:01)
[2019-09-27] MEDS: SENNOSIDES-DOCUSATE SODIUM 1 EACH TAB PO SCH ×2 (08:01→21:18)
[2019-09-27 08:02] LABS: ALT <6 U/L (4-34); AST 24 U/L (14-36); African American GFR (CKD) 44 (>60 ml/min/1.73 sqM); Albumin 1.8 g/dL (3.5-5.0); Alkaline Phosphatase 70 U/L (38-126); Anion Gap 5 mmol/L; Blood Urea Nitrogen 30 mg/dL (7-17); Calcium 7.9 mg/dL (8.4-10.2); Carbon Dioxide 23 mmol/L (22-30); Chloride 107 mmol/L (98-107); Glucose 83 mg/dL (74-99); Non-African American GFR(CKD) 38 (>60 ml/min/1.73 sqM); Potassium 3.7 mmol/L (3.5-5.1); Sodium 135 mmol/L (137-145); Total Bilirubin 0.4 mg/dL (0.2-1.3); Total Protein 4.4 g/dL (6.3-8.2)
[2019-09-27] MEDS: PROPRANOLOL 20 MG TAB PO SCH ×3 (08:02→17:23)
[2019-09-27] MEDS: PANTOPRAZOLE 40 MG/10 ML VIAL IVP SCH ×2 (08:02→21:17)
[2019-09-27] MEDS: ENOXAPARIN 30 MG/0.3 ML SYRINGE SQ SCH (08:02)
[2019-09-27] MEDS: LOSARTAN-HCTZ 50-12.5 MG 1 EACH TAB PO SCH (08:02)
[2019-09-27] MEDS: CARBIDOPA-LEVODOPA 25-250 MG 1 EACH TAB PO SCH ×3 (08:02→21:19)
[2019-09-27] MEDS: BACITRACIN 500 UNIT/GM OINT 28.4 GM TUBE TOPICAL SCH ×2 (08:03→21:18)
[2019-09-27] MEDS ORDERED: SODIUM FERRIC GLUCONAT-SUCROSE 125 MG in SODIUM CHLORIDE 0.9% 100 ML IVPB ONE (10:05)
--- NOTE | 2019-09-27 10:06 | P.PN ---
Subjective Progress Note Date: 09/27/19 Ирина Rizvi is an 83-year-old female, well-known to my practice, who presented to [facility] emergency room after having a syncopal episode with fall and head injury requiring multiple sutures to the scalp. Patient stated that she was walking to the bathroom with her walker with the help of an aid when she felt dizzy and passed out and fell and hit her head on the toilet patient was having significant laceration with bleeding EMS were called and patient was brought into emergency room. Patient estimated that she was unconscious for several minutes. In the emergency room patient was treated for her lacerations, computed tomography scan of the brain was done and did not reveal any evidence of intracranial bleeding, patient was admitted to telemetry floor for further evaluation and treatment. Laboratory data revealed evidence of dehydration was acute kidney injury BUN was elevated at 14 and creatinine at 1.53 which is higher than her baseline. Potassium was elevated at 5.5 blood pressure is elevated patient is maintained on multiple blood pressure medications. Echocardiogram and carotid Doppler were ordered cardiology consultation was requested regarding syncopal episode. On 09/21/2019 patient was seen and examined on the medical floor she is alert and oriented 3 in no apparent distress there is no fever or chills no headache or dizziness no chest pain no shortness of breath no cough no nausea or vomiting no abdominal pain no diarrhea no burning with urination no frequency or urgency and no hematuria. D-dimer ordered by cardiology was elevated, at this time will start full dose of subcu Lovenox, will check lower extremity Doppler and VQ scan to rule out pulmonary embolism, CT angiogram of the chest cannot be done due to elevated creatinine. On 09/22/2019 patient was seen and examined on the medical floor she is alert and oriented 3 in no apparent distress she is complaining of knee pain and was seen by orthopedic surgery in that regard, d-dimer was elevated, she was started yesterday on full dose of subcu Lovenox, today bilateral lower extremity Doppler was negative, and VQ scan was low probability for pulmonary embolism, dose of Lovenox will be decreased to 30 mg subcu once daily, hemoglobin today is low at 6.8 patient will receive 1 unit of red blood cell transfusion will recheck labs in a.m.. On 09/23/2019 patient was seen and examined on the medical floor she is alert and oriented 3 in no distress she is still complaining of knee pain otherwise she denies any complaints at this time there is no fever or chills no headache or dizziness no chest pain no shortness of breath no cough no nausea or vomiting no abdominal pain no diarrhea and no urinary symptoms. Patient is being evaluated by cardiology in regard to syncope and collapse. On 09/24/2019 patient was seen and examined on the medical floor she is alert and oriented 3 in no apparent distress she is complaining of right knee pain, she is and able to stand or walk at this time otherwise she denies any complaint there is no fever or chills no headache or dizziness no chest pain no shortness of breath no cough no nausea or vomiting no abdominal pain no diarrhea and no urinary symptoms On 09/25/2019 patient was seen and examined on the medical floor patient is al ert slightly confused in no apparent distress there is no fever or chills no headache or dizziness no chest pain no shortness of breath no cough no nausea or vomiting no abdominal pain no diarrhea and no urinary symptoms, patient has not been cooperating with nursing staff with taking her pills or eating, physical therapy are coming but she has not been cooperating. Hemoglobin today is down to 7.7 On 09/26/2019 patient was seen and examined on the medical floor patient is alert but confused there is no fever or chills no headache or dizziness no chest pain no shortness of breath no cough no nausea or vomiting no abdominal pain no diarrhea and no urinary symptoms, patient has not been cooperating with nursing staff with taking her pills or eating, physical therapy are coming but she has not been cooperating. Hemoglobin today is down to 7.6 awaiting gastroenterology consult On 09/27/2019 patient was seen and examined on the medical floor she is alert, confused, in no apparent distress hemoglobin is down to 7.5 patient has low iron level she received 1 dose of Venofer yesterday we will give 1 more dose today and recheck CBC in a.m. patient is denying any complaints at this time Objective - Vital Signs Vital signs: Vital Signs Temp 97.4 F L 09/27/19 07:00 Pulse 76 09/27/19 07:00 Resp 18 09/27/19 07:00 BP 154/75 09/27/19 07:00 Pulse Ox 98 09/27/19 07:00 Intake & Output 09/26/19 09/27/1920 18:59 06:59 18:59 Intake Total 400 Output Total 1100 Balance 400 -1100 Intake: Intake, IV Titration 160 Amount Sodium Chloride 0.9% 1, 160 000 ml @ 20 mls/hr IV . Q24H [facility] Rx#:[id number] Oral 240 Output: Urine 1100 Other: Voiding Method Diaper Incontinent # Voids 3 - Exam In general patient is alert and oriented 3 in no apparent distress answering questions appropriately HEENT head normocephalic without multiple bruises and large laceration on the scalp with multiple sutures Neck is supple no JVD no goiter no lymphadenopathy Chest exam reveals a few scattered rhonchi no wheezing Cardiac exam reveals regular heart sounds S1 and S2 with 2/6 systolic murmur in the left sternal border Abdomen is soft nontender no organomegaly with normal bowel sounds Extremity exam reveals no edema no cyanosis or clubbing Neurological examination reveals no gross focal deficit - Labs CBC & Chem 7: 09/27/19 06:33 09/27/19 06:33 Labs: Abnormal Lab Results - Last 24 Hours (Table) 09/26/19 09/26/19 09/26/19 Range/Units 06:33 06:40 11:46 RBC (3.80-5.40) m/uL Hgb (11.4-16.0) gm/dL Hct (34.0-46.0) % Retic Count 4.96 H (0.10-1.80) % Sodium (137-145) mmol/L BUN (7-17) mg/dL Creatinine (0.52-1.04) mg/dL POC Glucose (mg/dL) 110 H (75-99) mg/dL Calcium (8.4-10.2) mg/dL Iron 23 L (50-170) ug/dL TIBC 189 L (228-460) ug/dL Total Protein (6.3-8.2) g/dL Albumin (3.5-5.0) g/dL 09/26/19 09/27/19 09/27/19 Range/Units 16:37 06:33 06:33 RBC 2.47 L (3.80-5.40) m/uL Hgb 7.5 L (11.4-16.0) gm/dL Hct 22.5 L (34.0-46.0) % Retic Count (0.10-1.80) % Sodium 135 L (137-145) mmol/L BUN 30 H (7-17) mg/dL Creatinine 1.32 H (0.52-1.04) mg/dL POC Glucose (mg/dL) 68 L (75-99) mg/dL Calcium 7.9 L (8.4-10.2) mg/dL Iron (50-170) ug/dL TIBC (228-460) ug/dL Total Protein 4.4 L (6.3-8.2) g/dL Albumin 1.8 L (3.5-5.0) g/dL Assessment and Plan Plan: #1 syncopal episode was followed and head trauma #2 multiple lacerations requiring multiple sutures on the head #3 underlying history of hypertension, maintained on multiple blood pressure medications #4 underlying history of diabetes mellitus #5 underlying history of Parkinson disease #6 underlying history of gout #7 underlying history of hyperlipidemia #8 evidence of dehydration with acute kidney injury #9 hyperkalemia, correcting #10 episodes of agitation yesterday a small dose of Seroquel was added to her regimen as needed #11 knee pain patient was seen by orthopedic surgery computed tomography scan of the knee was ordered #12 anemia patient received red blood cells during this admission, hemoglobin today again is down to 7.7, will check stools for Hemoccult, check iron and vitamin B12 and folate levels, consult gastroenterology. Patient is receiving IV iron supplements. At this time patient was started on IV fluid normal saline at 50 mL an hour Will recheck labs including kidney function in a.m. Will check echocardiogram and carotid Doppler Home medications reviewed and reordered Kidney function is improving gradually Physical therapy and occupational therapy to increase mobility Will follow closely
[2019-09-27 11:08] LABS: Glucose,Whole Blood 104 mg/dL (75-99)
[2019-09-27] MEDS: SODIUM FERRIC GLUCONAT-SUCROSE 125 MG in SODIUM CHLORIDE 0.9% 100 ML IVPB SCH (12:28)
[2019-09-27 16:37] LABS: Glucose,Whole Blood 61 mg/dL (75-99)
[2019-09-27 16:58] LABS: Glucose,Whole Blood 65 mg/dL (75-99)
[2019-09-27 17:16] LABS: Glucose,Whole Blood 76 mg/dL (75-99)
[2019-09-27] MEDS: traZODone HCL 50 MG TAB PO SCH (21:17)
[2019-09-27] MEDS: ATORVASTATIN 40 MG TAB PO SCH (21:18)
[2019-09-27 21:25] LABS: Glucose,Whole Blood 126 mg/dL (75-99)
--- NOTE | 2019-09-27 22:22 | P.PN ---
Subjective Progress Note Date: 09/27/19 Principal diagnosis: Anemia Patient is seen lying in bed with no acute complaints. Objective - Vital Signs Vital signs: Vital Signs Temp 97.4 F L 09/27/19 07:00 Pulse 76 09/27/19 07:00 Resp 18 09/27/19 07:00 BP 154/75 09/27/19 07:00 Pulse Ox 98 09/27/19 07:00 Intake & Output 09/26/19 09/27/19 09/27/19 18:59 06:59 18:59 Intake Total 400 Output Total 1100 Balance 400 -1100 Intake: Intake, IV Titration 160 Amount Sodium Chloride 0.9% 1, 160 000 ml @ 20 mls/hr IV . Q24H [facility] Rx#:[id number] Oral 240 Output: Urine 1100 Other: Voiding Method Diaper Incontinent # Voids 3 - Exam On physical examination, patient appears comfortable in no apparent distress. HEAD: Normocephalic, well-healing scope laceration. EYES: No scleral icterus. No conjunctival injection. MOUTH: No lesions, tongue midline. NECK: Trachea midline, no gross abnormalities. ABDOMEN: Soft, thin. Bowel sounds are positive. No organomegaly. No guarding or rigidity. EXTREMITIES: No pedal edema. SKIN: No rashes, no jaundice. NEUROLOGIC: Alert and oriented. No focal deficits. - Labs CBC & Chem 7: 09/27/19 06:33 09/27/19 06:33 Labs: Abnormal Lab Results - Last 24 Hours (Table) 09/26/19 09/26/19 09/27/19 Range/Units 06:33 16:37 06:33 RBC 2.47 L (3.80-5.40) m/uL Hgb 7.5 L (11.4-16.0) gm/dL Hct 22.5 L (34.0-46.0) % Sodium (137-145) mmol/L BUN (7-17) mg/dL Creatinine (0.52-1.04) mg/dL POC Glucose (mg/dL) 68 L (75-99) mg/dL Calcium (8.4-10.2) mg/dL Iron 23 L (50-170) ug/dL TIBC 189 L (228-460) ug/dL Total Protein (6.3-8.2) g/dL Albumin (3.5-5.0) g/dL 09/27/19 09/27/19 Range/Units 06:33 11:06 RBC (3.80-5.40) m/uL Hgb (11.4-16.0) gm/dL Hct (34.0-46.0) % Sodium 135 L (137-145) mmol/L BUN 30 H (7-17) mg/dL Creatinine 1.32 H (0.52-1.04) mg/dL POC Glucose (mg/dL) 104 H (75-99) mg/dL Calcium 7.9 L (8.4-10.2) mg/dL Iron (50-170) ug/dL TIBC (228-460) ug/dL Total Protein 4.4 L (6.3-8.2) g/dL Albumin 1.8 L (3.5-5.0) g/dL Assessment and Plan (1) Iron deficiency anemia Narrative/Plan: 23-year-old with multiple medical comorbidities who presented to the hospital due to mechanical fall and a scalp laceration has been noted to be anemic and gastroenterology was consulted for further evaluation. Last colonoscopy performed for screening in 2014 significant for polypectomy and diverticulosis. Patient has had stool testing on current presentation which was negative for occult blood. Hemoglobin currently stable at 7.5. No signs or symptoms of GI bleeding. No abdominal pain reported. Unclear etiology likely multifactorial at a patient with underlying chronic kidney disease, iron deficiency was noted on laboratory examination, also likely a component from laceration and blood loss. Current Visit: Yes Status: Acute Code(s): D50.9 - IRON DEFICIENCY ANEMIA, UNSPECIFIED SNOMED Code(s): 16111907 Plan: Supportive care Okay for diet Continue to monitor hemoglobin and transfuse as needed Continue Protonix therapy IV iron supplementation ordered Discussion with the patient we'll continue medical management at this time Stool testing negative for blood No plans for endoscopic evaluation at this time but can consider if patient has further fall in hemoglobin or signs or symptoms of GI bleed develop Thank you for allowing us to participate in the care of the patient
[2019-09-28] MEDS: SODIUM CHLORIDE 0.9% 1,000 ML IV SCH (02:17)
[2019-09-28] MEDS: hydrALAZINE HCL 25 MG TAB PO SCH ×2 (04:43→17:25)
[2019-09-28 07:06] LABS: Basophils % (A) 0 %; Eosinophils # (A) 0.4 k/uL (0-0.7); Eosinophils % (A) 5 %; HCT 23.3 % (34.0-46.0); HGB 7.7 gm/dL (11.4-16.0); Lymphocytes # (A) 1.3 k/uL (1.0-4.8); Lymphocytes % (A) 16 %; MCH 30.3 pg (25.0-35.0); MCHC 32.9 g/dL (31.0-37.0); MCV 92.2 fL (80.0-100.0); Mean Platelet Volume 8.9; Monocytes # (A) 0.9 k/uL (0-1.0); Monocytes % (A) 11 %; Neutrophils # (A) 5.7 k/uL (1.3-7.7); Neutrophils % (A) 66 %; Platelet Count 236 k/uL (150-450); RBC 2.52 m/uL (3.80-5.40); RDW 14.9 % (11.5-15.5); WBC 8.6 k/uL (3.8-10.6)
[2019-09-28 07:07] LABS: Glucose,Whole Blood 96 mg/dL (75-99)
[2019-09-28 07:12] LABS: ALT <6 U/L (4-34); AST 26 U/L (14-36); African American GFR (CKD) 45 (>60 ml/min/1.73 sqM); Albumin 1.8 g/dL (3.5-5.0); Alkaline Phosphatase 71 U/L (38-126); Anion Gap 3 mmol/L; Blood Urea Nitrogen 30 mg/dL (7-17); Carbon Dioxide 25 mmol/L (22-30); Chloride 107 mmol/L (98-107); Glucose 77 mg/dL (74-99); Non-African American GFR(CKD) 39 (>60 ml/min/1.73 sqM); Potassium 3.9 mmol/L (3.5-5.1); Sodium 135 mmol/L (137-145); Total Bilirubin 0.3 mg/dL (0.2-1.3); Total Protein 4.6 g/dL (6.3-8.2)
[2019-09-28] MEDS: ALLOPURINOL 100 MG TAB PO SCH (08:06)
[2019-09-28] MEDS: MULTIVITAMINS, THERA 1 EACH TAB PO SCH (08:06)
[2019-09-28] MEDS: CHOLECALCIFEROL 1,000 UNIT TAB PO SCH (08:06)
[2019-09-28] MEDS: LOSARTAN-HCTZ 50-12.5 MG 1 EACH TAB PO SCH (08:07)
[2019-09-28] MEDS: PROPRANOLOL 20 MG TAB PO SCH ×3 (08:07→17:25)
[2019-09-28] MEDS: glipiZIDE 5 MG TAB PO SCH (08:07)
[2019-09-28] MEDS: LISINOPRIL 20 MG TAB PO SCH (08:07)
[2019-09-28] MEDS: CALCIUM CARBONATE 500 MG CHEWABLE PO SCH (08:07)
[2019-09-28] MEDS: SENNOSIDES-DOCUSATE SODIUM 1 EACH TAB PO SCH ×2 (08:07→21:43)
[2019-09-28] MEDS: QUEtiapine 25 MG TAB PO SCH ×2 (08:07→21:43)
[2019-09-28] MEDS: PRIMIDONE 50 MG TAB PO SCH ×3 (08:07→21:43)
[2019-09-28] MEDS: ISOSORBIDE MONONITRATE ER 30 MG TAB.ER.24H PO SCH (08:07)
[2019-09-28] MEDS: ALPRAZolam 0.25 MG TAB PO SCH ×2 (08:07→21:44)
[2019-09-28] MEDS: CARBIDOPA-LEVODOPA 25-250 MG 1 EACH TAB PO SCH ×3 (08:07→21:44)
[2019-09-28] MEDS: BACITRACIN 500 UNIT/GM OINT 28.4 GM TUBE TOPICAL SCH (08:08)
[2019-09-28] MEDS: PANTOPRAZOLE 40 MG/10 ML VIAL IVP SCH ×2 (08:08→21:44)
[2019-09-28] MEDS: ENOXAPARIN 30 MG/0.3 ML SYRINGE SQ SCH (08:08)
[2019-09-28 11:20] LABS: Glucose,Whole Blood 114 mg/dL (75-99)
[2019-09-28] MEDS: SODIUM FERRIC GLUCONAT-SUCROSE 125 MG in SODIUM CHLORIDE 0.9% 100 ML IVPB SCH (13:11)
[2019-09-28] MEDS ORDERED: SODIUM CHLORIDE 0.65% NASAL SPRAY 44 ML BTL NASAL PRN (13:16)
--- NOTE | 2019-09-28 13:47 | P.PN ---
Subjective Progress Note Date: 09/28/19 Ирина Rizvi is an 83-year-old female, well-known to my practice, who presented to [facility] emergency room after having a syncopal episode with fall and head injury requiring multiple sutures to the scalp. Patient stated that she was walking to the bathroom with her walker with the help of an aid when she felt dizzy and passed out and fell and hit her head on the toilet patient was having significant laceration with bleeding EMS were called and patient was brought into emergency room. Patient estimated that she was unconscious for several minutes. In the emergency room patient was treated for her lacerations, computed tomography scan of the brain was done and did not reveal any evidence of intracranial bleeding, patient was admitted to telemetry floor for further evaluation and treatment. Laboratory data revealed evidence of dehydration was acute kidney injury BUN was elevated at 14 and creatinine at 1.53 which is higher than her baseline. Potassium was elevated at 5.5 blood pressure is elevated patient is maintained on multiple blood pressure medications. Echocardiogram and carotid Doppler were ordered cardiology consultation was requested regarding syncopal episode. On 09/21/2019 patient was seen and examined on the medical floor she is alert and oriented 3 in no apparent distress there is no fever or chills no headache or dizziness no chest pain no shortness of breath no cough no nausea or vomiting no abdominal pain no diarrhea no burning with urination no frequency or urgency and no hematuria. D-dimer ordered by cardiology was elevated, at this time will start full dose of subcu Lovenox, will check lower extremity Doppler and VQ scan to rule out pulmonary embolism, CT angiogram of the chest cannot be done due to elevated creatinine. On 09/22/2019 patient was seen and examined on the medical floor she is alert and oriented 3 in no apparent distress she is complaining of knee pain and was seen by orthopedic surgery in that regard, d-dimer was elevated, she was started yesterday on full dose of subcu Lovenox, today bilateral lower extremity Doppler was negative, and VQ scan was low probability for pulmonary embolism, dose of Lovenox will be decreased to 30 mg subcu once daily, hemoglobin today is low at 6.8 patient will receive 1 unit of red blood cell transfusion will recheck labs in a.m.. On 09/23/2019 patient was seen and examined on the medical floor she is alert and oriented 3 in no distress she is still complaining of knee pain otherwise she denies any complaints at this time there is no fever or chills no headache or dizziness no chest pain no shortness of breath no cough no nausea or vomiting no abdominal pain no diarrhea and no urinary symptoms. Patient is being evaluated by cardiology in regard to syncope and collapse. On 09/24/2019 patient was seen and examined on the medical floor she is alert and oriented 3 in no apparent distress she is complaining of right knee pain, she is and able to stand or walk at this time otherwise she denies any complaint there is no fever or chills no headache or dizziness no chest pain no shortness of breath no cough no nausea or vomiting no abdominal pain no diarrhea and no urinary symptoms On 09/25/2019 patient was seen and examined on the medical floor patient is al ert slightly confused in no apparent distress there is no fever or chills no headache or dizziness no chest pain no shortness of breath no cough no nausea or vomiting no abdominal pain no diarrhea and no urinary symptoms, patient has not been cooperating with nursing staff with taking her pills or eating, physical therapy are coming but she has not been cooperating. Hemoglobin today is down to 7.7 On 09/26/2019 patient was seen and examined on the medical floor patient is alert but confused there is no fever or chills no headache or dizziness no chest pain no shortness of breath no cough no nausea or vomiting no abdominal pain no diarrhea and no urinary symptoms, patient has not been cooperating with nursing staff with taking her pills or eating, physical therapy are coming but she has not been cooperating. Hemoglobin today is down to 7.6 awaiting gastroenterology consult On 09/27/2019 patient was seen and examined on the medical floor she is alert, confused, in no apparent distress hemoglobin is down to 7.5 patient has low iron level she received 1 dose of Venofer yesterday we will give 1 more dose today and recheck CBC in a.m. patient is denying any complaints at this time. On 09/28/2019 patient was seen and examined on the medical floor she is alert confused in no apparent distress hemoglobin is up to 7.7 after 2 IV doses of Venofer, patient has been complaining of generalized weakness and pain in the lower extremities she has not been working with physical therapy, otherwise there is no complaints there is no fever or chills no headache or dizziness no chest pain no shortness of breath no cough no nausea or vomiting no abdominal pain no diarrhea and no urinary symptoms Objective - Vital Signs Vital signs: Vital Signs Temp 98 F 09/28/19 04:35 Pulse 77 09/28/19 04:35 Resp 20 09/28/19 04:35 BP 145/69 09/28/19 04:35 Pulse Ox 98 09/28/19 04:35 Intake & Output 09/27/19 09/28/19 09/28/19 18:59 06:59 18:59 Intake Total 260 100 Balance 260 100 Intake: Intake, IV Titration 260 Amount Sodium Chloride 0.9% 1, 160 000 ml @ 20 mls/hr IV . Q24H [facility] Rx#:[id number] Sodium Ferric Gluconat- 100 Sucrose 125 mg In Sodium Chloride 0.9% 100 ml @ 100 mls/hr IVPB DAILY@ 1200 [facility] Rx#:[id number] Oral 100 Other: Voiding Method Diaper Incontinent Incontinent # Voids 3 - Exam In general patient is alert and oriented 3 in no apparent distress answering questions appropriately HEENT head normocephalic without multiple bruises and large laceration on the scalp with multiple sutures Neck is supple no JVD no goiter no lymphadenopathy Chest exam reveals a few scattered rhonchi no wheezing Cardiac exam reveals regular heart sounds S1 and S2 with 2/6 systolic murmur in the left sternal border Abdomen is soft nontender no organomegaly with normal bowel sounds Extremity exam reveals no edema no cyanosis or clubbing Neurological examination reveals no gross focal deficit - Labs CBC & Chem 7: 09/28/19 06:15 09/28/19 06:15 Labs: Abnormal Lab Results - Last 24 Hours (Table) 09/27/19 09/27/19 09/27/19 Range/Units 16:34 16:55 21:23 RBC (3.80-5.40) m/uL Hgb (11.4-16.0) gm/dL Hct (34.0-46.0) % Sodium (137-145) mmol/L BUN (7-17) mg/dL Creatinine (0.52-1.04) mg/dL POC Glucose (mg/dL) 61 L 65 L 126 H (75-99) mg/dL Calcium (8.4-10.2) mg/dL Total Protein (6.3-8.2) g/dL Albumin (3.5-5.0) g/dL 09/28/19 09/28/19 09/28/19 Range/Units 06:15 06:15 11:17 RBC 2.52 L (3.80-5.40) m/uL Hgb 7.7 L (11.4-16.0) gm/dL Hct 23.3 L (34.0-46.0) % Sodium 135 L (137-145) mmol/L BUN 30 H (7-17) mg/dL Creatinine 1.30 H (0.52-1.04) mg/dL POC Glucose (mg/dL) 114 H (75-99) mg/dL Calcium 8.0 L (8.4-10.2) mg/dL Total Protein 4.6 L (6.3-8.2) g/dL Albumin 1.8 L (3.5-5.0) g/dL Assessment and Plan Plan: #1 syncopal episode was followed and head trauma #2 multiple lacerations requiring multiple sutures on the head #3 underlying history of hypertension, maintained on multiple blood pressure medications #4 underlying history of diabetes mellitus #5 underlying history of Parkinson disease #6 underlying history of gout #7 underlying history of hyperlipidemia #8 evidence of dehydration with acute kidney injury #9 hyperkalemia, correcting #10 episodes of agitation yesterday a small dose of Seroquel was added to her regimen as needed #11 knee pain patient was seen by orthopedic surgery computed tomography scan of the knee was ordered #12 anemia patient received red blood cells during this admission, hemoglobin today again is down to 7.7, will check stools for Hemoccult, check iron and vitamin B12 and folate levels, consult gastroenterology. Patient is receiving IV iron supplements. At this time patient was started on IV fluid normal saline at 50 mL an hour Will recheck labs including kidney function in a.m. Will check echocardiogram and carotid Doppler Home medications reviewed and reordered Kidney function is improving gradually Physical therapy and occupational therapy to increase mobility Will follow closely
[2019-09-28 16:36] LABS: Glucose,Whole Blood 146 mg/dL (75-99)
--- NOTE | 2019-09-28 19:24 | P.PN ---
Subjective Progress Note Date: 09/28/19 Principal diagnosis: Iron deficiency Anemia Patient is seen lying in bed, no acute events overnight. No signs or symptoms of GI bleed. Objective - Vital Signs Vital signs: Vital Signs Temp 98 F 09/28/19 04:35 Pulse 77 09/28/19 04:35 Resp 20 09/28/19 04:35 BP 145/69 09/28/19 04:35 Pulse Ox 98 09/28/19 04:35 Intake & Output 09/27/19 09/28/19 09/28/19 18:59 06:59 18:59 Intake Total 260 100 Balance 260 100 Intake: Intake, IV Titration 260 Amount Sodium Chloride 0.9% 1, 160 000 ml @ 20 mls/hr IV . Q24H [facility] Rx#:[id number] Sodium Ferric Gluconat- 100 Sucrose 125 mg In Sodium Chloride 0.9% 100 ml @ 100 mls/hr IVPB DAILY@ 1200 [facility] Rx#:[id number] Oral 100 Other: Voiding Method Diaper Incontinent # Voids 3 - Exam On physical examination, patient appears comfortable in no apparent distress. HEAD: Normocephalic, well-healing scope laceration. EYES: No scleral icterus. No conjunctival injection. MOUTH: No lesions, tongue midline. NECK: Trachea midline, no gross abnormalities. ABDOMEN: Soft, thin. Bowel sounds are positive. No organomegaly. No guarding or rigidity. EXTREMITIES: No pedal edema. SKIN: No rashes, no jaundice. NEUROLOGIC: Alert and oriented. No focal deficits. - Labs CBC & Chem 7: 09/28/19 06:15 09/28/19 06:15 Labs: Abnormal Lab Results - Last 24 Hours (Table) 09/27/19 09/27/19 09/27/19 Range/Units 11:06 16:34 16:55 RBC (3.80-5.40) m/uL Hgb (11.4-16.0) gm/dL Hct (34.0-46.0) % Sodium (137-145) mmol/L BUN (7-17) mg/dL Creatinine (0.52-1.04) mg/dL POC Glucose (mg/dL) 104 H 61 L 65 L (75-99) mg/dL Calcium (8.4-10.2) mg/dL Total Protein (6.3-8.2) g/dL Albumin (3.5-5.0) g/dL 09/27/19 09/28/19 09/28/19 Range/Units 21:23 06:15 06:15 RBC 2.52 L (3.80-5.40) m/uL Hgb 7.7 L (11.4-16.0) gm/dL Hct 23.3 L (34.0-46.0) % Sodium 135 L (137-145) mmol/L BUN 30 H (7-17) mg/dL Creatinine 1.30 H (0.52-1.04) mg/dL POC Glucose (mg/dL) 126 H (75-99) mg/dL Calcium 8.0 L (8.4-10.2) mg/dL Total Protein 4.6 L (6.3-8.2) g/dL Albumin 1.8 L (3.5-5.0) g/dL Assessment and Plan (1) Iron deficiency anemia Narrative/Plan: 23-year-old with multiple medical comorbidities who presented to the hospital due to mechanical fall and a scalp laceration has been noted to be anemic and gastroenterology was consulted for further evaluation. Last colonoscopy performed for screening in 2014 significant for polypectomy and diverticulosis. Patient has had stool testing on current presentation which was negative for occult blood. Hemoglobin currently stable at 7.5. No signs or symptoms of GI bleeding. No abdominal pain reported. Unclear etiology likely multifactorial at a patient with underlying chronic kidney disease, iron deficiency was noted on laboratory examination, also likely a component from laceration and blood loss. Current Visit: Yes Status: Acute Code(s): D50.9 - IRON DEFICIENCY ANEMIA, UNSPECIFIED SNOMED Code(s): 42535033 Plan: Supportive care Okay for diet Continue to monitor hemoglobin and transfuse as needed Continue Protonix therapy IV iron supplementation ordered Discussion with the patient we'll continue medical management at this time Stool testing negative for blood No plans for endoscopic evaluation at this time but can consider if patient has further fall in hemoglobin or signs or symptoms of GI bleed develop Thank you for allowing us to participate in the care of the patient
[2019-09-28 20:40] LABS: Glucose,Whole Blood 115 mg/dL (75-99)
[2019-09-28] MEDS: traZODone HCL 50 MG TAB PO SCH (21:42)
[2019-09-28] MEDS: ATORVASTATIN 40 MG TAB PO SCH (21:43)
[2019-09-29] MEDS: BACITRACIN 500 UNIT/GM OINT 28.4 GM TUBE TOPICAL SCH ×3 (00:12→21:05)
[2019-09-29] MEDS: SODIUM CHLORIDE 0.9% 1,000 ML IV SCH (03:48)
[2019-09-29] MEDS: hydrALAZINE HCL 25 MG TAB PO SCH ×2 (05:03→16:15)
[2019-09-29 07:22] LABS: Glucose,Whole Blood 118 mg/dL (75-99)
[2019-09-29 07:55] LABS: HCT 25.1 % (34.0-46.0); HGB 8.6 gm/dL (11.4-16.0); MCH 31.2 pg (25.0-35.0); MCHC 34.1 g/dL (31.0-37.0); MCV 91.6 fL (80.0-100.0); Mean Platelet Volume 10.3; Platelet Count 252 k/uL (150-450); RBC 2.74 m/uL (3.80-5.40); RDW 14.9 % (11.5-15.5)
[2019-09-29 08:11] LABS: ALT <6 U/L (4-34); AST 39 U/L (14-36); African American GFR (CKD) 45 (>60 ml/min/1.73 sqM); Albumin 2.1 g/dL (3.5-5.0); Alkaline Phosphatase 82 U/L (38-126); Anion Gap 2 mmol/L; Blood Urea Nitrogen 30 mg/dL (7-17); Calcium 8.4 mg/dL (8.4-10.2); Carbon Dioxide 23 mmol/L (22-30); Chloride 110 mmol/L (98-107); Glucose 98 mg/dL (74-99); Non-African American GFR(CKD) 39 (>60 ml/min/1.73 sqM); Potassium 4.4 mmol/L (3.5-5.1); Sodium 135 mmol/L (137-145); Total Bilirubin 0.4 mg/dL (0.2-1.3); Total Protein 5.1 g/dL (6.3-8.2)
[2019-09-29] MEDS: CHOLECALCIFEROL 1,000 UNIT TAB PO SCH (08:48)
[2019-09-29] MEDS: glipiZIDE 5 MG TAB PO SCH (08:48)
[2019-09-29] MEDS: PANTOPRAZOLE 40 MG/10 ML VIAL IVP SCH ×2 (08:48→21:04)
[2019-09-29] MEDS: CALCIUM CARBONATE 500 MG CHEWABLE PO SCH (08:49)
[2019-09-29] MEDS: LISINOPRIL 20 MG TAB PO SCH (08:49)
[2019-09-29] MEDS: ISOSORBIDE MONONITRATE ER 30 MG TAB.ER.24H PO SCH (08:49)
[2019-09-29] MEDS: ALLOPURINOL 100 MG TAB PO SCH (08:49)
[2019-09-29] MEDS: SENNOSIDES-DOCUSATE SODIUM 1 EACH TAB PO SCH ×2 (08:49→21:05)
[2019-09-29] MEDS: QUEtiapine 25 MG TAB PO SCH ×2 (08:49→21:05)
[2019-09-29] MEDS: MULTIVITAMINS, THERA 1 EACH TAB PO SCH (08:49)
[2019-09-29] MEDS: PRIMIDONE 50 MG TAB PO SCH ×3 (08:49→21:04)
[2019-09-29 08:50] LABS: Eosinophils # (M) 0.96 k/uL (0-0.7); Lymphocytes # (M) 1.44 k/uL (1.0-4.8); Monocytes # (M) 0.48 k/uL (0-1.0); Neutrophils # (M) 9.12 k/uL (1.3-7.7); Neutrophils % (M) 76 %; Nucleated Red Blood Cells 0 /100 WBC (0-0); Total Cells Counted 100
[2019-09-29] MEDS: PROPRANOLOL 20 MG TAB PO SCH ×3 (08:50→17:34)
[2019-09-29] MEDS: ENOXAPARIN 30 MG/0.3 ML SYRINGE SQ SCH (08:51)
[2019-09-29] MEDS: CARBIDOPA-LEVODOPA 25-250 MG 1 EACH TAB PO SCH ×3 (08:51→21:05)
[2019-09-29] MEDS: LOSARTAN-HCTZ 50-12.5 MG 1 EACH TAB PO SCH (08:51)
[2019-09-29 09:54] VITALS: BMI 28.1
[2019-09-29] MEDS: ALPRAZolam 0.25 MG TAB PO SCH ×2 (10:20→21:05)
[2019-09-29] MEDS: SODIUM FERRIC GLUCONAT-SUCROSE 125 MG in SODIUM CHLORIDE 0.9% 100 ML IVPB SCH (11:20)
[2019-09-29 11:44] LABS: Glucose,Whole Blood 162 mg/dL (75-99)
--- NOTE | 2019-09-29 13:26 | P.PN ---
Subjective Progress Note Date: 09/29/19 Ирина Rizvi is an 83-year-old female, well-known to my practice, who presented to [facility] emergency room after having a syncopal episode with fall and head injury requiring multiple sutures to the scalp. Patient stated that she was walking to the bathroom with her walker with the help of an aid when she felt dizzy and passed out and fell and hit her head on the toilet patient was having significant laceration with bleeding EMS were called and patient was brought into emergency room. Patient estimated that she was unconscious for several minutes. In the emergency room patient was treated for her lacerations, computed tomography scan of the brain was done and did not reveal any evidence of intracranial bleeding, patient was admitted to telemetry floor for further evaluation and treatment. Laboratory data revealed evidence of dehydration was acute kidney injury BUN was elevated at 14 and creatinine at 1.53 which is higher than her baseline. Potassium was elevated at 5.5 blood pressure is elevated patient is maintained on multiple blood pressure medications. Echocardiogram and carotid Doppler were ordered cardiology consultation was requested regarding syncopal episode. On 09/21/2019 patient was seen and examined on the medical floor she is alert and oriented 3 in no apparent distress there is no fever or chills no headache or dizziness no chest pain no shortness of breath no cough no nausea or vomiting no abdominal pain no diarrhea no burning with urination no frequency or urgency and no hematuria. D-dimer ordered by cardiology was elevated, at this time will start full dose of subcu Lovenox, will check lower extremity Doppler and VQ scan to rule out pulmonary embolism, CT angiogram of the chest cannot be done due to elevated creatinine. On 09/22/2019 patient was seen and examined on the medical floor she is alert and oriented 3 in no apparent distress she is complaining of knee pain and was seen by orthopedic surgery in that regard, d-dimer was elevated, she was started yesterday on full dose of subcu Lovenox, today bilateral lower extremity Doppler was negative, and VQ scan was low probability for pulmonary embolism, dose of Lovenox will be decreased to 30 mg subcu once daily, hemoglobin today is low at 6.8 patient will receive 1 unit of red blood cell transfusion will recheck labs in a.m.. On 09/23/2019 patient was seen and examined on the medical floor she is alert and oriented 3 in no distress she is still complaining of knee pain otherwise she denies any complaints at this time there is no fever or chills no headache or dizziness no chest pain no shortness of breath no cough no nausea or vomiting no abdominal pain no diarrhea and no urinary symptoms. Patient is being evaluated by cardiology in regard to syncope and collapse. On 09/24/2019 patient was seen and examined on the medical floor she is alert and oriented 3 in no apparent distress she is complaining of right knee pain, she is and able to stand or walk at this time otherwise she denies any complaint there is no fever or chills no headache or dizziness no chest pain no shortness of breath no cough no nausea or vomiting no abdominal pain no diarrhea and no urinary symptoms On 09/25/2019 patient was seen and examined on the medical floor patient is al ert slightly confused in no apparent distress there is no fever or chills no headache or dizziness no chest pain no shortness of breath no cough no nausea or vomiting no abdominal pain no diarrhea and no urinary symptoms, patient has not been cooperating with nursing staff with taking her pills or eating, physical therapy are coming but she has not been cooperating. Hemoglobin today is down to 7.7 On 09/26/2019 patient was seen and examined on the medical floor patient is alert but confused there is no fever or chills no headache or dizziness no chest pain no shortness of breath no cough no nausea or vomiting no abdominal pain no diarrhea and no urinary symptoms, patient has not been cooperating with nursing staff with taking her pills or eating, physical therapy are coming but she has not been cooperating. Hemoglobin today is down to 7.6 awaiting gastroenterology consult On 09/27/2019 patient was seen and examined on the medical floor she is alert, confused, in no apparent distress hemoglobin is down to 7.5 patient has low iron level she received 1 dose of Venofer yesterday we will give 1 more dose today and recheck CBC in a.m. patient is denying any complaints at this time. On 09/28/2019 patient was seen and examined on the medical floor she is alert confused in no apparent distress hemoglobin is up to 7.7 after 2 IV doses of Venofer, patient has been complaining of generalized weakness and pain in the lower extremities she has not been working with physical therapy, otherwise there is no complaints there is no fever or chills no headache or dizziness no chest pain no shortness of breath no cough no nausea or vomiting no abdominal pain no diarrhea and no urinary symptoms. On 09/29/2019 patient was seen and examined on the medical floor she is more alert today, there is no fever or chills no headache or dizziness no chest pain no shortness of breath no cough no nausea or vomiting no abdominal pain no diarrhea and no urinary symptoms hemoglobin is up to 8.4 white blood count however has increased to 12.1. At this time will check chest x-ray portable urine analysis, will remove sutures from scalp will recheck labs in a.m. Objective - Vital Signs Vital signs: Vital Signs Temp 98.8 F 09/29/19 04:35 Pulse 79 09/29/19 04:35 Resp 20 09/29/19 04:35 BP 172/73 09/29/19 04:35 Pulse Ox 93 L 09/29/19 04:35 Intake & Output 09/28/19 09/29/19 09/29/19 18:59 06:59 18:59 Intake Total 620 500 Output Total 1 Balance 620 499 Weight 81.647 kg Intake: Intake, IV Titration 260 Amount Sodium Chloride 0.9% 1, 160 000 ml @ 20 mls/hr IV . Q24H [facility] Rx#:[id number] Sodium Ferric Gluconat- 100 Sucrose 125 mg In Sodium Chloride 0.9% 100 ml @ 100 mls/hr IVPB DAILY@ 1200 [facility] Rx#:[id number] Oral 360 500 Output: Urine/Stool Mix 1 Other: Voiding Method Incontinent Incontinent # Voids 2 - Exam In general patient is alert and oriented 3 in no apparent distress answering questions appropriately HEENT head normocephalic without multiple bruises and large laceration on the scalp with multiple sutures Neck is supple no JVD no goiter no lymphadenopathy Chest exam reveals a few scattered rhonchi no wheezing Cardiac exam reveals regular heart sounds S1 and S2 with 2/6 systolic murmur in the left sternal border Abdomen is soft nontender no organomegaly with normal bowel sounds Extremity exam reveals no edema no cyanosis or clubbing Neurological examination reveals no gross focal deficit - Labs CBC & Chem 7: 09/29/19 06:33 09/29/19 06:33 Labs: Abnormal Lab Results - Last 24 Hours (Table) 04/12/20 04/12/20 04/13/20 Range/Units 16:33 20:35 06:33 WBC 12.0 H (3.8-10.6) k/uL RBC 2.74 L (3.80-5.40) m/uL Hgb 8.6 L (11.4-16.0) gm/dL Hct 25.1 L (34.0-46.0) % Neutrophils # (Manual) 9.12 H (1.3-7.7) k/uL Eosinophils # (Manual) 0.96 H (0-0.7) k/uL Sodium (137-145) mmol/L Chloride (98-107) mmol/L BUN (7-17) mg/dL Creatinine (0.52-1.04) mg/dL POC Glucose (mg/dL) 146 H 115 H (75-99) mg/dL AST (14-36) U/L Total Protein (6.3-8.2) g/dL Albumin (3.5-5.0) g/dL 09/29/19 09/29/19 09/29/19 Range/Units 06:33 07:19 11:42 WBC (3.8-10.6) k/uL RBC (3.80-5.40) m/uL Hgb (11.4-16.0) gm/dL Hct (34.0-46.0) % Neutrophils # (Manual) (1.3-7.7) k/uL Eosinophils # (Manual) (0-0.7) k/uL Sodium 135 L (137-145) mmol/L Chloride 110 H (98-107) mmol/L BUN 30 H (7-17) mg/dL Creatinine 1.30 H (0.52-1.04) mg/dL POC Glucose (mg/dL) 118 H 162 H (75-99) mg/dL AST 39 H (14-36) U/L Total Protein 5.1 L (6.3-8.2) g/dL Albumin 2.1 L (3.5-5.0) g/dL Assessment and Plan Plan: #1 syncopal episode was followed and head trauma #2 multiple lacerations requiring multiple sutures on the head #3 underlying history of hypertension, maintained on multiple blood pressure medications #4 underlying history of diabetes mellitus #5 underlying history of Parkinson disease #6 underlying history of gout #7 underlying history of hyperlipidemia #8 evidence of dehydration with acute kidney injury #9 hyperkalemia, correcting #10 episodes of agitation yesterday a small dose of Seroquel was added to her regimen as needed #11 knee pain patient was seen by orthopedic surgery computed tomography scan of the knee was ordered #12 anemia patient received red blood cells during this admission, hemoglobin today again is down to 7.7, will check stools for Hemoccult, check iron and vitamin B12 and folate levels, consult gastroenterology. Patient is receiving IV iron supplements. At this time patient was started on IV fluid normal saline at 50 mL an hour Will recheck labs including kidney function in a.m. Will check echocardiogram and carotid Doppler Home medications reviewed and reordered Kidney function is improving gradually Physical therapy and occupational therapy to increase mobility Will follow closely
--- NOTE | 2019-09-29 13:50 | XR ---
EXAMINATION TYPE: XR chest 1V portable DATE OF EXAM: 09/29/2019 COMPARISON: 09/21/2019 INDICATION: Leukocytosis TECHNIQUE: Single frontal view of the chest is obtained. FINDINGS: The heart size is mildly prominent. The pulmonary vasculature is upper limits of normal. There is diffuse increased lung markings to the right lung. A small right pleural effusion is present . There is silhouetting left diaphragm. IMPRESSION: 1. Right perihilar and lower lobe infiltrate. 2. Bibasilar pleural effusions.
--- NOTE | 2019-09-29 14:52 | PN ---
PROGRESS NOTE DATE OF DICTATION: 09/29/2019 The patient is an 83-year-old, pleasant, white female admitted to the hospital with syncope and head laceration, for which she required multiple stitches on the right parietal area. The patient is doing better. While in the hospital, she was noted to have anemia with hemoglobin of 6.8 requiring 2 units of blood transfusion. Since then, her hemoglobin has been stable at 8.6 g/dL. She denies any symptoms. She reports no nausea or vomiting. No rectal bleeding or melena. PHYSICAL EXAMINATION: Appears comfortable. No apparent distress. VITAL SIGNS: Stable. Blood pressure 172/73, pulse 79, temperature 98.8. HEENT: Unremarkable. Conjunctivae pink. Sclerae anicteric. Oral cavity, no lesions. NECK: No JVD or lymph node enlargement. CHEST: Clear to auscultation. HEART: Regular rate and rhythm. ABDOMEN: Soft. Bowel sounds are positive. No organomegaly. EXTREMITIES: No pedal edema. SKIN: No rashes. NEUROLOGIC: Alert and oriented x3. No focal deficits. LABS: From today, hemoglobin is 8.6; yesterday it was 7.7 g/dL. BUN is 30, creatinine 1.30. IMPRESSION: 1. Normocytic anemia with iron indices not very consistent with iron-deficiency anemia. It appears that the anemia is multifactorial in etiology. Part of it could be related to underlying chronic kidney disease but she may have a component of occult blood loss. However, during this hospitalization stool hemoccult was negative. Her hemoglobin remains stable after 1 unit of blood transfusion. Last hemoglobin today is 8.6 g/dL. 2. Recent fall, status post laceration on the scalp and right parietal area, status post multiple stitches. 3. Syncopal episode. 4. History of gastroesophageal reflux disease. RECOMMENDATIONS: 1. Continue with symptomatic and supportive care. 2. No plans on any endoscopic intervention at the present time. 3. Monitor CBC on a daily basis and we will follow with you. Thank you for this consultation. MMODL / IJN: [id number] /
[2019-09-29 16:55] LABS: Glucose,Whole Blood 188 mg/dL (75-99)
[2019-09-29 20:12] LABS: Glucose,Whole Blood 581 mg/dL (75-99)
[2019-09-29 20:12] LABS: Glucose,Whole Blood >600 mg/dL (75-99)
[2019-09-29 20:28] LABS: Glucose,Whole Blood 265 mg/dL (75-99)
[2019-09-29] MEDS: traZODone HCL 50 MG TAB PO SCH (21:05)
[2019-09-29] MEDS: ATORVASTATIN 40 MG TAB PO SCH (21:05)
[2019-09-30] MEDS: SODIUM CHLORIDE 0.9% 1,000 ML IV SCH (02:01)
[2019-09-30 02:28] LABS: Glucose,Whole Blood 198 mg/dL (75-99)
[2019-09-30 02:28] LABS: Glucose,Whole Blood 587 mg/dL (75-99)
[2019-09-30] MEDS: hydrALAZINE HCL 25 MG TAB PO SCH ×2 (03:14→17:00)
[2019-09-30 07:26] LABS: Glucose,Whole Blood 135 mg/dL (75-99)
[2019-09-30] MEDS: ALLOPURINOL 100 MG TAB PO SCH (08:33)
[2019-09-30] MEDS: CALCIUM CARBONATE 500 MG CHEWABLE PO SCH (08:33)
[2019-09-30] MEDS: PANTOPRAZOLE 40 MG/10 ML VIAL IVP SCH ×2 (08:33→20:56)
[2019-09-30] MEDS: PRIMIDONE 50 MG TAB PO SCH ×3 (08:34→20:56)
[2019-09-30] MEDS: LISINOPRIL 20 MG TAB PO SCH (08:34)
[2019-09-30] MEDS: ISOSORBIDE MONONITRATE ER 30 MG TAB.ER.24H PO SCH (08:34)
[2019-09-30] MEDS: SENNOSIDES-DOCUSATE SODIUM 1 EACH TAB PO SCH ×2 (08:34→20:56)
[2019-09-30] MEDS: glipiZIDE 5 MG TAB PO SCH (08:34)
[2019-09-30] MEDS: MULTIVITAMINS, THERA 1 EACH TAB PO SCH (08:34)
[2019-09-30] MEDS: QUEtiapine 25 MG TAB PO SCH ×2 (08:34→20:56)
[2019-09-30] MEDS: CHOLECALCIFEROL 1,000 UNIT TAB PO SCH (08:34)
[2019-09-30] MEDS: CARBIDOPA-LEVODOPA 25-250 MG 1 EACH TAB PO SCH ×3 (08:35→20:59)
[2019-09-30] MEDS: LOSARTAN-HCTZ 50-12.5 MG 1 EACH TAB PO SCH (08:35)
[2019-09-30] MEDS: ENOXAPARIN 30 MG/0.3 ML SYRINGE SQ SCH (08:35)
[2019-09-30] MEDS: PROPRANOLOL 20 MG TAB PO SCH ×3 (08:35→17:01)
[2019-09-30] MEDS: BACITRACIN 500 UNIT/GM OINT 28.4 GM TUBE TOPICAL SCH ×2 (08:37→21:01)
[2019-09-30] MEDS: ALPRAZolam 0.25 MG TAB PO SCH ×2 (08:40→20:56)
[2019-09-30] MEDS: SODIUM FERRIC GLUCONAT-SUCROSE 125 MG in SODIUM CHLORIDE 0.9% 100 ML IVPB SCH (11:06)
[2019-09-30 11:59] LABS: Glucose,Whole Blood 200 mg/dL (75-99)
[2019-09-30 13:43] LABS: Appearance,Urine Turbid (Clear); Bacteria,Urine Many /hpf; Bilirubin,Urine Negative (Negative); Blood,Urine Trace (Negative); Color,Urine Yellow; Glucose,Urine (UA) Negative (Negative); Ketones,Urine Negative (Negative); Leukocyte Esterase,Urine Large (Negative); Mucus,Urine Few /hpf; Nitrite,Urine Negative (Negative); PH, Urine 5.5 (5.0-8.0); Protein,Urine 2+ (Negative); RBC,Urine 38 /hpf (0-5); Specific Gravity,Urine 1.015 (1.001-1.035); Urobilinogen,Urine <2.0 mg/dL (<2.0); WBC,Urine >182 /hpf (0-5)
--- NOTE | 2019-09-30 16:46 | P.PN ---
Subjective Progress Note Date: 09/30/19 Ирина Rizvi is an 83-year-old female, well-known to my practice, who presented to [facility] emergency room after having a syncopal episode with fall and head injury requiring multiple sutures to the scalp. Patient stated that she was walking to the bathroom with her walker with the help of an aid when she felt dizzy and passed out and fell and hit her head on the toilet patient was having significant laceration with bleeding EMS were called and patient was brought into emergency room. Patient estimated that she was unconscious for several minutes. In the emergency room patient was treated for her lacerations, computed tomography scan of the brain was done and did not reveal any evidence of intracranial bleeding, patient was admitted to telemetry floor for further evaluation and treatment. Laboratory data revealed evidence of dehydration was acute kidney injury BUN was elevated at 14 and creatinine at 1.53 which is higher than her baseline. Potassium was elevated at 5.5 blood pressure is elevated patient is maintained on multiple blood pressure medications. Echocardiogram and carotid Doppler were ordered cardiology consultation was requested regarding syncopal episode. On 09/21/2019 patient was seen and examined on the medical floor she is alert and oriented 3 in no apparent distress there is no fever or chills no headache or dizziness no chest pain no shortness of breath no cough no nausea or vomiting no abdominal pain no diarrhea no burning with urination no frequency or urgency and no hematuria. D-dimer ordered by cardiology was elevated, at this time will start full dose of subcu Lovenox, will check lower extremity Doppler and VQ scan to rule out pulmonary embolism, CT angiogram of the chest cannot be done due to elevated creatinine. On 09/22/2019 patient was seen and examined on the medical floor she is alert and oriented 3 in no apparent distress she is complaining of knee pain and was seen by orthopedic surgery in that regard, d-dimer was elevated, she was started yesterday on full dose of subcu Lovenox, today bilateral lower extremity Doppler was negative, and VQ scan was low probability for pulmonary embolism, dose of Lovenox will be decreased to 30 mg subcu once daily, hemoglobin today is low at 6.8 patient will receive 1 unit of red blood cell transfusion will recheck labs in a.m.. On 09/23/2019 patient was seen and examined on the medical floor she is alert and oriented 3 in no distress she is still complaining of knee pain otherwise she denies any complaints at this time there is no fever or chills no headache or dizziness no chest pain no shortness of breath no cough no nausea or vomiting no abdominal pain no diarrhea and no urinary symptoms. Patient is being evaluated by cardiology in regard to syncope and collapse. On 09/24/2019 patient was seen and examined on the medical floor she is alert and oriented 3 in no apparent distress she is complaining of right knee pain, she is and able to stand or walk at this time otherwise she denies any complaint there is no fever or chills no headache or dizziness no chest pain no shortness of breath no cough no nausea or vomiting no abdominal pain no diarrhea and no urinary symptoms On 09/25/2019 patient was seen and examined on the medical floor patient is al ert slightly confused in no apparent distress there is no fever or chills no headache or dizziness no chest pain no shortness of breath no cough no nausea or vomiting no abdominal pain no diarrhea and no urinary symptoms, patient has not been cooperating with nursing staff with taking her pills or eating, physical therapy are coming but she has not been cooperating. Hemoglobin today is down to 7.7 On 09/26/2019 patient was seen and examined on the medical floor patient is alert but confused there is no fever or chills no headache or dizziness no chest pain no shortness of breath no cough no nausea or vomiting no abdominal pain no diarrhea and no urinary symptoms, patient has not been cooperating with nursing staff with taking her pills or eating, physical therapy are coming but she has not been cooperating. Hemoglobin today is down to 7.6 awaiting gastroenterology consult On 09/27/2019 patient was seen and examined on the medical floor she is alert, confused, in no apparent distress hemoglobin is down to 7.5 patient has low iron level she received 1 dose of Venofer yesterday we will give 1 more dose today and recheck CBC in a.m. patient is denying any complaints at this time. On 09/28/2019 patient was seen and examined on the medical floor she is alert confused in no apparent distress hemoglobin is up to 7.7 after 2 IV doses of Venofer, patient has been complaining of generalized weakness and pain in the lower extremities she has not been working with physical therapy, otherwise there is no complaints there is no fever or chills no headache or dizziness no chest pain no shortness of breath no cough no nausea or vomiting no abdominal pain no diarrhea and no urinary symptoms. On 09/29/2019 patient was seen and examined on the medical floor she is more alert today, there is no fever or chills no headache or dizziness no chest pain no shortness of breath no cough no nausea or vomiting no abdominal pain no diarrhea and no urinary symptoms hemoglobin is up to 8.4 white blood count however has increased to 12.1. At this time will check chest x-ray portable urine analysis, will remove sutures from scalp will recheck labs in a.m. On 09/30/2019 patient was seen and examined on the medical floor she is alert and responsive in no apparent distress, vitals are stable with temperature of 97.7 pulse 77 respiration 20 and blood pressure 145/69 she is complaining of generalized pain and discomfort she has not been working with physical therapy and has been mostly bed bound there is no fever or chills no headache or dizziness no chest pain no shortness of breath no cough no nausea or vomiting no abdominal pain no diarrhea and no urinary symptoms, white blood count is up chest x-ray was ordered yesterday and urine analysis was ordered Objective - Vital Signs Vital signs: Vital Signs Temp 98.0 F 09/30/19 07:00 Pulse 77 09/30/19 07:00 Resp 17 09/30/19 07:00 BP 162/75 09/30/19 07:00 Pulse Ox 95 09/30/19 07:00 Intake & Output 09/29/19 09/30/19 09/30/19 18:59 06:59 18:59 Intake Total 220 250 120 Output Total 820 1300 Balance 220 -570 -1180 Weight 81.647 kg Intake: Oral 220 250 120 Output: Urine 820 1300 Straight 820 650 Other: Voiding Method Incontinent Incontinent Incontinent # Voids 1 0 # Bowel Movements 1 1 - Exam In general patient is alert and oriented 3 in no apparent distress answering questions appropriately HEENT head normocephalic without multiple bruises and large laceration on the scalp with multiple sutures Neck is supple no JVD no goiter no lymphadenopathy Chest exam reveals a few scattered rhonchi no wheezing Cardiac exam reveals regular heart sounds S1 and S2 with 2/6 systolic murmur in the left sternal border Abdomen is soft nontender no organomegaly with normal bowel sounds Extremity exam reveals no edema no cyanosis or clubbing Neurological examination reveals no gross focal deficit - Labs CBC & Chem 7: 09/29/19 06:33 09/30/19 03:09 Labs: Abnormal Lab Results - Last 24 Hours (Table) 09/29/19 09/29/19 09/29/19 Range/Units 16:53 20:09 20:10 Glucose (74-99) mg/dL POC Glucose (mg/dL) 188 H 581 H >600 H (75-99) mg/dL Urine Appearance (Clear) Urine Protein (Negative) Urine Blood (Negative) Ur Leukocyte Esterase (Negative) Urine RBC (0-5) /hpf Urine WBC (0-5) /hpf Urine WBC Clumps (None) /hpf Urine Bacteria (None) /hpf Urine Mucus (None) /hpf 09/29/19 09/30/19 09/30/19 Range/Units 20:27 02:22 02:24 Glucose (74-99) mg/dL POC Glucose (mg/dL) 265 H 587 H 198 H (75-99) mg/dL Urine Appearance (Clear) Urine Protein (Negative) Urine Blood (Negative) Ur Leukocyte Esterase (Negative) Urine RBC (0-5) /hpf Urine WBC (0-5) /hpf Urine WBC Clumps (None) /hpf Urine Bacteria (None) /hpf Urine Mucus (None) /hpf 09/30/19 09/30/19 09/30/19 Range/Units 03:09 07:25 11:57 Glucose 140 H (74-99) mg/dL POC Glucose (mg/dL) 135 H 200 H (75-99) mg/dL Urine Appearance (Clear) Urine Protein (Negative) Urine Blood (Negative) Ur Leukocyte Esterase (Negative) Urine RBC (0-5) /hpf Urine WBC (0-5) /hpf Urine WBC Clumps (None) /hpf Urine Bacteria (None) /hpf Urine Mucus (None) /hpf 09/30/19 Range/Units 13:15 Glucose (74-99) mg/dL POC Glucose (mg/dL) (75-99) mg/dL Urine Appearance Turbid H (Clear) Urine Protein 2+ H (Negative) Urine Blood Trace H (Negative) Ur Leukocyte Esterase Large H (Negative) Urine RBC 38 H (0-5) /hpf Urine WBC >182 H (0-5) /hpf Urine WBC Clumps Many H (None) /hpf Urine Bacteria Many H (None) /hpf Urine Mucus Few H (None) /hpf Assessment and Plan Plan: #1 syncopal episode was followed and head trauma #2 multiple lacerations requiring multiple sutures on the head #3 underlying history of hypertension, maintained on multiple blood pressure medications #4 underlying history of diabetes mellitus #5 underlying history of Parkinson disease #6 underlying history of gout #7 underlying history of hyperlipidemia #8 evidence of dehydration with acute kidney injury #9 hyperkalemia, correcting #10 episodes of agitation yesterday a small dose of Seroquel was added to her regimen as needed #11 knee pain patient was seen by orthopedic surgery computed tomography scan of the knee was ordered #12 anemia patient received red blood cells during this admission, hemoglobin to day again is down to 7.7, will check stools for Hemoccult, check iron and vitamin B12 and folate levels, consult gastroenterology. Patient is receiving IV iron supplements. #13 leukocytosis chest x-ray and urine analysis ordered consultation for infectious disease initiated. At this time patient was started on IV fluid normal saline at 50 mL an hour Will recheck labs including kidney function in a.m. Will check echocardiogram and carotid Doppler Home medications reviewed and reordered Kidney function is improving gradually Physical therapy and occupational therapy to increase mobility Will follow closely
[2019-09-30 17:15] LABS: Glucose,Whole Blood 157 mg/dL (75-99)
--- NOTE | 2019-09-30 17:17 | PN ---
PROGRESS NOTE DATE OF DICTATION: 09/30/2019 This patient is an 83-year-old pleasant white female admitted to the hospital after having a fall with laceration on the right scalp, for which she has multiple stitches. Apparently she had some dizziness and had an episode of syncope. She was noted to have anemia at the time of admission to the hospital, but clinically no evidence of active bleeding. The patient denies any symptoms currently. She received 2 units of blood transfusion at the time of admission to the hospital. Hemoglobin today is 8.5 g/dL. She reports no abdominal pain. No nausea, no vomiting. PHYSICAL EXAMINATION: She is quite sleepy, but she is awake and responding to questions. VITAL SIGNS: Stable. Blood pressure is 161/64, pulse rate 75, temperature 98. HEENT examination unremarkable. Conjunctivae pink. Sclerae anicteric. Oral cavity no lesions. NECK: No JVD or lymph node enlargement. CHEST: Clear to auscultation. HEART: Regular rate and rhythm. ABDOMEN: Soft. Bowel sounds are positive. No organomegaly. EXTREMITIES: No pedal edema. NEUROLOGIC: She is awake, oriented to name and place. LABS: WBC 12, hemoglobin 8.6. BUN and creatinine are 30 and 1.30, respectively. IMPRESSION: 1. Normocytic anemia, possibly multifactorial in etiology. She may have had a component of occult or GI blood loss, but most likely anemia is related to anemia of chronic disease. Hemoglobin remains stable, status post 2 units of blood transfusion. Last hemoglobin 8.6 g/dL. 2. Recent fall/episode of syncope, status post laceration of the right scalp. Stitches were removed yesterday. She is doing well. 3. History of gastroesophageal reflux disease. RECOMMENDATIONS: 1. Monitor CBC on a daily basis. 2. No plans for any endoscopic intervention at the present time. 3. Will sign off at this time. If she has any active bleeding, please notify us. Thank you for this consultation. MMODL / IJN: [id number] /
[2019-09-30] MEDS: AZITHROMYCIN 500 MG in SODIUM CHLORIDE 0.9% 250 ML IVPB SCH (17:40)
[2019-09-30] MEDS: ATORVASTATIN 40 MG TAB PO SCH (20:55)
[2019-09-30] MEDS: traZODone HCL 50 MG TAB PO SCH (20:56)
[2019-09-30 21:37] LABS: Glucose,Whole Blood 91 mg/dL (75-99)
--- NOTE | 2019-09-30 23:59 | CONS ---
CONSULTATION DATE OF SERVICE: 09/30/2019 REASON FOR CONSULTATION: Leukocytosis. HISTORY OF PRESENT ILLNESS: The patient is an 83-year-old female who presented to the hospital on 09/22/2019 after apparently the patient did have a fall, a syncopal episode. Apparently the patient was walking to the bathroom with her walker with the help of an aide. She felt dizzy and passed out and fell, hit her head on the toilet. The patient did have significant laceration to the forehead that required stitches. Subsequently the patient was admitted to the hospital and has been worked up for syncopal episode. She has been evaluated by multiple services, including Cardiology and GI. The patient has been afebrile throughout her hospital stay. She did have a normal white count from presentation; however, note that the white count is up to 12,000 today. That prompted this infectious disease consultation. Patient did have a chest x-ray which shows right perihilar and lower lobe infiltrate, basilar pleural effusion. She was started on Zithromax. Infectious Disease was consulted for further recommendations regarding antibiotic therapy. The patient has been complaining of feeling weak and tired. Denies having any headache or chest pain. Minimal cough. No nausea, no vomiting. No abdominal pain or any diarrhea. REVIEW OF SYSTEMS: Positive points have been mentioned in HPI. Rest of the systems are negative. PAST MEDICAL HISTORY: Coronary artery disease, heart failure, dementia, diabetes mellitus, DVT, hyperlipidemia, hypertension, osteoarthritis. PAST SURGICAL HISTORY: Cholecystectomy, PTCA with stent, hysterectomy and bilateral knee replacement. SOCIAL HISTORY: Remote history of smoking. No drinking or drug use. FAMILY HISTORY: Father with history of dementia. Mother with history of colon cancer and TIA. ALLERGIES: IODINATED CONTRAST DYE, MORPHINE, PENICILLIN. CURRENT MEDICATIONS: The patient is currently on Tylenol, DuoNeb, Zyloprim, Xanax, Lipitor, azithromycin, Catapres, Lovenox, iron sulfate, hydralazine, Imdur, theragran, Nitrostat, Protonix, Compazine, Inderal, Seroquel, Senokot and IV fluid. PHYSICAL EXAMINATION: On examination, her blood pressure is 116/60 with a pulse of 73, temperature 98.1. She is 97% on room air. General description is an elderly female lying in bed in no distress. No tachypnea or accessory muscle of respiration use. HEENT examination shows slight pallor. No scleral icterus. Oral mucosa membrane is dry. No pharyngeal erythema or thrush. NECK: Trachea is central. No thyromegaly. LUNGS: Unlabored breathing. Decreased breath sounds at the bases. No wheeze or crackle. HEART: S1, S2. Regular rate and rhythm. ABDOMEN: Soft. No tenderness. No guarding or rigidity. EXTREMITIES: No edema of the feet. SKIN EXAMINATION: No rash or mass palpable. Neurologically the patient is awake and alert, oriented x2. Mood and affect normal. LABS: Hemoglobin 8.6, white of 12,000. BUN of 30, creatinine 1.30. Electrolytes have been normal. The patient did have a positive UA with large leukocyte esterase, more than 182 WBC. DIAGNOSTIC IMPRESSION AND PLAN: 1. Patient with leukocytosis which is likely multifactorial in this patient admitted to hospital. Apparently the patient did have a fall and a syncopal episode, now with worsening of the white count. Source is likely urinary tract infection. Pneumonia less likely but not entirely excluded. 2. Patient with PENICILLIN ALLERGY. That will limit the number of antibiotics safe to use. PLAN: 1. We will start the patient on Rocephin 1 gram daily. Continue with Zithromax. 2. Will try to obtain a sputum sample for Gram stain and culture. 3. Will follow on clinical condition and culture to further adjust medication if needed. Thank you for this consultation. Will follow this patient along with you. MMODL / IJN: [id number] / VIJAY
[2019-10-01] MEDS: ACETAMINOPHEN TAB 325 MG TAB PO PRN ×2 (02:16→21:35)
[2019-10-01] MEDS: SODIUM CHLORIDE 0.9% 1,000 ML IV SCH (03:30)
[2019-10-01] MEDS: hydrALAZINE HCL 25 MG TAB PO SCH ×2 (05:14→16:42)
[2019-10-01 07:00] LABS: Glucose,Whole Blood 95 mg/dL (75-99)
[2019-10-01] MEDS: LOSARTAN 50 MG TAB PO SCH (07:45)
[2019-10-01] MEDS: ENOXAPARIN 30 MG/0.3 ML SYRINGE SQ SCH (07:47)
[2019-10-01] MEDS: PANTOPRAZOLE 40 MG/10 ML VIAL IVP SCH ×2 (07:47→21:36)
[2019-10-01] MEDS: PRIMIDONE 50 MG TAB PO SCH ×3 (07:48→21:36)
[2019-10-01] MEDS: CARBIDOPA-LEVODOPA 25-250 MG 1 EACH TAB PO SCH ×3 (07:48→21:50)
[2019-10-01] MEDS: CHOLECALCIFEROL 1,000 UNIT TAB PO SCH (07:48)
[2019-10-01] MEDS: SENNOSIDES-DOCUSATE SODIUM 1 EACH TAB PO SCH ×2 (07:48→21:36)
[2019-10-01] MEDS: CALCIUM CARBONATE 500 MG CHEWABLE PO SCH (07:48)
[2019-10-01] MEDS: ALPRAZolam 0.25 MG TAB PO SCH ×2 (07:48→21:28)
[2019-10-01] MEDS: MULTIVITAMINS, THERA 1 EACH TAB PO SCH (07:48)
[2019-10-01] MEDS: PROPRANOLOL 20 MG TAB PO SCH ×3 (07:48→16:42)
[2019-10-01] MEDS: QUEtiapine 25 MG TAB PO SCH ×2 (07:48→21:36)
[2019-10-01] MEDS: glipiZIDE 5 MG TAB PO SCH (07:49)
[2019-10-01] MEDS: HYDROCHLOROTHIAZIDE 12.5 MG CAP PO SCH (07:49)
[2019-10-01] MEDS: ISOSORBIDE MONONITRATE ER 30 MG TAB.ER.24H PO SCH (07:49)
[2019-10-01] MEDS: ALLOPURINOL 100 MG TAB PO SCH (07:49)
[2019-10-01] MEDS: BACITRACIN 500 UNIT/GM OINT 28.4 GM TUBE TOPICAL SCH ×2 (07:50→21:37)
[2019-10-01 08:08] LABS: Basophils % (A) 0 %; Eosinophils # (A) 0.3 k/uL (0-0.7); Eosinophils % (A) 3 %; HCT 20.5 % (34.0-46.0); Lymphocytes # (A) 1.5 k/uL (1.0-4.8); Lymphocytes % (A) 14 %; MCH 31.6 pg (25.0-35.0); MCHC 33.6 g/dL (31.0-37.0); MCV 94.2 fL (80.0-100.0); Mean Platelet Volume 8.2; Monocytes # (A) 0.8 k/uL (0-1.0); Monocytes % (A) 8 %; Neutrophils # (A) 7.2 k/uL (1.3-7.7); Neutrophils % (A) 72 %; Platelet Count 294 k/uL (150-450); RBC 2.18 m/uL (3.80-5.40); RDW 15.8 % (11.5-15.5); WBC 10.1 k/uL (3.8-10.6)
[2019-10-01 08:11] LABS: ALT <6 U/L (4-34); AST 25 U/L (14-36); African American GFR (CKD) 43 (>60 ml/min/1.73 sqM); Albumin 1.7 g/dL (3.5-5.0); Alkaline Phosphatase 69 U/L (38-126); Anion Gap 2 mmol/L; Blood Urea Nitrogen 28 mg/dL (7-17); Carbon Dioxide 24 mmol/L (22-30); Chloride 109 mmol/L (98-107); Glucose 79 mg/dL (74-99); Non-African American GFR(CKD) 37 (>60 ml/min/1.73 sqM); Potassium 4.1 mmol/L (3.5-5.1); Sodium 135 mmol/L (137-145); Total Bilirubin 0.2 mg/dL (0.2-1.3); Total Protein 4.4 g/dL (6.3-8.2)
[2019-10-01 08:16] LABS: HGB 6.9 gm/dL (11.4-16.0)
[2019-10-01] MEDS: AZITHROMYCIN 500 MG in SODIUM CHLORIDE 0.9% 250 ML IVPB SCH (11:12)
[2019-10-01 11:23] LABS: Glucose,Whole Blood 118 mg/dL (75-99)
[2019-10-01] MEDS: SODIUM FERRIC GLUCONAT-SUCROSE 125 MG in SODIUM CHLORIDE 0.9% 100 ML IVPB SCH (12:30)
--- NOTE | 2019-10-01 13:57 | P.PN ---
Progress Note - Text Progress Note Date: 10/01/19 I spoke with patient regarding her drop in hemoglobin again, and if she would like Dr. Rivera to proceed with an EGD/colonoscopy. The patient stated she would like to proceed with the EGD and colonoscopy. She also asked that I discuss with her granddaughter Stephanie Mojica who is listed as her power of logistics support. I called Stephanie Mojica at [phone] to discuss her grandmother's drop in hemoglobin again to 6.9, that Dr. Dc ordered one unit of packed red blood cells as well as to have gastroenterology re-evaluate her grandmother. I discussed with her the conversation I had with her grandmother Ирина Rizvi, and that she would like to proceed with EGD/Colonoscopy this admission to see if there is a source of bleeding causing her anemia. Stephanie was also agreeable with the plan of care, and would like for her grandmother Ирина Rizvi to proceed with the EGD/Colonoscopy scheduled for tomorrow. The above dictated assessment and findings were discussed with Dr. Rivera. The impression and plan of care have been directed as dictated.
[2019-10-01] MEDS ORDERED: PEG 3350-NA SULF,BICARB,CL/KCL 4,000 ML BOTTLE PO ONE (15:00)
--- NOTE | 2019-10-01 15:18 | P.CNPUL ---
History of Present Illness Consult date: 10/01/19 Reason for consult: dyspnea, pneumonia Chief complaint: Consult is requested for right lower lobe pneumonia History of present illness: This patient is a 83-year-old female admitted at [facility] for syncopal episode status post fall with head injury requiring multiple sutures of the scalp, patient was evaluated for intracranial hemorrhage found to be negative on computed tomography scan, cardiology is following for syncopal episode workup so far has been negative, patient noted to have elevated d-dimer was placed on Lovenox, duplex ultrasound of the lower extremity and VQ scan was performed computed tomography scan cannot be done due to elevated creatinine, the VQ scan was low probability no significant DVT was seen, patient has been placed on low- dose Lovenox for DVT prophylaxis, patient's hemoglobin dropped to 6.9 being eval by GI services considered for possible scope she is at room air breathing comfortably denies any chest pain chest x-ray on September 28 revealed right perihilar and lower lobe infiltrate along with bilateral pleural effusion, patient white cell count went up to 12, patient has been on Rocephin along with Zithromax second day of therapy, I was asked to evaluate further, patient unable to give a detailed history, patient has been afebrile all along with normal hemodynamics Review of Systems All systems: negative Past Medical History Past Medical History: Coronary Artery Disease (CAD), Chest Pain / Angina, Heart Failure, Dementia, Diabetes Mellitus, Deep Vein Thrombosis (DVT), Hyperlipidemia, Hypertension, Musculoskeletal Disorder, Neurologic Disorder, Osteoarthritis (OA), Pneumonia, Renal Disease Additional Past Medical History / Comment(s): viral enteritis, currently tx for pneumonia per pt, vertigo, falls-fell recently, NIDDM type II, CKD stage IV, early onset parkinson's dx, Oa multiple joints, back pain, gout in great toe bilateral feet, cataract. History of Any Multi-Drug Resistant Organisms: VRE Date of last positivie culture/infection: 10/19/16 MDRO Source:: URINE VRE Past Surgical History: Cholecystectomy, Heart Catheterization With Stent, Hysterectomy, Joint Replacement Additional Past Surgical History / Comment(s): 09/05/16 PCI with stent to cx. Other HX: 1989 PTCA main cx, 1996 PCI with stent to OM, 2010 PCI with stent to LAD, EGD/colonoscopy, bilateral total knees, varicose veing stripping bilaterally. Past Anesthesia/Blood Transfusion Reactions: Postoperative Nausea & Vomiting (PONV) Date of Last Stent Placement:: 09/05/16 Past Psychological History: No Psychological Hx Reported Additional Psychological History / Comment(s): Pt is currently living at [facility] with her . Pt's gait is unsteady and she has been falling. uses a walker. Smoking Status: Former smoker Past Alcohol Use History: None Reported Past Drug Use History: None Reported - Past Family History Father Family Medical History: Dementia Additional Family Medical History / Comment(s): Father had dementia and he shot himself. Mother Family Medical History: Cancer, CVA/TIA Additional Family Medical History / Comment(s): bowel ca Medications and Allergies Home Medications Medication Instructions Recorded Confirmed Type Cholecalciferol [Vitamin D3 (25 1,000 unit PO DAILY 11/16/14 09/20/19 History Mcg = 1000 Iu)] Multivitamins, Thera [Multivitamin 1 tab PO DAILY 11/16/14 09/20/19 History (formulary)] Calcium Carbonate [Calcium] 600 mg PO DAILY 09/05/16 09/20/19 History Febuxostat [Uloric] 40 mg PO DAILY 09/05/16 09/20/19 History Aspirin 81 mg PO DAILY #30 chew 09/06/16 09/20/19 Rx Nitroglycerin Sl Tabs [Nitrostat] 0.4 mg SUBLINGUAL Q5M PRN #25 tab 09/06/16 09/20/19 Rx ALPRAZolam [Xanax] 0.25 mg PO HS@199912/19/16 09/20/19 History Isosorbide Mononitrate ER [Imdur] 30 mg PO DAILY 12/19/16 09/20/19 History Sennosides-Docusate Sodium 1 tab PO DAILY 03/20/17 09/20/19 History [Senokot-S] cloNIDine HCL [Catapres] 0.2 mg PO Q8H PRN 03/20/17 09/20/19 History Acetaminophen [Tylenol] 650 mg PO Q6H PRN 09/20/19 09/20/19 History Atorvastatin [Lipitor] 20 mg PO HS 09/20/19 09/20/19 History Bisacodyl [Dulcolax] 10 mg RECTAL DAILY PRN 09/20/19 09/20/19 History Carbidopa-Levodopa 25-100 mg 1 tab PO TID@0800,1200,1930 09/20/19 09/20/19 History [Sinemet 25-100] Ferrous Sulfate [Feosol] 325 mg PO HS 09/20/19 09/20/19 History Polyethylene Glycol 3350 [Miralax] 17 gm PO DAILY PRN 09/20/19 09/20/19 History Promethazine [Phenergan] 25 mg PO BID PRN 09/20/19 09/20/19 History Propranolol [Inderal] 20 mg PO TID@0800,1200,1800 09/20/19 09/20/19 History QUEtiapine [SEROquel] 50 mg PO HS 09/20/19 09/20/19 History amLODIPine [Norvasc] 5 mg PO DAILY 09/20/19 09/20/19 History hydrALAZINE HCL 10 mg PO TID@0800,1300,2000 09/20/19 09/20/19 History Allergies Allergy/AdvReac Type Severity Reaction Status Date / Time Iodinated Contrast Media Allergy Swelling/Ra Verified 09/20/19 11:23 [Iodinated Contrast Media - sh Oral and] morphine Allergy Unknown Verified 09/20/19 11:23 Penicillins Allergy Swelling/Ra Verified 09/20/19 11:23 Physical Exam Vitals: Vital Signs Temp Pulse Pulse Resp BP BP Pulse Ox 10/01/19 14:32 97.9 F 72 18 149/75 96 10/01/19 14:02 97.7 F 74 18 120/70 96 10/01/19 13:52 97.7 F 68 18 119/66 96 10/01/19 11:45 101/59 10/01/19 07:00 98.2 F 75 17 108/53 95 10/01/19 03:35 98.5 F 104/53 97 10/01/19 00:00 16 09/30/19 19:35 98.1 F 73 116/60 97 Intake and Output 10/01/19 10/01/19 10/01/19 06:59 14:59 22:59 Intake Total 250 Output Total 550 Balance -550 250 Intake: Intake, IV Titration 50 Amount cefTRIAXone 1 gm In 50 Sodium Chloride 0.9% 50 ml @ 100 mls/hr IVPB Q24HR [facility] Rx#:[id number] Oral 200 Blood Product 0 Rc As-1 Unit 0 [id number] Output: Urine 550 Other: Voiding Method Incontinent Diaper Incontinent # Voids 0 # Bowel Movements 1 - Constitutional General appearance: average body habitus, cooperative, disheveled - EENT Eyes: PERRLA Ears: bilateral: normal - Neck Neck: normal ROM Carotids: bilateral: upstroke normal - Respiratory Respiratory: bilateral: diminished - Cardiovascular Rhythm: regular Heart sounds: normal: S1, S2 - Gastrointestinal General gastrointestinal: normal bowel sounds - Neurologic Neurologic: CNII-XII intact - Musculoskeletal Musculoskeletal: generalized weakness, strength equal bilaterally - Psychiatric Psychiatric: A&O x's 3, appropriate affect, intact judgment & insight Results - Laboratory Findings CBC and BMP: 10/01/19 07:03 10/01/19 07:03 PT/INR, D-dimer PT 10.4 sec (9.0-12.0) 09/19/19 21:15 INR 1.0 (<1.2) 09/19/19 21:15 D-Dimer 1.38 mg/L FEU (<0.60) H 09/21/19 10:17 Abnormal lab findings: Abnormal Labs 09/19/19 09/19/19 09/19/19 21:15 21:15 23:33 WBC RBC 3.67 L Hgb Hct 33.2 L RDW Plt Count Neutrophils # Neutrophils # (Manual) Lymphocytes # Lymphocytes # (Manual) Eosinophils # (Manual) Nucleated RBCs Retic Count D-Dimer Sodium Potassium 5.5 H Chloride BUN 40 H Creatinine 1.53 H Glucose 173 H POC Glucose (mg/dL) Uric Acid Calcium Iron TIBC AST C-Reactive Protein Total Protein Albumin 3.4 L Urine Appearance Urine Protein 2+ H Urine Blood Ur Leukocyte Esterase Urine RBC Urine WBC Urine WBC Clumps Urine Bacteria Urine Mucus Crossmatch 09/20/19 09/20/19 09/20/19 07:06 11:32 15:38 WBC RBC Hgb Hct RDW Plt Count Neutrophils # Neutrophils # (Manual) Lymphocytes # Lymphocytes # (Manual) Eosinophils # (Manual) Nucleated RBCs Retic Count D-Dimer Sodium Potassium Chloride BUN Creatinine Glucose POC Glucose (mg/dL) 165 H 177 H Uric Acid 2.9 L Calcium Iron TIBC AST C-Reactive Protein Total Protein Albumin Urine Appearance Urine Protein Urine Blood Ur Leukocyte Esterase Urine RBC Urine WBC Urine WBC Clumps Urine Bacteria Urine Mucus Crossmatch 09/20/19 09/20/19 09/21/19 16:51 20:56 07:08 WBC RBC Hgb Hct RDW Plt Count Neutrophils # Neutrophils # (Manual) Lymphocytes # Lymphocytes # (Manual) Eosinophils # (Manual) Nucleated RBCs Retic Count D-Dimer Sodium Potassium Chloride BUN Creatinine Glucose POC Glucose (mg/dL) 193 H 184 H 202 H Uric Acid Calcium Iron TIBC AST C-Reactive Protein Total Protein Albumin Urine Appearance Urine Protein Urine Blood Ur Leukocyte Esterase Urine RBC Urine WBC Urine WBC Clumps Urine Bacteria Urine Mucus Crossmatch 09/21/19 09/21/19 09/21/19 10:17 11:51 16:51 WBC RBC Hgb Hct RDW Plt Count Neutrophils # Neutrophils # (Manual) Lymphocytes # Lymphocytes # (Manual) Eosinophils # (Manual) Nucleated RBCs Retic Count D-Dimer 1.38 H Sodium Potassium Chloride BUN Creatinine Glucose POC Glucose (mg/dL) 227 H 201 H Uric Acid Calcium Iron TIBC AST C-Reactive Protein Total Protein Albumin Urine Appearance Urine Protein Urine Blood Ur Leukocyte Esterase Urine RBC Urine WBC Urine WBC Clumps Urine Bacteria Urine Mucus Crossmatch 09/21/19 09/22/19 09/22/19 21:11 06:55 06:55 WBC RBC 2.17 L Hgb 6.8 L* D Hct 20.3 L RDW Plt Count 138 L Neutrophils # 7.9 H Neutrophils # (Manual) Lymphocytes # Lymphocytes # (Manual) Eosinophils # (Manual) Nucleated RBCs Retic Count D-Dimer Sodium 136 L Potassium Chloride BUN 40 H Creatinine 1.62 H Glucose 108 H POC Glucose (mg/dL) 200 H Uric Acid Calcium Iron TIBC AST C-Reactive Protein Total Protein 5.1 L Albumin 2.2 L Urine Appearance Urine Protein Urine Blood Ur Leukocyte Esterase Urine RBC Urine WBC Urine WBC Clumps Urine Bacteria Urine Mucus Crossmatch 09/22/19 09/22/19 09/22/19 07:00 09:28 09:35 WBC RBC 2.21 L Hgb 6.8 L* Hct 20.7 L RDW Plt Count 140 L Neutrophils # 8.4 H Neutrophils # (Manual) Lymphocytes # 0.9 L Lymphocytes # (Manual) Eosinophils # (Manual) Nucleated RBCs Retic Count D-Dimer Sodium Potassium Chloride BUN Creatinine Glucose POC Glucose (mg/dL) 124 H Uric Acid Calcium Iron TIBC AST C-Reactive Protein Total Protein Albumin Urine Appearance Urine Protein Urine Blood Ur Leukocyte Esterase Urine RBC Urine WBC Urine WBC Clumps Urine Bacteria Urine Mucus Crossmatch See Detail 09/22/19 09/23/19 09/23/19 11:49 07:23 07:23 WBC RBC 2.57 L Hgb 7.9 L Hct 23.6 L RDW Plt Count 134 L Neutrophils # Neutrophils # (Manual) Lymphocytes # Lymphocytes # (Manual) 0.94 L Eosinophils # (Manual) Nucleated RBCs 1 H Retic Count D-Dimer Sodium 136 L Potassium Chloride 109 H BUN 43 H Creatinine 1.70 H Glucose POC Glucose (mg/dL) 129 H Uric Acid Calcium 8.1 L Iron TIBC AST C-Reactive Protein Total Protein 5.3 L Albumin 2.3 L Urine Appearance Urine Protein Urine Blood Ur Leukocyte Esterase Urine RBC Urine WBC Urine WBC Clumps Urine Bacteria Urine Mucus Crossmatch 09/24/19 09/24/19 09/25/19 06:35 06:35 06:38 WBC RBC 3.02 L 2.50 L Hgb 9.2 L 7.7 L D Hct 27.0 L 22.6 L RDW Plt Count 149 L Neutrophils # Neutrophils # (Manual) Lymphocytes # Lymphocytes # (Manual) Eosinophils # (Manual) Nucleated RBCs Retic Count D-Dimer Sodium 136 L Potassium Chloride BUN 42 H Creatinine 1.49 H Glucose 72 L POC Glucose (mg/dL) Uric Acid Calcium 8.2 L Iron TIBC AST C-Reactive Protein Total Protein 5.5 L Albumin 2.4 L Urine Appearance Urine Protein Urine Blood Ur Leukocyte Esterase Urine RBC Urine WBC Urine WBC Clumps Urine Bacteria Urine Mucus Crossmatch 09/25/19 09/25/19 09/25/19 06:38 12:01 16:44 WBC RBC Hgb Hct RDW Plt Count Neutrophils # Neutrophils # (Manual) Lymphocytes # Lymphocytes # (Manual) Eosinophils # (Manual) Nucleated RBCs Retic Count D-Dimer Sodium 134 L Potassium Chloride BUN 41 H Creatinine 1.43 H Glucose 70 L POC Glucose (mg/dL) 141 H 220 H Uric Acid Calcium 8.0 L Iron TIBC AST C-Reactive Protein Total Protein 5.0 L Albumin 2.0 L Urine Appearance Urine Protein Urine Blood Ur Leukocyte Esterase Urine RBC Urine WBC Urine WBC Clumps Urine Bacteria Urine Mucus Crossmatch 04/09/20 04/10/20 04/10/20 20:25 06:33 06:40 WBC RBC 2.47 L Hgb 7.6 L Hct 22.7 L RDW Plt Count Neutrophils # Neutrophils # (Manual) Lymphocytes # Lymphocytes # (Manual) Eosinophils # (Manual) Nucleated RBCs Retic Count D-Dimer Sodium 135 L Potassium Chloride BUN 34 H Creatinine 1.38 H Glucose 108 H POC Glucose (mg/dL) 225 H Uric Acid Calcium 7.9 L Iron 23 L TIBC 189 L AST C-Reactive Protein Total Protein 4.8 L Albumin 2.0 L Urine Appearance Urine Protein Urine Blood Ur Leukocyte Esterase Urine RBC Urine WBC Urine WBC Clumps Urine Bacteria Urine Mucus Crossmatch 09/26/19 09/26/19 09/26/19 06:40 06:53 11:46 WBC RBC Hgb Hct RDW Plt Count Neutrophils # Neutrophils # (Manual) Lymphocytes # Lymphocytes # (Manual) Eosinophils # (Manual) Nucleated RBCs Retic Count 4.96 H D-Dimer Sodium Potassium Chloride BUN Creatinine Glucose POC Glucose (mg/dL) 124 H 110 H Uric Acid Calcium Iron TIBC AST C-Reactive Protein Total Protein Albumin Urine Appearance Urine Protein Urine Blood Ur Leukocyte Esterase Urine RBC Urine WBC Urine WBC Clumps Urine Bacteria Urine Mucus Crossmatch 09/26/19 09/27/19 09/27/19 16:37 06:33 06:33 WBC RBC 2.47 L Hgb 7.5 L Hct 22.5 L RDW Plt Count Neutrophils # Neutrophils # (Manual) Lymphocytes # Lymphocytes # (Manual) Eosinophils # (Manual) Nucleated RBCs Retic Count D-Dimer Sodium 135 L Potassium Chloride BUN 30 H Creatinine 1.32 H Glucose POC Glucose (mg/dL) 68 L Uric Acid Calcium 7.9 L Iron TIBC AST C-Reactive Protein Total Protein 4.4 L Albumin 1.8 L Urine Appearance Urine Protein Urine Blood Ur Leukocyte Esterase Urine RBC Urine WBC Urine WBC Clumps Urine Bacteria Urine Mucus Crossmatch 09/27/19 09/27/19 09/27/19 11:06 16:34 16:55 WBC RBC Hgb Hct RDW Plt Count Neutrophils # Neutrophils # (Manual) Lymphocytes # Lymphocytes # (Manual) Eosinophils # (Manual) Nucleated RBCs Retic Count D-Dimer Sodium Potassium Chloride BUN Creatinine Glucose POC Glucose (mg/dL) 104 H 61 L 65 L Uric Acid Calcium Iron TIBC AST C-Reactive Protein Total Protein Albumin Urine Appearance Urine Protein Urine Blood Ur Leukocyte Esterase Urine RBC Urine WBC Urine WBC Clumps Urine Bacteria Urine Mucus Crossmatch 09/27/19 09/28/19 09/28/19 21:23 06:15 06:15 WBC RBC 2.52 L Hgb 7.7 L Hct 23.3 L RDW Plt Count Neutrophils # Neutrophils # (Manual) Lymphocytes # Lymphocytes # (Manual) Eosinophils # (Manual) Nucleated RBCs Retic Count D-Dimer Sodium 135 L Potassium Chloride BUN 30 H Creatinine 1.30 H Glucose POC Glucose (mg/dL) 126 H Uric Acid Calcium 8.0 L Iron TIBC AST C-Reactive Protein Total Protein 4.6 L Albumin 1.8 L Urine Appearance Urine Protein Urine Blood Ur Leukocyte Esterase Urine RBC Urine WBC Urine WBC Clumps Urine Bacteria Urine Mucus Crossmatch 09/28/19 09/28/19 09/28/19 11:17 16:33 20:35 WBC RBC Hgb Hct RDW Plt Count Neutrophils # Neutrophils # (Manual) Lymphocytes # Lymphocytes # (Manual) Eosinophils # (Manual) Nucleated RBCs Retic Count D-Dimer Sodium Potassium Chloride BUN Creatinine Glucose POC Glucose (mg/dL) 114 H 146 H 115 H Uric Acid Calcium Iron TIBC AST C-Reactive Protein Total Protein Albumin Urine Appearance Urine Protein Urine Blood Ur Leukocyte Esterase Urine RBC Urine WBC Urine WBC Clumps Urine Bacteria Urine Mucus Crossmatch 09/29/19 09/29/19 09/29/19 06:33 06:33 07:19 WBC 12.0 H RBC 2.74 L Hgb 8.6 L Hct 25.1 L RDW Plt Count Neutrophils # Neutrophils # (Manual) 9.12 H Lymphocytes # Lymphocytes # (Manual) Eosinophils # (Manual) 0.96 H Nucleated RBCs Retic Count D-Dimer Sodium 135 L Potassium Chloride 110 H BUN 30 H Creatinine 1.30 H Glucose POC Glucose (mg/dL) 118 H Uric Acid Calcium Iron TIBC AST 39 H C-Reactive Protein Total Protein 5.1 L Albumin 2.1 L Urine Appearance Urine Protein Urine Blood Ur Leukocyte Esterase Urine RBC Urine WBC Urine WBC Clumps Urine Bacteria Urine Mucus Crossmatch 09/29/19 09/29/19 09/29/19 11:42 16:53 20:09 WBC RBC Hgb Hct RDW Plt Count Neutrophils # Neutrophils # (Manual) Lymphocytes # Lymphocytes # (Manual) Eosinophils # (Manual) Nucleated RBCs Retic Count D-Dimer Sodium Potassium Chloride BUN Creatinine Glucose POC Glucose (mg/dL) 162 H 188 H 581 H Uric Acid Calcium Iron TIBC AST C-Reactive Protein Total Protein Albumin Urine Appearance Urine Protein Urine Blood Ur Leukocyte Esterase Urine RBC Urine WBC Urine WBC Clumps Urine Bacteria Urine Mucus Crossmatch 09/29/19 09/29/19 09/30/19 20:10 20:27 02:22 WBC RBC Hgb Hct RDW Plt Count Neutrophils # Neutrophils # (Manual) Lymphocytes # Lymphocytes # (Manual) Eosinophils # (Manual) Nucleated RBCs Retic Count D-Dimer Sodium Potassium Chloride BUN Creatinine Glucose POC Glucose (mg/dL) >600 H 265 H 587 H Uric Acid Calcium Iron TIBC AST C-Reactive Protein Total Protein Albumin Urine Appearance Urine Protein Urine Blood Ur Leukocyte Esterase Urine RBC Urine WBC Urine WBC Clumps Urine Bacteria Urine Mucus Crossmatch 09/30/19 09/30/19 09/30/19 02:24 03:09 07:25 WBC RBC Hgb Hct RDW Plt Count Neutrophils # Neutrophils # (Manual) Lymphocytes # Lymphocytes # (Manual) Eosinophils # (Manual) Nucleated RBCs Retic Count D-Dimer Sodium Potassium Chloride BUN Creatinine Glucose 140 H POC Glucose (mg/dL) 198 H 135 H Uric Acid Calcium Iron TIBC AST C-Reactive Protein Total Protein Albumin Urine Appearance Urine Protein Urine Blood Ur Leukocyte Esterase Urine RBC Urine WBC Urine WBC Clumps Urine Bacteria Urine Mucus Crossmatch 09/30/19 09/30/19 09/30/19 11:57 13:15 15:18 WBC RBC Hgb Hct RDW Plt Count Neutrophils # Neutrophils # (Manual) Lymphocytes # Lymphocytes # (Manual) Eosinophils # (Manual) Nucleated RBCs Retic Count D-Dimer Sodium Potassium Chloride BUN Creatinine Glucose POC Glucose (mg/dL) 200 H Uric Acid Calcium Iron TIBC AST C-Reactive Protein 62.8 H Total Protein Albumin Urine Appearance Turbid H Urine Protein 2+ H Urine Blood Trace H Ur Leukocyte Esterase Large H Urine RBC 38 H Urine WBC >182 H Urine WBC Clumps Many H Urine Bacteria Many H Urine Mucus Few H Crossmatch 09/30/19 10/01/19 10/01/19 17:14 07:03 07:03 WBC RBC 2.18 L Hgb 6.9 L* D Hct 20.5 L RDW 15.8 H Plt Count Neutrophils # Neutrophils # (Manual) Lymphocytes # Lymphocytes # (Manual) Eosinophils # (Manual) Nucleated RBCs Retic Count D-Dimer Sodium 135 L Potassium Chloride 109 H BUN 28 H Creatinine 1.34 H Glucose POC Glucose (mg/dL) 157 H Uric Acid Calcium 8.0 L Iron TIBC AST C-Reactive Protein Total Protein 4.4 L Albumin 1.7 L Urine Appearance Urine Protein Urine Blood Ur Leukocyte Esterase Urine RBC Urine WBC Urine WBC Clumps Urine Bacteria Urine Mucus Crossmatch 10/01/19 10/01/19 09:16 11:22 WBC RBC Hgb Hct RDW Plt Count Neutrophils # Neutrophils # (Manual) Lymphocytes # Lymphocytes # (Manual) Eosinophils # (Manual) Nucleated RBCs Retic Count D-Dimer Sodium Potassium Chloride BUN Creatinine Glucose POC Glucose (mg/dL) 118 H Uric Acid Calcium Iron TIBC AST C-Reactive Protein Total Protein Albumin Urine Appearance Urine Protein Urine Blood Ur Leukocyte Esterase Urine RBC Urine WBC Urine WBC Clumps Urine Bacteria Urine Mucus Crossmatch See Detail - Diagnostic Findings Chest x-ray: report reviewed, image reviewed Assessment and Plan Assessment: Right lower lobe pneumonia Severe symptomatic anemia Syncopal episode likely related to above Head trauma status post laceration repair Past medical history of hypertension hypertensive cardiovascular disease advanced Parkinson's disease dyslipidemia and Electrolyte imbalance with hyperkalemia Plan: Continue antibiotics We'll repeat the chest x-ray Further recommendations pending agree with endoscopy Time with Patient: Greater than 30
[2019-10-01] MEDS ORDERED: LACTATED RINGERS 1,000 ML IV SCH (15:20)
--- NOTE | 2019-10-01 16:07 | P.PN ---
Subjective Progress Note Date: 10/01/19 Ирина Rizvi is an 83-year-old female, well-known to my practice, who presented to [facility] emergency room after having a syncopal episode with fall and head injury requiring multiple sutures to the scalp. Patient stated that she was walking to the bathroom with her walker with the help of an aid when she felt dizzy and passed out and fell and hit her head on the toilet patient was having significant laceration with bleeding EMS were called and patient was brought into emergency room. Patient estimated that she was unconscious for several minutes. In the emergency room patient was treated for her lacerations, computed tomography scan of the brain was done and did not reveal any evidence of intracranial bleeding, patient was admitted to telemetry floor for further evaluation and treatment. Laboratory data revealed evidence of dehydration was acute kidney injury BUN was elevated at 14 and creatinine at 1.53 which is higher than her baseline. Potassium was elevated at 5.5 blood pressure is elevated patient is maintained on multiple blood pressure medications. Echocardiogram and carotid Doppler were ordered cardiology consultation was requested regarding syncopal episode. On 09/21/2019 patient was seen and examined on the medical floor she is alert and oriented 3 in no apparent distress there is no fever or chills no headache or dizziness no chest pain no shortness of breath no cough no nausea or vomiting no abdominal pain no diarrhea no burning with urination no frequency or urgency and no hematuria. D-dimer ordered by cardiology was elevated, at this time will start full dose of subcu Lovenox, will check lower extremity Doppler and VQ scan to rule out pulmonary embolism, CT angiogram of the chest cannot be done due to elevated creatinine. On 09/22/2019 patient was seen and examined on the medical floor she is alert and oriented 3 in no apparent distress she is complaining of knee pain and was seen by orthopedic surgery in that regard, d-dimer was elevated, she was started yesterday on full dose of subcu Lovenox, today bilateral lower extremity Doppler was negative, and VQ scan was low probability for pulmonary embolism, dose of Lovenox will be decreased to 30 mg subcu once daily, hemoglobin today is low at 6.8 patient will receive 1 unit of red blood cell transfusion will recheck labs in a.m.. On 09/23/2019 patient was seen and examined on the medical floor she is alert and oriented 3 in no distress she is still complaining of knee pain otherwise she denies any complaints at this time there is no fever or chills no headache or dizziness no chest pain no shortness of breath no cough no nausea or vomiting no abdominal pain no diarrhea and no urinary symptoms. Patient is being evaluated by cardiology in regard to syncope and collapse. On 09/24/2019 patient was seen and examined on the medical floor she is alert and oriented 3 in no apparent distress she is complaining of right knee pain, she is and able to stand or walk at this time otherwise she denies any complaint there is no fever or chills no headache or dizziness no chest pain no shortness of breath no cough no nausea or vomiting no abdominal pain no diarrhea and no urinary symptoms On 09/25/2019 patient was seen and examined on the medical floor patient is al ert slightly confused in no apparent distress there is no fever or chills no headache or dizziness no chest pain no shortness of breath no cough no nausea or vomiting no abdominal pain no diarrhea and no urinary symptoms, patient has not been cooperating with nursing staff with taking her pills or eating, physical therapy are coming but she has not been cooperating. Hemoglobin today is down to 7.7 On 09/26/2019 patient was seen and examined on the medical floor patient is alert but confused there is no fever or chills no headache or dizziness no chest pain no shortness of breath no cough no nausea or vomiting no abdominal pain no diarrhea and no urinary symptoms, patient has not been cooperating with nursing staff with taking her pills or eating, physical therapy are coming but she has not been cooperating. Hemoglobin today is down to 7.6 awaiting gastroenterology consult On 09/27/2019 patient was seen and examined on the medical floor she is alert, confused, in no apparent distress hemoglobin is down to 7.5 patient has low iron level she received 1 dose of Venofer yesterday we will give 1 more dose today and recheck CBC in a.m. patient is denying any complaints at this time. On 09/28/2019 patient was seen and examined on the medical floor she is alert confused in no apparent distress hemoglobin is up to 7.7 after 2 IV doses of Venofer, patient has been complaining of generalized weakness and pain in the lower extremities she has not been working with physical therapy, otherwise there is no complaints there is no fever or chills no headache or dizziness no chest pain no shortness of breath no cough no nausea or vomiting no abdominal pain no diarrhea and no urinary symptoms. On 09/29/2019 patient was seen and examined on the medical floor she is more alert today, there is no fever or chills no headache or dizziness no chest pain no shortness of breath no cough no nausea or vomiting no abdominal pain no diarrhea and no urinary symptoms hemoglobin is up to 8.4 white blood count however has increased to 12.1. At this time will check chest x-ray portable urine analysis, will remove sutures from scalp will recheck labs in a.m. On 09/30/2019 patient was seen and examined on the medical floor she is alert and responsive in no apparent distress, vitals are stable with temperature of 97.7 pulse 77 respiration 20 and blood pressure 145/69 she is complaining of generalized pain and discomfort she has not been working with physical therapy and has been mostly bed bound there is no fever or chills no headache or dizziness no chest pain no shortness of breath no cough no nausea or vomiting no abdominal pain no diarrhea and no urinary symptoms, white blood count is up chest x-ray was ordered yesterday and urine analysis was ordered. On 10/01/2019 patient was seen and examined on the medical floor she is somnolent but arousable in no apparent distress hemoglobin was down to 6.9 today 1 unit of red blood cell transfusion was ordered patient is followed by gastroenterology and they were notified of recent drop in hemoglobin, otherwise patient is stable and there is no fever or chills no headache or dizziness no chest pain no shortness of breath no cough no nausea or vomiting no abdominal pain no diarrhea and no urinary symptoms Objective - Vital Signs Vital signs: Vital Signs Temp 97.9 F 10/01/19 14:32 Pulse 72 10/01/19 14:32 Resp 18 10/01/19 14:32 BP 149/75 10/01/19 14:32 Pulse Ox 96 10/01/19 14:32 Intake & Output 09/30/19 10/01/19 10/01/19 18:59 06:59 18:59 Intake Total 120 250 Output Total 1300 550 Balance -1180 -550 250 Intake: Intake, IV Titration 50 Amount cefTRIAXone 1 gm In 50 Sodium Chloride 0.9% 50 ml @ 100 mls/hr IVPB Q24HR [facility] Rx#:[id number] Oral 120 200 Blood Product 0 Rc As-1 Unit 0 [id number] Output: Urine 1300 550 Straight 650 Other: Voiding Method Incontinent Incontinent Diaper Incontinent # Voids 0 # Bowel Movements 1 - Exam In general patient is alert and oriented 3 in no apparent distress answering questions appropriately HEENT head normocephalic without multiple bruises and large laceration on the scalp with multiple sutures Neck is supple no JVD no goiter no lymphadenopathy Chest exam reveals a few scattered rhonchi no wheezing Cardiac exam reveals regular heart sounds S1 and S2 with 2/6 systolic murmur in the left sternal border Abdomen is soft nontender no organomegaly with normal bowel sounds Extremity exam reveals no edema no cyanosis or clubbing Neurological examination reveals no gross focal deficit - Labs CBC & Chem 7: 10/01/19 07:03 10/01/19 07:03 Labs: Abnormal Lab Results - Last 24 Hours (Table) 09/30/19 10/01/19 10/01/19 Range/Units 17:14 07:03 07:03 RBC 2.18 L (3.80-5.40) m/uL Hgb 6.9 L* D (11.4-16.0) gm/dL Hct 20.5 L (34.0-46.0) % RDW 15.8 H (11.5-15.5) % Sodium 135 L (137-145) mmol/L Chloride 109 H (98-107) mmol/L BUN 28 H (7-17) mg/dL Creatinine 1.34 H (0.52-1.04) mg/dL POC Glucose (mg/dL) 157 H (75-99) mg/dL Calcium 8.0 L (8.4-10.2) mg/dL Total Protein 4.4 L (6.3-8.2) g/dL Albumin 1.7 L (3.5-5.0) g/dL Crossmatch 10/01/19 10/01/19 Range/Units 09:16 11:22 RBC (3.80-5.40) m/uL Hgb (11.4-16.0) gm/dL Hct (34.0-46.0) % RDW (11.5-15.5) % Sodium (137-145) mmol/L Chloride (98-107) mmol/L BUN (7-17) mg/dL Creatinine (0.52-1.04) mg/dL POC Glucose (mg/dL) 118 H (75-99) mg/dL Calcium (8.4-10.2) mg/dL Total Protein (6.3-8.2) g/dL Albumin (3.5-5.0) g/dL Crossmatch See Detail Microbiology - Last 24 Hours (Table) 09/30/19 13:15 Urine Culture - Preliminary Urine,Catheterized Assessment and Plan Plan: #1 syncopal episode was followed and head trauma #2 multiple lacerations requiring multiple sutures on the head #3 underlying history of hypertension, maintained on multiple blood pressure medications #4 underlying history of diabetes mellitus #5 underlying history of Parkinson disease #6 underlying history of gout #7 underlying history of hyperlipidemia #8 evidence of dehydration with acute kidney injury #9 hyperkalemia, correcting #10 episodes of agitation yesterday a small dose of Seroquel was added to her regimen as needed #11 knee pain patient was seen by orthopedic surgery computed tomography scan of the knee was ordered #12 anemia patient received red blood cells during this admission, hemoglobin today again is down to 7.7, will check stools for Hemoccult, check iron and vitamin B12 and folate levels, consult gastroenterology. Patient is receiving IV iron supplements. #13 leukocytosis chest x-ray and urine analysis ordered consultation for infectious disease initiated. At this time patient was started on IV fluid normal saline at 50 mL an hour Will recheck labs including kidney function in a.m. Will check echocardiogram and carotid Doppler Home medications reviewed and reordered Kidney function is improving gradually Physical therapy and occupational therapy to increase mobility Will follow closely
[2019-10-01 16:29] LABS: Glucose,Whole Blood 87 mg/dL (75-99)
--- NOTE | 2019-10-01 16:38 | PN ---
PROGRESS NOTE DATE OF SERVICE: 10/01/2019 REASON FOR FOLLOWUP: Leukocytosis, possible UTI infection. INTERVAL HISTORY: The patient is currently afebrile, patient is breathing comfortably. Patient denies having any chest pain. No cough. No nausea, vomiting, abdominal pain or diarrhea. PHYSICAL EXAMINATION: Blood pressure 149/75 with a pulse of 72, temperature 97.9. She is 96% on room air. General description is an elderly female lying in bed in no distress. RESPIRATORY SYSTEM: Unlabored breathing, clear to auscultation anteriorly. HEART: S1, S2. Regular rate and rhythm. ABDOMEN: Soft, no tenderness. LABS: Hemoglobin is 6.8, white count of 10.1, BUN of 28, creatinine 1.34. Urine culture currently pending. DIAGNOSTIC IMPRESSION AND PLAN: Patient with leukocytosis, possibly due to urinary tract infection. She did have a positive UA. She has been started on Rocephin with the patient has tolerated, to continue while waiting for the culture to finalize, continue supportive care. MMODL / IJN: [id number] /
--- NOTE | 2019-10-01 20:23 | PN ---
PROGRESS NOTE DATE OF DICTATION: 10/01/2019 This patient is an 83-year-old pleasant white female admitted to the hospital with syncope and scalp injury, for which she underwent multiple sutures and is doing well. At the time of admission to the hospital she was noted to have anemia, with a hemoglobin of 6.8 requiring a unit of blood transfusion. During the hospitalization she did not have any further episodes of bleeding. She was doing well; however, yesterday her hemoglobin dropped again to 6.8 g/dL and we are re-consulted to evaluate this further. The patient denies any symptoms. She remains lethargic. Denies any abdominal pain. No nausea, no vomiting. No prior history of endoscopic workup in the past. Her last colonoscopy was about 5 years ago. PHYSICAL EXAMINATION: She looks tired, sleepy. Vital signs are stable. Blood pressure is 132/70, pulse rate 72, temperature 98.1. HEENT examination unremarkable. Conjunctivae pink. Sclerae anicteric. Oral cavity no lesions. NECK: No JVD or lymph node enlargement. CHEST: Clear to auscultation. HEART: Regular rate and rhythm. ABDOMEN: Soft. Bowel sounds are positive. No organomegaly. EXTREMITIES: No pedal edema. SKIN: No rashes. NEUROLOGIC: She is awake and answered questions appropriately. LABS: WBC is 10.1, hemoglobin 6.9, platelets normal. Basic metabolic panel is within normal limits. BUN 28, creatinine 1.34. IMPRESSION: 1. Severe symptomatic anemia with drop in hemoglobin to 6.8 g/dL. Clinically no evidence of active bleeding, status post 2 units of blood transfusion since being in the hospital. Her last colonoscopy was 5 years ago, which was unremarkable. At this time the possibility of acute GI blood loss cannot be ruled out. Other etiologies of anemia such as chronic kidney disease need to be considered. 2. Episode of syncope prior to hospitalization, which has resolved. 3. Scalp laceration, healing nicely. RECOMMENDATIONS: I had a discussion with the patient's family regarding further workup of anemia. Recommended EGD and colonoscopy. The patient and family are agreeable to it. Will schedule her for tomorrow. In the meantime, agree with one unit of PRBC transfusion. Will monitor CBC on a daily basis and follow with you closely. Thank you for this consultation. MMODL / IJN: [id number] /
[2019-10-01 20:34] LABS: Glucose,Whole Blood 85 mg/dL (75-99)
[2019-10-01] MEDS: traZODone HCL 50 MG TAB PO SCH (21:29)
[2019-10-01] MEDS: ATORVASTATIN 40 MG TAB PO SCH (21:36)
[2019-10-02] MEDS: SODIUM CHLORIDE 0.9% 1,000 ML IV SCH ×2 (02:40→21:21)
[2019-10-02] MEDS: hydrALAZINE HCL 25 MG TAB PO SCH ×2 (06:13→15:54)
[2019-10-02 06:53] LABS: Glucose,Whole Blood 86 mg/dL (75-99)
[2019-10-02] MEDS ORDERED: PROPOFOL 10 MG/ML 20 ML VIAL IV ONE (08:12)
[2019-10-02] MEDS ORDERED: LIDOCAINE 1% INJ 10MG/ML (20 ML MDV) ONE (08:12)
[2019-10-02 08:21] LABS: Basophils % (A) 0 %; Eosinophils # (A) 0.3 k/uL (0-0.7); Eosinophils % (A) 3 %; HCT 27.6 % (34.0-46.0); Lymphocytes # (A) 1.5 k/uL (1.0-4.8); Lymphocytes % (A) 16 %; MCH 30.4 pg (25.0-35.0); MCHC 32.7 g/dL (31.0-37.0); MCV 92.8 fL (80.0-100.0); Mean Platelet Volume 8.2; Monocytes # (A) 1.1 k/uL (0-1.0); Monocytes % (A) 12 %; Neutrophils # (A) 6.2 k/uL (1.3-7.7); Neutrophils % (A) 66 %; Platelet Count 261 k/uL (150-450); Poikilocytosis Slight; RBC 2.97 m/uL (3.80-5.40); RDW 15.9 % (11.5-15.5); WBC 9.4 k/uL (3.8-10.6)
[2019-10-02 08:39] LABS: Calcium 8.2 mg/dL (8.4-10.2); Potassium 4.1 mmol/L (3.5-5.1)
[2019-10-02] MEDS ORDERED: SODIUM CHLORIDE 0.9% 500 ML 500 ML IV ONE (08:44)
--- NOTE | 2019-10-02 08:44 | P.PCN ---
Date of Procedure: 10/02/19 Procedure(s) Performed: BRIEF HISTORY: Patient is a 83-year-old, pleasant, white female admitted hospital with syncope and severe anemia with hemoglobin 6.8 g/dL requiring 2 units of blood transfusion.. He denies any active GI bleeding. Questionable dark colored stools. She is hence scheduled for an upper endoscopy as well as colonoscopy today. However she did not complete her colonoscopy prep. PROCEDURE PERFORMED: Esophagogastroduodenoscopy with biopsy. PREOPERATIVE DIAGNOSIS: Severe symptomatic anemia and dark stools. IV sedation per anesthesia. PROCEDURE: After informed consent was obtained, the patient was brought into the endoscopy unit. IV sedation was administered by Anesthesia under continuous monitoring. Initially the Olympus GIF-140 video endoscope was inserted into the mouth. Esophagus intubated without any difficulty. It was gradually advanced into the stomach and duodenum and carefully examined. The bulb and the second part of the duodenum appeared normal. The scope at this time was withdrawn to the stomach, adequately insufflated with air, and upon careful examination, mucosa of the antrum, body, had small gastric polyps which were biopsied. The cardia and the fundus appeared normal. The scope was then withdrawn into the esophagus. A small sliding Hiatal hernia noted. The GE junction was located at 39 cm from the incisors. The esophagus appeared normal. There were no erosions or ulcerations seen and the patient tolerated the procedure well. IMPRESSION: 1. Small gastric polyps. 2. Small sliding type hiatal hernia. RECOMMENDATIONS: The findings of this examination were discussed with the patient. Since no obvious findings noted an upper endoscopy, she'll be scheduled for colonoscopy tomorrow..
[2019-10-02] MEDS: CALCIUM CARBONATE 500 MG CHEWABLE PO SCH (09:24)
[2019-10-02] MEDS: glipiZIDE 5 MG TAB PO SCH (09:24)
[2019-10-02] MEDS: ALLOPURINOL 100 MG TAB PO SCH (09:24)
[2019-10-02] MEDS: QUEtiapine 25 MG TAB PO SCH ×2 (09:25→21:09)
[2019-10-02] MEDS: LOSARTAN 50 MG TAB PO SCH (09:25)
[2019-10-02] MEDS: HYDROCHLOROTHIAZIDE 12.5 MG CAP PO SCH (09:26)
[2019-10-02] MEDS: CHOLECALCIFEROL 1,000 UNIT TAB PO SCH (09:26)
[2019-10-02] MEDS: SENNOSIDES-DOCUSATE SODIUM 1 EACH TAB PO SCH ×2 (09:26→21:09)
[2019-10-02] MEDS: MULTIVITAMINS, THERA 1 EACH TAB PO SCH (09:26)
[2019-10-02] MEDS: PANTOPRAZOLE 40 MG/10 ML VIAL IVP SCH ×2 (09:26→21:09)
[2019-10-02] MEDS: ALPRAZolam 0.25 MG TAB PO SCH ×2 (09:26→21:09)
[2019-10-02] MEDS: PRIMIDONE 50 MG TAB PO SCH ×3 (09:26→21:09)
[2019-10-02] MEDS: CARBIDOPA-LEVODOPA 25-250 MG 1 EACH TAB PO SCH ×3 (09:26→21:10)
[2019-10-02] MEDS: ISOSORBIDE MONONITRATE ER 30 MG TAB.ER.24H PO SCH (09:26)
[2019-10-02] MEDS: PROPRANOLOL 20 MG TAB PO SCH ×3 (09:26→17:08)
[2019-10-02] MEDS: BACITRACIN 500 UNIT/GM OINT 28.4 GM TUBE TOPICAL SCH ×2 (09:31→21:10)
[2019-10-02] MEDS: ENOXAPARIN 40 MG/0.4 ML SYRINGE SQ SCH (09:31)
[2019-10-02 11:30] LABS: Glucose,Whole Blood 106 mg/dL (75-99)
[2019-10-02] MEDS: SODIUM FERRIC GLUCONAT-SUCROSE 125 MG in SODIUM CHLORIDE 0.9% 100 ML IVPB SCH (12:59)
[2019-10-02] MEDS: AZITHROMYCIN 500 MG in SODIUM CHLORIDE 0.9% 250 ML IVPB SCH (14:13)
[2019-10-02] MEDS ORDERED: PEG 3350-NA SULF,BICARB,CL/KCL 4,000 ML BOTTLE PO ONE (15:00)
--- NOTE | 2019-10-02 15:32 | P.PN ---
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 dyslipidemia and Electrolyte imbalance with hyperkalemia 10/02/2019, patient seen eval examined, still under affect of anesthetic medication for endoscopy, breathing comfortably, white cell count is down to 9400 hemoglobin is up to 9.0, patient is afebrile with stable hemodynamics saturation is 95% room air,, endoscopy finding reviewed small gastric polyp and sliding hiatal hernia, status post biopsy results pending This patient is a 83-year-old female admitted at [facility] for syncopal episode status post fall with head injury requiring multiple sutures of the scalp, patient was evaluated for intracranial hemorrhage found to be negative on computed tomography scan, cardiology is following for syncopal episode workup so far has been negative, patient noted to have elevated d-dimer was placed on Lovenox, duplex ultrasound of the lower extremity and VQ scan was performed computed tomography scan cannot be done due to elevated creatinine, the VQ scan was low probability no significant DVT was seen, patient has been placed on low- dose Lovenox for DVT prophylaxis, patient's hemoglobin dropped to 6.9 being eval by GI services considered for possible scope she is at room air breathing comfortably denies any chest pain chest x-ray on September 28 revealed right perihilar and lower lobe infiltrate along with bilateral pleural effusion, patient white cell count went up to 12, patient has been on Rocephin along with Zithromax second day of therapy, I was asked to evaluate further, patient unable to give a detailed history, patient has been afebrile all along with normal hemodynamics Objective - Vital Signs Vital signs: Vital Signs Temp 98.0 F 10/02/19 14:58 Pulse 71 10/02/19 14:58 Resp 20 10/02/19 14:58 BP 156/68 10/02/19 14:58 Pulse Ox 95 10/02/19 14:58 Intake & Output 10/01/19 10/02/19 10/02/19 18:59 06:59 18:59 Intake Total 560 200 Output Total 6739 725 Balance 983 -7471 -364 Weight 81.647 kg Intake: IV 200 Intake, IV Titration 50 Amount cefTRIAXone 1 gm In 50 Sodium Chloride 0.9% 50 ml @ 100 mls/hr IVPB Q24HR [facility] Rx#:[id number] Oral 200 Blood Product 310 Rc As-1 Unit 310 [id number] Output: Urine 1275 725 Other: Voiding Method Diaper Indwelling Catheter Indwelling Catheter Incontinent # Voids 0 0 # Bowel Movements 1 - Exam - Constitutional General appearance: average body habitus, cooperative, disheveled - EENT Eyes: PERRLA Ears: bilateral: normal - Neck Neck: normal ROM Carotids: bilateral: upstroke normal - Respiratory Respiratory: bilateral: diminished - Cardiovascular Rhythm: regular Heart sounds: normal: S1, S2 - Gastrointestinal General gastrointestinal: normal bowel sounds - Neurologic Neurologic: CNII-XII intact - Musculoskeletal Musculoskeletal: generalized weakness, strength equal bilaterally - Psychiatric Psychiatric: A&O x's 3, appropriate affect, intact judgment & insight - Labs CBC & Chem 7: 10/02/19 07:55 10/02/19 07:55 Labs: Abnormal Lab Results - Last 24 Hours (Table) 10/01/19 10/02/19 10/02/19 Range/Units 09:16 07:55 07:55 RBC 2.97 L (3.80-5.40) m/uL Hgb 9.0 L D (11.4-16.0) gm/dL Hct 27.6 L (34.0-46.0) % RDW 15.9 H (11.5-15.5) % Monocytes # 1.1 H (0-1.0) k/uL Sodium 136 L (137-145) mmol/L BUN 27 H (7-17) mg/dL Creatinine 1.19 H (0.52-1.04) mg/dL POC Glucose (mg/dL) (75-99) mg/dL Calcium 8.2 L (8.4-10.2) mg/dL Crossmatch See Detail 10/02/19 Range/Units 11:28 RBC (3.80-5.40) m/uL Hgb (11.4-16.0) gm/dL Hct (34.0-46.0) % RDW (11.5-15.5) % Monocytes # (0-1.0) k/uL Sodium (137-145) mmol/L BUN (7-17) mg/dL Creatinine (0.52-1.04) mg/dL POC Glucose (mg/dL) 106 H (75-99) mg/dL Calcium (8.4-10.2) mg/dL Crossmatch Microbiology - Last 24 Hours (Table) 09/30/19 13:15 Urine Culture - Final Urine,Catheterized 09/30/19 15:18 Blood Culture - Preliminary Blood No Growth after 24 hours Assessment and Plan Assessment: Right lower lobe pneumonia Severe symptomatic anemia Syncopal episode likely related to above Head trauma status post laceration repair Past medical history of hypertension 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 Further recommendations pending agree with endoscopy Time with Patient: Greater than 30
[2019-10-02 16:36] LABS: Glucose,Whole Blood 66 mg/dL (75-99)
--- NOTE | 2019-10-02 17:22 | P.GSCN ---
History of Present Illness Consult date: 10/02/19 Reason for Consult: Urinary retention Requesting physician: Rodrigo Dc History of present illness: The patient is an 83-year-old white female admitted 09/20/2019 following a syncopal episode which resulted in her falling and sustaining scalp lacerations. She was found to be anemic and has dark stools. EGD today was unremarkable, so she is scheduled to undergo colonoscopy tomorrow. She was straight catheterized multiple times yesterday for urinary retention, and ultimately a Carlos catheter was placed. She is a vague historian and is unable to provide any relevant urologic history. Review of Systems - Constitutional Denies chills, Denies fever - Gastrointestinal Denies nausea, Denies vomiting - Genitourinary Genitourinary: Denies dysuria Past Medical History Past Medical History: Coronary Artery Disease (CAD), Chest Pain / Angina, Heart Failure, Dementia, Diabetes Mellitus, Deep Vein Thrombosis (DVT), Hyperlipidemia, Hypertension, Musculoskeletal Disorder, Neurologic Disorder, Osteoarthritis (OA), Pneumonia, Renal Disease Additional Past Medical History / Comment(s): viral enteritis, currently tx for pneumonia per pt, vertigo, falls-fell recently, NIDDM type II, CKD stage IV, early onset parkinson's dx, Oa multiple joints, back pain, gout in great toe bilateral feet, cataract. 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 Other HX: 1989 PTCA main cx, 1996 PCI with stent to OM, 2010 PCI with stent to LAD, EGD/colonoscopy, bilateral total knees, varicose veing stripping bilaterally. Past Anesthesia/Blood Transfusion Reactions: Postoperative Nausea & Vomiting (PONV) Date of Last Stent Placement:: 09/05/16 Past Psychological History: No Psychological Hx Reported Additional Psychological History / Comment(s): Pt is currently living at [facility] with her . Pt's gait is unsteady and she has been falling. uses a walker. Smoking Status: Former smoker Past Alcohol Use History: None Reported Past Drug Use History: None Reported - Past Family History Father Family Medical History: Dementia Additional Family Medical History / Comment(s): Father had dementia and he shot himself. Mother Family Medical History: Cancer, CVA/TIA Additional Family Medical History / Comment(s): bowel ca Medications and Allergies Home Medications Medication Instructions Recorded Confirmed Type Cholecalciferol [Vitamin D3 (25 1,000 unit PO DAILY 11/16/14 09/20/19 History Mcg = 1000 Iu)] Multivitamins, Thera [Multivitamin 1 tab PO DAILY 11/16/14 09/20/19 History (formulary)] Calcium Carbonate [Calcium] 600 mg PO DAILY 09/05/16 09/20/19 History Febuxostat [Uloric] 40 mg PO DAILY 09/05/16 09/20/19 History Aspirin 81 mg PO DAILY #30 chew 09/06/16 09/20/19 Rx Nitroglycerin Sl Tabs [Nitrostat] 0.4 mg SUBLINGUAL Q5M PRN #25 tab 09/06/16 09/20/19 Rx ALPRAZolam [Xanax] 0.25 mg PO HS@199912/19/16 09/20/19 History Isosorbide Mononitrate ER [Imdur] 30 mg PO DAILY 12/19/16 09/20/19 History Sennosides-Docusate Sodium 1 tab PO DAILY 03/20/17 09/20/19 History [Senokot-S] cloNIDine HCL [Catapres] 0.2 mg PO Q8H PRN 03/20/17 09/20/19 History Acetaminophen [Tylenol] 650 mg PO Q6H PRN 09/20/19 09/20/19 History Atorvastatin [Lipitor] 20 mg PO HS 09/20/19 09/20/19 History Bisacodyl [Dulcolax] 10 mg RECTAL DAILY PRN 09/20/19 09/20/19 History Carbidopa-Levodopa 25-100 mg 1 tab PO TID@0800,1200,1930 09/20/19 09/20/19 History [Sinemet 25-100] Ferrous Sulfate [Feosol] 325 mg PO HS 09/20/19 09/20/19 History Polyethylene Glycol 3350 [Miralax] 17 gm PO DAILY PRN 09/20/19 09/20/19 History Promethazine [Phenergan] 25 mg PO BID PRN 09/20/19 09/20/19 History Propranolol [Inderal] 20 mg PO TID@0800,1200,1800 09/20/19 09/20/19 History QUEtiapine [SEROquel] 50 mg PO HS 09/20/19 09/20/19 History amLODIPine [Norvasc] 5 mg PO DAILY 09/20/19 09/20/19 History hydrALAZINE HCL 10 mg PO TID@0800,1300,2000 09/20/19 09/20/19 History Allergies Allergy/AdvReac Type Severity Reaction Status Date / Time Iodinated Contrast Media Allergy Swelling/Ra Verified 09/20/19 11:23 [Iodinated Contrast Media - sh Oral and] morphine Allergy Unknown Verified 09/20/19 11:23 Penicillins Allergy Swelling/Ra Verified 09/20/19 11:23 sh Surgical - Exam Vital Signs Temp Pulse Resp BP Pulse Ox 97.5 F L 75 18 166/84 98 09/19/19 19:53 09/19/19 19:53 09/19/19 19:53 09/19/19 19:53 09/19/19 19:53 - General well developed, well nourished, no distress - Respiratory normal respiratory effort - Abdomen Abdomen: soft, non tender, no guarding, no rigid, no rebound Results - Labs 10/02/19 07:55 10/02/19 07:55 Abnormal Lab Results - Last 24 Hours (Table) 10/01/19 10/02/19 10/02/19 Range/Units 09:16 07:55 07:55 RBC 2.97 L (3.80-5.40) m/uL Hgb 9.0 L D (11.4-16.0) gm/dL Hct 27.6 L (34.0-46.0) % RDW 15.9 H (11.5-15.5) % Monocytes # 1.1 H (0-1.0) k/uL Sodium 136 L (137-145) mmol/L BUN 27 H (7-17) mg/dL Creatinine 1.19 H (0.52-1.04) mg/dL POC Glucose (mg/dL) (75-99) mg/dL Calcium 8.2 L (8.4-10.2) mg/dL Crossmatch See Detail 10/02/19 Range/Units 11:28 RBC (3.80-5.40) m/uL Hgb (11.4-16.0) gm/dL Hct (34.0-46.0) % RDW (11.5-15.5) % Monocytes # (0-1.0) k/uL Sodium (137-145) mmol/L BUN (7-17) mg/dL Creatinine (0.52-1.04) mg/dL POC Glucose (mg/dL) 106 H (75-99) mg/dL Calcium (8.4-10.2) mg/dL Crossmatch Microbiology - Last 24 Hours (Table) 09/30/19 13:15 Urine Culture - Final Urine,Catheterized 09/30/19 15:18 Blood Culture - Preliminary Blood No Growth after 24 hours Diabetes panel 10/02/19 Range/Units 07:55 Sodium 136 L (137-145) mmol/L Potassium 4.1 (3.5-5.1) mmol/L Chloride 107 (98-107) mmol/L Carbon Dioxide 24 (22-30) mmol/L BUN 27 H (7-17) mg/dL Creatinine 1.19 H (0.52-1.04) mg/dL Glucose 76 (74-99) mg/dL Calcium 8.2 L (8.4-10.2) mg/dL Calcium panel 10/02/19 Range/Units 07:55 Calcium 8.2 L (8.4-10.2) mg/dL Pituitary panel 10/02/19 Range/Units 07:55 Sodium 136 L (137-145) mmol/L Potassium 4.1 (3.5-5.1) mmol/L Chloride 107 (98-107) mmol/L Carbon Dioxide 24 (22-30) mmol/L BUN 27 H (7-17) mg/dL Creatinine 1.19 H (0.52-1.04) mg/dL Glucose 76 (74-99) mg/dL Calcium 8.2 L (8.4-10.2) mg/dL Adrenal panel 10/02/19 Range/Units 07:55 Sodium 136 L (137-145) mmol/L Potassium 4.1 (3.5-5.1) mmol/L Chloride 107 (98-107) mmol/L Carbon Dioxide 24 (22-30) mmol/L BUN 27 H (7-17) mg/dL Creatinine 1.19 H (0.52-1.04) mg/dL Glucose 76 (74-99) mg/dL Calcium 8.2 L (8.4-10.2) mg/dL Assessment and Plan (1) Bladder retention Current Visit: Yes Status: Acute Code(s): R33.9 - RETENTION OF URINE, UNSPECIFIED SNOMED Code(s): 752433529 Plan: Would leave Carlos catheter in for the time being. Await colonoscopy. Following that, it would be reasonable to give the patient another voiding trial. I am reluctant to prescribe tamsulosin in view of her recent syncopal episode. She is unfortunately not a candidate for intermittent self-catheterization if she is found to be in chronic urinary retention. Time with Patient: Less than 30
--- NOTE | 2019-10-02 18:00 | P.PN ---
Subjective Progress Note Date: 10/02/19 Ирина Rizvi is an 83-year-old female, well-known to my practice, who presented to [facility] emergency room after having a syncopal episode with fall and head injury requiring multiple sutures to the scalp. Patient stated that she was walking to the bathroom with her walker with the help of an aid when she felt dizzy and passed out and fell and hit her head on the toilet patient was having significant laceration with bleeding EMS were called and patient was brought into emergency room. Patient estimated that she was unconscious for several minutes. In the emergency room patient was treated for her lacerations, computed tomography scan of the brain was done and did not reveal any evidence of intracranial bleeding, patient was admitted to telemetry floor for further evaluation and treatment. Laboratory data revealed evidence of dehydration was acute kidney injury BUN was elevated at 14 and creatinine at 1.53 which is higher than her baseline. Potassium was elevated at 5.5 blood pressure is elevated patient is maintained on multiple blood pressure medications. Echocardiogram and carotid Doppler were ordered cardiology consultation was requested regarding syncopal episode. On 09/21/2019 patient was seen and examined on the medical floor she is alert and oriented 3 in no apparent distress there is no fever or chills no headache or dizziness no chest pain no shortness of breath no cough no nausea or vomiting no abdominal pain no diarrhea no burning with urination no frequency or urgency and no hematuria. D-dimer ordered by cardiology was elevated, at this time will start full dose of subcu Lovenox, will check lower extremity Doppler and VQ scan to rule out pulmonary embolism, CT angiogram of the chest cannot be done due to elevated creatinine. On 09/22/2019 patient was seen and examined on the medical floor she is alert and oriented 3 in no apparent distress she is complaining of knee pain and was seen by orthopedic surgery in that regard, d-dimer was elevated, she was started yesterday on full dose of subcu Lovenox, today bilateral lower extremity Doppler was negative, and VQ scan was low probability for pulmonary embolism, dose of Lovenox will be decreased to 30 mg subcu once daily, hemoglobin today is low at 6.8 patient will receive 1 unit of red blood cell transfusion will recheck labs in a.m.. On 09/23/2019 patient was seen and examined on the medical floor she is alert and oriented 3 in no distress she is still complaining of knee pain otherwise she denies any complaints at this time there is no fever or chills no headache or dizziness no chest pain no shortness of breath no cough no nausea or vomiting no abdominal pain no diarrhea and no urinary symptoms. Patient is being evaluated by cardiology in regard to syncope and collapse. On 09/24/2019 patient was seen and examined on the medical floor she is alert and oriented 3 in no apparent distress she is complaining of right knee pain, she is and able to stand or walk at this time otherwise she denies any complaint there is no fever or chills no headache or dizziness no chest pain no shortness of breath no cough no nausea or vomiting no abdominal pain no diarrhea and no urinary symptoms On 09/25/2019 patient was seen and examined on the medical floor patient is al ert slightly confused in no apparent distress there is no fever or chills no headache or dizziness no chest pain no shortness of breath no cough no nausea or vomiting no abdominal pain no diarrhea and no urinary symptoms, patient has not been cooperating with nursing staff with taking her pills or eating, physical therapy are coming but she has not been cooperating. Hemoglobin today is down to 7.7 On 09/26/2019 patient was seen and examined on the medical floor patient is alert but confused there is no fever or chills no headache or dizziness no chest pain no shortness of breath no cough no nausea or vomiting no abdominal pain no diarrhea and no urinary symptoms, patient has not been cooperating with nursing staff with taking her pills or eating, physical therapy are coming but she has not been cooperating. Hemoglobin today is down to 7.6 awaiting gastroenterology consult On 09/27/2019 patient was seen and examined on the medical floor she is alert, confused, in no apparent distress hemoglobin is down to 7.5 patient has low iron level she received 1 dose of Venofer yesterday we will give 1 more dose today and recheck CBC in a.m. patient is denying any complaints at this time. On 09/28/2019 patient was seen and examined on the medical floor she is alert confused in no apparent distress hemoglobin is up to 7.7 after 2 IV doses of Venofer, patient has been complaining of generalized weakness and pain in the lower extremities she has not been working with physical therapy, otherwise there is no complaints there is no fever or chills no headache or dizziness no chest pain no shortness of breath no cough no nausea or vomiting no abdominal pain no diarrhea and no urinary symptoms. On 09/29/2019 patient was seen and examined on the medical floor she is more alert today, there is no fever or chills no headache or dizziness no chest pain no shortness of breath no cough no nausea or vomiting no abdominal pain no diarrhea and no urinary symptoms hemoglobin is up to 8.4 white blood count however has increased to 12.1. At this time will check chest x-ray portable urine analysis, will remove sutures from scalp will recheck labs in a.m. On 09/30/2019 patient was seen and examined on the medical floor she is alert and responsive in no apparent distress, vitals are stable with temperature of 97.7 pulse 77 respiration 20 and blood pressure 145/69 she is complaining of generalized pain and discomfort she has not been working with physical therapy and has been mostly bed bound there is no fever or chills no headache or dizziness no chest pain no shortness of breath no cough no nausea or vomiting no abdominal pain no diarrhea and no urinary symptoms, white blood count is up chest x-ray was ordered yesterday and urine analysis was ordered. On 10/01/2019 patient was seen and examined on the medical floor she is somnolent but arousable in no apparent distress hemoglobin was down to 6.9 today 1 unit of red blood cell transfusion was ordered patient is followed by gastroenterology and they were notified of recent drop in hemoglobin, otherwise patient is stable and there is no fever or chills no headache or dizziness no chest pain no shortness of breath no cough no nausea or vomiting no abdominal pain no diarrhea and no urinary symptoms On 10/02/2019 patient was seen and examined on the medical floor she is alert, responsive in no distress she is complaining of generalized pain and discomfort otherwise no specific complaints. Patient has high residual urine in the bladder, phelps catheter inserted and urology consult initiated. Objective - Vital Signs Vital signs: Vital Signs Temp 98.0 F 10/02/19 14:58 Pulse 71 10/02/19 14:58 Resp 20 10/02/19 14:58 BP 156/68 10/02/19 14:58 Pulse Ox 95 10/02/19 14:58 Intake & Output 10/01/19 10/02/19 10/02/19 18:59 06:59 18:59 Intake Total 560 1100 Output Total 1275 1375 Balance 560 -1275 -275 Weight 81.647 kg Intake: IV 200 Intake, IV Titration 50 500 Amount Azithromycin 500 mg In 250 Sodium Chloride 0.9% 250 ml @ 250 mls/hr IVPB Q24H [facility] Rx#:[id number] Sodium Chloride 0.9% 1, 100 000 ml @ 20 mls/hr IV . Q24H [facility] Rx#:[id number] Sodium Ferric Gluconat- 100 Sucrose 125 mg In Sodium Chloride 0.9% 100 ml @ 100 mls/hr IVPB DAILY@ 1200 [facility] Rx#:[id number] cefTRIAXone 1 gm In 50 50 Sodium Chloride 0.9% 50 ml @ 100 mls/hr IVPB Q24HR [facility] Rx#:[id number] Oral 200 400 Blood Product 310 Rc As-1 Unit 310 [id number] Output: Urine 1275 1375 Coude 650 Other: Voiding Method Diaper Indwelling Catheter Indwelling Catheter Incontinent # Voids 0 0 # Bowel Movements 1 - Exam In general patient is alert and oriented 3 in no apparent distress answering questions appropriately HEENT head normocephalic without multiple bruises and large laceration on the scalp with multiple sutures Neck is supple no JVD no goiter no lymphadenopathy Chest exam reveals a few scattered rhonchi no wheezing Cardiac exam reveals regular heart sounds S1 and S2 with 2/6 systolic murmur in the left sternal border Abdomen is soft nontender no organomegaly with normal bowel sounds Extremity exam reveals no edema no cyanosis or clubbing Neurological examination reveals no gross focal deficit - Labs CBC & Chem 7: 10/02/19 07:55 10/02/19 07:55 Labs: Abnormal Lab Results - Last 24 Hours (Table) 10/02/19 10/02/19 10/02/19 Range/Units 07:55 07:55 11:28 RBC 2.97 L (3.80-5.40) m/uL Hgb 9.0 L D (11.4-16.0) gm/dL Hct 27.6 L (34.0-46.0) % RDW 15.9 H (11.5-15.5) % Monocytes # 1.1 H (0-1.0) k/uL Sodium 136 L (137-145) mmol/L BUN 27 H (7-17) mg/dL Creatinine 1.19 H (0.52-1.04) mg/dL POC Glucose (mg/dL) 106 H (75-99) mg/dL Calcium 8.2 L (8.4-10.2) mg/dL 10/02/19 Range/Units 16:34 RBC (3.80-5.40) m/uL Hgb (11.4-16.0) gm/dL Hct (34.0-46.0) % RDW (11.5-15.5) % Monocytes # (0-1.0) k/uL Sodium (137-145) mmol/L BUN (7-17) mg/dL Creatinine (0.52-1.04) mg/dL POC Glucose (mg/dL) 66 L (75-99) mg/dL Calcium (8.4-10.2) mg/dL Microbiology - Last 24 Hours (Table) 09/30/19 15:18 Blood Culture - Preliminary Blood No Growth after 48 hours 09/30/19 13:15 Urine Culture - Final Urine,Catheterized Assessment and Plan Plan: #1 syncopal episode was followed and head trauma #2 multiple lacerations requiring multiple sutures on the head #3 underlying history of hypertension, maintained on multiple blood pressure medications #4 underlying history of diabetes mellitus #5 underlying history of Parkinson disease #6 underlying history of gout #7 underlying history of hyperlipidemia #8 evidence of dehydration with acute kidney injury #9 hyperkalemia, correcting #10 episodes of agitation yesterday a small dose of Seroquel was added to her regimen as needed #11 knee pain patient was seen by orthopedic surgery computed tomography scan of the knee was ordered #12 anemia patient received red blood cells during this admission, hemoglobin today again is down to 7.7, will check stools for Hemoccult, check iron and vitamin B12 and folate levels, consult gastroenterology. Patient is receiving IV iron supplements. #13 leukocytosis chest x-ray and urine analysis ordered consultation for infectious disease initiated. At this time patient was started on IV fluid normal saline at 50 mL an hour Will recheck labs including kidney function in a.m. Will check echocardiogram and carotid Doppler Home medications reviewed and reordered Kidney function is improving gradually Physical therapy and occupational therapy to increase mobility Will follow closely
[2019-10-02 18:01] LABS: Glucose,Whole Blood 163 mg/dL (75-99)
[2019-10-02 20:55] LABS: Glucose,Whole Blood 210 mg/dL (75-99)
[2019-10-02] MEDS: traZODone HCL 50 MG TAB PO SCH (21:09)
[2019-10-02] MEDS: ATORVASTATIN 40 MG TAB PO SCH (21:10)
--- NOTE | 2019-10-02 21:42 | PN ---
PROGRESS NOTE DATE OF SERVICE: 10/02/2019 REASON FOR FOLLOWUP: Urinary tract infection and a question of pneumonia. INTERVAL HISTORY: The patient is currently afebrile. The patient is sleepy and lethargic though denies having any chest pain or cough. No abdominal pain or any diarrhea. She seemed to have a problem with urinary retention yesterday, requiring Carlos catheter placement. PHYSICAL EXAMINATION: Blood pressure 156/68 with a pulse of 71, temperature 98. She is 95% on room air. General description is an elderly female lying in bed in no distress. RESPIRATORY SYSTEM: Unlabored breathing. Clear to auscultation anteriorly. HEART: S1, S2. Regular rate and rhythm. ABDOMEN: Soft. No tenderness. LABS: Hemoglobin is 9, white count 9.4, BUN of 27, creatinine 1.19. DIAGNOSTIC IMPRESSION AND PLAN: Patient with leukocytosis, likely multifactorial with a component of urinary tract infection in this patient who did have urinary retention requiring Carlos catheter placement. The patient's white count responded to Rocephin; to continue while monitoring clinical course closely. Continue with supportive care. MMODL / IJN: [id number] /
[2019-10-03] MEDS: ACETAMINOPHEN TAB 325 MG TAB PO PRN (00:21)
[2019-10-03] MEDS: hydrALAZINE HCL 25 MG TAB PO SCH ×2 (03:23→15:51)
[2019-10-03 06:50] LABS: Glucose,Whole Blood 90 mg/dL (75-99)
[2019-10-03] MEDS ORDERED: PROPOFOL 10 MG/ML 20 ML VIAL IV ONE (08:03)
[2019-10-03] MEDS ORDERED: IV FLUID CONTINUATION 1,000 ML IV ONE (08:11)
--- NOTE | 2019-10-03 08:34 | P.PCN ---
Date of Procedure: 10/03/19 Procedure(s) Performed: BRIEF HISTORY: Patient is a 83-year-old pleasant white female admitted hospital with syncope and upon and was noted to have anemia requiring 2 units of blood transfusion. She had some dark colored stool. She underwent an upper endoscopy as stated that showed mild gastritis. She is scheduled for colonoscopy today. PROCEDURE PERFORMED: Colonoscopy polypectomy . PREOPERATIVE DIAGNOSIS: Anemia and black stool IV sedation per Anesthesia. PROCEDURE: After informed consent was obtained, the patient, was brought into the endoscopy unit. IV sedation was administered by Anesthesia under continuous monitoring. Digital rectal examination was normal. Initially the Olympus CF-160 flexible video colonoscope was then inserted in the rectum, gradually advanced into the cecum without any difficulty. Careful examination was performed as the scope was gradually being withdrawn. Ileocecal valve and the appendiceal orifice were visualized and appeared normal. Prep was excellent. Mucosa of the cecum, appeared normal. Ascending colon there were 2 polyps measuring 5 mm in size both of which were removed by snare polypectomy. Rest of the ascending colon, transverse colon, descending colon, sigmoid colon, and rectum appeared normal. Scattered left-sided diverticulosis. Retroflexion was performed in the rectum and small internal hemorrhoidsere seen. The patient tolerated the procedure well. IMPRESSION: 5 mm 2 sessile ascending colon polyp status post polypectomy Moderate left sided diverticulosis Small internal hemorrhoids RECOMMENDATIONS: Findings of this examination were discussed with the patient. She was advised to follow with the biopsy results. Diet will be advanced as tolerated.
--- NOTE | 2019-10-03 08:50 | XR ---
EXAMINATION TYPE: XR chest 1V portable DATE OF EXAM: 10/03/2019 COMPARISON: Prior chest x-ray 09/29/2019 HISTORY: Pneumonia TECHNIQUE: Single frontal view of the chest is obtained. FINDINGS: Bibasilar airspace disease obscures the hemidiaphragms. Heart is enlarged. Aorta is dense. Paratracheal density is stable on the right. No evident pneumothorax. Bandlike area of increased att enuation in the right midlung is again seen. IMPRESSION: Correlate for pneumonia, effusions, atelectasis versus edema.
[2019-10-03] MEDS: CHOLECALCIFEROL 1,000 UNIT TAB PO SCH (09:27)
[2019-10-03] MEDS: MULTIVITAMINS, THERA 1 EACH TAB PO SCH (09:27)
[2019-10-03] MEDS: CARBIDOPA-LEVODOPA 25-250 MG 1 EACH TAB PO SCH ×3 (09:27→20:52)
[2019-10-03] MEDS: ISOSORBIDE MONONITRATE ER 30 MG TAB.ER.24H PO SCH (09:27)
[2019-10-03] MEDS: PANTOPRAZOLE 40 MG/10 ML VIAL IVP SCH ×2 (09:27→20:51)
[2019-10-03] MEDS: ALPRAZolam 0.25 MG TAB PO SCH (09:27)
[2019-10-03] MEDS: PROPRANOLOL 20 MG TAB PO SCH ×3 (09:27→15:51)
[2019-10-03] MEDS: CALCIUM CARBONATE 500 MG CHEWABLE PO SCH (09:27)
[2019-10-03] MEDS: QUEtiapine 25 MG TAB PO SCH ×2 (09:27→20:52)
[2019-10-03] MEDS: PRIMIDONE 50 MG TAB PO SCH ×3 (09:28→20:51)
[2019-10-03] MEDS: HYDROCHLOROTHIAZIDE 12.5 MG CAP PO SCH (09:28)
[2019-10-03] MEDS: ALLOPURINOL 100 MG TAB PO SCH (09:28)
[2019-10-03] MEDS: BACITRACIN 500 UNIT/GM OINT 28.4 GM TUBE TOPICAL SCH ×2 (09:28→20:52)
[2019-10-03] MEDS: ENOXAPARIN 40 MG/0.4 ML SYRINGE SQ SCH (09:28)
[2019-10-03] MEDS: LOSARTAN 50 MG TAB PO SCH (09:28)
[2019-10-03] MEDS: glipiZIDE 5 MG TAB PO SCH (09:28)
[2019-10-03] MEDS: SENNOSIDES-DOCUSATE SODIUM 1 EACH TAB PO SCH ×2 (09:37→20:52)
[2019-10-03 10:18] LABS: Albumin 2.2 g/dL (3.5-5.0); Calcium 8.3 mg/dL (8.4-10.2); Potassium 3.6 mmol/L (3.5-5.1); Total Bilirubin 0.3 mg/dL (0.2-1.3); Total Protein 5.5 g/dL (6.3-8.2)
[2019-10-03 11:04] LABS: Anisocytosis Slight; Basophils % (A) 0 %; Eosinophils # (A) 0.3 k/uL (0-0.7); Eosinophils % (A) 3 %; HCT 31.3 % (34.0-46.0); HGB 10.3 gm/dL (11.4-16.0); Lymphocytes # (A) 1.4 k/uL (1.0-4.8); Lymphocytes % (A) 16 %; MCH 30.8 pg (25.0-35.0); MCHC 33.1 g/dL (31.0-37.0); MCV 93.2 fL (80.0-100.0); Mean Platelet Volume 9.2; Monocytes # (A) 0.9 k/uL (0-1.0); Monocytes % (A) 10 %; Neutrophils # (A) 6.3 k/uL (1.3-7.7); Neutrophils % (A) 69 %; Platelet Count 182 k/uL (150-450); RBC 3.36 m/uL (3.80-5.40); RDW 16.1 % (11.5-15.5); WBC 9.1 k/uL (3.8-10.6)
[2019-10-03 11:14] LABS: Glucose,Whole Blood 136 mg/dL (75-99)
[2019-10-03] MEDS: SODIUM FERRIC GLUCONAT-SUCROSE 125 MG in SODIUM CHLORIDE 0.9% 100 ML IVPB SCH (12:04)
[2019-10-03] MEDS: AZITHROMYCIN 500 MG in SODIUM CHLORIDE 0.9% 250 ML IVPB SCH (15:50)
[2019-10-03 17:03] LABS: Glucose,Whole Blood 133 mg/dL (75-99)
--- NOTE | 2019-10-03 17:11 | P.PN ---
Subjective Progress Note Date: 10/03/19 Ирина Rizvi is an 83-year-old female, well-known to my practice, who presented to [facility] emergency room after having a syncopal episode with fall and head injury requiring multiple sutures to the scalp. Patient stated that she was walking to the bathroom with her walker with the help of an aid when she felt dizzy and passed out and fell and hit her head on the toilet patient was having significant laceration with bleeding EMS were called and patient was brought into emergency room. Patient estimated that she was unconscious for several minutes. In the emergency room patient was treated for her lacerations, computed tomography scan of the brain was done and did not reveal any evidence of intracranial bleeding, patient was admitted to telemetry floor for further evaluation and treatment. Laboratory data revealed evidence of dehydration was acute kidney injury BUN was elevated at 14 and creatinine at 1.53 which is higher than her baseline. Potassium was elevated at 5.5 blood pressure is elevated patient is maintained on multiple blood pressure medications. Echocardiogram and carotid Doppler were ordered cardiology consultation was requested regarding syncopal episode. On 09/21/2019 patient was seen and examined on the medical floor she is alert and oriented 3 in no apparent distress there is no fever or chills no headache or dizziness no chest pain no shortness of breath no cough no nausea or vomiting no abdominal pain no diarrhea no burning with urination no frequency or urgency and no hematuria. D-dimer ordered by cardiology was elevated, at this time will start full dose of subcu Lovenox, will check lower extremity Doppler and VQ scan to rule out pulmonary embolism, CT angiogram of the chest cannot be done due to elevated creatinine. On 09/22/2019 patient was seen and examined on the medical floor she is alert and oriented 3 in no apparent distress she is complaining of knee pain and was seen by orthopedic surgery in that regard, d-dimer was elevated, she was started yesterday on full dose of subcu Lovenox, today bilateral lower extremity Doppler was negative, and VQ scan was low probability for pulmonary embolism, dose of Lovenox will be decreased to 30 mg subcu once daily, hemoglobin today is low at 6.8 patient will receive 1 unit of red blood cell transfusion will recheck labs in a.m.. On 09/23/2019 patient was seen and examined on the medical floor she is alert and oriented 3 in no distress she is still complaining of knee pain otherwise she denies any complaints at this time there is no fever or chills no headache or dizziness no chest pain no shortness of breath no cough no nausea or vomiting no abdominal pain no diarrhea and no urinary symptoms. Patient is being evaluated by cardiology in regard to syncope and collapse. On 09/24/2019 patient was seen and examined on the medical floor she is alert and oriented 3 in no apparent distress she is complaining of right knee pain, she is and able to stand or walk at this time otherwise she denies any complaint there is no fever or chills no headache or dizziness no chest pain no shortness of breath no cough no nausea or vomiting no abdominal pain no diarrhea and no urinary symptoms On 09/25/2019 patient was seen and examined on the medical floor patient is al ert slightly confused in no apparent distress there is no fever or chills no headache or dizziness no chest pain no shortness of breath no cough no nausea or vomiting no abdominal pain no diarrhea and no urinary symptoms, patient has not been cooperating with nursing staff with taking her pills or eating, physical therapy are coming but she has not been cooperating. Hemoglobin today is down to 7.7 On 09/26/2019 patient was seen and examined on the medical floor patient is alert but confused there is no fever or chills no headache or dizziness no chest pain no shortness of breath no cough no nausea or vomiting no abdominal pain no diarrhea and no urinary symptoms, patient has not been cooperating with nursing staff with taking her pills or eating, physical therapy are coming but she has not been cooperating. Hemoglobin today is down to 7.6 awaiting gastroenterology consult On 09/27/2019 patient was seen and examined on the medical floor she is alert, confused, in no apparent distress hemoglobin is down to 7.5 patient has low iron level she received 1 dose of Venofer yesterday we will give 1 more dose today and recheck CBC in a.m. patient is denying any complaints at this time. On 09/28/2019 patient was seen and examined on the medical floor she is alert confused in no apparent distress hemoglobin is up to 7.7 after 2 IV doses of Venofer, patient has been complaining of generalized weakness and pain in the lower extremities she has not been working with physical therapy, otherwise there is no complaints there is no fever or chills no headache or dizziness no chest pain no shortness of breath no cough no nausea or vomiting no abdominal pain no diarrhea and no urinary symptoms. On 09/29/2019 patient was seen and examined on the medical floor she is more alert today, there is no fever or chills no headache or dizziness no chest pain no shortness of breath no cough no nausea or vomiting no abdominal pain no diarrhea and no urinary symptoms hemoglobin is up to 8.4 white blood count however has increased to 12.1. At this time will check chest x-ray portable urine analysis, will remove sutures from scalp will recheck labs in a.m. On 09/30/2019 patient was seen and examined on the medical floor she is alert and responsive in no apparent distress, vitals are stable with temperature of 97.7 pulse 77 respiration 20 and blood pressure 145/69 she is complaining of generalized pain and discomfort she has not been working with physical therapy and has been mostly bed bound there is no fever or chills no headache or dizziness no chest pain no shortness of breath no cough no nausea or vomiting no abdominal pain no diarrhea and no urinary symptoms, white blood count is up chest x-ray was ordered yesterday and urine analysis was ordered. On 10/01/2019 patient was seen and examined on the medical floor she is somnolent but arousable in no apparent distress hemoglobin was down to 6.9 today 1 unit of red blood cell transfusion was ordered patient is followed by gastroenterology and they were notified of recent drop in hemoglobin, otherwise patient is stable and there is no fever or chills no headache or dizziness no chest pain no shortness of breath no cough no nausea or vomiting no abdominal pain no diarrhea and no urinary symptoms On 10/02/2019 patient was seen and examined on the medical floor she is alert, responsive in no distress she is complaining of generalized pain and discomfort otherwise no specific complaints. Patient has high residual urine in the bladder, phelps catheter inserted and urology consult initiated. On 10/03/2019 patient was seen and examined the medical floor she is somnolent today in no distress she wakes up she is denying any symptoms at this time hemoglobin is up to 10.3 patient underwent colonoscopy yesterday and had a polyp removed there is no fever or chills no headache or dizziness no chest pain no shortness of breath no cough no nausea or vomiting no abdominal pain no diarrhea and no urinary symptoms Objective - Vital Signs Vital signs: Vital Signs Temp 98.3 F 10/03/19 07:00 Pulse 88 10/03/19 09:45 Resp 15 10/03/19 07:00 BP 170/76 10/03/19 09:45 Pulse Ox 97 10/03/19 07:00 Intake & Output 10/02/19 10/03/19 10/03/19 18:59 06:59 18:59 Intake Total 1100 60 100 Output Total 1375 3175 Balance -275 -3115 100 Weight 81.647 kg 81.647 kg Intake: IV 200 100 Intake, IV Titration 500 60 Amount Azithromycin 500 mg In 250 Sodium Chloride 0.9% 250 ml @ 250 mls/hr IVPB Q24H [facility] Rx#:[id number] Sodium Chloride 0.9% 1, 100 60 000 ml @ 20 mls/hr IV . Q24H [facility] Rx#:[id number] Sodium Ferric Gluconat- 100 Sucrose 125 mg In Sodium Chloride 0.9% 100 ml @ 100 mls/hr IVPB DAILY@ 1200 [facility] Rx#:[id number] cefTRIAXone 1 gm In 50 Sodium Chloride 0.9% 50 ml @ 100 mls/hr IVPB Q24HR [facility] Rx#:[id number] Oral 400 Output: Urine 1375 3175 Coude 650 1950 Other: Voiding Method Indwelling Catheter Indwelling Catheter Indwelling Catheter # Voids 0 0 # Bowel Movements 2 - Exam In general patient is alert and oriented 3 in no apparent distress answering questions appropriately HEENT head normocephalic without multiple bruises and large laceration on the scalp with multiple sutures Neck is supple no JVD no goiter no lymphadenopathy Chest exam reveals a few scattered rhonchi no wheezing Cardiac exam reveals regular heart sounds S1 and S2 with 2/6 systolic murmur in the left sternal border Abdomen is soft nontender no organomegaly with normal bowel sounds Extremity exam reveals no edema no cyanosis or clubbing Neurological examination reveals no gross focal deficit - Labs CBC & Chem 7: 10/03/19 09:42 10/03/19 09:42 Labs: Abnormal Lab Results - Last 24 Hours (Table) 10/02/19 10/02/19 10/02/19 Range/Units 16:34 17:59 20:53 RBC (3.80-5.40) m/uL Hgb (11.4-16.0) gm/dL Hct (34.0-46.0) % RDW (11.5-15.5) % BUN (7-17) mg/dL Creatinine (0.52-1.04) mg/dL POC Glucose (mg/dL) 66 L 163 H 210 H (75-99) mg/dL Calcium (8.4-10.2) mg/dL AST (14-36) U/L Total Protein (6.3-8.2) g/dL Albumin (3.5-5.0) g/dL 10/03/19 10/03/19 10/03/19 Range/Units 09:42 09:42 11:13 RBC 3.36 L (3.80-5.40) m/uL Hgb 10.3 L (11.4-16.0) gm/dL Hct 31.3 L (34.0-46.0) % RDW 16.1 H (11.5-15.5) % BUN 21 H (7-17) mg/dL Creatinine 1.10 H (0.52-1.04) mg/dL POC Glucose (mg/dL) 136 H (75-99) mg/dL Calcium 8.3 L (8.4-10.2) mg/dL AST 40 H (14-36) U/L Total Protein 5.5 L (6.3-8.2) g/dL Albumin 2.2 L (3.5-5.0) g/dL Microbiology - Last 24 Hours (Table) 09/30/19 15:18 Blood Culture - Preliminary Blood No Growth after 48 hours Assessment and Plan Plan: #1 syncopal episode was followed and head trauma #2 multiple lacerations requiring multiple sutures on the head #3 underlying history of hypertension, maintained on multiple blood pressure medications #4 underlying history of diabetes mellitus #5 underlying history of Parkinson disease #6 underlying history of gout #7 underlying history of hyperlipidemia #8 evidence of dehydration with acute kidney injury #9 hyperkalemia, correcting #10 episodes of agitation yesterday a small dose of Seroquel was added to her regimen as needed #11 knee pain patient was seen by orthopedic surgery computed tomography scan of the knee was ordered #12 anemia patient received red blood cells during this admission, hemoglobin today again is down to 7.7, will check stools for Hemoccult, check iron and vitamin B12 and folate levels, consult gastroenterology. Patient is receiving IV iron supplements. #13 leukocytosis chest x-ray and urine analysis ordered consultation for infectious disease initiated. At this time patient was started on IV fluid normal saline at 50 mL an hour Will recheck labs including kidney function in a.m. Will check echocardiogram and carotid Doppler Home medications reviewed and reordered Kidney function is improving gradually Physical therapy and occupational therapy to increase mobility Will follow closely
[2019-10-03 20:30] LABS: Glucose,Whole Blood 197 mg/dL (75-99)
[2019-10-03] MEDS: traZODone HCL 50 MG TAB PO SCH (20:51)
--- NOTE | 2019-10-04 00:35 | PN ---
PROGRESS NOTE DATE OF SERVICE: 10/03/2019 REASON FOR FOLLOWUP: Urinary tract infection. INTERVAL HISTORY: The patient is currently afebrile. The patient is breathing comfortably. No chest pain or cough. No nausea, vomiting, abdominal pain or diarrhea. PHYSICAL EXAMINATION: Blood pressure 150/75 with a pulse of 79, temperature 98.4. She is 93% on room air. General description: The patient is an elderly female lying in bed in no distress. Respiratory system: Unlabored breathing, decreased breath sounds at bases. No wheeze. Heart S1, S2. Regular rate and rhythm. Abdomen soft, no tenderness. LABS: Hemoglobin is 10.1, white count of 9.1. BUN of 21, creatinine 1.10. DIAGNOSTIC IMPRESSION AND PLAN: Patient with leukocytosis which is likely multifactorial with concern for possible urinary tract infection/pneumonia. Patient overall improvement on Rocephin and Zithromax to continue and we will monitor clinical course closely. MMODL / IJN: [id number] /
[2019-10-04] MEDS: hydrALAZINE HCL 25 MG TAB PO SCH ×2 (03:22→17:32)
[2019-10-04] MEDS: SODIUM CHLORIDE 0.9% 1,000 ML IV SCH (03:22)
[2019-10-04 07:00] LABS: Glucose,Whole Blood 108 mg/dL (75-99)
[2019-10-04] MEDS: LOSARTAN 50 MG TAB PO SCH (08:35)
[2019-10-04] MEDS: ALLOPURINOL 100 MG TAB PO SCH (08:35)
[2019-10-04] MEDS: PROPRANOLOL 20 MG TAB PO SCH ×3 (08:35→17:31)
[2019-10-04] MEDS: HYDROCHLOROTHIAZIDE 12.5 MG CAP PO SCH (08:35)
[2019-10-04] MEDS: CALCIUM CARBONATE 500 MG CHEWABLE PO SCH (08:35)
[2019-10-04] MEDS: MULTIVITAMINS, THERA 1 EACH TAB PO SCH (08:35)
[2019-10-04] MEDS: ISOSORBIDE MONONITRATE ER 30 MG TAB.ER.24H PO SCH (08:35)
[2019-10-04] MEDS: CHOLECALCIFEROL 1,000 UNIT TAB PO SCH (08:35)
[2019-10-04] MEDS: CARBIDOPA-LEVODOPA 25-250 MG 1 EACH TAB PO SCH ×3 (08:35→20:54)
[2019-10-04] MEDS: PRIMIDONE 50 MG TAB PO SCH ×3 (08:35→20:51)
[2019-10-04] MEDS: SENNOSIDES-DOCUSATE SODIUM 1 EACH TAB PO SCH ×2 (08:35→20:51)
[2019-10-04] MEDS: glipiZIDE 5 MG TAB PO SCH (08:36)
[2019-10-04] MEDS: PANTOPRAZOLE 40 MG/10 ML VIAL IVP SCH ×2 (08:36→20:51)
[2019-10-04] MEDS: ENOXAPARIN 40 MG/0.4 ML SYRINGE SQ SCH (08:36)
[2019-10-04] MEDS: BACITRACIN 500 UNIT/GM OINT 28.4 GM TUBE TOPICAL SCH ×2 (08:36→20:53)
--- NOTE | 2019-10-04 10:32 | PN ---
PROGRESS NOTE DATE OF SERVICE: 10/04/2019 The patient is an 83-year-old please white female admitted to the hospital with syncope, fall, anemia. She underwent EGD and colonoscopy in the last few days which revealed gastritis and small colon polyps, diverticulosis and hemorrhoids. She is doing better. She is complaining of some leg pains and back pain today. She has decreased appetite. PHYSICAL EXAMINATION: Blood pressure 157/71, pulse rate 93, temperature 98.2. HEENT: Examination unremarkable, conjunctivae are pink, sclerae nonicteric, oral cavity no lesions. NECK: No JVD or lymph node enlargement. CHEST: Clear to auscultation. HEART: Regular rate and rhythm. ABDOMEN: Soft. Bowel sounds are positive. EXTREMITIES: No pedal edema. NEURO: Alert and oriented x3. No focal deficits. LABS: WBC 9.1, hemoglobin 10.3. The rest of the labs are normal. IMPRESSION: 1. Normocytic, normochromic anemia. Status post EGD, colonoscopy yesterday showed gastritis, small colon polyps, internal hemorrhoids and diverticulosis. Particularly, no active bleeding, hemoglobin remains stable. Status post 3 units of blood transfusion. 2. Recent episode of syncope. 3. Scalp laceration. 4. History of hypertension. 5. Gastroesophageal reflux disease. RECOMMENDATION: 1. Monitor hemoglobin on a daily basis. 2. Continue Protonix with 40 mg daily. 3. Continue broad spectrum antibiotics. 4. Will follow with you. Thank you for this consultation. MMODL / IJN: [id number] /
[2019-10-04 11:51] LABS: Glucose,Whole Blood 104 mg/dL (75-99)
[2019-10-04] MEDS: SODIUM FERRIC GLUCONAT-SUCROSE 125 MG in SODIUM CHLORIDE 0.9% 100 ML IVPB SCH (12:45)
--- NOTE | 2019-10-04 14:00 | P.PN ---
Subjective Progress Note Date: 10/04/19 Ирина Rizvi is an 83-year-old female, well-known to my practice, who presented to [facility] emergency room after having a syncopal episode with fall and head injury requiring multiple sutures to the scalp. Patient stated that she was walking to the bathroom with her walker with the help of an aid when she felt dizzy and passed out and fell and hit her head on the toilet patient was having significant laceration with bleeding EMS were called and patient was brought into emergency room. Patient estimated that she was unconscious for several minutes. In the emergency room patient was treated for her lacerations, computed tomography scan of the brain was done and did not reveal any evidence of intracranial bleeding, patient was admitted to telemetry floor for further evaluation and treatment. Laboratory data revealed evidence of dehydration was acute kidney injury BUN was elevated at 14 and creatinine at 1.53 which is higher than her baseline. Potassium was elevated at 5.5 blood pressure is elevated patient is maintained on multiple blood pressure medications. Echocardiogram and carotid Doppler were ordered cardiology consultation was requested regarding syncopal episode. On 09/21/2019 patient was seen and examined on the medical floor she is alert and oriented 3 in no apparent distress there is no fever or chills no headache or dizziness no chest pain no shortness of breath no cough no nausea or vomiting no abdominal pain no diarrhea no burning with urination no frequency or urgency and no hematuria. D-dimer ordered by cardiology was elevated, at this time will start full dose of subcu Lovenox, will check lower extremity Doppler and VQ scan to rule out pulmonary embolism, CT angiogram of the chest cannot be done due to elevated creatinine. On 09/22/2019 patient was seen and examined on the medical floor she is alert and oriented 3 in no apparent distress she is complaining of knee pain and was seen by orthopedic surgery in that regard, d-dimer was elevated, she was started yesterday on full dose of subcu Lovenox, today bilateral lower extremity Doppler was negative, and VQ scan was low probability for pulmonary embolism, dose of Lovenox will be decreased to 30 mg subcu once daily, hemoglobin today is low at 6.8 patient will receive 1 unit of red blood cell transfusion will recheck labs in a.m.. On 09/23/2019 patient was seen and examined on the medical floor she is alert and oriented 3 in no distress she is still complaining of knee pain otherwise she denies any complaints at this time there is no fever or chills no headache or dizziness no chest pain no shortness of breath no cough no nausea or vomiting no abdominal pain no diarrhea and no urinary symptoms. Patient is being evaluated by cardiology in regard to syncope and collapse. On 09/24/2019 patient was seen and examined on the medical floor she is alert and oriented 3 in no apparent distress she is complaining of right knee pain, she is and able to stand or walk at this time otherwise she denies any complaint there is no fever or chills no headache or dizziness no chest pain no shortness of breath no cough no nausea or vomiting no abdominal pain no diarrhea and no urinary symptoms On 09/25/2019 patient was seen and examined on the medical floor patient is al ert slightly confused in no apparent distress there is no fever or chills no headache or dizziness no chest pain no shortness of breath no cough no nausea or vomiting no abdominal pain no diarrhea and no urinary symptoms, patient has not been cooperating with nursing staff with taking her pills or eating, physical therapy are coming but she has not been cooperating. Hemoglobin today is down to 7.7 On 09/26/2019 patient was seen and examined on the medical floor patient is alert but confused there is no fever or chills no headache or dizziness no chest pain no shortness of breath no cough no nausea or vomiting no abdominal pain no diarrhea and no urinary symptoms, patient has not been cooperating with nursing staff with taking her pills or eating, physical therapy are coming but she has not been cooperating. Hemoglobin today is down to 7.6 awaiting gastroenterology consult On 09/27/2019 patient was seen and examined on the medical floor she is alert, confused, in no apparent distress hemoglobin is down to 7.5 patient has low iron level she received 1 dose of Venofer yesterday we will give 1 more dose today and recheck CBC in a.m. patient is denying any complaints at this time. On 09/28/2019 patient was seen and examined on the medical floor she is alert confused in no apparent distress hemoglobin is up to 7.7 after 2 IV doses of Venofer, patient has been complaining of generalized weakness and pain in the lower extremities she has not been working with physical therapy, otherwise there is no complaints there is no fever or chills no headache or dizziness no chest pain no shortness of breath no cough no nausea or vomiting no abdominal pain no diarrhea and no urinary symptoms. On 09/29/2019 patient was seen and examined on the medical floor she is more alert today, there is no fever or chills no headache or dizziness no chest pain no shortness of breath no cough no nausea or vomiting no abdominal pain no diarrhea and no urinary symptoms hemoglobin is up to 8.4 white blood count however has increased to 12.1. At this time will check chest x-ray portable urine analysis, will remove sutures from scalp will recheck labs in a.m. On 09/30/2019 patient was seen and examined on the medical floor she is alert and responsive in no apparent distress, vitals are stable with temperature of 97.7 pulse 77 respiration 20 and blood pressure 145/69 she is complaining of generalized pain and discomfort she has not been working with physical therapy and has been mostly bed bound there is no fever or chills no headache or dizziness no chest pain no shortness of breath no cough no nausea or vomiting no abdominal pain no diarrhea and no urinary symptoms, white blood count is up chest x-ray was ordered yesterday and urine analysis was ordered. On 10/01/2019 patient was seen and examined on the medical floor she is somnolent but arousable in no apparent distress hemoglobin was down to 6.9 today 1 unit of red blood cell transfusion was ordered patient is followed by gastroenterology and they were notified of recent drop in hemoglobin, otherwise patient is stable and there is no fever or chills no headache or dizziness no chest pain no shortness of breath no cough no nausea or vomiting no abdominal pain no diarrhea and no urinary symptoms On 10/02/2019 patient was seen and examined on the medical floor she is alert, responsive in no distress she is complaining of generalized pain and discomfort otherwise no specific complaints. Patient has high residual urine in the bladder, phelps catheter inserted and urology consult initiated. On 10/03/2019 patient was seen and examined the medical floor she is somnolent today in no distress she wakes up she is denying any symptoms at this time hemoglobin is up to 10.3 patient underwent colonoscopy yesterday and had a polyp removed there is no fever or chills no headache or dizziness no chest pain no shortness of breath no cough no nausea or vomiting no abdominal pain no diarrhea and no urinary symptoms. On 10/04/2019 Patient was seen and examined on the medical floor, she is more alert today, she is confused in no distress. she denies any symptoms at this time. There is no fever or chills no headache or dizziness no chest pain no shortness of breath no cough no nausea or vomiting no abdominal pain no diarrhea and no urinary symptoms. Objective - Vital Signs Vital signs: Vital Signs Temp 98.2 F 10/04/19 07:35 Pulse 93 10/04/19 08:20 Resp 18 10/04/19 08:20 BP 157/71 10/04/19 07:35 Pulse Ox 95 10/04/19 07:35 Intake & Output 10/03/19 10/04/19 10/04/19 18:59 06:59 18:59 Intake Total 100 60 Output Total 150 400 400 Balance -50 -340 -400 Weight 81.647 kg Intake: IV 100 Intake, IV Titration 60 Amount Sodium Chloride 0.9% 1, 60 000 ml @ 20 mls/hr IV . Q24H [facility] Rx#:[id number] Output: Urine 150 400 400 Stool 0 Other: Voiding Method Indwelling Catheter Indwelling Catheter Indwelling Catheter # Voids 2 2 - Exam In general patient is alert and oriented 3 in no apparent distress answering questions appropriately HEENT head normocephalic without multiple bruises and large laceration on the scalp with multiple sutures Neck is supple no JVD no goiter no lymphadenopathy Chest exam reveals a few scattered rhonchi no wheezing Cardiac exam reveals regular heart sounds S1 and S2 with 2/6 systolic murmur in the left sternal border Abdomen is soft nontender no organomegaly with normal bowel sounds Extremity exam reveals no edema no cyanosis or clubbing Neurological examination reveals no gross focal deficit - Labs CBC & Chem 7: 10/03/19 09:42 10/03/19 09:42 Labs: Abnormal Lab Results - Last 24 Hours (Table) 10/03/19 10/03/19 10/04/19 Range/Units 17:02 20:28 06:54 POC Glucose (mg/dL) 133 H 197 H 108 H (75-99) mg/dL 10/04/19 Range/Units 11:48 POC Glucose (mg/dL) 104 H (75-99) mg/dL Microbiology - Last 24 Hours (Table) 09/30/19 15:18 Blood Culture - Preliminary Blood No Growth after 72 hours Assessment and Plan Plan: #1 syncopal episode was followed and head trauma #2 multiple lacerations requiring multiple sutures on the head #3 underlying history of hypertension, maintained on multiple blood pressure medications #4 underlying history of diabetes mellitus #5 underlying history of Parkinson disease #6 underlying history of gout #7 underlying history of hyperlipidemia #8 evidence of dehydration with acute kidney injury #9 hyperkalemia, correcting #10 episodes of agitation yesterday a small dose of Seroquel was added to her regimen as needed #11 knee pain patient was seen by orthopedic surgery computed tomography scan of the knee was ordered #12 anemia patient received red blood cells during this admission, hemoglobin today again is down to 7.7, will check stools for Hemoccult, check iron and vitamin B12 and folate levels, consult gastroenterology. Patient is receiving IV iron supplements. #13 leukocytosis chest x-ray and urine analysis ordered consultation for infectious disease initiated. At this time patient was started on IV fluid normal saline at 50 mL an hour Will recheck labs including kidney function in a.m. Will check echocardiogram and carotid Doppler Home medications reviewed and reordered Kidney function is improving gradually Physical therapy and occupational therapy to increase mobility Will follow closely
--- NOTE | 2019-10-04 15:29 | P.PN ---
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 dyslipidemia and Electrolyte imbalance with hyperkalemia 10/03/2019, patient seen and evaluated examined during the rounds doing well denies any chest pain of congestion shortness of breath is improved mom oxygen saturation is 96% on room air breathing comfortably chest x-ray done earlier today shows basilar infiltrate likely pneumonia 10/02/2019, patient seen eval examined, still under affect of anesthetic med ication for endoscopy, breathing comfortably, white cell count is down to 9400 hemoglobin is up to 9.0, patient is afebrile with stable hemodynamics saturation is 95% room air,, endoscopy finding reviewed small gastric polyp and sliding hiatal hernia, status post biopsy results pending This patient is a 83-year-old female admitted at [facility] for syncopal episode status post fall with head injury requiring multiple sutures of the scalp, patient was evaluated for intracranial hemorrhage found to be negative on computed tomography scan, cardiology is following for syncopal episode workup so far has been negative, patient noted to have elevated d-dimer was placed on Lovenox, duplex ultrasound of the lower extremity and VQ scan was performed computed tomography scan cannot be done due to elevated creatinine, the VQ scan was low probability no significant DVT was seen, patient has been placed on low- dose Lovenox for DVT prophylaxis, patient's hemoglobin dropped to 6.9 being eval by GI services considered for possible scope she is at room air breathing comfortably denies any chest pain chest x-ray on September 28 revealed right perihilar and lower lobe infiltrate along with bilateral pleural effusion, patient white cell count went up to 12, patient has been on Rocephin along with Zithromax second day of therapy, I was asked to evaluate further, patient unable to give a detailed history, patient has been afebrile all along with normal hemodynamics Objective - Vital Signs Vital signs: Vital Signs Temp Afebrile Pulse 80 Resp 16 BP 150/75 Pulse Ox 93% on room air Intake & Output 10/03/19 18:59 Intake Total 100 Output Total 150 Balance -50 Weight 81.647 kg Intake: IV 100 Intake, IV Titration Amount Sodium Chloride 0.9% 1, 000 ml @ 20 mls/hr IV . Q24H [facility] Rx#:[id number] Oral Output: Urine 150 Stool Other: Voiding Method Indwelling Catheter # Voids - Exam - Constitutional General appearance: average body habitus, cooperative, disheveled - EENT Eyes: PERRLA Ears: bilateral: normal - Neck Neck: normal ROM Carotids: bilateral: upstroke normal - Respiratory Respiratory: bilateral: diminished - Cardiovascular Rhythm: regular Heart sounds: normal: S1, S2 - Gastrointestinal General gastrointestinal: normal bowel sounds - Neurologic Neurologic: CNII-XII intact - Musculoskeletal Musculoskeletal: generalized weakness, strength equal bilaterally - Psychiatric Psychiatric: A&O x's 3, appropriate affect, intact judgment & insight - Labs CBC & Chem 7: 10/03/19 09:42 10/03/19 09:42 Labs: Abnormal Lab Results - Last 24 Hours (Table) 10/03/19 10/03/19 10/04/19 Range/Units 17:02 20:28 06:54 POC Glucose (mg/dL) 133 H 197 H 108 H (75-99) mg/dL 10/04/19 Range/Units 11:48 POC Glucose (mg/dL) 104 H (75-99) mg/dL Microbiology - Last 24 Hours (Table) 09/30/19 15:18 Blood Culture - Preliminary Blood No Growth after 72 hours Assessment and Plan Assessment: Bilateral lower lobe pneumonia right more than the left Severe symptomatic anemia Syncopal episode likely related to above Head trauma status post laceration repair Past medical history of hypertension 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
--- NOTE | 2019-10-04 15:31 | P.PN ---
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 dyslipidemia and Electrolyte imbalance with hyperkalemia 10/04/2019, patient seen eval examined had episode of chest pain however responded well with nitro, respiratory status stable oxygen saturation have been stable on room air denies any cough or sputum production will continue current plan of care with antibiotics 10/03/2019, patient seen and evaluated examined during the rounds doing well denies any chest pain of congestion shortness of breath is improved mom oxygen saturation is 96% on room air breathing comfortably chest x-ray done earlier today shows basilar infiltrate likely pneumonia 10/02/2019, patient seen eval examined, still under affect of anesthetic medication for endoscopy, breathing comfortably, white cell count is down to 9400 hemoglobin is up to 9.0, patient is afebrile with stable hemodynamics saturation is 95% room air,, endoscopy finding reviewed small gastric polyp and sliding hiatal hernia, status post biopsy results pending This patient is a 83-year-old female admitted at [facility] for syncopal episode status post fall with head injury requiring multiple sutures of the scalp, patient was evaluated for intracranial hemorrhage found to be negative on computed tomography scan, cardiology is following for syncopal episode workup so far has been negative, patient noted to have elevated d-dimer was placed on Lovenox, duplex ultrasound of the lower extremity and VQ scan was performed computed tomography scan cannot be done due to elevated creatinine, the VQ scan was low probability no significant DVT was seen, patient has been placed on low- dose Lovenox for DVT prophylaxis, patient's hemoglobin dropped to 6.9 being eval by GI services considered for possible scope she is at room air breathing comfortably denies any chest pain chest x-ray on September 28 revealed right perihilar and lower lobe infiltrate along with bilateral pleural effusion, patient white cell count went up to 12, patient has been on Rocephin along with Zithromax second day of therapy, I was asked to evaluate further, patient unable to give a detailed history, patient has been afebrile all along with normal hemodynamics Objective - Vital Signs Vital signs: Vital Signs Temp 98.2 F 10/04/19 07:35 Pulse 93 10/04/19 08:20 Resp 18 04/18/20 08:20 BP 157/71 10/04/19 07:35 Pulse Ox 95 10/04/19 07:35 Intake & Output 10/03/19 10/04/19 10/04/19 18:59 06:59 18:59 Intake Total 100 60 200 Output Total 150 400 400 Balance -50 -340 -200 Weight 81.647 kg Intake: IV 100 Intake, IV Titration 60 Amount Sodium Chloride 0.9% 1, 60 000 ml @ 20 mls/hr IV . Q24H [facility] Rx#:[id number] Oral 200 Output: Urine 150 400 400 Stool 0 Other: Voiding Method Indwelling Catheter Indwelling Catheter Indwelling Catheter # Voids 2 2 - Exam - Constitutional General appearance: average body habitus, cooperative, disheveled - EENT Eyes: PERRLA Ears: bilateral: normal - Neck Neck: normal ROM Carotids: bilateral: upstroke normal - Respiratory Respiratory: bilateral: diminished - Cardiovascular Rhythm: regular Heart sounds: normal: S1, S2 - Gastrointestinal General gastrointestinal: normal bowel sounds - Neurologic Neurologic: CNII-XII intact - Musculoskeletal Musculoskeletal: generalized weakness, strength equal bilaterally - Psychiatric Psychiatric: A&O x's 3, appropriate affect, intact judgment & insight - Labs CBC & Chem 7: 10/03/19 09:42 10/03/19 09:42 Labs: Abnormal Lab Results - Last 24 Hours (Table) 10/03/19 10/03/19 10/04/19 Range/Units 17:02 20:28 06:54 POC Glucose (mg/dL) 133 H 197 H 108 H (75-99) mg/dL 10/04/19 Range/Units 11:48 POC Glucose (mg/dL) 104 H (75-99) mg/dL Microbiology - Last 24 Hours (Table) 09/30/19 15:18 Blood Culture - Preliminary Blood No Growth after 72 hours Assessment and Plan Assessment: Bilateral lower lobe pneumonia right more than the left Severe symptomatic anemia Syncopal episode likely related to above Head trauma status post laceration repair Past medical history of hypertension 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
[2019-10-04 16:58] LABS: Glucose,Whole Blood 72 mg/dL (75-99)
[2019-10-04] MEDS: SERTRALINE 25 MG TAB PO SCH (17:32)
[2019-10-04] MEDS: AZITHROMYCIN 500 MG TAB PO SCH (17:32)
[2019-10-04] MEDS: AZITHROMYCIN 500 MG in SODIUM CHLORIDE 0.9% 250 ML IVPB SCH (18:18)
[2019-10-04 20:25] LABS: Glucose,Whole Blood 130 mg/dL (75-99)
[2019-10-04] MEDS: traZODone HCL 50 MG TAB PO SCH (20:51)
[2019-10-04] MEDS: QUEtiapine 25 MG TAB PO SCH (20:51)
--- NOTE | 2019-10-04 23:41 | PN ---
PROGRESS NOTE DATE OF SERVICE: 10/04/2019 REASON FOR FOLLOWUP: UTI and a question of pneumonia. INTERVAL HISTORY: The patient is currently afebrile. She was noted to be slightly pleasantly confused this afternoon at the time of my evaluation. No nausea, vomiting. No abdominal pain. No diarrhea has been reported. PHYSICAL EXAMINATION: Blood pressure is 170/72 with a pulse of 79. Temperature 99.2. She is 94% on room air. General description: The patient is an elderly female lying in bed in no distress. Respiratory system: Unlabored breathing, decreased intense breath sounds. No wheeze. Heart S1, S2. Regular rate and rhythm. Abdomen soft, no tenderness. LABS: Hemoglobin 9.1. BUN of 21, creatinine 1.10. Blood and urine culture has been negative. DIAGNOSTIC IMPRESSION AND PLAN: Patient with leukocytosis which is multifactorial with concern for possible pneumonia and urinary tract infection. Patient is responding to Rocephin and to continue and we will monitor clinical course closely. MMODL / IJN: [id number] /
[2019-10-05] MEDS: ACETAMINOPHEN TAB 325 MG TAB PO PRN (02:28)
[2019-10-05] MEDS: cloNIDine HCL 0.2 MG TAB PO PRN (02:29)
[2019-10-05] MEDS: SODIUM CHLORIDE 0.9% 1,000 ML IV SCH (04:19)
[2019-10-05] MEDS: hydrALAZINE HCL 25 MG TAB PO SCH ×2 (04:22→16:53)
[2019-10-05 07:07] LABS: Glucose,Whole Blood 105 mg/dL (75-99)
[2019-10-05 07:25] LABS: Albumin 1.7 g/dL (3.5-5.0); Potassium 3.6 mmol/L (3.5-5.1); Total Bilirubin 0.2 mg/dL (0.2-1.3); Total Protein 4.5 g/dL (6.3-8.2)
[2019-10-05 07:39] LABS: Anisocytosis Slight; HCT 24.6 % (34.0-46.0); MCH 30.8 pg (25.0-35.0); MCHC 33.2 g/dL (31.0-37.0); MCV 92.8 fL (80.0-100.0); Mean Platelet Volume 9.4; Platelet Count 288 k/uL (150-450); RBC 2.66 m/uL (3.80-5.40); RDW 16.4 % (11.5-15.5); WBC 5.5 k/uL (3.8-10.6)
[2019-10-05 07:48] LABS: HGB 8.2 gm/dL (11.4-16.0)
[2019-10-05 08:22] LABS: Eosinophils # (M) 0.22 k/uL (0-0.7); Lymphocytes # (M) 1.27 k/uL (1.0-4.8); Monocytes # (M) 0.11 k/uL (0-1.0); Neutrophils # (M) 3.91 k/uL (1.3-7.7); Neutrophils % (M) 71 %; Nucleated Red Blood Cells 0 /100 WBC (0-0); Total Cells Counted 100
[2019-10-05] MEDS: PANTOPRAZOLE 40 MG/10 ML VIAL IVP SCH ×2 (08:40→20:06)
[2019-10-05] MEDS: ENOXAPARIN 40 MG/0.4 ML SYRINGE SQ SCH (08:40)
[2019-10-05] MEDS: MULTIVITAMINS, THERA 1 EACH TAB PO SCH (08:41)
[2019-10-05] MEDS: ISOSORBIDE MONONITRATE ER 30 MG TAB.ER.24H PO SCH (08:41)
[2019-10-05] MEDS: LOSARTAN 50 MG TAB PO SCH (08:41)
[2019-10-05] MEDS: HYDROCHLOROTHIAZIDE 12.5 MG CAP PO SCH (08:42)
[2019-10-05] MEDS: CALCIUM CARBONATE 500 MG CHEWABLE PO SCH (08:42)
[2019-10-05] MEDS: glipiZIDE 5 MG TAB PO SCH (08:42)
[2019-10-05] MEDS: AZITHROMYCIN 500 MG TAB PO SCH (08:42)
[2019-10-05] MEDS: PRIMIDONE 50 MG TAB PO SCH ×3 (08:42→20:06)
[2019-10-05] MEDS: SENNOSIDES-DOCUSATE SODIUM 1 EACH TAB PO SCH ×2 (08:42→20:06)
[2019-10-05] MEDS: ALLOPURINOL 100 MG TAB PO SCH (08:42)
[2019-10-05] MEDS: CARBIDOPA-LEVODOPA 25-250 MG 1 EACH TAB PO SCH ×3 (08:42→20:07)
[2019-10-05] MEDS: PROPRANOLOL 20 MG TAB PO SCH ×3 (08:42→17:49)
[2019-10-05] MEDS: CHOLECALCIFEROL 1,000 UNIT TAB PO SCH (08:42)
[2019-10-05] MEDS: SERTRALINE 25 MG TAB PO SCH (08:44)
[2019-10-05] MEDS: BACITRACIN 500 UNIT/GM OINT 28.4 GM TUBE TOPICAL SCH ×2 (08:44→20:07)
--- NOTE | 2019-10-05 11:24 | PN ---
PROGRESS NOTE DATE OF SERVICE: 10/05/2019 Patient is an 83-year-old pleasant white female admitted to hospital with syncope, fall, severe anemia. She is status post EGD and colonoscopy 3 days ago. Noted multiple small colon polyps and gastritis. Clinically she is doing well. No active bleeding. Reports no abdominal pain. Has decreased appetite. Complains of lower extremity pain. PHYSICAL EXAMINATION: Vital signs are stable. Blood pressure is 138/68, pulse 71, temperature 97.7. HEENT examination unremarkable. Conjunctivae pink. Sclerae anicteric. Oral cavity no lesions. NECK: No JVD or lymph node enlargement. CHEST: Clear to auscultation. HEART: Regular rate and rhythm. ABDOMEN: Soft. Bowel sounds are positive. No organomegaly. EXTREMITIES: No pedal edema. NEURO: She is awake, oriented to name but not place and time. LABS: From today WBC 8.2, hemoglobin 5.5, platelets normal. Basic metabolic panel is within normal limits. IMPRESSION: 1. Normocytic anemia with intermittent dark-colored stools, status post EGD and colonoscopy done 3 days ago that showed small polyps and diverticulosis and small internal hemorrhoids and mild gastritis. Hemoglobin remains stable. Clinically no active bleeding. 2. History of scalp laceration, resolved. 3. Decreased appetite and poor functional status. 4. Degenerative joint disease. RECOMMENDATIONS: 1. Continue with symptomatic and supportive care. 2. Increase ambulation and physical therapy. 3. Encourage oral intake. 4. Since hemoglobin is stable, we will monitor closely. 5. At this time we will sign off. Please call us if needed. Thank you for this consultation. MMODL / IJN: [id number] /
[2019-10-05 11:51] LABS: Glucose,Whole Blood 100 mg/dL (75-99)
--- NOTE | 2019-10-05 13:07 | P.PN ---
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 dyslipidemia and Electrolyte imbalance with hyperkalemia 10/05/2019, patient seen eval examined during the rounds labs reviewed medications reviewed, patient remains afebrile with stable hemodynamics oxygen saturations 94% room air, repeat a chest x-ray tomorrow 10/04/2019, patient seen eval examined had episode of chest pain however responded well with nitro, respiratory status stable oxygen saturation have been stable on room air denies any cough or sputum production will continue current plan of care with antibiotics 10/03/2019, patient seen and evaluated examined during the rounds doing well denies any chest pain of congestion shortness of breath is improved mom oxygen saturation is 96% on room air breathing comfortably chest x-ray done earlier today shows basilar infiltrate likely pneumonia 10/02/2019, patient seen eval examined, still under affect of anesthetic medication for endoscopy, breathing comfortably, white cell count is down to 9400 hemoglobin is up to 9.0, patient is afebrile with stable hemodynamics saturation is 95% room air,, endoscopy finding reviewed small gastric polyp and sliding hiatal hernia, status post biopsy results pending This patient is a 83-year-old female admitted at [facility] for syncopal episode status post fall with head injury requiring multiple sutures of the scalp, patient was evaluated for intracranial hemorrhage found to be negative on computed tomography scan, cardiology is following for syncopal episode workup so far has been negative, patient noted to have elevated d-dimer was placed on Lovenox, duplex ultrasound of the lower extremity and VQ scan was performed computed tomography scan cannot be done due to elevated creatinine, the VQ scan was low probability no significant DVT was seen, patient has been placed on low- dose Lovenox for DVT prophylaxis, patient's hemoglobin dropped to 6.9 being eval by GI services considered for possible scope she is at room air breathing comfortably denies any chest pain chest x-ray on September 28 revealed right perihilar and lower lobe infiltrate along with bilateral pleural effusion, patient white cell count went up to 12, patient has been on Rocephin along with Zithromax second day of therapy, I was asked to evaluate further, patient unable to give a detailed history, patient has been afebrile all along with normal hemodynamics Objective - Vital Signs Vital signs: Vital Signs Temp 97.7 F 10/05/19 07:39 Pulse 71 10/05/19 07:39 Resp 16 10/05/19 07:39 BP 138/68 10/05/19 07:39 Pulse Ox 94 L 10/05/19 07:39 Intake & Output 10/04/19 10/05/19 10/05/19 18:59 06:59 18:59 Intake Total 650 Output Total 2200 350 700 Balance -1550 -350 -700 Intake: Intake, IV Titration 150 Amount Sodium Ferric Gluconat- 100 Sucrose 125 mg In Sodium Chloride 0.9% 100 ml @ 100 mls/hr IVPB DAILY@ 1200 [facility] Rx#:[id number] cefTRIAXone 1 gm In 50 Sodium Chloride 0.9% 50 ml @ 100 mls/hr IVPB Q24HR [facility] Rx#:[id number] Oral 500 Output: Urine 2200 350 700 Stool 0 Other: Voiding Method Indwelling Catheter Indwelling Catheter Indwelling Catheter # Voids 2 2 - Exam - Constitutional General appearance: average body habitus, cooperative, disheveled - EENT Eyes: PERRLA Ears: bilateral: normal - Neck Neck: normal ROM Carotids: bilateral: upstroke normal - Respiratory Respiratory: bilateral: diminished - Cardiovascular Rhythm: regular Heart sounds: normal: S1, S2 - Gastrointestinal General gastrointestinal: normal bowel sounds - Neurologic Neurologic: CNII-XII intact - Musculoskeletal Musculoskeletal: generalized weakness, strength equal bilaterally - Psychiatric Psychiatric: A&O x's 3, appropriate affect, intact judgment & insight - Labs CBC & Chem 7: 10/05/19 06:05 10/05/19 06:05 Labs: Abnormal Lab Results - Last 24 Hours (Table) 10/04/19 10/04/19 10/05/19 Range/Units 16:56 20:24 06:05 RBC 2.66 L (3.80-5.40) m/uL Hgb 8.2 L D (11.4-16.0) gm/dL Hct 24.6 L (34.0-46.0) % RDW 16.4 H (11.5-15.5) % Sodium (137-145) mmol/L POC Glucose (mg/dL) 72 L 130 H (75-99) mg/dL Calcium (8.4-10.2) mg/dL Total Protein (6.3-8.2) g/dL Albumin (3.5-5.0) g/dL 10/05/19 10/05/19 10/05/19 Range/Units 06:05 07:04 11:50 RBC (3.80-5.40) m/uL Hgb (11.4-16.0) gm/dL Hct (34.0-46.0) % RDW (11.5-15.5) % Sodium 134 L (137-145) mmol/L POC Glucose (mg/dL) 105 H 100 H (75-99) mg/dL Calcium 8.0 L (8.4-10.2) mg/dL Total Protein 4.5 L (6.3-8.2) g/dL Albumin 1.7 L (3.5-5.0) g/dL Microbiology - Last 24 Hours (Table) 09/30/19 15:18 Blood Culture - Preliminary Blood No Growth after 96 hours Assessment and Plan Assessment: Bilateral lower lobe pneumonia right more than the left Severe symptomatic anemia Syncopal episode likely related to above Head trauma status post laceration repair Past medical history of hypertension 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
--- NOTE | 2019-10-05 13:34 | P.PN ---
Subjective Progress Note Date: 10/05/19 Ирина Rizvi is an 83-year-old female, well-known to my practice, who presented to [facility] emergency room after having a syncopal episode with fall and head injury requiring multiple sutures to the scalp. Patient stated that she was walking to the bathroom with her walker with the help of an aid when she felt dizzy and passed out and fell and hit her head on the toilet patient was having significant laceration with bleeding EMS were called and patient was brought into emergency room. Patient estimated that she was unconscious for several minutes. In the emergency room patient was treated for her lacerations, computed tomography scan of the brain was done and did not reveal any evidence of intracranial bleeding, patient was admitted to telemetry floor for further evaluation and treatment. Laboratory data revealed evidence of dehydration was acute kidney injury BUN was elevated at 14 and creatinine at 1.53 which is higher than her baseline. Potassium was elevated at 5.5 blood pressure is elevated patient is maintained on multiple blood pressure medications. Echocardiogram and carotid Doppler were ordered cardiology consultation was requested regarding syncopal episode. On 09/21/2019 patient was seen and examined on the medical floor she is alert and oriented 3 in no apparent distress there is no fever or chills no headache or dizziness no chest pain no shortness of breath no cough no nausea or vomiting no abdominal pain no diarrhea no burning with urination no frequency or urgency and no hematuria. D-dimer ordered by cardiology was elevated, at this time will start full dose of subcu Lovenox, will check lower extremity Doppler and VQ scan to rule out pulmonary embolism, CT angiogram of the chest cannot be done due to elevated creatinine. On 09/22/2019 patient was seen and examined on the medical floor she is alert and oriented 3 in no apparent distress she is complaining of knee pain and was seen by orthopedic surgery in that regard, d-dimer was elevated, she was started yesterday on full dose of subcu Lovenox, today bilateral lower extremity Doppler was negative, and VQ scan was low probability for pulmonary embolism, dose of Lovenox will be decreased to 30 mg subcu once daily, hemoglobin today is low at 6.8 patient will receive 1 unit of red blood cell transfusion will recheck labs in a.m.. On 09/23/2019 patient was seen and examined on the medical floor she is alert and oriented 3 in no distress she is still complaining of knee pain otherwise she denies any complaints at this time there is no fever or chills no headache or dizziness no chest pain no shortness of breath no cough no nausea or vomiting no abdominal pain no diarrhea and no urinary symptoms. Patient is being evaluated by cardiology in regard to syncope and collapse. On 09/24/2019 patient was seen and examined on the medical floor she is alert and oriented 3 in no apparent distress she is complaining of right knee pain, she is and able to stand or walk at this time otherwise she denies any complaint there is no fever or chills no headache or dizziness no chest pain no shortness of breath no cough no nausea or vomiting no abdominal pain no diarrhea and no urinary symptoms On 09/25/2019 patient was seen and examined on the medical floor patient is al ert slightly confused in no apparent distress there is no fever or chills no headache or dizziness no chest pain no shortness of breath no cough no nausea or vomiting no abdominal pain no diarrhea and no urinary symptoms, patient has not been cooperating with nursing staff with taking her pills or eating, physical therapy are coming but she has not been cooperating. Hemoglobin today is down to 7.7 On 09/26/2019 patient was seen and examined on the medical floor patient is alert but confused there is no fever or chills no headache or dizziness no chest pain no shortness of breath no cough no nausea or vomiting no abdominal pain no diarrhea and no urinary symptoms, patient has not been cooperating with nursing staff with taking her pills or eating, physical therapy are coming but she has not been cooperating. Hemoglobin today is down to 7.6 awaiting gastroenterology consult On 09/27/2019 patient was seen and examined on the medical floor she is alert, confused, in no apparent distress hemoglobin is down to 7.5 patient has low iron level she received 1 dose of Venofer yesterday we will give 1 more dose today and recheck CBC in a.m. patient is denying any complaints at this time. On 09/28/2019 patient was seen and examined on the medical floor she is alert confused in no apparent distress hemoglobin is up to 7.7 after 2 IV doses of Venofer, patient has been complaining of generalized weakness and pain in the lower extremities she has not been working with physical therapy, otherwise there is no complaints there is no fever or chills no headache or dizziness no chest pain no shortness of breath no cough no nausea or vomiting no abdominal pain no diarrhea and no urinary symptoms. On 09/29/2019 patient was seen and examined on the medical floor she is more alert today, there is no fever or chills no headache or dizziness no chest pain no shortness of breath no cough no nausea or vomiting no abdominal pain no diarrhea and no urinary symptoms hemoglobin is up to 8.4 white blood count however has increased to 12.1. At this time will check chest x-ray portable urine analysis, will remove sutures from scalp will recheck labs in a.m. On 09/30/2019 patient was seen and examined on the medical floor she is alert and responsive in no apparent distress, vitals are stable with temperature of 97.7 pulse 77 respiration 20 and blood pressure 145/69 she is complaining of generalized pain and discomfort she has not been working with physical therapy and has been mostly bed bound there is no fever or chills no headache or dizziness no chest pain no shortness of breath no cough no nausea or vomiting no abdominal pain no diarrhea and no urinary symptoms, white blood count is up chest x-ray was ordered yesterday and urine analysis was ordered. On 10/01/2019 patient was seen and examined on the medical floor she is somnolent but arousable in no apparent distress hemoglobin was down to 6.9 today 1 unit of red blood cell transfusion was ordered patient is followed by gastroenterology and they were notified of recent drop in hemoglobin, otherwise patient is stable and there is no fever or chills no headache or dizziness no chest pain no shortness of breath no cough no nausea or vomiting no abdominal pain no diarrhea and no urinary symptoms On 10/02/2019 patient was seen and examined on the medical floor she is alert, responsive in no distress she is complaining of generalized pain and discomfort otherwise no specific complaints. Patient has high residual urine in the bladder, phelps catheter inserted and urology consult initiated. On 10/03/2019 patient was seen and examined the medical floor she is somnolent today in no distress she wakes up she is denying any symptoms at this time hemoglobin is up to 10.3 patient underwent colonoscopy yesterday and had a polyp removed there is no fever or chills no headache or dizziness no chest pain no shortness of breath no cough no nausea or vomiting no abdominal pain no diarrhea and no urinary symptoms. On 10/04/2019 Patient was seen and examined on the medical floor, she is more alert today, she is confused in no distress. she denies any symptoms at this time. There is no fever or chills no headache or dizziness no chest pain no shortness of breath no cough no nausea or vomiting no abdominal pain no diarrhea and no urinary symptoms. On 10/05/2019 Patient was seen and examined on the medical floor, she is alert, confused in no distress. she denies any symptoms at this time. There is no fever or chills no headache or dizziness no chest pain no shortness of breath no cough no nausea or vomiting no abdominal pain no diarrhea and no burning with urination, no frequency or urgency no hematuria Objective - Vital Signs Vital signs: Vital Signs Temp 97.7 F 10/05/19 07:39 Pulse 71 10/05/19 07:39 Resp 16 10/05/19 07:39 BP 138/68 10/05/19 07:39 Pulse Ox 94 L 10/05/19 07:39 Intake & Output 10/04/19 10/05/19 10/05/19 18:59 06:59 18:59 Intake Total 650 Output Total 2200 350 700 Balance -1550 -350 -700 Intake: Intake, IV Titration 150 Amount Sodium Ferric Gluconat- 100 Sucrose 125 mg In Sodium Chloride 0.9% 100 ml @ 100 mls/hr IVPB DAILY@ 1200 [facility] Rx#:[id number] cefTRIAXone 1 gm In 50 Sodium Chloride 0.9% 50 ml @ 100 mls/hr IVPB Q24HR [facility] Rx#:[id number] Oral 500 Output: Urine 2200 350 700 Stool 0 Other: Voiding Method Indwelling Catheter Indwelling Catheter Indwelling Catheter # Voids 2 2 - Exam In general patient is alert and oriented 3 in no apparent distress answering questions appropriately HEENT head normocephalic without multiple bruises and large laceration on the scalp with multiple sutures Neck is supple no JVD no goiter no lymphadenopathy Chest exam reveals a few scattered rhonchi no wheezing Cardiac exam reveals regular heart sounds S1 and S2 with 2/6 systolic murmur in the left sternal border Abdomen is soft nontender no organomegaly with normal bowel sounds Extremity exam reveals no edema no cyanosis or clubbing Neurological examination reveals no gross focal deficit - Labs CBC & Chem 7: 10/05/19 06:05 10/05/19 06:05 Labs: Abnormal Lab Results - Last 24 Hours (Table) 10/04/19 10/04/19 10/05/19 Range/Units 16:56 20:24 06:05 RBC 2.66 L (3.80-5.40) m/uL Hgb 8.2 L D (11.4-16.0) gm/dL Hct 24.6 L (34.0-46.0) % RDW 16.4 H (11.5-15.5) % Sodium (137-145) mmol/L POC Glucose (mg/dL) 72 L 130 H (75-99) mg/dL Calcium (8.4-10.2) mg/dL Total Protein (6.3-8.2) g/dL Albumin (3.5-5.0) g/dL 10/05/19 10/05/19 10/05/19 Range/Units 06:05 07:04 11:50 RBC (3.80-5.40) m/uL Hgb (11.4-16.0) gm/dL Hct (34.0-46.0) % RDW (11.5-15.5) % Sodium 134 L (137-145) mmol/L POC Glucose (mg/dL) 105 H 100 H (75-99) mg/dL Calcium 8.0 L (8.4-10.2) mg/dL Total Protein 4.5 L (6.3-8.2) g/dL Albumin 1.7 L (3.5-5.0) g/dL Microbiology - Last 24 Hours (Table) 09/30/19 15:18 Blood Culture - Preliminary Blood No Growth after 96 hours Assessment and Plan Plan: #1 syncopal episode was followed and head trauma #2 multiple lacerations requiring multiple sutures on the head #3 underlying history of hypertension, maintained on multiple blood pressure medications #4 underlying history of diabetes mellitus #5 underlying history of Parkinson disease #6 underlying history of gout #7 underlying history of hyperlipidemia #8 evidence of dehydration with acute kidney injury #9 hyperkalemia, correcting #10 episodes of agitation yesterday a small dose of Seroquel was added to her regimen as needed #11 knee pain patient was seen by orthopedic surgery computed tomography scan of the knee was ordered #12 anemia patient received red blood cells during this admission, hemoglobin today again is down to 7.7, will check stools for Hemoccult, check iron and vitamin B12 and folate levels, consult gastroenterology. Patient is receiving IV iron supplements. #13 leukocytosis chest x-ray and urine analysis ordered consultation for infectious disease initiated. At this time patient was started on IV fluid normal saline at 50 mL an hour Will recheck labs including kidney function in a.m. Will check echocardiogram and carotid Doppler Home medications reviewed and reordered Kidney function is improving gradually Physical therapy and occupational therapy to increase mobility Will follow closely
--- NOTE | 2019-10-05 13:36 | P.PN ---
Progress Note - Text Progress Note Date: 10/05/19 The patient's Carlos catheter is draining clear yellow urine. She denies any catheter related problems. It would be reasonable to remove the Carlos catheter when no longer medically needed for voiding trial. The bladder scan should be used to check postvoid residuals, and if she fails to empty her bladder adequately she may require catheter replacement.
[2019-10-05] MEDS: SODIUM FERRIC GLUCONAT-SUCROSE 125 MG in SODIUM CHLORIDE 0.9% 100 ML IVPB SCH (14:02)
[2019-10-05 16:44] LABS: Glucose,Whole Blood 79 mg/dL (75-99)
[2019-10-05] MEDS: QUEtiapine 25 MG TAB PO SCH (20:06)
[2019-10-05] MEDS: traZODone HCL 50 MG TAB PO SCH (20:06)
[2019-10-05 20:23] LABS: Glucose,Whole Blood 153 mg/dL (75-99)
--- NOTE | 2019-10-06 02:34 | PN ---
PROGRESS NOTE DATE OF SERVICE: 10/05/2019 REASON FOR FOLLOWUP: Pneumonia and UTI. INTERVAL HISTORY: The patient is currently afebrile. Patient is breathing comfortably. No chest pain. No cough. No abdominal pain or diarrhea. PHYSICAL EXAMINATION: Blood pressure initially 155/69 with a pulse of 81, temperature 98.5. She is 95% on room air. General description is an elderly female lying in bed in no distress. RESPIRATORY SYSTEM: Unlabored breathing clear to auscultation anteriorly. HEART: S1, S2. Regular rate and rhythm. ABDOMEN: Soft, no tenderness. LABS: Hemoglobin is 8.2, white count 5.5, BUN of 16, creatinine 1.0. DIAGNOSTIC IMPRESSION AND PLAN: Patient with low-grade fever with concern for urinary tract infection/pneumonia. The patient seemed to have shown clinical improvement. Her white count is currently normalized on Rocephin and Zithromax. To finish a short course of oral Ceftin. Continue with supportive care. MMODL / IJN: [id number] /
[2019-10-06] MEDS: hydrALAZINE HCL 25 MG TAB PO SCH ×2 (05:52→17:58)
[2019-10-06] MEDS: SODIUM CHLORIDE 0.9% 1,000 ML IV SCH ×2 (05:52→21:05)
[2019-10-06 06:42] LABS: Anisocytosis Slight; Basophils % (A) 0 %; Eosinophils # (A) 0.3 k/uL (0-0.7); Eosinophils % (A) 4 %; HCT 29.3 % (34.0-46.0); HGB 9.6 gm/dL (11.4-16.0); Lymphocytes # (A) 1.3 k/uL (1.0-4.8); Lymphocytes % (A) 21 %; MCH 30.3 pg (25.0-35.0); MCHC 32.8 g/dL (31.0-37.0); MCV 92.5 fL (80.0-100.0); Mean Platelet Volume 8.9; Monocytes # (A) 0.7 k/uL (0-1.0); Monocytes % (A) 11 %; Neutrophils % (A) 62 %; Platelet Count 296 k/uL (150-450); RBC 3.17 m/uL (3.80-5.40); RDW 16.6 % (11.5-15.5); WBC 6.5 k/uL (3.8-10.6)
[2019-10-06 06:52] LABS: ALT <6 U/L (4-34); AST 33 U/L (14-36); African American GFR (CKD) 63 (>60 ml/min/1.73 sqM); Albumin 1.9 g/dL (3.5-5.0); Alkaline Phosphatase 80 U/L (38-126); Anion Gap 5 mmol/L; Blood Urea Nitrogen 15 mg/dL (7-17); Calcium 8.1 mg/dL (8.4-10.2); Carbon Dioxide 21 mmol/L (22-30); Chloride 107 mmol/L (98-107); Glucose 71 mg/dL (74-99); Non-African American GFR(CKD) 54 (>60 ml/min/1.73 sqM); Potassium 3.6 mmol/L (3.5-5.1); Sodium 133 mmol/L (137-145); Total Bilirubin 0.3 mg/dL (0.2-1.3); Total Protein 5.1 g/dL (6.3-8.2)
[2019-10-06 07:12] LABS: Glucose,Whole Blood 86 mg/dL (75-99)
[2019-10-06] MEDS: CALCIUM CARBONATE 500 MG CHEWABLE PO SCH (07:19)
--- NOTE | 2019-10-06 07:55 | XR ---
EXAMINATION TYPE: XR chest 1V portable DATE OF EXAM: 10/06/2019 HISTORY: Shortness of breath. COMPARISON: 10/03/2019 TECHNIQUE: Single view of the chest is submitted. FINDINGS: Demonstrated are scattered senescent parenchymal change. Perihilar and basilar infiltrates have progressed as well as small bilateral pleural effusions. The heart is stable. Hilar and mediastinal structures are within normal limits. Degenerative changes are seen of the dorsal spine. IMPRESSION: 1. Perihilar and basilar infiltrates have progressed as well as small bilateral pleural effusions.
[2019-10-06] MEDS: PROPRANOLOL 20 MG TAB PO SCH ×3 (08:40→17:58)
[2019-10-06] MEDS: glipiZIDE 5 MG TAB PO SCH (08:40)
[2019-10-06] MEDS: HYDROCHLOROTHIAZIDE 12.5 MG CAP PO SCH (08:40)
[2019-10-06] MEDS: CHOLECALCIFEROL 1,000 UNIT TAB PO SCH (08:40)
[2019-10-06] MEDS: CARBIDOPA-LEVODOPA 25-250 MG 1 EACH TAB PO SCH ×3 (08:40→21:04)
[2019-10-06] MEDS: ISOSORBIDE MONONITRATE ER 30 MG TAB.ER.24H PO SCH (08:40)
[2019-10-06] MEDS: AZITHROMYCIN 500 MG TAB PO SCH (08:40)
[2019-10-06] MEDS: ENOXAPARIN 40 MG/0.4 ML SYRINGE SQ SCH (08:40)
[2019-10-06] MEDS: SERTRALINE 25 MG TAB PO SCH (08:40)
[2019-10-06] MEDS: ALLOPURINOL 100 MG TAB PO SCH (08:41)
[2019-10-06] MEDS: LOSARTAN 50 MG TAB PO SCH (08:41)
[2019-10-06] MEDS: PANTOPRAZOLE 40 MG/10 ML VIAL IVP SCH ×2 (08:44→21:04)
[2019-10-06] MEDS: MULTIVITAMINS, THERA 1 EACH TAB PO SCH (08:45)
[2019-10-06] MEDS: PRIMIDONE 50 MG TAB PO SCH ×3 (08:45→21:05)
[2019-10-06] MEDS: SENNOSIDES-DOCUSATE SODIUM 1 EACH TAB PO SCH ×2 (08:45→21:04)
[2019-10-06] MEDS: BACITRACIN 500 UNIT/GM OINT 28.4 GM TUBE TOPICAL SCH ×2 (09:59→21:05)
[2019-10-06 11:51] LABS: Glucose,Whole Blood 89 mg/dL (75-99)
[2019-10-06] MEDS: SODIUM FERRIC GLUCONAT-SUCROSE 125 MG in SODIUM CHLORIDE 0.9% 100 ML IVPB SCH (14:12)
--- NOTE | 2019-10-06 15:51 | P.PN ---
Subjective Progress Note Date: 10/06/19 Ирина Rizvi is an 83-year-old female, well-known to my practice, who presented to [facility] emergency room after having a syncopal episode with fall and head injury requiring multiple sutures to the scalp. Patient stated that she was walking to the bathroom with her walker with the help of an aid when she felt dizzy and passed out and fell and hit her head on the toilet patient was having significant laceration with bleeding EMS were called and patient was brought into emergency room. Patient estimated that she was unconscious for several minutes. In the emergency room patient was treated for her lacerations, computed tomography scan of the brain was done and did not reveal any evidence of intracranial bleeding, patient was admitted to telemetry floor for further evaluation and treatment. Laboratory data revealed evidence of dehydration was acute kidney injury BUN was elevated at 14 and creatinine at 1.53 which is higher than her baseline. Potassium was elevated at 5.5 blood pressure is elevated patient is maintained on multiple blood pressure medications. Echocardiogram and carotid Doppler were ordered cardiology consultation was requested regarding syncopal episode. On 09/21/2019 patient was seen and examined on the medical floor she is alert and oriented 3 in no apparent distress there is no fever or chills no headache or dizziness no chest pain no shortness of breath no cough no nausea or vomiting no abdominal pain no diarrhea no burning with urination no frequency or urgency and no hematuria. D-dimer ordered by cardiology was elevated, at this time will start full dose of subcu Lovenox, will check lower extremity Doppler and VQ scan to rule out pulmonary embolism, CT angiogram of the chest cannot be done due to elevated creatinine. On 09/22/2019 patient was seen and examined on the medical floor she is alert and oriented 3 in no apparent distress she is complaining of knee pain and was seen by orthopedic surgery in that regard, d-dimer was elevated, she was started yesterday on full dose of subcu Lovenox, today bilateral lower extremity Doppler was negative, and VQ scan was low probability for pulmonary embolism, dose of Lovenox will be decreased to 30 mg subcu once daily, hemoglobin today is low at 6.8 patient will receive 1 unit of red blood cell transfusion will recheck labs in a.m.. On 09/23/2019 patient was seen and examined on the medical floor she is alert and oriented 3 in no distress she is still complaining of knee pain otherwise she denies any complaints at this time there is no fever or chills no headache or dizziness no chest pain no shortness of breath no cough no nausea or vomiting no abdominal pain no diarrhea and no urinary symptoms. Patient is being evaluated by cardiology in regard to syncope and collapse. On 09/24/2019 patient was seen and examined on the medical floor she is alert and oriented 3 in no apparent distress she is complaining of right knee pain, she is and able to stand or walk at this time otherwise she denies any complaint there is no fever or chills no headache or dizziness no chest pain no shortness of breath no cough no nausea or vomiting no abdominal pain no diarrhea and no urinary symptoms On 09/25/2019 patient was seen and examined on the medical floor patient is al ert slightly confused in no apparent distress there is no fever or chills no headache or dizziness no chest pain no shortness of breath no cough no nausea or vomiting no abdominal pain no diarrhea and no urinary symptoms, patient has not been cooperating with nursing staff with taking her pills or eating, physical therapy are coming but she has not been cooperating. Hemoglobin today is down to 7.7 On 09/26/2019 patient was seen and examined on the medical floor patient is alert but confused there is no fever or chills no headache or dizziness no chest pain no shortness of breath no cough no nausea or vomiting no abdominal pain no diarrhea and no urinary symptoms, patient has not been cooperating with nursing staff with taking her pills or eating, physical therapy are coming but she has not been cooperating. Hemoglobin today is down to 7.6 awaiting gastroenterology consult On 09/27/2019 patient was seen and examined on the medical floor she is alert, confused, in no apparent distress hemoglobin is down to 7.5 patient has low iron level she received 1 dose of Venofer yesterday we will give 1 more dose today and recheck CBC in a.m. patient is denying any complaints at this time. On 09/28/2019 patient was seen and examined on the medical floor she is alert confused in no apparent distress hemoglobin is up to 7.7 after 2 IV doses of Venofer, patient has been complaining of generalized weakness and pain in the lower extremities she has not been working with physical therapy, otherwise there is no complaints there is no fever or chills no headache or dizziness no chest pain no shortness of breath no cough no nausea or vomiting no abdominal pain no diarrhea and no urinary symptoms. On 09/29/2019 patient was seen and examined on the medical floor she is more alert today, there is no fever or chills no headache or dizziness no chest pain no shortness of breath no cough no nausea or vomiting no abdominal pain no diarrhea and no urinary symptoms hemoglobin is up to 8.4 white blood count however has increased to 12.1. At this time will check chest x-ray portable urine analysis, will remove sutures from scalp will recheck labs in a.m. On 09/30/2019 patient was seen and examined on the medical floor she is alert and responsive in no apparent distress, vitals are stable with temperature of 97.7 pulse 77 respiration 20 and blood pressure 145/69 she is complaining of generalized pain and discomfort she has not been working with physical therapy and has been mostly bed bound there is no fever or chills no headache or dizziness no chest pain no shortness of breath no cough no nausea or vomiting no abdominal pain no diarrhea and no urinary symptoms, white blood count is up chest x-ray was ordered yesterday and urine analysis was ordered. On 10/01/2019 patient was seen and examined on the medical floor she is somnolent but arousable in no apparent distress hemoglobin was down to 6.9 today 1 unit of red blood cell transfusion was ordered patient is followed by gastroenterology and they were notified of recent drop in hemoglobin, otherwise patient is stable and there is no fever or chills no headache or dizziness no chest pain no shortness of breath no cough no nausea or vomiting no abdominal pain no diarrhea and no urinary symptoms On 10/02/2019 patient was seen and examined on the medical floor she is alert, responsive in no distress she is complaining of generalized pain and discomfort otherwise no specific complaints. Patient has high residual urine in the bladder, phelps catheter inserted and urology consult initiated. On 10/03/2019 patient was seen and examined the medical floor she is somnolent today in no distress she wakes up she is denying any symptoms at this time hemoglobin is up to 10.3 patient underwent colonoscopy yesterday and had a polyp removed there is no fever or chills no headache or dizziness no chest pain no shortness of breath no cough no nausea or vomiting no abdominal pain no diarrhea and no urinary symptoms. On 10/04/2019 Patient was seen and examined on the medical floor, she is more alert today, she is confused in no distress. she denies any symptoms at this time. There is no fever or chills no headache or dizziness no chest pain no shortness of breath no cough no nausea or vomiting no abdominal pain no diarrhea and no urinary symptoms. On 10/05/2019 Patient was seen and examined on the medical floor, she is alert, confused in no distress. she denies any symptoms at this time. There is no fever or chills no headache or dizziness no chest pain no shortness of breath no cough no nausea or vomiting no abdominal pain no diarrhea and no burning with urination, no frequency or urgency no hematuria. On 10/06/2019 patient was seen and examined on the medical floor she is alert confused in no apparent distress, she is complaining of generalized weakness otherwise no specific complaints her temperature is 97.5 pulse 73 respiration 19 and blood pressure 183/80 pulse ox is 97% on room air Objective - Vital Signs Vital signs: Vital Signs Temp 98.3 F 10/06/19 15:00 Pulse 79 10/06/19 15:00 Resp 18 10/06/19 15:00 BP 156/72 10/06/19 15:00 Pulse Ox 91 L 10/06/19 15:00 Intake & Output 10/05/19 10/06/19 10/06/19 18:59 06:59 18:59 Intake Total 350 450 700 Output Total 1400 226 500 Balance -1050 224 200 Intake: Intake, IV Titration 150 500 Amount Sodium Chloride 0.9% 1, 350 000 ml @ 20 mls/hr IV . Q24H RAJANI Rx#:[id number] Sodium Ferric Gluconat- 100 100 Sucrose 125 mg In Sodium Chloride 0.9% 100 ml @ 100 mls/hr IVPB DAILY@ 1200 RAJANI Rx#:[id number] cefTRIAXone 1 gm In 50 50 Sodium Chloride 0.9% 50 ml @ 100 mls/hr IVPB Q24HR RAJANI Rx#:[id number] Oral 200 450 200 Output: Urine 1400 225 500 Stool 0 1 Other: Voiding Method Indwelling Catheter Indwelling Catheter # Voids 2 - Exam In general patient is alert and oriented 3 in no apparent distress answering questions appropriately HEENT head normocephalic without multiple bruises and large laceration on the scalp with multiple sutures Neck is supple no JVD no goiter no lymphadenopathy Chest exam reveals a few scattered rhonchi no wheezing Cardiac exam reveals regular heart sounds S1 and S2 with 2/6 systolic murmur in the left sternal border Abdomen is soft nontender no organomegaly with normal bowel sounds Extremity exam reveals no edema no cyanosis or clubbing Neurological examination reveals no gross focal deficit - Labs CBC & Chem 7: 10/06/19 05:55 10/06/19 05:55 Labs: Abnormal Lab Results - Last 24 Hours (Table) 10/05/19 10/06/19 10/06/19 Range/Units 20:21 05:55 05:55 RBC 3.17 L (3.80-5.40) m/uL Hgb 9.6 L (11.4-16.0) gm/dL Hct 29.3 L (34.0-46.0) % RDW 16.6 H (11.5-15.5) % Sodium 133 L (137-145) mmol/L Carbon Dioxide 21 L (22-30) mmol/L Glucose 71 L (74-99) mg/dL POC Glucose (mg/dL) 153 H (75-99) mg/dL Calcium 8.1 L (8.4-10.2) mg/dL Total Protein 5.1 L (6.3-8.2) g/dL Albumin 1.9 L (3.5-5.0) g/dL Microbiology - Last 24 Hours (Table) 09/30/19 15:18 Blood Culture - Preliminary Blood No Growth after 120 hours Assessment and Plan Plan: #1 syncopal episode was followed and head trauma #2 multiple lacerations requiring multiple sutures on the head #3 underlying history of hypertension, maintained on multiple blood pressure medications #4 underlying history of diabetes mellitus #5 underlying history of Parkinson disease #6 underlying history of gout #7 underlying history of hyperlipidemia #8 evidence of dehydration with acute kidney injury #9 hyperkalemia, correcting #10 episodes of agitation yesterday a small dose of Seroquel was added to her regimen as needed #11 knee pain patient was seen by orthopedic surgery computed tomography scan of the knee was ordered #12 anemia patient received red blood cells during this admission, hemoglobin today again is down to 7.7, will check stools for Hemoccult, check iron and vitamin B12 and folate levels, consult gastroenterology. Patient is receiving IV iron supplements. #13 leukocytosis chest x-ray and urine analysis ordered consultation for infectious disease initiated. Leukocytosis improved white blood count today is 6.5 At this time patient is improving gradually Norvasc 2.5 mg by mouth daily will be added for better blood pressure control Recheck labs and follow-up in a.m. Possible transfer back to the custodial in the next 1-2 days
[2019-10-06 17:01] LABS: Glucose,Whole Blood 74 mg/dL (75-99)
[2019-10-06] MEDS: amLODIPine 2.5 MG TAB PO SCH (17:58)
[2019-10-06 20:55] LABS: Glucose,Whole Blood 111 mg/dL (75-99)
[2019-10-06] MEDS: QUEtiapine 25 MG TAB PO SCH (21:04)
[2019-10-06] MEDS: traZODone HCL 50 MG TAB PO SCH (21:04)
[2019-10-06] MEDS: cloNIDine HCL 0.2 MG TAB PO PRN (21:05)
--- NOTE | 2019-10-06 22:51 | PN ---
PROGRESS NOTE DATE OF SERVICE: 10/06/2019 REASON FOR FOLLOWUP: UTI and pneumonia. INTERVAL HISTORY: The patient is currently afebrile. The patient is breathing comfortably. Denies having any chest pain or shortness of breath. Occasional cough. No abdominal pain or diarrhea. PHYSICAL EXAMINATION: On examination, her blood pressure is 138/77 with a pulse of 86, temperature 98. She is 95% on room air. General description is an elderly female lying in bed in no distress. RESPIRATORY SYSTEM: Unlabored breathing with decreased breath sounds at the base. No wheeze. HEART: S1, S2. Regular rate and rhythm. ABDOMEN: Soft. No tenderness. LABS: Hemoglobin 9.6, white count 6.5. BUN of 15, creatinine 0.98. DIAGNOSTIC IMPRESSION AND PLAN: Patient with leukocytosis which is likely multifactorial with concern for a urinary tract infection and pneumonia. White count responded to Rocephin and Zithromax. X-ray shows slight worsening and some effusion, possibly fluid-related. Clinically without any worsening pneumonia. Will continue Rocephin and monitor clinical course closely. MMODL / IJN: [id number] /
[2019-10-07] MEDS: hydrALAZINE HCL 25 MG TAB PO SCH ×2 (04:16→17:58)
[2019-10-07 07:19] LABS: Glucose,Whole Blood 86 mg/dL (75-99)
--- NOTE | 2019-10-07 08:43 | P.PN ---
Subjective Progress Note Date: 10/07/19 Ирина Rizvi is an 83-year-old female, well-known to my practice, who presented to [facility] emergency room after having a syncopal episode with fall and head injury requiring multiple sutures to the scalp. Patient stated that she was walking to the bathroom with her walker with the help of an aid when she felt dizzy and passed out and fell and hit her head on the toilet patient was having significant laceration with bleeding EMS were called and patient was brought into emergency room. Patient estimated that she was unconscious for several minutes. In the emergency room patient was treated for her lacerations, computed tomography scan of the brain was done and did not reveal any evidence of intracranial bleeding, patient was admitted to telemetry floor for further evaluation and treatment. Laboratory data revealed evidence of dehydration was acute kidney injury BUN was elevated at 14 and creatinine at 1.53 which is higher than her baseline. Potassium was elevated at 5.5 blood pressure is elevated patient is maintained on multiple blood pressure medications. Echocardiogram and carotid Doppler were ordered cardiology consultation was requested regarding syncopal episode. On 09/21/2019 patient was seen and examined on the medical floor she is alert and oriented 3 in no apparent distress there is no fever or chills no headache or dizziness no chest pain no shortness of breath no cough no nausea or vomiting no abdominal pain no diarrhea no burning with urination no frequency or urgency and no hematuria. D-dimer ordered by cardiology was elevated, at this time will start full dose of subcu Lovenox, will check lower extremity Doppler and VQ scan to rule out pulmonary embolism, CT angiogram of the chest cannot be done due to elevated creatinine. On 09/22/2019 patient was seen and examined on the medical floor she is alert and oriented 3 in no apparent distress she is complaining of knee pain and was seen by orthopedic surgery in that regard, d-dimer was elevated, she was started yesterday on full dose of subcu Lovenox, today bilateral lower extremity Doppler was negative, and VQ scan was low probability for pulmonary embolism, dose of Lovenox will be decreased to 30 mg subcu once daily, hemoglobin today is low at 6.8 patient will receive 1 unit of red blood cell transfusion will recheck labs in a.m.. On 09/23/2019 patient was seen and examined on the medical floor she is alert and oriented 3 in no distress she is still complaining of knee pain otherwise she denies any complaints at this time there is no fever or chills no headache or dizziness no chest pain no shortness of breath no cough no nausea or vomiting no abdominal pain no diarrhea and no urinary symptoms. Patient is being evaluated by cardiology in regard to syncope and collapse. On 09/24/2019 patient was seen and examined on the medical floor she is alert and oriented 3 in no apparent distress she is complaining of right knee pain, she is and able to stand or walk at this time otherwise she denies any complaint there is no fever or chills no headache or dizziness no chest pain no shortness of breath no cough no nausea or vomiting no abdominal pain no diarrhea and no urinary symptoms On 09/25/2019 patient was seen and examined on the medical floor patient is al ert slightly confused in no apparent distress there is no fever or chills no headache or dizziness no chest pain no shortness of breath no cough no nausea or vomiting no abdominal pain no diarrhea and no urinary symptoms, patient has not been cooperating with nursing staff with taking her pills or eating, physical therapy are coming but she has not been cooperating. Hemoglobin today is down to 7.7 On 09/26/2019 patient was seen and examined on the medical floor patient is alert but confused there is no fever or chills no headache or dizziness no chest pain no shortness of breath no cough no nausea or vomiting no abdominal pain no diarrhea and no urinary symptoms, patient has not been cooperating with nursing staff with taking her pills or eating, physical therapy are coming but she has not been cooperating. Hemoglobin today is down to 7.6 awaiting gastroenterology consult On 09/27/2019 patient was seen and examined on the medical floor she is alert, confused, in no apparent distress hemoglobin is down to 7.5 patient has low iron level she received 1 dose of Venofer yesterday we will give 1 more dose today and recheck CBC in a.m. patient is denying any complaints at this time. On 09/28/2019 patient was seen and examined on the medical floor she is alert confused in no apparent distress hemoglobin is up to 7.7 after 2 IV doses of Venofer, patient has been complaining of generalized weakness and pain in the lower extremities she has not been working with physical therapy, otherwise there is no complaints there is no fever or chills no headache or dizziness no chest pain no shortness of breath no cough no nausea or vomiting no abdominal pain no diarrhea and no urinary symptoms. On 09/29/2019 patient was seen and examined on the medical floor she is more alert today, there is no fever or chills no headache or dizziness no chest pain no shortness of breath no cough no nausea or vomiting no abdominal pain no diarrhea and no urinary symptoms hemoglobin is up to 8.4 white blood count however has increased to 12.1. At this time will check chest x-ray portable urine analysis, will remove sutures from scalp will recheck labs in a.m. On 09/30/2019 patient was seen and examined on the medical floor she is alert and responsive in no apparent distress, vitals are stable with temperature of 97.7 pulse 77 respiration 20 and blood pressure 145/69 she is complaining of generalized pain and discomfort she has not been working with physical therapy and has been mostly bed bound there is no fever or chills no headache or dizziness no chest pain no shortness of breath no cough no nausea or vomiting no abdominal pain no diarrhea and no urinary symptoms, white blood count is up chest x-ray was ordered yesterday and urine analysis was ordered. On 10/01/2019 patient was seen and examined on the medical floor she is somnolent but arousable in no apparent distress hemoglobin was down to 6.9 today 1 unit of red blood cell transfusion was ordered patient is followed by gastroenterology and they were notified of recent drop in hemoglobin, otherwise patient is stable and there is no fever or chills no headache or dizziness no chest pain no shortness of breath no cough no nausea or vomiting no abdominal pain no diarrhea and no urinary symptoms On 10/02/2019 patient was seen and examined on the medical floor she is alert, responsive in no distress she is complaining of generalized pain and discomfort otherwise no specific complaints. Patient has high residual urine in the bladder, phelps catheter inserted and urology consult initiated. On 10/03/2019 patient was seen and examined the medical floor she is somnolent today in no distress she wakes up she is denying any symptoms at this time hemoglobin is up to 10.3 patient underwent colonoscopy yesterday and had a polyp removed there is no fever or chills no headache or dizziness no chest pain no shortness of breath no cough no nausea or vomiting no abdominal pain no diarrhea and no urinary symptoms. On 10/04/2019 Patient was seen and examined on the medical floor, she is more alert today, she is confused in no distress. she denies any symptoms at this time. There is no fever or chills no headache or dizziness no chest pain no shortness of breath no cough no nausea or vomiting no abdominal pain no diarrhea and no urinary symptoms. On 10/05/2019 Patient was seen and examined on the medical floor, she is alert, confused in no distress. she denies any symptoms at this time. There is no fever or chills no headache or dizziness no chest pain no shortness of breath no cough no nausea or vomiting no abdominal pain no diarrhea and no burning with urination, no frequency or urgency no hematuria. On 10/06/2019 patient was seen and examined on the medical floor she is alert confused in no apparent distress, she is complaining of generalized weakness otherwise no specific complaints her temperature is 97.5 pulse 73 respiration 19 and blood pressure 183/80 pulse ox is 97% on room air On 10/07/2019 patient was seen and examined on the medical floor she is alert responsive in no apparent distress she denies any complaints at this time clinically she seems better however her chest x-ray revealed some worsening yesterday, lab results are improving. At this time will discontinue IV fluid and give 1 dose of IV Lasix, will recheck chest x-ray in a.m. Objective - Vital Signs Vital signs: Vital Signs Temp 98.2 F 10/07/19 07:00 Pulse 79 10/07/19 07:00 Resp 18 10/07/19 07:00 BP 171/71 10/07/19 07:00 Pulse Ox 93 L 10/07/19 07:00 Intake & Output 10/06/19 10/07/19 10/07/19 18:59 06:59 18:59 Intake Total 700 Output Total 1000 1000 Balance -300 -1000 Intake: Intake, IV Titration 500 Amount Sodium Chloride 0.9% 1, 350 000 ml @ 20 mls/hr IV . Q24H [facility] Rx#:[id number] Sodium Ferric Gluconat- 100 Sucrose 125 mg In Sodium Chloride 0.9% 100 ml @ 100 mls/hr IVPB DAILY@ 1200 [facility] Rx#:[id number] cefTRIAXone 1 gm In 50 Sodium Chloride 0.9% 50 ml @ 100 mls/hr IVPB Q24HR [facility] Rx#:[id number] Oral 200 Output: Urine 1000 1000 Other: Voiding Method Indwelling Catheter Indwelling Catheter # Voids 2 2 # Bowel Movements 1 1 - Exam In general patient is alert and oriented 3 in no apparent distress answering questions appropriately HEENT head normocephalic without multiple bruises and large laceration on the scalp with multiple sutures Neck is supple no JVD no goiter no lymphadenopathy Chest exam reveals a few scattered rhonchi no wheezing Cardiac exam reveals regular heart sounds S1 and S2 with 2/6 systolic murmur in the left sternal border Abdomen is soft nontender no organomegaly with normal bowel sounds Extremity exam reveals no edema no cyanosis or clubbing Neurological examination reveals no gross focal deficit - Labs CBC & Chem 7: 10/06/19 05:55 10/06/19 05:55 Labs: Abnormal Lab Results - Last 24 Hours (Table) 10/06/19 10/06/19 Range/Units 16:56 20:54 POC Glucose (mg/dL) 74 L 111 H (75-99) mg/dL Microbiology - Last 24 Hours (Table) 09/30/19 15:18 Blood Culture - Final Blood No Growth after 144 hours Assessment and Plan Plan: #1 syncopal episode was followed and head trauma #2 multiple lacerations requiring multiple sutures on the head #3 underlying history of hypertension, maintained on multiple blood pressure medications #4 underlying history of diabetes mellitus #5 underlying history of Parkinson disease #6 underlying history of gout #7 underlying history of hyperlipidemia #8 evidence of dehydration with acute kidney injury #9 hyperkalemia, correcting #10 episodes of agitation yesterday a small dose of Seroquel was added to her regimen as needed #11 knee pain patient was seen by orthopedic surgery computed tomography scan of the knee was ordered #12 anemia patient received red blood cells during this admission, hemoglobin today again is down to 7.7, will check stools for Hemoccult, check iron and vitamin B12 and folate levels, consult gastroenterology. Patient is receiving IV iron supplements. #13 leukocytosis chest x-ray and urine analysis ordered consultation for infectious disease initiated. Leukocytosis improved white blood count today is 6.5 At this time patient is improving gradually Norvasc 2.5 mg by mouth daily will be added for better blood pressure control Recheck labs and follow-up in a.m. Possible transfer back to the senior living in the next 1-2 days
[2019-10-07] MEDS ORDERED: FUROSEMIDE 10 MG/ML 2 ML VIAL IV ONE (08:44)
[2019-10-07] MEDS: amLODIPine 2.5 MG TAB PO SCH (08:50)
[2019-10-07] MEDS: ISOSORBIDE MONONITRATE ER 30 MG TAB.ER.24H PO SCH (08:50)
[2019-10-07] MEDS: CALCIUM CARBONATE 500 MG CHEWABLE PO SCH (08:50)
[2019-10-07] MEDS: BACITRACIN 500 UNIT/GM OINT 28.4 GM TUBE TOPICAL SCH ×2 (08:50→22:03)
[2019-10-07] MEDS: MULTIVITAMINS, THERA 1 EACH TAB PO SCH (08:50)
[2019-10-07] MEDS: PRIMIDONE 50 MG TAB PO SCH ×3 (08:50→22:03)
[2019-10-07] MEDS: ENOXAPARIN 40 MG/0.4 ML SYRINGE SQ SCH (08:50)
[2019-10-07] MEDS: SERTRALINE 25 MG TAB PO SCH (08:50)
[2019-10-07] MEDS: PANTOPRAZOLE 40 MG/10 ML VIAL IVP SCH (08:50)
[2019-10-07] MEDS: LOSARTAN 50 MG TAB PO SCH (08:50)
[2019-10-07] MEDS: ALLOPURINOL 100 MG TAB PO SCH (08:51)
[2019-10-07] MEDS: AZITHROMYCIN 500 MG TAB PO SCH (08:51)
[2019-10-07] MEDS: CHOLECALCIFEROL 1,000 UNIT TAB PO SCH (08:51)
[2019-10-07] MEDS: PROPRANOLOL 20 MG TAB PO SCH ×3 (08:51→17:58)
[2019-10-07] MEDS: CARBIDOPA-LEVODOPA 25-250 MG 1 EACH TAB PO SCH ×3 (08:51→22:03)
[2019-10-07] MEDS: glipiZIDE 5 MG TAB PO SCH (08:51)
[2019-10-07] MEDS: SENNOSIDES-DOCUSATE SODIUM 1 EACH TAB PO SCH ×2 (08:51→22:03)
[2019-10-07] MEDS: HYDROCHLOROTHIAZIDE 12.5 MG CAP PO SCH (08:51)
[2019-10-07 09:32] LABS: ALT <6 U/L (4-34); AST 27 U/L (14-36); African American GFR (CKD) 62 (>60 ml/min/1.73 sqM); Albumin 1.8 g/dL (3.5-5.0); Alkaline Phosphatase 86 U/L (38-126); Anion Gap 5 mmol/L; Blood Urea Nitrogen 13 mg/dL (7-17); Calcium 8.2 mg/dL (8.4-10.2); Carbon Dioxide 20 mmol/L (22-30); Chloride 108 mmol/L (98-107); Glucose 91 mg/dL (74-99); Non-African American GFR(CKD) 53 (>60 ml/min/1.73 sqM); Potassium 3.5 mmol/L (3.5-5.1); Sodium 133 mmol/L (137-145); Total Bilirubin 0.2 mg/dL (0.2-1.3); Total Protein 4.8 g/dL (6.3-8.2)
[2019-10-07 09:40] LABS: Anisocytosis Slight; HCT 28.6 % (34.0-46.0); HGB 9.2 gm/dL (11.4-16.0); MCH 31.3 pg (25.0-35.0); MCHC 32.1 g/dL (31.0-37.0); Macrocytosis Slight; Mean Platelet Volume 7.8; Platelet Count 294 k/uL (150-450); RBC 2.93 m/uL (3.80-5.40); RDW 16.4 % (11.5-15.5); WBC 4.9 k/uL (3.8-10.6)
[2019-10-07 09:41] LABS: MCV 97.6 fL (80.0-100.0)
[2019-10-07 10:53] LABS: Band Neutrophils % 1 %; Lymphocytes # (M) 1.03 k/uL (1.0-4.8); Neutrophils % (M) 72 %; Nucleated Red Blood Cells 0 /100 WBC (0-0); Poikilocytosis (M) Present; Total Cells Counted 100
[2019-10-07 11:50] LABS: Glucose,Whole Blood 145 mg/dL (75-99)
[2019-10-07] MEDS: SODIUM FERRIC GLUCONAT-SUCROSE 125 MG in SODIUM CHLORIDE 0.9% 100 ML IVPB SCH (12:32)
--- NOTE | 2019-10-07 12:33 | P.PN ---
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 dyslipidemia and Electrolyte imbalance with hyperkalemia 10/06/2017, patient seen eval examined and REVIEWED medications in care plan discussed, chest x-ray shows bilateral perihilar infiltrate with small effusion, patient will benefit from furosemide 10/05/2019, patient seen eval examined during the rounds labs reviewed medications reviewed, patient remains afebrile with stable hemodynamics oxygen saturations 94% room air, repeat a chest x-ray tomorrow 10/04/2019, patient seen eval examined had episode of chest pain however responded well with nitro, respiratory status stable oxygen saturation have been stable on room air denies any cough or sputum production will continue current plan of care with antibiotics 10/03/2019, patient seen and evaluated examined during the rounds doing well denies any chest pain of congestion shortness of breath is improved mom oxygen saturation is 96% on room air breathing comfortably chest x-ray done earlier today shows basilar infiltrate likely pneumonia 10/02/2019, patient seen eval examined, still under affect of anesthetic medication for endoscopy, breathing comfortably, white cell count is down to 9400 hemoglobin is up to 9.0, patient is afebrile with stable hemodynamics saturation is 95% room air,, endoscopy finding reviewed small gastric polyp and sliding hiatal hernia, status post biopsy results pending This patient is a 83-year-old female admitted at [facility] for syncopal episode status post fall with head injury requiring multiple sutures of the scalp, patient was evaluated for intracranial hemorrhage found to be negative on computed tomography scan, cardiology is following for syncopal episode workup so far has been negative, patient noted to have elevated d-dimer was placed on Lovenox, duplex ultrasound of the lower extremity and VQ scan was performed computed tomography scan cannot be done due to elevated creatinine, the VQ scan was low probability no significant DVT was seen, patient has been placed on low- dose Lovenox for DVT prophylaxis, patient's hemoglobin dropped to 6.9 being eval by GI services considered for possible scope she is at room air breathing comfortably denies any chest pain chest x-ray on September 28 revealed right perihilar and lower lobe infiltrate along with bilateral pleural effusion, patient white cell count went up to 12, patient has been on Rocephin along with Zithromax second day of therapy, I was asked to evaluate further, patient unable to give a detailed history, patient has been afebrile all along with normal hemodynamics Objective - Vital Signs Vital signs: Vital Signs Temp 98.2 F 10/07/19 07:00 Pulse 79 10/07/19 07:00 Resp 18 10/07/19 07:00 BP 171/71 10/07/19 07:00 Pulse Ox 93 L 10/07/19 07:00 Intake & Output 10/06/19 10/07/19 10/07/19 18:59 06:59 18:59 Intake Total 700 570 Output Total 1000 1000 Balance -300 -1000 570 Intake: Intake, IV Titration 500 90 Amount Sodium Chloride 0.9% 1, 350 40 000 ml @ 20 mls/hr IV . Q24H [facility] Rx#:[id number] Sodium Ferric Gluconat- 100 Sucrose 125 mg In Sodium Chloride 0.9% 100 ml @ 100 mls/hr IVPB DAILY@ 1200 [facility] Rx#:[id number] cefTRIAXone 1 gm In 50 50 Sodium Chloride 0.9% 50 ml @ 100 mls/hr IVPB Q24HR [facility] Rx#:[id number] Oral 200 480 Output: Urine 1000 1000 Other: Voiding Method Indwelling Catheter Indwelling Catheter Indwelling Catheter # Voids 2 2 # Bowel Movements 1 1 - Exam - Constitutional General appearance: average body habitus, cooperative, disheveled - EENT Eyes: PERRLA Ears: bilateral: normal - Neck Neck: normal ROM Carotids: bilateral: upstroke normal - Respiratory Respiratory: bilateral: diminished, bilateral crackles - Cardiovascular Rhythm: regular Heart sounds: normal: S1, S2 - Gastrointestinal General gastrointestinal: normal bowel sounds - Neurologic Neurologic: CNII-XII intact - Musculoskeletal Musculoskeletal: generalized weakness, strength equal bilaterally - Psychiatric Psychiatric: A&O x's 3, appropriate affect, intact judgment & insight - Labs CBC & Chem 7: 10/07/19 08:17 10/07/19 08:17 Labs: Abnormal Lab Results - Last 24 Hours (Table) 10/06/19 10/06/19 10/07/19 Range/Units 16:56 20:54 08:17 RBC 2.93 L (3.80-5.40) m/uL Hgb 9.2 L (11.4-16.0) gm/dL Hct 28.6 L (34.0-46.0) % RDW 16.4 H (11.5-15.5) % Sodium (137-145) mmol/L Chloride (98-107) mmol/L Carbon Dioxide (22-30) mmol/L POC Glucose (mg/dL) 74 L 111 H (75-99) mg/dL Calcium (8.4-10.2) mg/dL Total Protein (6.3-8.2) g/dL Albumin (3.5-5.0) g/dL 10/07/19 10/07/19 Range/Units 08:17 11:49 RBC (3.80-5.40) m/uL Hgb (11.4-16.0) gm/dL Hct (34.0-46.0) % RDW (11.5-15.5) % Sodium 133 L (137-145) mmol/L Chloride 108 H (98-107) mmol/L Carbon Dioxide 20 L (22-30) mmol/L POC Glucose (mg/dL) 145 H (75-99) mg/dL Calcium 8.2 L (8.4-10.2) mg/dL Total Protein 4.8 L (6.3-8.2) g/dL Albumin 1.8 L (3.5-5.0) g/dL Microbiology - Last 24 Hours (Table) 09/30/19 15:18 Blood Culture - Final Blood No Growth after 144 hours Assessment and Plan Assessment: Bilateral lower lobe pneumonia right more than the left Appearance of fluid overload/CHF likely diastolic heart failure Severe symptomatic anemia Syncopal episode likely related to above Head trauma status post laceration repair Past medical history of hypertension hypertensive cardiovascular disease adva nced Parkinson's disease dyslipidemia and Electrolyte imbalance with hyperkalemia Plan: Initiate gentle diuresis Continue antibiotics Patient appears to be responding well clinically Clinically doing very well from respiratory standpoint Status post endoscopy with EGD, no obvious source of bleeding has been identified, Chest x-ray reviewed and finding as noted above will continue current plan of care Time with Patient: Greater than 30
[2019-10-07 17:11] LABS: Glucose,Whole Blood 97 mg/dL (75-99)
[2019-10-07 21:11] LABS: Glucose,Whole Blood 133 mg/dL (75-99)
[2019-10-07] MEDS: traZODone HCL 50 MG TAB PO SCH (22:03)
[2019-10-07] MEDS: QUEtiapine 25 MG TAB PO SCH (22:03)
[2019-10-07] MEDS: PANTOPRAZOLE 40 MG TABLET PO SCH (22:03)
[2019-10-07] MEDS: cloNIDine HCL 0.2 MG TAB PO PRN (22:03)
--- NOTE | 2019-10-07 23:46 | PN ---
PROGRESS NOTE DATE OF SERVICE: 10/07/2019 REASON FOR FOLLOWUP: UTI and pneumonia. INTERVAL HISTORY: The patient is currently afebrile. The patient has been breathing comfortably. Denies any chest pain. Occasional cough. No abdominal pain. No diarrhea. PHYSICAL EXAMINATION: Blood pressure 170/69, pulse 85, temperature 98.9. She is 94% on room air. General description is an elderly female, lying in bed in no distress. RESPIRATORY SYSTEM: Unlabored breathing, decreased breath sounds at the bases. No wheeze, HEART: S1, S2. Regular rate and rhythm. ABDOMEN: Soft, no tenderness. LABS: Hemoglobin 9.2, white count 4.9, BUN of 13, creatinine 1.0. DIAGNOSTIC IMPRESSION AND PLAN: Patient with leukocytosis which is likely multifactorial with concern for possible urinary tract infection/pneumonia. The patient has completed a 7-day course of Rocephin. Will monitor the patient closely off antibiotic therapy and continue with supportive care. MMODL / IJN: [id number] / MTDD
[2019-10-08] MEDS: hydrALAZINE HCL 25 MG TAB PO SCH ×2 (03:19→16:59)
[2019-10-08 06:35] LABS: Anisocytosis Slight; Basophils % (A) 0 %; Eosinophils # (A) 0.2 k/uL (0-0.7); Eosinophils % (A) 3 %; HCT 26.9 % (34.0-46.0); HGB 8.9 gm/dL (11.4-16.0); Lymphocytes # (A) 1.3 k/uL (1.0-4.8); Lymphocytes % (A) 23 %; MCHC 33.1 g/dL (31.0-37.0); MCV 93.7 fL (80.0-100.0); Mean Platelet Volume 7.9; Monocytes # (A) 0.7 k/uL (0-1.0); Monocytes % (A) 12 %; Neutrophils # (A) 3.3 k/uL (1.3-7.7); Neutrophils % (A) 59 %; Platelet Count 294 k/uL (150-450); RBC 2.87 m/uL (3.80-5.40); RDW 16.5 % (11.5-15.5); WBC 5.6 k/uL (3.8-10.6)
[2019-10-08 06:43] LABS: Glucose,Whole Blood 120 mg/dL (75-99)
[2019-10-08 06:48] LABS: ALT <6 U/L (4-34); AST 24 U/L (14-36); African American GFR (CKD) 55 (>60 ml/min/1.73 sqM); Albumin 1.7 g/dL (3.5-5.0); Alkaline Phosphatase 85 U/L (38-126); Anion Gap 3 mmol/L; Blood Urea Nitrogen 13 mg/dL (7-17); Carbon Dioxide 22 mmol/L (22-30); Chloride 108 mmol/L (98-107); Glucose 95 mg/dL (74-99); Non-African American GFR(CKD) 48 (>60 ml/min/1.73 sqM); Potassium 3.2 mmol/L (3.5-5.1); Sodium 133 mmol/L (137-145); Total Bilirubin 0.2 mg/dL (0.2-1.3); Total Protein 4.6 g/dL (6.3-8.2)
[2019-10-08] MEDS ORDERED: FUROSEMIDE 40 MG TAB PO STA (08:32)
--- NOTE | 2019-10-08 09:19 | XR ---
EXAMINATION TYPE: XR chest 1V portable DATE OF EXAM: 10/08/2019 COMPARISON: 10/06/2019 HISTORY: Clearance for discharge. Shortness of breath. TECHNIQUE: Single frontal view of the chest is obtained. FINDINGS: There are persistent small bilateral pleural effusions and associated bibasilar airspace d isease. There is also persistent mild pulmonary vascular congestion. Cardiomediastinal silhouette is partially obscured but appears enlarged. No acute osseous pathology. IMPRESSION: Similar-appearing small bilateral pleural effusions and associated bibasilar airspace di sease with mild pulmonary vascular congestion. Consider congestive heart failure.
[2019-10-08] MEDS: HYDROCHLOROTHIAZIDE 12.5 MG CAP PO SCH (09:21)
[2019-10-08] MEDS: AZITHROMYCIN 500 MG TAB PO SCH (09:21)
[2019-10-08] MEDS: MULTIVITAMINS, THERA 1 EACH TAB PO SCH (09:21)
[2019-10-08] MEDS: amLODIPine 2.5 MG TAB PO SCH (09:21)
[2019-10-08] MEDS: LOSARTAN 50 MG TAB PO SCH (09:21)
[2019-10-08] MEDS: SENNOSIDES-DOCUSATE SODIUM 1 EACH TAB PO SCH ×2 (09:21→21:41)
[2019-10-08] MEDS: CHOLECALCIFEROL 1,000 UNIT TAB PO SCH (09:21)
[2019-10-08] MEDS: ALLOPURINOL 100 MG TAB PO SCH (09:22)
[2019-10-08] MEDS: SERTRALINE 25 MG TAB PO SCH (09:22)
[2019-10-08] MEDS: glipiZIDE 5 MG TAB PO SCH (09:22)
[2019-10-08] MEDS: PANTOPRAZOLE 40 MG TABLET PO SCH ×2 (09:22→21:40)
[2019-10-08] MEDS: ISOSORBIDE MONONITRATE ER 30 MG TAB.ER.24H PO SCH (09:22)
[2019-10-08] MEDS: PROPRANOLOL 20 MG TAB PO SCH ×3 (09:22→16:59)
[2019-10-08] MEDS: CALCIUM CARBONATE 500 MG CHEWABLE PO SCH (09:22)
[2019-10-08] MEDS: CARBIDOPA-LEVODOPA 25-250 MG 1 EACH TAB PO SCH ×3 (09:22→21:48)
[2019-10-08] MEDS: PRIMIDONE 50 MG TAB PO SCH ×3 (09:22→21:41)
[2019-10-08] MEDS: BACITRACIN 500 UNIT/GM OINT 28.4 GM TUBE TOPICAL SCH ×2 (09:23→21:43)
[2019-10-08] MEDS: ENOXAPARIN 40 MG/0.4 ML SYRINGE SQ SCH (09:23)
[2019-10-08] MEDS: ACETAMINOPHEN TAB 325 MG TAB PO PRN ×2 (09:24→17:50)
--- NOTE | 2019-10-08 09:46 | P.PN ---
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 dyslipidemia and Electrolyte imbalance with hyperkalemia 08/09/2017, patient awake and alert, slightly confused though, IVs out, chest x- ray shows bibasilar atelectasis pneumonia and the small pleural effusion highly suggestive of CHF likely is as well as the nurse to give 40 of Lasix by mouth may need to hold discharge for another day 10/06/2017, patient seen eval examined and REVIEWED medications in care plan discussed, chest x-ray shows bilateral perihilar infiltrate with small effusion, patient will benefit from furosemide 10/05/2019, patient seen eval examined during the rounds labs reviewed medicatio ns reviewed, patient remains afebrile with stable hemodynamics oxygen saturations 94% room air, repeat a chest x-ray tomorrow 10/04/2019, patient seen eval examined had episode of chest pain however responded well with nitro, respiratory status stable oxygen saturation have been stable on room air denies any cough or sputum production will continue current plan of care with antibiotics 10/03/2019, patient seen and evaluated examined during the rounds doing well denies any chest pain of congestion shortness of breath is improved mom oxygen saturation is 96% on room air breathing comfortably chest x-ray done earlier today shows basilar infiltrate likely pneumonia 10/02/2019, patient seen eval examined, still under affect of anesthetic medication for endoscopy, breathing comfortably, white cell count is down to 9400 hemoglobin is up to 9.0, patient is afebrile with stable hemodynamics sa turation is 95% room air,, endoscopy finding reviewed small gastric polyp and sliding hiatal hernia, status post biopsy results pending This patient is a 83-year-old female admitted at [facility] for syncopal episode status post fall with head injury requiring multiple sutures of the scalp, patient was evaluated for intracranial hemorrhage found to be negative on computed tomography scan, cardiology is following for syncopal episode workup so far has been negative, patient noted to have elevated d-dimer was placed on Lovenox, duplex ultrasound of the lower extremity and VQ scan was performed computed tomography scan cannot be done due to elevated creatinine, the VQ scan was low probability no significant DVT was seen, patient has been placed on low- dose Lovenox for DVT prophylaxis, patient's hemoglobin dropped to 6.9 being eval by GI services considered for possible scope she is at room air breathing comfortably denies any chest pain chest x-ray on September 28 revealed right perih ilar and lower lobe infiltrate along with bilateral pleural effusion, patient white cell count went up to 12, patient has been on Rocephin along with Zithromax second day of therapy, I was asked to evaluate further, patient unable to give a detailed history, patient has been afebrile all along with normal hemodynamics Objective - Vital Signs Vital signs: Vital Signs Temp 98.1 F 10/08/19 07:00 Pulse 70 10/08/19 07:00 Resp 17 10/08/19 07:00 BP 157/77 10/08/19 07:00 Pulse Ox 95 10/08/19 07:00 Intake & Output 10/07/19 10/08/19 10/08/19 18:59 06:59 18:59 Intake Total 570 200 Output Total 650 350 Balance -80 -350 200 Weight 81.647 kg Intake: Intake, IV Titration 90 Amount Sodium Chloride 0.9% 1, 40 000 ml @ 20 mls/hr IV . Q24H [facility] Rx#:[id number] cefTRIAXone 1 gm In 50 Sodium Chloride 0.9% 50 ml @ 100 mls/hr IVPB Q24HR [facility] Rx#:[id number] Oral 480 200 Output: Urine 650 350 Other: Voiding Method Indwelling Catheter Indwelling Catheter # Voids 2 - Exam - Constitutional General appearance: average body habitus, cooperative, disheveled - EENT Eyes: PERRLA Ears: bilateral: normal - Neck Neck: normal ROM Carotids: bilateral: upstroke normal - Respiratory Respiratory: bilateral: diminished, bilateral crackles - Cardiovascular Rhythm: regular Heart sounds: normal: S1, S2 - Gastrointestinal General gastrointestinal: normal bowel sounds - Neurologic Neurologic: CNII-XII intact - Musculoskeletal Musculoskeletal: generalized weakness, strength equal bilaterally - Psychiatric Psychiatric: A&O x's 3, appropriate affect, intact judgment & insight - Labs CBC & Chem 7: 10/08/19 06:06 10/08/19 06:06 Labs: Abnormal Lab Results - Last 24 Hours (Table) 10/07/19 10/07/19 10/07/19 Range/Units 08:17 11:49 21:09 RBC 2.93 L (3.80-5.40) m/uL Hgb 9.2 L (11.4-16.0) gm/dL Hct 28.6 L (34.0-46.0) % RDW 16.4 H (11.5-15.5) % Sodium (137-145) mmol/L Potassium (3.5-5.1) mmol/L Chloride (98-107) mmol/L Creatinine (0.52-1.04) mg/dL POC Glucose (mg/dL) 145 H 133 H (75-99) mg/dL Calcium (8.4-10.2) mg/dL Total Protein (6.3-8.2) g/dL Albumin (3.5-5.0) g/dL 10/08/19 10/08/19 10/08/19 Range/Units 06:06 06:06 06:42 RBC 2.87 L (3.80-5.40) m/uL Hgb 8.9 L (11.4-16.0) gm/dL Hct 26.9 L (34.0-46.0) % RDW 16.5 H (11.5-15.5) % Sodium 133 L (137-145) mmol/L Potassium 3.2 L (3.5-5.1) mmol/L Chloride 108 H (98-107) mmol/L Creatinine 1.09 H (0.52-1.04) mg/dL POC Glucose (mg/dL) 120 H (75-99) mg/dL Calcium 8.0 L (8.4-10.2) mg/dL Total Protein 4.6 L (6.3-8.2) g/dL Albumin 1.7 L (3.5-5.0) g/dL Assessment and Plan Assessment: Bilateral lower lobe pneumonia right more than the left Appearance of fluid overload/CHF likely diastolic heart failure Severe symptomatic anemia Syncopal episode likely related to above Head trauma status post laceration repair Past medical history of hypertension 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
[2019-10-08 11:07] LABS: Glucose,Whole Blood 186 mg/dL (75-99)
[2019-10-08] MEDS: SODIUM FERRIC GLUCONAT-SUCROSE 125 MG in SODIUM CHLORIDE 0.9% 100 ML IVPB SCH (12:49)
--- NOTE | 2019-10-08 16:17 | P.PN ---
Subjective Progress Note Date: 10/08/19 Ирина Rizvi is an 83-year-old female, well-known to my practice, who presented to [facility] emergency room after having a syncopal episode with fall and head injury requiring multiple sutures to the scalp. Patient stated that she was walking to the bathroom with her walker with the help of an aid when she felt dizzy and passed out and fell and hit her head on the toilet patient was having significant laceration with bleeding EMS were called and patient was brought into emergency room. Patient estimated that she was unconscious for several minutes. In the emergency room patient was treated for her lacerations, computed tomography scan of the brain was done and did not reveal any evidence of intracranial bleeding, patient was admitted to telemetry floor for further evaluation and treatment. Laboratory data revealed evidence of dehydration was acute kidney injury BUN was elevated at 14 and creatinine at 1.53 which is higher than her baseline. Potassium was elevated at 5.5 blood pressure is elevated patient is maintained on multiple blood pressure medications. Echocardiogram and carotid Doppler were ordered cardiology consultation was requested regarding syncopal episode. On 09/21/2019 patient was seen and examined on the medical floor she is alert and oriented 3 in no apparent distress there is no fever or chills no headache or dizziness no chest pain no shortness of breath no cough no nausea or vomiting no abdominal pain no diarrhea no burning with urination no frequency or urgency and no hematuria. D-dimer ordered by cardiology was elevated, at this time will start full dose of subcu Lovenox, will check lower extremity Doppler and VQ scan to rule out pulmonary embolism, CT angiogram of the chest cannot be done due to elevated creatinine. On 09/22/2019 patient was seen and examined on the medical floor she is alert and oriented 3 in no apparent distress she is complaining of knee pain and was seen by orthopedic surgery in that regard, d-dimer was elevated, she was started yesterday on full dose of subcu Lovenox, today bilateral lower extremity Doppler was negative, and VQ scan was low probability for pulmonary embolism, dose of Lovenox will be decreased to 30 mg subcu once daily, hemoglobin today is low at 6.8 patient will receive 1 unit of red blood cell transfusion will recheck labs in a.m.. On 09/23/2019 patient was seen and examined on the medical floor she is alert and oriented 3 in no distress she is still complaining of knee pain otherwise she denies any complaints at this time there is no fever or chills no headache or dizziness no chest pain no shortness of breath no cough no nausea or vomiting no abdominal pain no diarrhea and no urinary symptoms. Patient is being evaluated by cardiology in regard to syncope and collapse. On 09/24/2019 patient was seen and examined on the medical floor she is alert and oriented 3 in no apparent distress she is complaining of right knee pain, she is and able to stand or walk at this time otherwise she denies any complaint there is no fever or chills no headache or dizziness no chest pain no shortness of breath no cough no nausea or vomiting no abdominal pain no diarrhea and no urinary symptoms On 09/25/2019 patient was seen and examined on the medical floor patient is al ert slightly confused in no apparent distress there is no fever or chills no headache or dizziness no chest pain no shortness of breath no cough no nausea or vomiting no abdominal pain no diarrhea and no urinary symptoms, patient has not been cooperating with nursing staff with taking her pills or eating, physical therapy are coming but she has not been cooperating. Hemoglobin today is down to 7.7 On 09/26/2019 patient was seen and examined on the medical floor patient is alert but confused there is no fever or chills no headache or dizziness no chest pain no shortness of breath no cough no nausea or vomiting no abdominal pain no diarrhea and no urinary symptoms, patient has not been cooperating with nursing staff with taking her pills or eating, physical therapy are coming but she has not been cooperating. Hemoglobin today is down to 7.6 awaiting gastroenterology consult On 09/27/2019 patient was seen and examined on the medical floor she is alert, confused, in no apparent distress hemoglobin is down to 7.5 patient has low iron level she received 1 dose of Venofer yesterday we will give 1 more dose today and recheck CBC in a.m. patient is denying any complaints at this time. On 09/28/2019 patient was seen and examined on the medical floor she is alert confused in no apparent distress hemoglobin is up to 7.7 after 2 IV doses of Venofer, patient has been complaining of generalized weakness and pain in the lower extremities she has not been working with physical therapy, otherwise there is no complaints there is no fever or chills no headache or dizziness no chest pain no shortness of breath no cough no nausea or vomiting no abdominal pain no diarrhea and no urinary symptoms. On 09/29/2019 patient was seen and examined on the medical floor she is more alert today, there is no fever or chills no headache or dizziness no chest pain no shortness of breath no cough no nausea or vomiting no abdominal pain no diarrhea and no urinary symptoms hemoglobin is up to 8.4 white blood count however has increased to 12.1. At this time will check chest x-ray portable urine analysis, will remove sutures from scalp will recheck labs in a.m. On 09/30/2019 patient was seen and examined on the medical floor she is alert and responsive in no apparent distress, vitals are stable with temperature of 97.7 pulse 77 respiration 20 and blood pressure 145/69 she is complaining of generalized pain and discomfort she has not been working with physical therapy and has been mostly bed bound there is no fever or chills no headache or dizziness no chest pain no shortness of breath no cough no nausea or vomiting no abdominal pain no diarrhea and no urinary symptoms, white blood count is up chest x-ray was ordered yesterday and urine analysis was ordered. On 10/01/2019 patient was seen and examined on the medical floor she is somnolent but arousable in no apparent distress hemoglobin was down to 6.9 today 1 unit of red blood cell transfusion was ordered patient is followed by gastroenterology and they were notified of recent drop in hemoglobin, otherwise patient is stable and there is no fever or chills no headache or dizziness no chest pain no shortness of breath no cough no nausea or vomiting no abdominal pain no diarrhea and no urinary symptoms On 10/02/2019 patient was seen and examined on the medical floor she is alert, responsive in no distress she is complaining of generalized pain and discomfort otherwise no specific complaints. Patient has high residual urine in the bladder, phelps catheter inserted and urology consult initiated. On 10/03/2019 patient was seen and examined the medical floor she is somnolent today in no distress she wakes up she is denying any symptoms at this time hemoglobin is up to 10.3 patient underwent colonoscopy yesterday and had a polyp removed there is no fever or chills no headache or dizziness no chest pain no shortness of breath no cough no nausea or vomiting no abdominal pain no diarrhea and no urinary symptoms. On 10/04/2019 Patient was seen and examined on the medical floor, she is more alert today, she is confused in no distress. she denies any symptoms at this time. There is no fever or chills no headache or dizziness no chest pain no shortness of breath no cough no nausea or vomiting no abdominal pain no diarrhea and no urinary symptoms. On 10/05/2019 Patient was seen and examined on the medical floor, she is alert, confused in no distress. she denies any symptoms at this time. There is no fever or chills no headache or dizziness no chest pain no shortness of breath no cough no nausea or vomiting no abdominal pain no diarrhea and no burning with urination, no frequency or urgency no hematuria. On 10/06/2019 patient was seen and examined on the medical floor she is alert confused in no apparent distress, she is complaining of generalized weakness otherwise no specific complaints her temperature is 97.5 pulse 73 respiration 19 and blood pressure 183/80 pulse ox is 97% on room air On 10/07/2019 patient was seen and examined on the medical floor she is alert responsive in no apparent distress she denies any complaints at this time clinically she seems better however her chest x-ray revealed some worsening yesterday, lab results are improving. At this time will discontinue IV fluid and give 1 dose of IV Lasix, will recheck chest x-ray in a.m. On 10/08/2019 patient was seen and examined on the medical floor she is alert and responsive in no distress, there is no fever or chills no headache or dizziness, nochest pain no SOB no cough, no nausea or vomiting, no abdominal pain and no urinary symptoms. Objective - Vital Signs Vital signs: Vital Signs Temp 98.1 F 10/08/19 14:32 Pulse 81 10/08/19 14:32 Resp 16 10/08/19 14:32 BP 103/65 10/08/19 14:32 Pulse Ox 97 10/08/19 14:32 Intake & Output 10/07/19 10/08/19 10/08/19 18:59 06:59 18:59 Intake Total 570 200 Output Total 650 350 350 Balance -80 -350 -150 Weight 81.647 kg Intake: Intake, IV Titration 90 Amount Sodium Chloride 0.9% 1, 40 000 ml @ 20 mls/hr IV . Q24H [facility] Rx#:[id number] cefTRIAXone 1 gm In 50 Sodium Chloride 0.9% 50 ml @ 100 mls/hr IVPB Q24HR [facility] Rx#:[id number] Oral 480 200 Output: Urine 650 350 350 Other: Voiding Method Indwelling Catheter Indwelling Catheter Indwelling Catheter # Voids 2 2 # Bowel Movements 1 - Exam In general patient is alert and oriented 3 in no apparent distress answering questions appropriately HEENT head normocephalic without multiple bruises and large laceration on the scalp with multiple sutures Neck is supple no JVD no goiter no lymphadenopathy Chest exam reveals a few scattered rhonchi no wheezing Cardiac exam reveals regular heart sounds S1 and S2 with 2/6 systolic murmur in the left sternal border Abdomen is soft nontender no organomegaly with normal bowel sounds Extremity exam reveals no edema no cyanosis or clubbing Neurological examination reveals no gross focal deficit - Labs CBC & Chem 7: 10/08/19 06:06 10/08/19 06:06 Labs: Abnormal Lab Results - Last 24 Hours (Table) 10/07/19 10/08/19 10/08/19 Range/Units 21:09 06:06 06:06 RBC 2.87 L (3.80-5.40) m/uL Hgb 8.9 L (11.4-16.0) gm/dL Hct 26.9 L (34.0-46.0) % RDW 16.5 H (11.5-15.5) % Sodium 133 L (137-145) mmol/L Potassium 3.2 L (3.5-5.1) mmol/L Chloride 108 H (98-107) mmol/L Creatinine 1.09 H (0.52-1.04) mg/dL POC Glucose (mg/dL) 133 H (75-99) mg/dL Calcium 8.0 L (8.4-10.2) mg/dL Total Protein 4.6 L (6.3-8.2) g/dL Albumin 1.7 L (3.5-5.0) g/dL 10/08/19 10/08/19 Range/Units 06:42 11:05 RBC (3.80-5.40) m/uL Hgb (11.4-16.0) gm/dL Hct (34.0-46.0) % RDW (11.5-15.5) % Sodium (137-145) mmol/L Potassium (3.5-5.1) mmol/L Chloride (98-107) mmol/L Creatinine (0.52-1.04) mg/dL POC Glucose (mg/dL) 120 H 186 H (75-99) mg/dL Calcium (8.4-10.2) mg/dL Total Protein (6.3-8.2) g/dL Albumin (3.5-5.0) g/dL Assessment and Plan Plan: #1 syncopal episode was followed and head trauma #2 multiple lacerations requiring multiple sutures on the head #3 underlying history of hypertension, maintained on multiple blood pressure medications #4 underlying history of diabetes mellitus #5 underlying history of Parkinson disease #6 underlying history of gout #7 underlying history of hyperlipidemia #8 evidence of dehydration with acute kidney injury #9 hyperkalemia, correcting #10 episodes of agitation yesterday a small dose of Seroquel was added to her regimen as needed #11 knee pain patient was seen by orthopedic surgery computed tomography scan of the knee was ordered #12 anemia patient received red blood cells during this admission, hemoglobin today again is down to 7.7, will check stools for Hemoccult, check iron and vitamin B12 and folate levels, consult gastroenterology. Patient is receiving IV iron supplements. #13 leukocytosis chest x-ray and urine analysis ordered consultation for infectious disease initiated. Leukocytosis improved white blood count today is 6.5 At this time patient is improving gradually Norvasc 2.5 mg by mouth daily will be added for better blood pressure control Recheck labs and follow-up in a.m. Possible transfer back to the custodial in the next 1-2 days
[2019-10-08 16:24] LABS: Glucose,Whole Blood 95 mg/dL (75-99)
--- NOTE | 2019-10-08 18:15 | PN ---
PROGRESS NOTE DATE OF SERVICE: 10/08/2019 REASON FOR FOLLOWUP: UTI and pneumonia. INTERVAL HISTORY: The patient is currently afebrile. She has been breathing comfortably. The patient denies having any chest pain. Occasional cough. No abdominal pain or diarrhea. PHYSICAL EXAMINATION: Blood pressure 103/65 with a pulse of 81, temperature 98.1. She is 97% on room air. General description is an elderly female lying in bed in no distress. RESPIRATORY SYSTEM: Unlabored breathing with decreased breath sounds at the base. No wheeze. HEART: S1, S2. Regular rate and rhythm. ABDOMEN: Soft. No tenderness. LABS: Hemoglobin 8.9, white count 5.7, BUN of 13, creatinine 1.09. DIAGNOSTIC IMPRESSION AND PLAN: Patient with leukocytosis with initial concern for possible urinary tract infection and pneumonia. She has completed her antibiotic. Culture has been negative and white count has normalized. Will monitor the patient closely and continue with supportive care. MMODL / IJN: [id number] /
[2019-10-08 21:12] LABS: Glucose,Whole Blood 170 mg/dL (75-99)
[2019-10-08] MEDS: QUEtiapine 25 MG TAB PO SCH (21:40)
[2019-10-08] MEDS: traZODone HCL 50 MG TAB PO SCH (21:41)
[2019-10-09] MEDS: hydrALAZINE HCL 25 MG TAB PO SCH ×2 (04:18→16:25)
[2019-10-09 07:38] LABS: Glucose,Whole Blood 98 mg/dL (75-99)
[2019-10-09] MEDS: ENOXAPARIN 40 MG/0.4 ML SYRINGE SQ SCH (08:27)
--- NOTE | 2019-10-09 10:17 | P.PN ---
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 dyslipidemia and Electrolyte imbalance with hyperkalemia 10/09/2019, patient seen and evaluated examined awake and alert breathing comfortably still pleasantly confused, she is on room air saturating well, her vitals are stable, remains afebrile blood pressure is 180/77 saturation 96% room air, chest x-ray from yesterday reviewed findings are consistent with fluid overload responded well with Lasix, if remains stable and agree with discharge planning to [facility] 10/08/2019, patient awake and alert, slightly confused though, IVs out, chest x- ray shows bibasilar atelectasis pneumonia and the small pleural effusion highly suggestive of CHF likely is as well as the nurse to give 40 of Lasix by mouth may need to hold discharge for another day 10/07/2019, patient seen eval examined and REVIEWED medications in care plan discussed, chest x-ray shows bilateral perihilar infiltrate with small effusion, patient will benefit from furosemide 10/05/2019, patient seen eval examined during the rounds labs reviewed med ications reviewed, patient remains afebrile with stable hemodynamics oxygen saturations 94% room air, repeat a chest x-ray tomorrow 10/04/2019, patient seen eval examined had episode of chest pain however responded well with nitro, respiratory status stable oxygen saturation have been stable on room air denies any cough or sputum production will continue current plan of care with antibiotics 10/03/2019, patient seen and evaluated examined during the rounds doing well denies any chest pain of congestion shortness of breath is improved mom oxygen saturation is 96% on room air breathing comfortably chest x-ray done earlier today shows basilar infiltrate likely pneumonia 10/02/2019, patient seen eval examined, still under affect of anesthetic medication for endoscopy, breathing comfortably, white cell count is down to 9400 hemoglobin is up to 9.0, patient is afebrile with stable hemodynamics saturation is 95% room air,, endoscopy finding reviewed small gastric polyp and sliding hiatal hernia, status post biopsy results pending This patient is a 83-year-old female admitted at [facility] for syncopal episode status post fall with head injury requiring multiple sutures of the s calp, patient was evaluated for intracranial hemorrhage found to be negative on computed tomography scan, cardiology is following for syncopal episode workup so far has been negative, patient noted to have elevated d-dimer was placed on Lovenox, duplex ultrasound of the lower extremity and VQ scan was performed computed tomography scan cannot be done due to elevated creatinine, the VQ scan was low probability no significant DVT was seen, patient has been placed on low- dose Lovenox for DVT prophylaxis, patient's hemoglobin dropped to 6.9 being eval by GI services considered for possible scope she is at room air breathing comfortably denies any chest pain chest x-ray on September 28 revealed right perihilar and lower lobe infiltrate along with bilateral pleural effusion, patient white cell count went up to 12, patient has been on Rocephin along with Zithromax second day of therapy, I was asked to evaluate further, patient unable to give a detailed history, patient has been afebrile all along with normal hemodynamics Objective - Vital Signs Vital signs: Vital Signs Temp 98.3 F 10/09/19 07:00 Pulse 91 10/09/19 07:00 Resp 19 10/09/19 07:00 BP 186/77 10/09/19 07:00 Pulse Ox 96 10/09/19 07:00 Intake & Output 10/08/19 10/09/19 10/09/19 18:59 06:59 18:59 Intake Total 670 Output Total 701 1200 Balance -31 -1200 Intake: Oral 670 Output: Urine 700 1200 Stool 1 Other: Voiding Method Indwelling Catheter Indwelling Catheter # Voids 2 # Bowel Movements 1 1 - Exam - Constitutional General appearance: average body habitus, cooperative, disheveled - EENT Eyes: PERRLA Ears: bilateral: normal - Neck Neck: normal ROM Carotids: bilateral: upstroke normal - Respiratory Respiratory: bilateral: diminished, bilateral crackles - Cardiovascular Rhythm: regular Heart sounds: normal: S1, S2 - Gastrointestinal General gastrointestinal: normal bowel sounds - Neurologic Neurologic: CNII-XII intact - Musculoskeletal Musculoskeletal: generalized weakness, strength equal bilaterally - Psychiatric Psychiatric: A&O x's 3, appropriate affect, intact judgment & insight - Labs CBC & Chem 7: 10/08/19 06:06 10/08/19 06:06 Labs: Abnormal Lab Results - Last 24 Hours (Table) 10/08/19 10/08/19 Range/Units 11:05 21:11 POC Glucose (mg/dL) 186 H 170 H (75-99) mg/dL Assessment and Plan Assessment: Bilateral lower lobe pneumonia right more than the left Appearance of fluid overload/CHF likely diastolic heart failure Severe symptomatic anemia Syncopal episode likely related to above Head trauma status post laceration repair Past medical history of hypertension 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
[2019-10-09] MEDS: PROPRANOLOL 20 MG TAB PO SCH ×3 (10:56→17:14)
[2019-10-09] MEDS: ALLOPURINOL 100 MG TAB PO SCH (10:56)
[2019-10-09] MEDS: glipiZIDE 5 MG TAB PO SCH (10:57)
[2019-10-09] MEDS: AZITHROMYCIN 500 MG TAB PO SCH (10:57)
[2019-10-09] MEDS: CALCIUM CARBONATE 500 MG CHEWABLE PO SCH (10:57)
[2019-10-09] MEDS: BACITRACIN 500 UNIT/GM OINT 28.4 GM TUBE TOPICAL SCH ×2 (10:57→20:52)
[2019-10-09] MEDS: amLODIPine 2.5 MG TAB PO SCH (10:57)
[2019-10-09] MEDS: MULTIVITAMINS, THERA 1 EACH TAB PO SCH (10:57)
[2019-10-09] MEDS: CHOLECALCIFEROL 1,000 UNIT TAB PO SCH (10:57)
[2019-10-09] MEDS: LOSARTAN 50 MG TAB PO SCH (10:57)
[2019-10-09] MEDS: ISOSORBIDE MONONITRATE ER 30 MG TAB.ER.24H PO SCH (10:57)
[2019-10-09] MEDS: HYDROCHLOROTHIAZIDE 12.5 MG CAP PO SCH (10:57)
[2019-10-09] MEDS: CARBIDOPA-LEVODOPA 25-250 MG 1 EACH TAB PO SCH ×3 (10:57→20:53)
[2019-10-09] MEDS: SERTRALINE 25 MG TAB PO SCH (10:58)
[2019-10-09] MEDS: SENNOSIDES-DOCUSATE SODIUM 1 EACH TAB PO SCH ×2 (10:58→20:53)
[2019-10-09] MEDS: PRIMIDONE 50 MG TAB PO SCH ×3 (10:58→20:53)
[2019-10-09] MEDS: PANTOPRAZOLE 40 MG TABLET PO SCH ×2 (10:58→20:53)
[2019-10-09 11:26] LABS: Glucose,Whole Blood 93 mg/dL (75-99)
[2019-10-09] MEDS ORDERED: POTASSIUM CHLORIDE ER 20 MEQ TAB.ER PO STA (12:13)
[2019-10-09] MEDS: SODIUM FERRIC GLUCONAT-SUCROSE 125 MG in SODIUM CHLORIDE 0.9% 100 ML IVPB SCH (13:29)
--- NOTE | 2019-10-09 16:29 | P.PN ---
Subjective Progress Note Date: 10/09/19 Ирина Rizvi is an 83-year-old female, well-known to my practice, who presented to [facility] emergency room after having a syncopal episode with fall and head injury requiring multiple sutures to the scalp. Patient stated that she was walking to the bathroom with her walker with the help of an aid when she felt dizzy and passed out and fell and hit her head on the toilet patient was having significant laceration with bleeding EMS were called and patient was brought into emergency room. Patient estimated that she was unconscious for several minutes. In the emergency room patient was treated for her lacerations, computed tomography scan of the brain was done and did not reveal any evidence of intracranial bleeding, patient was admitted to telemetry floor for further evaluation and treatment. Laboratory data revealed evidence of dehydration was acute kidney injury BUN was elevated at 14 and creatinine at 1.53 which is higher than her baseline. Potassium was elevated at 5.5 blood pressure is elevated patient is maintained on multiple blood pressure medications. Echocardiogram and carotid Doppler were ordered cardiology consultation was requested regarding syncopal episode. On 09/21/2019 patient was seen and examined on the medical floor she is alert and oriented 3 in no apparent distress there is no fever or chills no headache or dizziness no chest pain no shortness of breath no cough no nausea or vomiting no abdominal pain no diarrhea no burning with urination no frequency or urgency and no hematuria. D-dimer ordered by cardiology was elevated, at this time will start full dose of subcu Lovenox, will check lower extremity Doppler and VQ scan to rule out pulmonary embolism, CT angiogram of the chest cannot be done due to elevated creatinine. On 09/22/2019 patient was seen and examined on the medical floor she is alert and oriented 3 in no apparent distress she is complaining of knee pain and was seen by orthopedic surgery in that regard, d-dimer was elevated, she was started yesterday on full dose of subcu Lovenox, today bilateral lower extremity Doppler was negative, and VQ scan was low probability for pulmonary embolism, dose of Lovenox will be decreased to 30 mg subcu once daily, hemoglobin today is low at 6.8 patient will receive 1 unit of red blood cell transfusion will recheck labs in a.m.. On 09/23/2019 patient was seen and examined on the medical floor she is alert and oriented 3 in no distress she is still complaining of knee pain otherwise she denies any complaints at this time there is no fever or chills no headache or dizziness no chest pain no shortness of breath no cough no nausea or vomiting no abdominal pain no diarrhea and no urinary symptoms. Patient is being evaluated by cardiology in regard to syncope and collapse. On 09/24/2019 patient was seen and examined on the medical floor she is alert and oriented 3 in no apparent distress she is complaining of right knee pain, she is and able to stand or walk at this time otherwise she denies any complaint there is no fever or chills no headache or dizziness no chest pain no shortness of breath no cough no nausea or vomiting no abdominal pain no diarrhea and no urinary symptoms On 09/25/2019 patient was seen and examined on the medical floor patient is al ert slightly confused in no apparent distress there is no fever or chills no headache or dizziness no chest pain no shortness of breath no cough no nausea or vomiting no abdominal pain no diarrhea and no urinary symptoms, patient has not been cooperating with nursing staff with taking her pills or eating, physical therapy are coming but she has not been cooperating. Hemoglobin today is down to 7.7 On 09/26/2019 patient was seen and examined on the medical floor patient is alert but confused there is no fever or chills no headache or dizziness no chest pain no shortness of breath no cough no nausea or vomiting no abdominal pain no diarrhea and no urinary symptoms, patient has not been cooperating with nursing staff with taking her pills or eating, physical therapy are coming but she has not been cooperating. Hemoglobin today is down to 7.6 awaiting gastroenterology consult On 09/27/2019 patient was seen and examined on the medical floor she is alert, confused, in no apparent distress hemoglobin is down to 7.5 patient has low iron level she received 1 dose of Venofer yesterday we will give 1 more dose today and recheck CBC in a.m. patient is denying any complaints at this time. On 09/28/2019 patient was seen and examined on the medical floor she is alert confused in no apparent distress hemoglobin is up to 7.7 after 2 IV doses of Venofer, patient has been complaining of generalized weakness and pain in the lower extremities she has not been working with physical therapy, otherwise there is no complaints there is no fever or chills no headache or dizziness no chest pain no shortness of breath no cough no nausea or vomiting no abdominal pain no diarrhea and no urinary symptoms. On 09/29/2019 patient was seen and examined on the medical floor she is more alert today, there is no fever or chills no headache or dizziness no chest pain no shortness of breath no cough no nausea or vomiting no abdominal pain no diarrhea and no urinary symptoms hemoglobin is up to 8.4 white blood count however has increased to 12.1. At this time will check chest x-ray portable urine analysis, will remove sutures from scalp will recheck labs in a.m. On 09/30/2019 patient was seen and examined on the medical floor she is alert and responsive in no apparent distress, vitals are stable with temperature of 97.7 pulse 77 respiration 20 and blood pressure 145/69 she is complaining of generalized pain and discomfort she has not been working with physical therapy and has been mostly bed bound there is no fever or chills no headache or dizziness no chest pain no shortness of breath no cough no nausea or vomiting no abdominal pain no diarrhea and no urinary symptoms, white blood count is up chest x-ray was ordered yesterday and urine analysis was ordered. On 10/01/2019 patient was seen and examined on the medical floor she is somnolent but arousable in no apparent distress hemoglobin was down to 6.9 today 1 unit of red blood cell transfusion was ordered patient is followed by gastroenterology and they were notified of recent drop in hemoglobin, otherwise patient is stable and there is no fever or chills no headache or dizziness no chest pain no shortness of breath no cough no nausea or vomiting no abdominal pain no diarrhea and no urinary symptoms On 10/02/2019 patient was seen and examined on the medical floor she is alert, responsive in no distress she is complaining of generalized pain and discomfort otherwise no specific complaints. Patient has high residual urine in the bladder, phelps catheter inserted and urology consult initiated. On 10/03/2019 patient was seen and examined the medical floor she is somnolent today in no distress she wakes up she is denying any symptoms at this time hemoglobin is up to 10.3 patient underwent colonoscopy yesterday and had a polyp removed there is no fever or chills no headache or dizziness no chest pain no shortness of breath no cough no nausea or vomiting no abdominal pain no diarrhea and no urinary symptoms. On 10/04/2019 Patient was seen and examined on the medical floor, she is more alert today, she is confused in no distress. she denies any symptoms at this time. There is no fever or chills no headache or dizziness no chest pain no shortness of breath no cough no nausea or vomiting no abdominal pain no diarrhea and no urinary symptoms. On 10/05/2019 Patient was seen and examined on the medical floor, she is alert, confused in no distress. she denies any symptoms at this time. There is no fever or chills no headache or dizziness no chest pain no shortness of breath no cough no nausea or vomiting no abdominal pain no diarrhea and no burning with urination, no frequency or urgency no hematuria. On 10/06/2019 patient was seen and examined on the medical floor she is alert confused in no apparent distress, she is complaining of generalized weakness otherwise no specific complaints her temperature is 97.5 pulse 73 respiration 19 and blood pressure 183/80 pulse ox is 97% on room air On 10/07/2019 patient was seen and examined on the medical floor she is alert responsive in no apparent distress she denies any complaints at this time clinically she seems better however her chest x-ray revealed some worsening yesterday, lab results are improving. At this time will discontinue IV fluid and give 1 dose of IV Lasix, will recheck chest x-ray in a.m. On 10/08/2019 patient was seen and examined on the medical floor she is alert and responsive in no distress, there is no fever or chills no headache or dizziness, nochest pain no SOB no cough, no nausea or vomiting, no abdominal pain and no urinary symptoms. On 10/09/2019 Patient was seen and examined on the medical floor she is alert, confused in no distress, the is no fever or chills, no chest pain or shortness of breath, no nausea or vomiting no abdominal pain and no urinary symptoms. she has been refusing to take some of her medications. Objective - Vital Signs Vital signs: Vital Signs Temp 98.3 F 10/09/19 07:00 Pulse 91 10/09/19 08:00 Resp 19 10/09/19 08:00 BP 186/77 10/09/19 07:00 Pulse Ox 96 10/09/19 07:00 Intake & Output 10/08/19 10/09/19 10/09/19 18:59 06:59 18:59 Intake Total 670 Output Total 701 1200 451 Balance -31 1200 -243 Intake: Oral 670 Output: Urine 700 1200 450 Stool 1 1 Other: Voiding Method Indwelling Catheter Indwelling Catheter Indwelling Catheter # Voids 2 # Bowel Movements 1 1 1 - Exam In general patient is alert and oriented 3 in no apparent distress answering questions appropriately HEENT head normocephalic without multiple bruises and large laceration on the scalp with multiple sutures Neck is supple no JVD no goiter no lymphadenopathy Chest exam reveals a few scattered rhonchi no wheezing Cardiac exam reveals regular heart sounds S1 and S2 with 2/6 systolic murmur in the left sternal border Abdomen is soft nontender no organomegaly with normal bowel sounds Extremity exam reveals no edema no cyanosis or clubbing Neurological examination reveals no gross focal deficit - Labs CBC & Chem 7: 10/08/19 06:06 10/08/19 06:06 Labs: Abnormal Lab Results - Last 24 Hours (Table) 10/08/19 Range/Units 21:11 POC Glucose (mg/dL) 170 H (75-99) mg/dL Assessment and Plan Plan: #1 syncopal episode was followed and head trauma #2 multiple lacerations requiring multiple sutures on the head #3 underlying history of hypertension, maintained on multiple blood pressure medications #4 underlying history of diabetes mellitus #5 underlying history of Parkinson disease #6 underlying history of gout #7 underlying history of hyperlipidemia #8 evidence of dehydration with acute kidney injury #9 hyperkalemia, correcting #10 episodes of agitation yesterday a small dose of Seroquel was added to her regimen as needed #11 knee pain patient was seen by orthopedic surgery computed tomography scan of the knee was ordered #12 anemia patient received red blood cells during this admission, hemoglobin today again is down to 7.7, will check stools for Hemoccult, check iron and vitamin B12 and folate levels, consult gastroenterology. Patient is receiving IV iron supplements. #13 leukocytosis chest x-ray and urine analysis ordered consultation for infectious disease initiated. Leukocytosis improved white blood count today is 6.5 At this time patient is improving gradually Norvasc 2.5 mg by mouth daily will be added for better blood pressure control Recheck labs and follow-up in a.m. Possible transfer back to the [place] [facility] tomorrow
[2019-10-09 16:39] LABS: Glucose,Whole Blood 107 mg/dL (75-99)
[2019-10-09 20:27] LABS: Glucose,Whole Blood 144 mg/dL (75-99)
[2019-10-09] MEDS: QUEtiapine 25 MG TAB PO SCH (20:53)
[2019-10-09] MEDS: traZODone HCL 50 MG TAB PO SCH (20:53)
[2019-10-09] MEDS: cloNIDine HCL 0.2 MG TAB PO PRN (20:53)
--- NOTE | 2019-10-09 22:42 | PN ---
PROGRESS NOTE DATE OF SERVICE: 10/09/2019 REASON FOR FOLLOWUP: Leukocytosis, pneumonia and UTI. INTERVAL HISTORY: The patient is currently afebrile. She has been breathing comfortably. Denies having any chest pain or cough. Did mention vomiting this morning. No diarrhea or any other symptoms. PHYSICAL EXAMINATION: On examination, her blood pressure is 179/77 with a pulse of 78, temperature 98.6. She is 93% on room air. General description is an elderly female lying in bed in no distress. RESPIRATORY SYSTEM: Unlabored breathing with decreased breath sounds at the base. No wheeze. HEART: S1, S2. Regular rate and rhythm. ABDOMEN: Soft. No tenderness. LABS: Hemoglobin 8.9, white count 5.6, BUN of 13, creatinine 1.09. DIAGNOSTIC IMPRESSION AND PLAN: Patient with elevated white count initially which could have been related to possible urinary tract infection and pneumonia. She has completed her antibiotic therapy. Her white count is currently normal and culture has been negative. The patient will be seen as needed from now on. Please call back with any questions for infectious disease care. MMODL / IJN: [id number] /
[2019-10-10] MEDS: hydrALAZINE HCL 25 MG TAB PO SCH (03:32)
[2019-10-10 06:59] LABS: Glucose,Whole Blood 92 mg/dL (75-99)
[2019-10-10 08:12] LABS: ALT <6 U/L (4-34); AST 23 U/L (14-36); African American GFR (CKD) 50 (>60 ml/min/1.73 sqM); Albumin 1.8 g/dL (3.5-5.0); Alkaline Phosphatase 83 U/L (38-126); Anion Gap 2 mmol/L; Blood Urea Nitrogen 13 mg/dL (7-17); Calcium 8.1 mg/dL (8.4-10.2); Carbon Dioxide 24 mmol/L (22-30); Chloride 106 mmol/L (98-107); Glucose 84 mg/dL (74-99); Non-African American GFR(CKD) 44 (>60 ml/min/1.73 sqM); Potassium 3.8 mmol/L (3.5-5.1); Sodium 132 mmol/L (137-145); Total Bilirubin 0.2 mg/dL (0.2-1.3); Total Protein 4.7 g/dL (6.3-8.2)
[2019-10-10] MEDS: MULTIVITAMINS, THERA 1 EACH TAB PO SCH (08:15)
[2019-10-10] MEDS: CALCIUM CARBONATE 500 MG CHEWABLE PO SCH (08:15)
[2019-10-10] MEDS: ENOXAPARIN 40 MG/0.4 ML SYRINGE SQ SCH (08:15)
[2019-10-10] MEDS: ALLOPURINOL 100 MG TAB PO SCH (08:15)
[2019-10-10] MEDS: CHOLECALCIFEROL 1,000 UNIT TAB PO SCH (08:15)
[2019-10-10] MEDS: SENNOSIDES-DOCUSATE SODIUM 1 EACH TAB PO SCH (08:15)
[2019-10-10] MEDS: LOSARTAN 50 MG TAB PO SCH (08:15)
[2019-10-10] MEDS: HYDROCHLOROTHIAZIDE 12.5 MG CAP PO SCH (08:15)
[2019-10-10] MEDS: PRIMIDONE 50 MG TAB PO SCH (08:15)
[2019-10-10] MEDS: glipiZIDE 5 MG TAB PO SCH (08:15)
[2019-10-10] MEDS: PANTOPRAZOLE 40 MG TABLET PO SCH (08:15)
[2019-10-10] MEDS: amLODIPine 2.5 MG TAB PO SCH (08:15)
[2019-10-10] MEDS: SERTRALINE 25 MG TAB PO SCH (08:16)
[2019-10-10] MEDS: ISOSORBIDE MONONITRATE ER 30 MG TAB.ER.24H PO SCH (08:18)
[2019-10-10] MEDS: PROPRANOLOL 20 MG TAB PO SCH ×2 (08:21→12:27)
[2019-10-10 08:32] LABS: Anisocytosis Slight; Basophils % (A) 0 %; Eosinophils # (A) 0.1 k/uL (0-0.7); Eosinophils % (A) 3 %; HCT 27.5 % (34.0-46.0); Lymphocytes # (A) 1.2 k/uL (1.0-4.8); Lymphocytes % (A) 27 %; MCH 31.1 pg (25.0-35.0); MCHC 32.7 g/dL (31.0-37.0); MCV 95.2 fL (80.0-100.0); Macrocytosis Slight; Mean Platelet Volume 8.5; Monocytes # (A) 0.8 k/uL (0-1.0); Monocytes % (A) 17 %; Neutrophils # (A) 2.3 k/uL (1.3-7.7); Neutrophils % (A) 50 %; Platelet Count 268 k/uL (150-450); RBC 2.89 m/uL (3.80-5.40); RDW 16.6 % (11.5-15.5); WBC 4.5 k/uL (3.8-10.6)
[2019-10-10 08:38] VITALS: BP 167/72; PULSE 73; RESP 16; TEMP 98.8
--- NOTE | 2019-10-10 09:09 | P.PN ---
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 dyslipidemia and Electrolyte imbalance with hyperkalemia 10/10/2019, patient seen eval reexamined during the rounds labs reviewed medications reviewed care plan discussed with the staff respiratory status remains stable denies any cough or sputum production denies any chest pain labs reviewed sodium slightly running low, no symptoms of cough or sputum production is present, 10/09/2019, patient seen and evaluated examined awake and alert breathing comfortably still pleasantly confused, she is on room air saturating well, her vitals are stable, remains afebrile blood pressure is 180/77 saturation 96% room air, chest x-ray from yesterday reviewed findings are consistent with fluid overload responded well with Lasix, if remains stable and agree with discharge planning to [facility] 10/08/2019, patient awake and alert, slightly confused though, IVs out, chest x- ray shows bibasilar atelectasis pneumonia and the small pleural effusion highly suggestive of CHF likely is as well as the nurse to give 40 of Lasix by mouth may need to hold discharge for another day 10/07/2019, patient seen eval examined and REVIEWED medications in care plan discussed, chest x-ray shows bilateral perihilar infiltrate with small effusion, patient will benefit from furosemide 10/05/2019, patient seen eval examined during the rounds labs reviewed medications reviewed, patient remains afebrile with stable hemodynamics oxygen saturations 94% room air, repeat a chest x-ray tomorrow 10/04/2019, patient seen eval examined had episode of chest pain however responded well with nitro, respiratory status stable oxygen saturation have been stable on room air denies any cough or sputum production will continue current plan of care with antibiotics 10/03/2019, patient seen and evaluated examined during the rounds doing well denies any chest pain of congestion shortness of breath is improved mom oxygen saturation is 96% on room air breathing comfortably chest x-ray done earlier today shows basilar infiltrate likely pneumonia 10/02/2019, patient seen eval examined, still under affect of anesthetic medication for endoscopy, breathing comfortably, white cell count is down to 9400 hemoglobin is up to 9.0, patient is afebrile with stable hemodynamics saturation is 95% room air,, endoscopy finding reviewed small gastric polyp and sliding hiatal hernia, status post biopsy results pending This patient is a 83-year-old female admitted at [facility] for syncopal episode status post fall with head injury requiring multiple sutures of the scalp, patient was evaluated for intracranial hemorrhage found to be negative on computed tomography scan, cardiology is following for syncopal episode workup so far has been negative, patient noted to have elevated d-dimer was placed on Lovenox, duplex ultrasound of the lower extremity and VQ scan was performed computed tomography scan cannot be done due to elevated creatinine, the VQ scan was low probability no significant DVT was seen, patient has been placed on low- dose Lovenox for DVT prophylaxis, patient's hemoglobin dropped to 6.9 being eval by GI services considered for possible scope she is at room air breathing comfortably denies any chest pain chest x-ray on September 28 revealed right perihilar and lower lobe infiltrate along with bilateral pleural effusion, pat ient white cell count went up to 12, patient has been on Rocephin along with Zithromax second day of therapy, I was asked to evaluate further, patient unable to give a detailed history, patient has been afebrile all along with normal hemodynamics Objective - Vital Signs Vital signs: Vital Signs Temp 98.8 F 10/10/19 07:58 Pulse 73 10/10/19 07:58 Resp 16 10/10/19 07:58 BP 167/72 10/10/19 07:58 Pulse Ox 92 L 10/10/19 07:58 Intake & Output 10/09/19 10/10/19 10/10/19 18:59 06:59 18:59 Output Total 451 225 Balance -451 -225 Weight 81.647 kg Output: Urine 450 225 Stool 1 Other: Voiding Method Indwelling Catheter Indwelling Catheter # Bowel Movements 1 - Exam - Constitutional General appearance: average body habitus, cooperative, disheveled - EENT Eyes: PERRLA Ears: bilateral: normal - Neck Neck: normal ROM Carotids: bilateral: upstroke normal - Respiratory Respiratory: bilateral: diminished, bilateral crackles - Cardiovascular Rhythm: regular Heart sounds: normal: S1, S2 - Gastrointestinal General gastrointestinal: normal bowel sounds - Neurologic Neurologic: CNII-XII intact - Musculoskeletal Musculoskeletal: generalized weakness, strength equal bilaterally - Psychiatric Psychiatric: A&O x's 3, appropriate affect, intact judgment & insight - Labs CBC & Chem 7: 10/10/19 07:32 10/10/19 07:32 Labs: Abnormal Lab Results - Last 24 Hours (Table) 10/09/19 10/09/19 10/10/19 Range/Units 16:38 20:25 07:32 RBC 2.89 L (3.80-5.40) m/uL Hgb 9.0 L (11.4-16.0) gm/dL Hct 27.5 L (34.0-46.0) % RDW 16.6 H (11.5-15.5) % Sodium (137-145) mmol/L Creatinine (0.52-1.04) mg/dL POC Glucose (mg/dL) 107 H 144 H (75-99) mg/dL Calcium (8.4-10.2) mg/dL Total Protein (6.3-8.2) g/dL Albumin (3.5-5.0) g/dL 10/10/19 Range/Units 07:32 RBC (3.80-5.40) m/uL Hgb (11.4-16.0) gm/dL Hct (34.0-46.0) % RDW (11.5-15.5) % Sodium 132 L (137-145) mmol/L Creatinine 1.18 H (0.52-1.04) mg/dL POC Glucose (mg/dL) (75-99) mg/dL Calcium 8.1 L (8.4-10.2) mg/dL Total Protein 4.7 L (6.3-8.2) g/dL Albumin 1.8 L (3.5-5.0) g/dL Assessment and Plan Assessment: Bilateral lower lobe pneumonia right more than the left clinically improving Appearance of fluid overload/CHF likely diastolic heart failure Severe symptomatic anemia Syncopal episode likely related to above Head trauma status post laceration repair Past medical history of hypertension 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
[2019-10-10 09:16] LABS: Poikilocytosis (M) Present
[2019-10-10 11:32] LABS: Glucose,Whole Blood 113 mg/dL (75-99)
[2019-10-10] MEDS: SODIUM FERRIC GLUCONAT-SUCROSE 125 MG in SODIUM CHLORIDE 0.9% 100 ML IVPB SCH (12:10)
[2019-10-10] MEDS: AZITHROMYCIN 500 MG TAB PO SCH (12:27)
[2019-10-10] MEDS: CARBIDOPA-LEVODOPA 25-250 MG 1 EACH TAB PO SCH (12:27)
[2019-10-10] MEDS: BACITRACIN 500 UNIT/GM OINT 28.4 GM TUBE TOPICAL SCH (12:28)
--- NOTE | 2019-10-10 12:36 | P.DS ---
Providers Date of admission: 09/22/19 09:31 Expected date of discharge: 10/10/19 Attending physician: Rodrigo Dc Consults: 09/20/19 02:31 Consult Physician Routine Consulting Provider: Rodrigo Dc Consult Reason/Comments: Medical management Do you want consulting provider notified?: Yes 09/20/19 13:48 Consult Physician Routine Consulting Provider: Eric Encinas Consult Reason/Comments: syncope Do you want consulting provider notified?: Yes 09/22/19 09:34 Consult Physician Routine Consulting Provider: Felix Hernandez Consult Reason/Comments: S/p fall, right knee occult fracture Do you want consulting provider notified?: Yes 09/25/19 12:20 Consult Physician Routine Consulting Provider: Janay Rivera Consult Reason/Comments: anemia Do you want consulting provider notified?: Yes 09/30/19 13:13 Consult Physician Routine Consulting Provider: Gigi Jolley Consult Reason/Comments: bilateral infiltrates Do you want consulting provider notified?: Yes 09/30/19 13:19 Consult Physician Routine Consulting Provider: Obey Peck Consult Reason/Comments: leukocytosis Do you want consulting provider notified?: Yes 10/01/19 17:39 Consult Physician Routine Consulting Provider: Jin Ballard Consult Reason/Comments: urinary retention Do you want consulting provider notified?: Yes, Notify in am Primary care physician: Rodrigo Dc [facility] Course: Diagnosis on discharge: #1 syncopal episode with fall and head trauma #2 multiple lacerations requiring multiple sutures on the head, sutures removed during this hospitalization #3 underlying history of hypertension, maintained on multiple blood pressure medications, medications adjusted during this admission #4 underlying history of diabetes mellitus #5 underlying history of Parkinson disease #6 underlying history of gout #7 underlying history of hyperlipidemia #8 evidence of dehydration with acute kidney injury #9 hyperkalemia, correcting #10 episodes of agitation maintained on seroquel at bedtime. #11 knee pain patient was seen by orthopedic surgery computed tomography scan of the knee was ordered, no intervention recommended at this time #12 anemia patient received red blood cells during this admission, hemoglobin today again is down to 7.7, will check stools for Hemoccult, check iron and vitamin B12 and folate levels, consult gastroenterology. Patient is receiving IV iron supplements. patient underwnt GI testing, no clear source of bleeding identified. #13 leukocytosis chest x-ray and urine analysis ordered consultation for infectious disease initiated. Leukocytosis improved white blood count today is 6.5 Patient had evidence of bilateral lower lobes pneumonia, right more than left. Hospital course: Ирина Rizvi is an 83-year-old female, well-known to my practice, who presented to [facility] emergency room after having a syncopal episode with fall and head injury requiring multiple sutures to the scalp. Patient stated that she was walking to the bathroom with her walker with the help of an aid when she felt dizzy and passed out and fell and hit her head on the toilet patient was having significant laceration with bleeding EMS were called and patient was brought into emergency room. Patient estimated that she was unconscious for several minutes. In the emergency room patient was treated for her lacerations, computed tomography scan of the brain was done and did not reveal any evidence of intracranial bleeding, patient was admitted to telemetry floor for further evaluation and treatment. Laboratory data revealed evidence of dehydration was acute kidney injury BUN was elevated at 14 and creatinine at 1.53 which is higher than her baseline. Potassium was elevated at 5.5 blood pressure is elevated patient is maintained on multiple blood pressure medications. Echocardiogram and carotid Doppler were ordered cardiology consultation was requested regarding syncopal episode. On 09/21/2019 patient was seen and examined on the medical floor she is alert and oriented 3 in no apparent distress there is no fever or chills no headache or dizziness no chest pain no shortness of breath no cough no nausea or vomiting no abdominal pain no diarrhea no burning with urination no frequency or urgency and no hematuria. D-dimer ordered by cardiology was elevated, at this time will start full dose of subcu Lovenox, will check lower extremity Doppler and VQ scan to rule out pulmonary embolism, CT angiogram of the chest cannot be done due to elevated creatinine. On 09/22/2019 patient was seen and examined on the medical floor she is alert and oriented 3 in no apparent distress she is complaining of knee pain and was seen by orthopedic surgery in that regard, d-dimer was elevated, she was started yesterday on full dose of subcu Lovenox, today bilateral lower extremity Doppler was negative, and VQ scan was low probability for pulmonary embolism, dose of Lovenox will be decreased to 30 mg subcu once daily, hemoglobin today is low at 6.8 patient will receive 1 unit of red blood cell transfusion will recheck labs in a.m.. On 09/23/2019 patient was seen and examined on the medical floor she is alert and oriented 3 in no distress she is still complaining of knee pain otherwise she denies any complaints at this time there is no fever or chills no headache or dizziness no chest pain no shortness of breath no cough no nausea or vomiting no abdominal pain no diarrhea and no urinary symptoms. Patient is being evaluated by cardiology in regard to syncope and collapse. On 09/24/2019 patient was seen and examined on the medical floor she is alert and oriented 3 in no apparent distress she is complaining of right knee pain, she is and able to stand or walk at this time otherwise she denies any complaint there is no fever or chills no headache or dizziness no chest pain no shortness of breath no cough no nausea or vomiting no abdominal pain no diarrhea and no urinary symptoms On 09/25/2019 patient was seen and examined on the medical floor patient is alert slightly confused in no apparent distress there is no fever or chills no headache or dizziness no chest pain no shortness of breath no cough no nausea or vomiting no abdominal pain no diarrhea and no urinary symptoms, patient has not been cooperating with nursing staff with taking her pills or eating, physical therapy are coming but she has not been cooperating. Hemoglobin today is down to 7.7 On 09/26/2019 patient was seen and examined on the medical floor patient is alert but confused there is no fever or chills no headache or dizziness no chest pain no shortness of breath no cough no nausea or vomiting no abdominal pain no diarrhea and no urinary symptoms, patient has not been cooperating with nursing staff with taking her pills or eating, physical therapy are coming but she has not been cooperating. Hemoglobin today is down to 7.6 awaiting gastroenterology consult On 09/27/2019 patient was seen and examined on the medical floor she is alert, confused, in no apparent distress hemoglobin is down to 7.5 patient has low iron level she received 1 dose of Venofer yesterday we will give 1 more dose today and recheck CBC in a.m. patient is denying any complaints at this time. On 09/28/2019 patient was seen and examined on the medical floor she is alert confused in no apparent distress hemoglobin is up to 7.7 after 2 IV doses of Venofer, patient has been complaining of generalized weakness and pain in the lower extremities she has not been working with physical therapy, otherwise there is no complaints there is no fever or chills no headache or dizziness no chest pain no shortness of breath no cough no nausea or vomiting no abdominal pain no diarrhea and no urinary symptoms. On 09/29/2019 patient was seen and examined on the medical floor she is more alert today, there is no fever or chills no headache or dizziness no chest pain no shortness of breath no cough no nausea or vomiting no abdominal pain no diarrhea and no urinary symptoms hemoglobin is up to 8.4 white blood count however has increased to 12.1. At this time will check chest x-ray portable urine analysis, will remove sutures from scalp will recheck labs in a.m. On 09/30/2019 patient was seen and examined on the medical floor she is alert and responsive in no apparent distress, vitals are stable with temperature of 97.7 pulse 77 respiration 20 and blood pressure 145/69 she is complaining of generalized pain and discomfort she has not been working with physical therapy and has been mostly bed bound there is no fever or chills no headache or dizziness no chest pain no shortness of breath no cough no nausea or vomiting no abdominal pain no diarrhea and no urinary symptoms, white blood count is up chest x-ray was ordered yesterday and urine analysis was ordered. On 10/01/2019 patient was seen and examined on the medical floor she is somnolent but arousable in no apparent distress hemoglobin was down to 6.9 today 1 unit of red blood cell transfusion was ordered patient is followed by gastroenterology and they were notified of recent drop in hemoglobin, otherwise patient is stable and there is no fever or chills no headache or dizziness no chest pain no shortness of breath no cough no nausea or vomiting no abdominal pain no diarrhea and no urinary symptoms On 10/02/2019 patient was seen and examined on the medical floor she is alert, responsive in no distress she is complaining of generalized pain and discomfort otherwise no specific complaints. Patient has high residual urine in the bladder, phelps catheter inserted and urology consult initiated. On 10/03/2019 patient was seen and examined the medical floor she is somnolent today in no distress she wakes up she is denying any symptoms at this time hemoglobin is up to 10.3 patient underwent colonoscopy yesterday and had a polyp removed there is no fever or chills no headache or dizziness no chest pain no shortness of breath no cough no nausea or vomiting no abdominal pain no diarrhea and no urinary symptoms. On 10/04/2019 Patient was seen and examined on the medical floor, she is more alert today, she is confused in no distress. she denies any symptoms at this time. There is no fever or chills no headache or dizziness no chest pain no shortness of breath no cough no nausea or vomiting no abdominal pain no diarrhea and no urinary symptoms. On 10/05/2019 Patient was seen and examined on the medical floor, she is alert, confused in no distress. she denies any symptoms at this time. There is no fever or chills no headache or dizziness no chest pain no shortness of breath no cough no nausea or vomiting no abdominal pain no diarrhea and no burning with urination, no frequency or urgency no hematuria. On 10/06/2019 patient was seen and examined on the medical floor she is alert confused in no apparent distress, she is complaining of generalized weakness otherwise no specific complaints her temperature is 97.5 pulse 73 respiration 19 and blood pressure 183/80 pulse ox is 97% on room air On 10/07/2019 patient was seen and examined on the medical floor she is alert responsive in no apparent distress she denies any complaints at this time clinically she seems better however her chest x-ray revealed some worsening yesterday, lab results are improving. At this time will discontinue IV fluid and give 1 dose of IV Lasix, will recheck chest x-ray in a.m. On 10/08/2019 patient was seen and examined on the medical floor she is alert and responsive in no distress, there is no fever or chills no headache or dizziness, nochest pain no SOB no cough, no nausea or vomiting, no abdominal pain and no urinary symptoms. On 10/09/2019 Patient was seen and examined on the medical floor she is alert, confused in no distress, the is no fever or chills, no chest pain or shortness of breath, no nausea or vomiting no abdominal pain and no urinary symptoms. she has been refusing to take some of her medications. On 10/10/2019 Patient was seen and examined, she is alert and responsive, confused in no apparent distress, there is no fever or chills no chest pain, no SOB no cough, no nausea or vomiting no abdominal pain, no diarrhea and no urinary symptoms. Patient is stable, vitals and labs reviewed, input from pulmonary reviewed, will discharge patient to assisted, will follow closely Patient Condition at Discharge: Stable Plan - Discharge Summary Discharge Rx Participant: Yes New Discharge Prescriptions: New hydrALAZINE HCL [Apresoline] 25 mg PO Q12H tab Losartan [Cozaar] 100 mg PO DAILY tab Sodium Chloride 0.65% Nasal [Deep Sea (Saline)] 2 spray NASAL QID PRN spray PRN Reason: Congestion traZODone HCL [Desyrel] 50 mg PO HS tab Ipratropium-Albuterol Nebulize [Duoneb 0.5 mg-3 mg/3 ml Soln] 3 ml INHALATION RT-QID PRN ml PRN Reason: Shortness Of Breath glipiZIDE [Glucotrol] 5 mg PO DAILY tab Primidone [Mysoline] 50 mg PO TID tab amLODIPine [Norvasc] 2.5 mg PO DAILY tab Pantoprazole [Protonix] 40 mg PO BID tablet. QUEtiapine [SEROquel] 12.5 mg PO HS tab Carbidopa-Levodopa 25-250 mg [Sinemet 25-250 mg] 1 each PO TID tab Azithromycin [Zithromax] 500 mg PO DAILY 3 Days #3 tab Sertraline [Zoloft] 25 mg PO DAILY tab Allopurinol [Zyloprim] 200 mg PO DAILY tab Continue Multivitamins, Thera [Multivitamin (formulary)] 1 tab PO DAILY Cholecalciferol [Vitamin D3 (25 Mcg = 1000 Iu)] 1,000 unit PO DAILY Calcium Carbonate [Calcium] 600 mg PO DAILY Aspirin 81 mg PO DAILY #30 chew Nitroglycerin Sl Tabs [Nitrostat] 0.4 mg SUBLINGUAL Q5M PRN #25 tab PRN Reason: Chest Pain ALPRAZolam [Xanax] 0.25 mg PO HS@2000 Isosorbide Mononitrate ER [Imdur] 30 mg PO DAILY Sennosides-Docusate Sodium [Senokot-S] 1 tab PO DAILY Bisacodyl [Dulcolax] 10 mg RECTAL DAILY PRN PRN Reason: Constipation Acetaminophen [Tylenol] 650 mg PO Q6H PRN PRN Reason: PAIN RELATED TO GOUT Propranolol [Inderal] 20 mg PO TID@0800,1200,1800 Atorvastatin [Lipitor] 20 mg PO HS Ferrous Sulfate [Feosol] 325 mg PO HS Discontinued Metoprolol Succinate [Toprol XL] 50 mg PO DAILY Febuxostat [Uloric] 40 mg PO DAILY Clopidogrel [Plavix] 75 mg PO DAILY #30 tab cloNIDine HCL [Catapres] 0.2 mg PO Q8H PRN PRN Reason: Systolic is 165 or above Polyethylene Glycol 3350 [Miralax] 17 gm PO DAILY PRN PRN Reason: Constipation hydrALAZINE HCL 10 mg PO TID@0800,1300,2000 Carbidopa-Levodopa 25-100 mg [Sinemet 25-100] 1 tab PO TID@0800,1200,1930 QUEtiapine [SEROquel] 50 mg PO HS amLODIPine [Norvasc] 5 mg PO DAILY Promethazine [Phenergan] 25 mg PO BID PRN PRN Reason: Nausea And Vomiting Discharge Medication List Cholecalciferol [Vitamin D3 (25 Mcg = 1000 Iu)] 1,000 unit PO DAILY 11/16/14 [History] Multivitamins, Thera [Multivitamin (formulary)] 1 tab PO DAILY 11/16/14 [History] Calcium Carbonate [Calcium] 600 mg PO DAILY 09/05/16 [History] Aspirin 81 mg PO DAILY #30 chew 09/06/16 [Rx] Nitroglycerin Sl Tabs [Nitrostat] 0.4 mg SUBLINGUAL Q5M PRN #25 tab 09/06/16 [Rx] ALPRAZolam [Xanax] 0.25 mg PO HS@199912/19/16 [History] Isosorbide Mononitrate ER [Imdur] 30 mg PO DAILY 12/19/16 [History] Sennosides-Docusate Sodium [Senokot-S] 1 tab PO DAILY 03/20/17 [History] Acetaminophen [Tylenol] 650 mg PO Q6H PRN 09/20/19 [History] Atorvastatin [Lipitor] 20 mg PO HS 09/20/19 [History] Bisacodyl [Dulcolax] 10 mg RECTAL DAILY PRN 09/20/19 [History] Ferrous Sulfate [Feosol] 325 mg PO HS 09/20/19 [History] Propranolol [Inderal] 20 mg PO TID@0800,1200,1800 09/20/19 [History] Allopurinol [Zyloprim] 200 mg PO DAILY tab 10/10/19 [Rx] Azithromycin [Zithromax] 500 mg PO DAILY 3 Days #3 tab 10/10/19 [Rx] Carbidopa-Levodopa 25-250 mg [Sinemet 25-250 mg] 1 each PO TID tab 10/10/19 [Rx] Ipratropium-Albuterol Nebulize [Duoneb 0.5 mg-3 mg/3 ml Soln] 3 ml INHALATION RT-QID PRN ml 10/10/19 [Rx] Losartan [Cozaar] 100 mg PO DAILY tab 10/10/19 [Rx] Pantoprazole [Protonix] 40 mg PO BID tablet. 10/10/19 [Rx] Primidone [Mysoline] 50 mg PO TID tab 10/10/19 [Rx] QUEtiapine [SEROquel] 12.5 mg PO HS tab 10/10/19 [Rx] Sertraline [Zoloft] 25 mg PO DAILY tab 10/10/19 [Rx] Sodium Chloride 0.65% Nasal [Deep Sea (Saline)] 2 spray NASAL QID PRN spray 10/10/19 [Rx] amLODIPine [Norvasc] 2.5 mg PO DAILY tab 10/10/19 [Rx] glipiZIDE [Glucotrol] 5 mg PO DAILY tab 10/10/19 [Rx] hydrALAZINE HCL [Apresoline] 25 mg PO Q12H tab 10/10/19 [Rx] traZODone HCL [Desyrel] 50 mg PO HS tab 10/10/19 [Rx] Follow up Appointment(s)/Referral(s): Teja Celis MD [STAFF PHYSICIAN] - 1 Week (Event monitor will be mailed to [facility] with instructions for application. ) Felix Hernandez DO [Doctor of Osteopathic Medicine] - 1 Week (Patient may plan to follow up with Marck Potter PA-C or Dr. Leroy Hernandez at [facility] in approximately 1-2 weeks following discharge) Janay Rivera MD [STAFF PHYSICIAN] - 2 Weeks [facility], [NON-STAFF] - 1 Week Rodrigo Dc MD [Primary Care Provider] - 1-2 days Patient Instructions/Handouts: Fall Prevention for Older Adults (ED) Activity/Diet/Wound Care/Special Instructions: Please return to the Emergency Department if symptoms worsen or any other concerns. Remove sutures after September 29
== END 2019-10-10 16:42 | DRG 811 ==
LOC: EC 19:50 → 5NMEDONC 09-20 02:29 → INTOOBSV 09-20 02:29 → OBSVTOIN 09-20 02:29 → 6NMEDSUR 09-20 03:25 → OBSVTOIN 09-22 09:31 → UNDODISIN 09-29 15:34 → 4SSUR 09-30 18:40
PROVIDERS: ADMIT Internal Medicine; ATTEND Internal Medicine
DX: D50.9 Iron deficiency anemia, unspecified (principal); J18.9 Pneumonia, unspecified organism; I13.0 Hypertensive heart and chronic kidney disease with heart failure and stage 1 through stage 4 chronic kidney disease, or unspecified chronic kidney disease; I50.32 Chronic diastolic (congestive) heart failure; J98.11 Atelectasis; N17.9 Acute kidney failure, unspecified; N18.4 Chronic kidney disease, stage 4 (severe); N39.0 Urinary tract infection, site not specified; D63.1 Anemia in chronic kidney disease; I27.20 Pulmonary hypertension, unspecified; E11.22 Type 2 diabetes mellitus with diabetic chronic kidney disease; F02.80 Dementia in other diseases classified elsewhere, unspecified severity, without behavioral disturbance, psychotic disturbance, mood disturbance, and anxiety; G20 Parkinson's disease; I25.10 Atherosclerotic heart disease of native coronary artery without angina pectoris; E78.5 Hyperlipidemia, unspecified; E86.0 Dehydration; E87.5 Hyperkalemia; I44.0 Atrioventricular block, first degree; I65.23 Occlusion and stenosis of bilateral carotid arteries; K21.9 Gastro-esophageal reflux disease without esophagitis; K29.70 Gastritis, unspecified, without bleeding; K31.7 Polyp of stomach and duodenum; K44.9 Diaphragmatic hernia without obstruction or gangrene; K57.30 Diverticulosis of large intestine without perforation or abscess without bleeding; K63.5 Polyp of colon; K64.8 Other hemorrhoids; M15.9 Polyosteoarthritis, unspecified; R29.6 Repeated falls; S01.81XA Laceration without foreign body of other part of head, initial encounter; S51.011A Laceration without foreign body of right elbow, initial encounter; S51.811A Laceration without foreign body of right forearm, initial encounter; H26.9 Unspecified cataract; M10.9 Gout, unspecified; M25.561 Pain in right knee; M54.9 Dorsalgia, unspecified; R26.81 Unsteadiness on feet; R11.10 Vomiting, unspecified; R55 Syncope and collapse; R33.9 Retention of urine, unspecified; R45.1 Restlessness and agitation; I08.1 Rheumatic disorders of both mitral and tricuspid valves; Z79.02 Long term (current) use of antithrombotics/antiplatelets; Z79.82 Long term (current) use of aspirin; Z79.899 Other long term (current) drug therapy; Z96.653 Presence of artificial knee joint, bilateral; Z95.5 Presence of coronary angioplasty implant and graft; Z91.81 History of falling; Z90.710 Acquired absence of both cervix and uterus; Z88.0 Allergy status to penicillin; Z88.5 Allergy status to narcotic agent; Z91.041 Radiographic dye allergy status; Z87.891 Personal history of nicotine dependence; Z86.718 Personal history of other venous thrombosis and embolism; Z90.49 Acquired absence of other specified parts of digestive tract; Z86.010 Personal history of colon polyps; Z87.01 Personal history of pneumonia (recurrent); Z82.3 Family history of stroke; Z80.9 Family history of malignant neoplasm, unspecified; Z82.0 Family history of epilepsy and other diseases of the nervous system; W18.2XXA Fall in (into) shower or empty bathtub, initial encounter; W22.09XA Striking against other stationary object, initial encounter; Y92.002 Bathroom of unspecified non-institutional (private) residence as the place of occurrence of the external cause
CPT/HCPCS: 12004; 36415; 43239; 45385; 70450; 71045; 71046; 72125; 78582; 80048; 80053; 81001; 82272; 82607; 82728; 82746; 82947; 83540; 83550; 83605; 84484; 84550; 85025; 85045; 85379; 85610; 85730; 86140; 86850; 86900; 86901; 86920; 87040; 87086; 88305; 88342; 93005; 93306; 93880; 93970; 96361; 96365; 96375; 96376; 99291